=== PATIENT | female | born 1985 | race Asian ===

== ENCOUNTER 2016-07-13 14:02 | Inpatient (IN) | payer OTHER ==
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
[2016-07-13 14:29] VITALS: BP 142/83; PULSE 115; RESP 18; O2SAT 95
[2016-07-13 15:09] VITALS: BP 107/51; PULSE 95; RESP 18; O2SAT 100
[2016-07-13 15:45] LABS: APPEARANCE,URINE CLEAR (CLEAR,HAZY); COLOR,URINE YELLOW (YELLOW)
[2016-07-13 15:47] LABS: OCCULT BLOOD,URINE NEGATIVE (NEGATIVE); UROBILINOGEN,URINE NORMAL (NORMAL)
[2016-07-13 15:58] LABS: BASOPHILS % (AUTO) 0.1 % (0-3); EOSINOPHILS % (AUTO) 0.9 % (0-5); MONOCYTES % (AUTO) 8.7 % (4-12); Mean Corpuscular Hemoglobin 29.5 pg (27.0-35.0); Mean Corpuscular Volume 90.2 fL (81-100); NEUTROPHILS % (AUTO) 71.2 % (40-74); Platelet Count 292 bil/L (150-400)
[2016-07-13 17:05] VITALS: BP 103/66; PULSE 104; RESP 16; O2SAT 100
[2016-07-13 19:57] VITALS: BP 114/67; PULSE 127; O2SAT 100
[2016-07-13 23:32] VITALS: BP 89/45; PULSE 102; O2SAT 96
[2016-07-14] MEDS ORDERED: Benzocaine-Menthol Lozenge 2/Pkg PO PRN ×2 (00:15→13:45)
[2016-07-14] MEDS ORDERED: Alum-Mag Hydrox-Simeth 30 mL Suspension PO PRN ×2 (00:15→13:45)
[2016-07-14] MEDS ORDERED: Magnesium Hydroxide 10 mL Oral Concentration PO PRN ×2 (00:15→13:45)
[2016-07-14] MEDS ORDERED: LORazepam 1 mg Tablet PO PRN ×2 (00:20→13:45)
--- NOTE | 2016-07-14 01:50 | NUR ---
Observations 1900 to 0700 Pt arrived on the floor at 00:10 and was not able to partake in the intake process. Pt went straight to her room and has been in bed ever since. Pt first appeared asleep at 00:30 and was observed every 15 minutes through the night as directed.
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
--- NOTE | 2016-07-14 08:50 | DRSVH ---
PROCEDURE: US ABDOMEN ([id number]) INDICATIONS: elevated alk phos TECHNIQUE: Real-time scanning was performed of the abdominal and retroperitoneal organs, with image documentatio n. COMPARISON: [facility], US, US OB FOLLOW UP GROWTH, 07/13/2016, 2:39. FINDINGS: Liver: Liver is normal in size and homogeneous in echotexture. Gallbladder: Normal gallbladder. Biliary ducts: Intrahepatic bile ducts are non-dilated. Extrahepatic bile duct caliber measures 2 p oint mm. Normal is 6-7 mm or less in diameter, or 10 mm or less post-cholecystectomy. Pancreas: Visualized portions of the pancreas are sonographically normal. Spleen: Spleen is normal in size and homogeneous in echotexture. Kidneys: Kidneys are normal in size and echotexture. Right kidney measures 11.5 cm long; left kidne y measures 11.9 cm long. Mild right hydronephrosis.. No solid masses. Aorta: Visualized aorta is normal in caliber at less than 3 cm. Iliacs: Proximal common iliac arteries are normal in caliber at less than 2.5 cm. IVC: Intrahepatic inferior vena cava is patent. Miscellaneous: No free abdominal fluid. Patient is ampullary measured at 169 beats per min cassia. IMPRESSION: Mild right hydronephrosis which may be related to patient's . Recommend correla tion with history and symptoms. Dictated by: Jovanny Figueroa A Interpreted: Anuradha Barrios MD on 07/14/2016 at 8:48 Transcribed by: PRACHI on 07/14/2016 at 8:50 Approved by: Anuradha Barrios MD, PhD on 07/14/2016 at 17:14
--- NOTE | 2016-07-14 14:19 | NUR ---
[id number]. nurs. S/O: Pt in bed in am with 1:1 present to monitor pt's safety and inability to contract for safety.Pt is mandarin speaking and has some ltd Honduran. Pt did respond to enc. to come to DR to eat breakfast and lunch, preferred some of supplements, states is non meat eating and expressed some PI re. worried that something may be put into open food and drink items. Pt took shower appropriately. Pt also expressed concern that she has difficulty sleeping at night, is afraid in dark and "that someone might be outside the window "committing suicide". Pt stating that she would be less afraid and sleep if could sleep outside nurses station at night. Pt reported hx of cutting arms stated not to kill self but had seen it on TV. Pt noted to scratch arms superficially while conversing and appearing nervous. Pt reporting depression of 8/10 and anxiety of 10/10 stating she is always sad and anxious about being substantially without support of family and friends. Pt states that people look down on me because I am single (and ?) Pt did come with enc. to colour briefly then returned to bed. Addendum: 07/14/16 at 1528 by CHRISTIANO NAVAS RN Pt accepted offered 0.25mg at 1513 approx. Pt etl software engineer continued to monitor safety.
[2016-07-14] MEDS: LORazepam 0.5 mg Tablet PO SCH ×2 (14:52→20:30)
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
--- NOTE | 2016-07-14 18:12 | NUR ---
[facility] Day Shift Pt placed on 1:1 sitter status for pt safety. Pt maintained behavioral control throughout the shift. Pt affect appears flat, blunt. Pt is mostly non-communicative with staff due to language barrier, but is able to respond appropriately to basic questions/statements. Pt spends the majority of the shift resting in her room. Pt occasionally observed scratching her arms with her fingernails. Pt is only active on the unit to attend meals, very briefly staying in the dining room to color following lunch. Pt attended all meals and ate approx 100% of breakfast, 30% of lunch, and 100% of dinner.
--- NOTE | 2016-07-14 18:58 | NUR ---
Gifts Officer/Counselor: S: "I tend to hate others." O: Met with patient, patient's nurse, japanese interpreter. Patient slept 6+ hours last night per staff. Patient denied S/I and H/I. She also denied auditory and visual hallucinations. Depression is 8-9/10 and anxiety is 10/10. Patient stated, via japanese interpreter, I'm not happy of being . I never thought about killing myself or my mom." Patient is about 27 weeks and has not seen an enrollment management coordinator since April 2016. Patient stated, via japanese interpreter, "I don't need one." A: Patient is cooperative, anxious, depressed, limited insight, limited judgement. P: Follow care plan, coordinate with out-patient providers.
--- NOTE | 2016-07-15 01:49 | NUR ---
Observations 1900 to 0700 Pt was in her room for mos to of the shift. Pt came out briefly and went right back to her room. Pt first appeared asleep at 00:30 and was observed every 15 minutes through the night as directed.
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
--- NOTE | 2016-07-15 05:19 | NUR ---
nursing, nights, 11-7 s/o- has direct line of sight one to one observation. has appeared to sleep after [id number], 0 to 0400, up to the toilet and easily returned to sleep. assessed q 15 minutes. a- no apparent distress. p- monitor behavior/emotional state, quality, times and amount of sleep, use and effect of medication. continue one to one staffing for safety. rosie
[2016-07-15] MEDS: LORazepam 0.5 mg Tablet PO SCH ×3 (08:48→20:23)
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
--- NOTE | 2016-07-15 17:51 | NUR ---
[facility] Day Shift Pt affect and behavior mostly unchanged from previous shift. Pt maintained behavioral control throughout the shift. Pt affect appears flat, blunt (though brighter than noted on previous shift). Pt is mostly non-communicative with staff due to language barrier, but is able to respond appropriately to basic questions/statements. Pt spends the majority of the shift resting in her room. Pt is only active on the unit to attend meals, very briefly staying in the dining room to color following lunch. Pt attended all meals and ate approx 80% of all meals.
--- NOTE | 2016-07-15 18:08 | NUR ---
Documentation Writer/Counselor: S: "I think I will eat something." O: Met with patient. Patient slept 9+ hours last night per staff. Patient denied S/I and H/I. She also denied auditory and visual hallucinations. A: Patient is cooperative, anxious, depressed, fearful, blunted affect, limited insight, limited judgement. P: Follow care plan, coordinate with out-patient providers.
--- NOTE | 2016-07-15 23:41 | NUR ---
Dictated for Jenn Guillen by Kashif Spring 1:1 continued through the day shift to monitor patient safety. Pt c/o HUGHES but refused medications and reported resolve after few hours. Pt did take all schduled medications this shit. Pt meeting with MD, First Officer, and public health officer this shift. Out to DR for meals and supplements and spent short periods in DR coloring. Pt presents brighter affect and color in afternoon. 1:1 discontinued in afternoon. Q15 minute safety checks, Pt not referencing this shift.
--- NOTE | 2016-07-16 04:24 | NUR ---
Pt isolated to room all of shift. Pt asleep at [id number], 2245. Pt observed every 15 minutes as ordered.
--- NOTE | 2016-07-16 05:03 | NUR ---
Nursing Noc Pt isolated to room entire shift. Answers questions with one or two words, as minimally as possible. Refused all available HS medications. Continuing to monitor mood behavior and emotional state. Q15 minute safety checks performed throughout the shift.
[2016-07-16] MEDS: LORazepam 0.5 mg Tablet PO SCH ×2 (08:36→20:30)
[2016-07-16 09:00] VITALS: BP 107/69; PULSE 81; RESP 16
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
--- NOTE | 2016-07-16 13:27 | NUR ---
Nursing 7-3 S: "The ghost tells me it wants to get me and take me away." O: Patient describing through an overage shortage and damage clerk the voices she hears when she is in her room at night. Denies any hallucinations during the day or when out of her room. Denies harmful thoughts. Rates her anxiety as 10/10. Acknowledges understanding to approach nursing staff for anxiety medication. Declined offer of Ativan after lunch. Has eaten well today at meals. Showered this AM. A: Pleasant on approach. Quiet for the most part. P: CPOC. Monitor mood and behavior.
--- NOTE | 2016-07-16 18:03 | NUR ---
[facility] Day Shift Pt affect and behavior mostly unchanged from previous shift. Pt maintained behavioral control throughout the shift. Pt affect appears flat, blunt (though brighter than noted on previous shift). Pt is mostly non-communicative with staff due to language barrier, but is able to respond appropriately to basic questions/statements. Pt spends the majority of the shift resting in her room. Pt is only active on the unit to attend meals, very briefly staying in the dining room to color following lunch. Pt occasionally enters the dining room to retrieve snacks throughout the shift. Pt attended all meals and ate approx 80% of all meals.
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
[2016-07-16] MEDS ORDERED: risperiDONE 2 mg Tablet PO SCH (20:30)
--- NOTE | 2016-07-16 22:31 | NUR ---
Nurses Note evening Patient has remained in her room this shift except for dinner.Patient was pleasant on approach but guarded possibly related to the language barrier. She was cooperative with the OB-Polymerization Oven Tender doctors' assessment. Patient to be followed by their service while here. Patient has not complained of any discomfort. The sign language interpreter is scheduled to visit tomorrow at 11:30am while the psychiatrist and home health care case manager are here. Will continue to encourage adequate nutrition,hydration and sleep patterns,maintain q 15min. checks for safety and support. Addendum: 07/16/16 at 2245 by NANCY GEE RN Amended: Links added.
--- NOTE | 2016-07-17 04:41 | NUR ---
Manager Endoscopy Note 7pm to 7am Pt awake at start of shift, resting in her bed. Pt pleasant on approach, attempting to communicate in broken Icelandic. Responding to questions with yes/no answers with smile on face. Declined Klonopin [employer] med. When asked if she wanted a drink, pt stated I have water but on further inspection glass was empty. It is unknown if pt is getting adequate fluid and food intake. Unable to accurately assess mental status as pt speaks limited Icelandic and needs an motor vehicle parts interpreter. Per report [facility] motor vehicle parts interpreter will be on unit at 1130 3/4 to assist OB MD with assessment. Pt appeared to have slept through the night, in no acute distress. Monitored q 15 minutes for safety, location and accountability.
[2016-07-17] MEDS: LORazepam 0.5 mg Tablet PO SCH ×2 (08:21→21:21)
[2016-07-17 11:41] VITALS: BP 102/72; PULSE 97; RESP 16
--- NOTE | 2016-07-17 12:48 | NUR ---
Nursing Day Shift S: "The ghosts are gone. They're not here." O: Marker Maker here for assessment of patient. Patient denies hallucinations. Anxiety and depression very high. Received Tylenol 650 mg for c/o headache at the end of the interview and Ativan 1 mg for high anxiety following interview with the MD, CM, and RN. Up in dining room for lunch afterward with a good appetite. Is presently asleep in her room. A: Flat. Interactive with short responses. Forlorn in interview with freight trucker and treatment team. P: CPOC. Monitor mood and behavior.
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
--- NOTE | 2016-07-17 16:32 | NUR ---
Observations 0700 to 1900 Pt maintained behavioral control throughout the shift. Pt is isolative and refused community activities throughout the day, except for briefly watching watching TV with peers in afternoon. Pt spent most of day in bed, coming out for meals. Pt affect is flat. Pt ate 75-100% of breakfast and lunch and was observed every 15 minutes as ordered.
--- NOTE | 2016-07-18 00:35 | NUR ---
restaurant shift supervisor nursing note 7pm to 7am Pt in bed at start of shift, resting quietly. Pt arousable. Difficult to assess mental status as pt answered questions with one word answers" fine" and was graciously dismissive. Pt's main language is mandarin mosotho. Pt took HS Klonopin and went back to bed. Pt declined offers of food and fluids during snack time. Addendum: 07/18/16 at 0444 by MARY LOO RN Pt had some uninterrupted sleep throughout the night, declined prn medications and declined fluids. Pt had a total of 6.25 hours of sleep. Monitored q 15 minutes for safety location and accountability
[2016-07-18] MEDS: LORazepam 0.5 mg Tablet PO SCH ×3 (08:28→20:40)
[2016-07-18 09:30] VITALS: BP 101/63; PULSE 99; RESP 16
--- NOTE | 2016-07-18 12:12 | NUR ---
Nursing Dayshift: S: "A little." O: Operations Manager Assistant present and utilized for assessing patient. Patient states the above when discussing if the medication is working to help her mood. Relates she feels she is a burden to people. Suicide plan outside of unit is to "hide knives or sharp objects and use them if I'm feeling bad". Vague in many responses. Is up and out of her room for meals and a shower. Verbalizes understanding of need to keep hydrated for her and the baby's benefit. Rates anxiety and depression both at a 10/10. Denied offer of prn. A: Isolative. Vague. Med compliant. P: CPOC. Monitor mood and behavior.
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
--- NOTE | 2016-07-18 18:05 | NUR ---
Observations [id number] Pt was asleep upon start of shift. Pt continues to isolate to room, although did spend a little more time with peers today then observed in previous days. Pt attended all meals, eating 100%. She took a shower and also did laundry. Pt is observed to be friendly with peers and staff, although struggles with communication due to language barrier. Pt did not attend groups and presents as timid and very shy. She was observed every 15 minutes of shift as directed.
--- NOTE | 2016-07-18 19:30 | NUR ---
Nurses Note Evening Patient has been out of her room on several occasions,pleasant and interactive with select female peer. Appetite, hygiene and sleep pattern undisturbed. Patient was not seen by OB-PRISON WARDEN Vinayka/Amy, however has not had any complaints or problems. Will maintain q 15min. checks for safety,support. Addendum: 07/18/16 at 1937 by NANCY GEE RN Amended: Links added.
[2016-07-18 21:30] VITALS: BP 100/62; PULSE 98; RESP 16
--- NOTE | 2016-07-19 05:37 | NUR ---
nursing, nights, 11-7 s/o- has appeared to sleep after 2144. was talking to himself at 229. appeared to sleep after 329. assessed q 15 minutes. a- interrupted sleep/nightmare, no apparent distress. p- monitor behavior/emotional state, quality, times and amount of sleep, use and effect of medication. Addendum: 07/19/16 at 0540 by HEATHER BHATT RN Error in previous note. Placed onwrong person. Pt Femi Con was noted to be asleep at 1999 awoke shortly at 2114 , then noted to sleep the rest of the shift from 2144.
[2016-07-19] MEDS: LORazepam 0.5 mg Tablet PO SCH (08:31)
--- NOTE | 2016-07-19 13:12 | NUR ---
Nursing Note [id number] Behavior, Mood S/O: Pt out in milieu part of the morning. Pt rated mood at a 9/10-10 the best. Pt attended community meeting & made a goal to read her book. Pt able to converse in ordinary conversations in [place]ese. Conversation broken, but understandable. Pt isolative in room part of the morning. Pt ate 100% of breakfast & 75% of lunch. Consult written for CERTIFIED MEDICAL BILLER. Pt met with psychiatrist & associate media director this morning. A: Pt has limited ability to understand her situation. P: Provide supportive environment. Monitor medications & effects.
[2016-07-19] MEDS: diphenhydrAMINE 25 mg Capsule PO SCH ×3 (14:25→21:02)
--- NOTE | 2016-07-19 14:39 | PCM.PNPSY ---
Subjective Date of Service Jul 19, 2016 Subjective The patient is seen with a [employer] coatings inspector for approximately 25 minutes. The patient reports that she is "okay" today. Although she cannot state in detail why she is in the hospital she is able to state that it was due to an involuntary hospitalization. She states, "I have learned a lot and I feel more emotionally stable." Although she reports having increased anxiety and depression she is unable to give any details and smiles while describing this. She reports having episodic suicidal ideation without any intent or plan. She reports in the past having pulled at her skin. She denies any side effects. Sleep: 9+ hours. Appetite: "Hungry, not enough food... Feels like there are worms in my stomach eating my food." Suicidal and homicidal ideation: Episodic suicidal ideation without plan or intent. No homicidal ideation. Auditory hallucinations: Denies Visual hallucinations: Denies Other Psychotic Symptoms: N/A Anxiety: "I worry there is not enough medicine left for me." 10 over 10 and anxiety. Depression: 10/10 and depression. Current Medications Current Medications Diphenhydramine HCl 25 mg TID PO Last administered on 07/19/16 14:25; Admin Dose 25 MG; Start 07/19/16 at 14:30 Lorazepam 0.5 mg TID PO Last administered on 07/19/16 08:31; Admin Dose 0.5 MG; Start 07/17/16 at 20:30; Stop 07/19/16 at 13:59; Status DC Mental Status Exam Appearance: Neat/well groomed Attitude: Cooperative, Guarded Behavior: Other (avoidant eye contact) Affect: Restricted, Other (smiles occasionally) Mood: Anxious, Fearful Thought Process/Associations: Goal Directed Speech Production: Normal Speech Rate: Normal Speech Articulation: Normal Thought Content: Negativistic Danger to Self/Suicidal Ideati: Passive, Plan (denies), Intent (denies) Danger to Others: None Delusions: Paranoid (unclear) Hallucinations: Auditory (Denies), Visual (Denies) Consciousness: Alert Orientation: Person, Place, Date, Situation Memory: Untestable Estimate Intellectual Function: Unable to assess Attention/Concentration & Cogn: Impaired Insight: Limited Judgement: Limited Result Diagram: 07/13/16 1527 07/13/16 1527 Mental Health Plan The patient is a 30-year-old, Mandarin speaking female who reportedly tried to "cut the baby out" at times due to anger. The patient appears to meet criteria for major depression and so was started on fluoxetine and lorazepam for anxiety. The patient requested an increase in antianxiety medication, however lorazepam is generally avoided where possible and and so will be switched to diphenhydramine per consultation with SOLAR ENERGY ADVISOR regarding safest treatment. The patient is currently denying active suicidal or homicidal ideation though endorses chronic/episodic thoughts and agrees to notify staff of worsening symptoms. [place] DIAGNOSIS: [place] I: 1. 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 2. Rule out post-traumatic stress disorder.s [place] II: Deferred. [place] III: Intrauterine at 29 weeks. [place] IV: Severe. [place] V: 35 Medications Fluoxetine 20 mg daily Lorazepam 0.5 mg 3 times daily Treatments 1. The patient is admitted to the inpatient unit and will be provided a safe and secure environment. 2. The patient is reporting passive suicidal ideation but is denying current active suicidality and is not in need of a one-to-one at this time. She is agreeing to notify us should she have any acute suicidal or homicidal thoughts. 3. The patient is encouraged to participate with group and milieu activities. 4. The patient will be seen by the treatment team on a daily basis to assess symptoms, side effects and response to treatment. [employer]INAS [employer]OPHAR[employer] coatings inspector will be used during these times. 5. The patient will be continued on fluoxetine for depression and possible PTSD. 6. As the patient reports lorazepam is ineffective, we will switch to diphenhydramine 25 mg 3 times a day with 25 mg every 4 hours as needed to address anxiety. 7. We will need to continue to work on a proper discharge planning. 8. Anticipated length of stay is 7-10 days. Rigoberto Egan MD Jul 19, 2016 14:39 environment Tolerates medication without side effects Patient will be on the following psychiatric medications: Prozac 20 mg daily Ativan to 0.5 mg 3 times a day Address patient's legal status Patient is on a 72 hour involuntary treatment hold. Patient will be given the opportunity to talk to her clinical nursing instructor and the precise winder on Tuesday Rigoberto Egan MD Jul 19, 2016 14:39
--- NOTE | 2016-07-19 15:42 | NUR ---
Alumni Relations Officer./ c.m. S.:"I feel better. I learned a lot here and my emotions are not shifting that much." O.: met with pt., stone finisher and MD together. Pt. slept well last night. She denied HI, denied AH/VH or paranoid/delusional thoughts. She continued having SI but she was able to contract for safety. She rated depression at 10/10 and anxiety at 10/10. She said that she was "always worry and afraid of strangers. She admitted that meds were helping her "a little". She said that she liked to be called "kojo cat because it is cute." She was concerned that she wanted to eat more. "I feel like I have worms inside." She spent most of the time in her room. She said that she would be able to go back to her renting place and her "uncle will pay" for her rent. A.: pt. is cooperative, pleasant, looks more comfortable in a conversation. She has limited Burmese but she understands and can speak Burmese much more than she wants staff to know about it. P.: monitor behavior, monitor for safety, follow care plan.
--- NOTE | 2016-07-19 20:06 | NUR ---
Observations 0300 to 2130 Pt maintained behavioral control throughout the shift. Pt continues to isolate but also spent slightly more time than previous shifts in the milieu. Pt seemed to enjoy coloring in dining room in afternoon. Pt attended community meeting and set daily goal to read chapter 3 of bible. Pt self rated mood at 9/10. Pt ate 75-100% of meals and was observed every 15 minutes as ordered
--- NOTE | 2016-07-19 22:46 | NUR ---
Nursing Note Floridalma- Pt isolating to room upon arrival to unit. Upon assessment pt appears guarded with little eye contact. Limited conversation r/t language barrier. when asked if pt felt safe on the unit pt stated" not at night, the women comes in and wants to eat me. Pt eating meals and drinking fluids, when asked if pt was happy about the baby pt stated " yes now it will be two. Pt denied HS Benadryl Q15 min safety checks done per protocol, WCTM sleep, safety, behavior.
--- NOTE | 2016-07-20 01:54 | NUR ---
Observations 1900 to 0700 Pt was in her room when my shift started and remained there for the rest of the night. Pt first appeared asleep at 21:45 and was observed every 15 minutes through the night as directed.
--- NOTE | 2016-07-20 05:36 | NUR ---
Nursing Noc 11-7 Pt noted to be asleep this shift. First noted to be sleeping at 2145 and remained asleep throughout the night. Continuing to monitor sleep, safety, and behavior
[2016-07-20] MEDS: diphenhydrAMINE 25 mg Capsule PO SCH ×3 (08:11→20:30)
--- NOTE | 2016-07-20 11:11 | CONS ---
[address] [address] CONSULTATION REPORT PATIENT: TOMMY ADAMS : 1985 MR#: [id number] ADMIT: 07/13/2016 JOB ID: [id number] DATE OF SERVICE: 07/20/2016 HISTORY OF PRESENT ILLNESS: This is a 30-year-old female. She is possible to be 2 para 0-0-1-0, at 30 weeks 3 days, based on 29-week ultrasound. This patient was admitted to the psych unit for suspicion of psychosis on July 13, 2015. I was consulted for 30 weeks . When I presented to the psych unit, the patient is calm, sitting on the bed with the nurse and resident. I spoke with her in Mandarin. She can understand my language well. She can understand my question well. She answers some questions. She keeps quiet for some other questions. When I repeat the same questions in several minutes interval, she often times gives me different answers. Per patient, she has been known she's from a long time ago. She did not seek any care. The patient mentions that she had a boyfriend but she does not live with her boyfriend, and she had no plan to live with her boyfriend in the future. She planned to deliver the baby in the hospital and she will take care of the baby for a short period time, and the plan is her boyfriend to take over care of the baby in the future. She does not feel discomfort with the . When I asked about movement, she said, "I don't care about it." She cannot answer me whether she feels the movement or not. She does not complain of abdominal pain. She does not have vaginal bleeding or abnormal vaginal discharge. Allergy: She declined any medication allergies. PAST MEDICAL HISTORY: She mentioned she has some psychology problems, but otherwise she declined other medical problems. PAST SURGICAL HISTORY: She declined any surgeries before. OBSTETRICAL HISTORY: When she talked with me, she said she has one miscarriage several years ago, but per the nurse at the [facility], she told people she had a 5-year-old. At this time, she declined she ever had a child. GYNECOLOGIC HISTORY: She declined any abnormality, and she could not tell me her last menstrual period. SOCIAL HISTORY: She has history of smoking. She rarely drinks alcohol. She admits she has used drugs before, but she has been using for a while. She cannot specify what kind of drug she has been using, or how long she has been stopped. PHYSICAL EXAMINATION: When I was trying to do a physical examination, the patient complained that she has a headache and she did not want to talk or she did not want me to do a physical examination. I talked with her whether it is okay to come back in the future, she said it is okay and she thanked me for coming in to see her. ASSESSMENT AND PLAN: This is a 30-year-old female, unclear and parity. From today's evaluation per patient, she is 2 para 0-0-1-0. She should be around 30 weeks 3 days based on 29-week ultrasound. This is a patient who never had care. How long she will still stay at the psych unit at this time it is not very certain. Today, she did not tell me she has any suicidal ideas, but reading on the previous note, she does sometime have it, although has no active plan. PLAN: From the PAY STATION COLLECTOR point of view, I will plan to: 1. Order complete labs including HIV, hepatitis B, C, RPR, rubella, varicella. I also order her urine chlamydia gonorrhea test. 2. We will do a daily Doptone. 3. I will order anatomy scan. 4. For her medication, Prozac and Benadryl is a relatively safer medication in . The patient can continue with those if she needed, and lorazepam is relatively not as safe as Benadryl, but if it is needed to control her psychology problems, it should be used. If the patient will need stay in the psych unit for a prolonged time, PAY STATION COLLECTOR will follow. At this time, if she is about 30 weeks , besides daily Doptone, we could consider to see her every two weeks. Please feel free to contact PAY STATION COLLECTOR for further questions. If the patient will be discharged from the psych unit, you can contact our office to make an appointment for her for further follow up. WHITNEY
--- NOTE | 2016-07-20 11:19 | DRSVH ---
PROCEDURE: US OB 1 OR MORE FETUS LIMITED INDICATIONS: anatomy OUTSIDE/PRIOR DATING DATA: First dating scan (date and location): 07/13/2016. Estimated date of delivery (SAMEREN) from first dating scan: 09/25/2016. TECHNIQUE: Real-time scanning was performed of the fetus, with image documentation and biometric measurements. COMPARISON: [facility], US, US OB FOLLOW UP GROWTH, 07/13/2016, 2:39. FINDINGS: General: A single living intrauterine gestation is present. Presentation: Breech. Placenta: Placental position is anterior, without previa. OB-IMPROVEMENT SPECIALIST Ultrasound Procedure Report Summary Fetus Summary Estimated Gestational Age from first dating scan: 30 weeks, 3 days Heart Rate: 156 bpm Findings(Amniotic Sac) Amniotic Fluid Index: 13.50 cm Pelvis and Uterus Cervix Length: 3.97 cm Other: Not applicable. IMPRESSION: 1. Single living intrauterine gestation redemonstrated. 2. Normal appearance of the ventricles, cord plexus, cerebellum, face, 4 chamber heart and card iac outflow tracts. Dictated by: Jovanny ORTEGA Interpreted: Preethi Betts MD on 07/20/2016 at 11:07 Transcribed by: DANNY on 07/20/2016 at 11:09 Approved by: Preethi Betts M.D. on 07/22/2016 at 16:23
[2016-07-20 12:19] LABS: APPEARANCE,URINE HAZY (CLEAR,HAZY); COLOR,URINE STRAW (YELLOW); OCCULT BLOOD,URINE NEGATIVE (NEGATIVE); PH,URINE 6.5 (5.0-8.0); UROBILINOGEN,URINE NORMAL (NORMAL)
--- NOTE | 2016-07-20 12:43 | NUR ---
Nursing Note [id number] Behavior S/O: Pt seen by MARKETING ANALYTICS SPECIALIST doctor this morning. Blood draws & urine labs ordered. Urine sent to laboratory. Pt has refused blood draws twice today. She gave no reason for refusing labs. Ultra sound finished this morning. Pt is to receive an MARKETING ANALYTICS SPECIALIST consult every 2 weeks until d/c & to have heart tones daily per MARKETING ANALYTICS SPECIALIST doctor who saw her this morning. Pt ate 100% of breakfast & 20% of lunch. Pt has little eye contact. She is difficult to understand because of the language barrier, but is able to express simple concepts. Pt had commutator undercutter to communicate with steaming machine operator, animal cytologist, and psychiatrist. Pt is scheduled for court tomorrow. She has signed that she d/n want medications. A: Pt has little understanding of need to care for herself or unborn baby. P: Provide supportive environment. Monitor medications & effects.
--- NOTE | 2016-07-20 20:09 | PCM.PNPSY ---
Subjective Date of Service Jul 20, 2016 Subjective The patient is seen with Dopios wolf hunter. She states that she did not see this senior copywriter yesterday, but when informed of conversation, states, "yes, but only for a little bit." She did recall seeing Dr. Lackey from [facility] and described having received an ultrasound. She endorsed having previously had thoughts of killing her baby, but now reports that she no longer has these thoughts but only finds the baby, "interesting." She reports that she plans to take care of baby on discharge, but is not sure how as she has no housing. She reports that diphenhydramine has helped her anxiety, but still rates it 10/10 despite being informed of the nature of a 10/10 rating and no objective signs of anxiety. No side effects or new medical complaints. Sleep: 8+ hours per staff Appetite: Good, reports being hungry. Suicidal and homicidal ideation: "not a big deal," reports feeling trapped every day. Denies plan or intent to harm self. Auditory hallucinations: Denies Visual hallucinations: Denies Other Psychotic Symptoms: poor eye contact, inappropriate smiling. Anxiety: 10/10 benadryl helpful Depression: "need treatment." Current Medications Current Medications Diphenhydramine HCl 25 mg TID PO Last administered on 07/20/16t 13:50; Admin Dose 25 MG; Start 07/19/16 at 14:30 Mental Status Exam Appearance: Neat/well groomed Attitude: Cooperative, Guarded Behavior: Other (avoidant eye contact, inappropriate smiling.) Affect: Restricted, Other (smiles occasionally) Mood: Anxious, Fearful Thought Process/Associations: Goal Directed Speech Production: Normal Speech Rate: Normal Speech Articulation: Normal Thought Content: Negativistic Danger to Self/Suicidal Ideati: Passive, Plan (denies), Intent (denies) Danger to Others: None Delusions: Paranoid (unclear) Hallucinations: Auditory (Denies), Visual (Denies) Consciousness: Alert Orientation: Person, Place, Date, Situation Memory: Untestable Estimate Intellectual Function: Unable to assess Attention/Concentration & Cogn: Impaired Insight: Limited Judgement: Limited Mental Health Plan The patient is a 30-year-old, Mandarin speaking female who reportedly tried to "cut the baby out" at times due to anger. The patient appears to meet criteria for major depression and so was started on fluoxetine and lorazepam for anxiety. The patient requested an increase in antianxiety medication, however lorazepam is generally avoided where possible and and so will be switched to diphenhydramine per consultation with HOT DIE PRESS FEEDER regarding safest treatment. The patient is currently denying active suicidal or homicidal ideation though endorses chronic/episodic thoughts and agrees to notify staff of worsening symptoms. Her initial presentation was as noted above, but when seen again as she was unwilling to speak with her personal injury attorney, she denied all previously made comments. There does not appear to be a clear psychotic disorder, but assessment of her symptoms is complicated by her lack of cooperation. [place] DIAGNOSIS: [place] I: 1. 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 2. Rule out post-traumatic stress disorder.s [place] II: Deferred. [place] III: Intrauterine at 29 weeks. [place] IV: Severe. [place] V: 35 Medications Fluoxetine 20 mg daily Lorazepam 0.5 mg 3 times daily Treatments 1. The patient is admitted to the inpatient unit and will be provided a safe and secure environment. 2. The patient is reporting passive suicidal ideation but is denying current active suicidality and is not in need of a one-to-one at this time. She is agreeing to notify us should she have any acute suicidal or homicidal thoughts. 3. The patient is encouraged to participate with group and milieu activities. 4. The patient will be seen by the treatment team on a daily basis to assess symptoms, side effects and response to treatment. Dopios wolf hunter will be used during these times. 5. The patient will be continued on fluoxetine for depression and possible PTSD. 6. The patient reports diphenhydramine 25 mg 3 times a day with 25 mg every 4 hours as needed to address anxiety more effective than lorazepam. 7. We will need to continue to work on a proper discharge planning. 8. Anticipated length of stay is 7-10 days. Rigoberto Egan MD Jul 20, 2016 20:09
--- NOTE | 2016-07-20 20:34 | NUR ---
Obs Dayshift Pt was out in the milieu slightly more today, still keeping to herself, walking the ralph and in bed. Pt stated that her stomach was hurting a little and wanted to talk w/ staff. Pt continues to decline the blood draw. Pt made many calls today. Isolating, quiet, reserved. Appears anxious, and guarded. Pt ate 100% at brkfast, 20% at lunch and dinner, no snacks. Ok ADL's
--- NOTE | 2016-07-20 23:34 | NUR ---
Nurses Note Evening Patient has been in her room most of this shift. She approached nursing c/o hard and painful abdomen with cramping. Sharda CLAIRE from family arrived with the monitor to R/O complications, no problems were noted and patient denied pain or discomfort to the nurses. Patients' appetite and hygiene have been undisturbed. Will maintain q 15min. checks for safety and support. Addendum: 07/20/16 at 2341 by NANCY GEE RN Amended: Links added.
--- NOTE | 2016-07-21 01:04 | NUR ---
Observations 1900 to 0700 Pt was in her room when my shift started and remained there for the rest of the night. Pt first appeared asleep at 23:45 and was observed every 15 minutes through the night as directed.
--- NOTE | 2016-07-21 05:17 | NUR ---
Sleep 11p-7a Adequate sleep through the night with no noted distress or awakening per protocol checks. Total sleep 6.5 hours.
[2016-07-21] MEDS: diphenhydrAMINE 25 mg Capsule PO SCH ×3 (10:21→20:30)
[2016-07-21 10:32] VITALS: BP 118/77; PULSE 89; RESP 16
--- NOTE | 2016-07-21 12:13 | NUR ---
Nursing Note [id number] Behavior S/O: Pt in court today & placed on 14 day MRO. Pt confused & standing at an exit door saying she was "going home." When told she needed to stay here, she replied, "for 2 weeks?"even before I explained about the 14 day MRO. Pt has been in her room much of the morning. Pt ate 70-80% of breakfast. Pt able to converse about general things in Luxembourgish, but needs an vacation sales advisor for complicated concepts. A: Pt appears confused & unable to understand concepts even when an vacation sales advisor is present. P: Provide supportive environment. Monitor medications & effects.
--- NOTE | 2016-07-21 15:54 | PCM.PNPSY ---
Subjective Date of Service Jul 21, 2016 Subjective The patient is seen with a Mandarin patient service rep. She has difficulty understanding that she needs to attend court in order to express her concerns and desires about discharge. The patient continued to report that she simply wanted to be released from the hospital. She had no plan moving forward. She would not discuss events prior to her hospitalization and denied having ever attempted to harm or threatened to harm her baby or anyone else. She denied side effects to medications. Sleep: 7.5+ hours. Appetite: Eating well. Suicidal and homicidal ideation: Denied Auditory hallucinations/Visual hallucinations: Denied Other Psychotic Symptoms: Unable to assess Anxiety: Endorses high anxiety but will not discuss symptoms. Depression: Denies symptoms at this time but uncooperative as noted above. Mental Status Exam Vital Signs Vital Signs Date Time Temp Pulse Resp B/P Pulse Ox O2 Delivery O2 Flow Rate FiO2 07/21/16 10:32 36.5 89 16 118/77 Appearance: Unkept (hair oily) Attitude: Guarded, Uncooperative Behavior: Other (avoidant eye contact) Affect: Restricted Mood: Irritable, Anxious Thought Process/Associations: Goal Directed Speech Production: Normal Speech Rate: Normal Speech Articulation: Normal Thought Content: Negativistic Danger to Self/Suicidal Ideati: None, Plan (denies), Intent (denies) Danger to Others: None Delusions: Paranoid (unclear) Hallucinations: Auditory (Denies), Visual (Denies) Consciousness: Alert Orientation: Person, Place, Date, Situation Memory: Untestable Estimate Intellectual Function: Unable to assess Attention/Concentration & Cogn: Impaired Insight: Limited Judgement: Poor Mental Health Plan The patient is a 30-year-old, Mandarin speaking female who reportedly tried to "cut the baby out" at times due to anger. The patient appears to meet criteria for major depression and so was started on fluoxetine and lorazepam for anxiety. The patient requested an increase in antianxiety medication, however lorazepam is generally avoided where possible and and so will be switched to diphenhydramine per consultation with MASTER ESTHETICIAN regarding safest treatment. The patient is currently denying active suicidal or homicidal ideation though endorses chronic/episodic thoughts and agrees to notify staff of worsening symptoms. Her initial presentation was as noted above, but when seen again as she was unwilling to speak with her transactional attorney, she denied all previously made comments. There does not appear to be a clear psychotic disorder, but assessment of her symptoms is complicated by her lack of cooperation. Ultimately, due to her lack of cooperation, and her symptoms prior to admission, the patient was detained for a 14 day order today. [place] DIAGNOSIS: [place] I: 1. 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 2. Rule out post-traumatic stress disorder.s [place] II: Deferred. [place] III: Intrauterine at 29 weeks. [place] IV: Severe. [place] V: 35 Medications Fluoxetine 20 mg daily Diphenhydramine 25 mg 3 times a day Treatments 1. The patient is admitted to the inpatient unit and will be provided a safe and secure environment. 2. The patient is reporting passive suicidal ideation but is denying current active suicidality and is not in need of a one-to-one at this time. She is agreeing to notify us should she have any acute suicidal or homicidal thoughts. 3. The patient is encouraged to participate with group and milieu activities. 4. The patient will be seen by the treatment team on a daily basis to assess symptoms, side effects and response to treatment. BDA patient service rep will be used during these times. 5. The patient will be continued on her current medication for depression and possible PTSD. 6. We will need to continue to work on a proper discharge planning. 7. Anticipated length of stay is 7-10 days. Rigoberto Egan MD Jul 21, 2016 15:54
[2016-07-21] MEDS: diphenhydrAMINE 25 mg Capsule PO PRN (18:04)
--- NOTE | 2016-07-21 18:41 | NUR ---
Case Management/Counseling S/O: Patient slept 7.5 hours last night. She denies S/I and H/I. She also denies auditory and visual hallucinations. Depression is 0/10 and anxiety is "high"/10. A: Patient is uncooperative, guarded, unkept, restricted affect, irritable, anxious, paranoid, limited insight, limited judgement. P: Follow care plan, coordinate out-patient providers.
--- NOTE | 2016-07-22 04:30 | NUR ---
Nursing Note [id number] Pt up at nursing station upon arrival to unit. Pt yelling and crying in broken Kenyan about wanting to use the phone and get her wallet and hand bags. Pt c/t to state " I want to go to [place]". Pt c/t refuse ordered and PRN meds. Pt isolating to room for rest of shift. Pt has not not slept the entire shift. When attempted to assist Pt with meds, snack pt Refused. Q15 min safety checks done per protocol, [facility] sleep, safety, behavior
[2016-07-22] MEDS: diphenhydrAMINE 25 mg Capsule PO SCH ×4 (08:15→21:15)
[2016-07-22 10:40] VITALS: BP 119/74; PULSE 106; RESP 16
--- NOTE | 2016-07-22 13:23 | NUR ---
Nursing Note [id number] Behavior, Medications S/O: Pt ate 70% of breakfast. She has only been out of room for meals & to talk with psychiatrist. Pt able to answer simple questions in Italian. Pt interacts only briefly with staff or peers. Pt refused her medications this morning. Pleasant upon approach. A: Pt is guarded & isolative. P: Provide supportive environment. Monitor medications & effects.
--- NOTE | 2016-07-22 17:48 | NUR ---
Observations [id number] Pt was awake in room upon start of shift. Pt appeared to be internally preoccupied, sitting on bed staring at the [place]ak. She was also observed staring at the wall in the piano room, and spending time by the end of the ralph appearing to be exit seeking. Pt did take a shower today, attended meals but otherwise isolated to her room. Pt did not attend groups. She was friendly when approached by peers and staff. Pt was observed every 15 minutes of shift as directed.
--- NOTE | 2016-07-22 19:17 | NUR ---
Nurses Note Patient was seen by 2 nurses from [facility] for HR check, was cooperative with the assessment with HR in the 140's. Addendum: 07/22/16 at 2257 by NANCY GEE RN Nurses Note Evening Patient refused HS Benadryl and has remained in her room except for dinner.She has not attempted to leave the unit tonight as she did last night and appeared calmer. Will maintain q 15min. checks for safetu and support.
--- NOTE | 2016-07-22 23:18 | PCM.PNPSY ---
Subjective Date of Service Jul 22, 2016 Subjective Had over hour long meeting with patient, mother, and [facility]. Her mother reports that the patient was raised by her grandparents in [place] in [facility]. Her mother indicated that their relationship has been poor for the last 10 years. The patient and her had over his decision to terminate her when one of their twins was found to be stillborn for approximately 1 week when she was 3 months , she then came to the [place] in February. Her came to the [place] in March but subsequently returned. The patient's parents in as her father did not want her as he had wanted a boy. Since that time, the patient's mother reported that the patient's overall mental health deteriorated. Despite this, the patient finished college, majoring in Montenegr[place] teaching. She worked as an toddler teacher until 2014. Her mother reports that 2-3 weeks prior to admission she was thinking that her was trying to kill the baby and believed that since her mother was trying to contact him, she was somehow involved and was trying to kill the baby. The patient's mother reported that the patient was not trying to kill the baby, but remove it from the womb so it could be born on [place] soil. The patient also reported at the time that she was hearing her husbands voice telling her that white men were coming to take the baby. The patient reports today that she is hearing people from [place] inside her head, telling her to call them. She notes that these voices have decreased since taking medication, but she is now afraid to take them. She asked her mother why she was limping and wearing a brace and was informed that the patient had cut her right kneecap and stabbed her left thigh and bit her left arm (where could be seen a healing, circular, full impression bite nora as well as butcher on her hand). The patient was unaware of this. Sleep: poor, 0 hours per staff Appetite: good Suicidal and homicidal ideation: denies Auditory hallucinations: as above Visual hallucinations: denies Other Psychotic Symptoms: poor insight. Anxiety: present Depression: decreased Mental Status Exam Appearance: Unkept (hair oily) Attitude: Cooperative, Guarded Behavior: Overtly anxious Affect: Restricted Mood: Anxious Thought Process/Associations: Goal Directed Speech Production: Normal Speech Rate: Normal Speech Articulation: Normal Thought Content: Negativistic Danger to Self/Suicidal Ideati: None Danger to Others: None Delusions: Paranoid (Endorses) Hallucinations: Auditory (Endorses), Visual (Denies) Consciousness: Alert Orientation: Person, Place, Date, Situation Memory: Short Term Memory (Impaired) Estimate Intellectual Function: Average Basis for IQ estimate: Awareness current events, Word use/vocabulary, Educational history, Employment history Attention/Concentration & Cogn: Impaired Insight: Limited Judgement: Poor Mental Health Plan The patient is a 30-year-old, Mandarin speaking female who reportedly tried to "cut the baby out" at times due to anger. The patient appears to meet criteria for major depression and so was started on fluoxetine and lorazepam for anxiety. The patient requested an increase in antianxiety medication, however lorazepam is generally avoided where possible and and so will be switched to diphenhydramine per consultation with DINKING MACHINE OPERATOR regarding safest treatment. The patient is currently denying active suicidal or homicidal ideation though endorses chronic/episodic thoughts and agrees to notify staff of worsening symptoms. The patient is clearly endorsing psychotic symptoms. These appear to have been responding to antidepressant treatment but if she continues to refuse antidepressant, we will need further discussion with DINKING MACHINE OPERATOR regarding start of antipsychotic. [place] DIAGNOSIS: [place] I: 1. 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 2. Rule out post-traumatic stress disorder.s [place] II: Deferred. [place] III: Intrauterine at 29 weeks. [place] IV: Severe. [place] V: 35 Medications Fluoxetine 20 mg daily Diphenhydramine 25 mg 3 times a day Treatments 1. The patient is admitted to the inpatient unit and will be provided a safe and secure environment. 2. The patient is reporting passive suicidal ideation but is denying current active suicidality and is not in need of a one-to-one at this time. She is agreeing to notify us should she have any acute suicidal or homicidal thoughts. 3. The patient is encouraged to participate with group and milieu activities. 4. The patient will be seen by the treatment team on a daily basis to assess symptoms, side effects and response to treatment. MandNomios enginehouse brakeman will be used during these times. 5. The patient will be continued on her current medication for depression and possible PTSD. 6. We will need to continue to work on a proper discharge planning. 7. Anticipated length of stay is 7-10 days. Rigoberto Egan MD Jul 22, 2016 19:25
--- NOTE | 2016-07-23 06:02 | NUR ---
nursing, nights, 11-7 s/o- has appeared to sleep after 2100, up sitting on bed at 0130, asleep at 0200, awake in bed at 0300 and asleep after 0500, assessed q 15 minutes. a- interrupted sleep somewhat improved, no apparent distress. p- monitor behavior/emotional state, quality, times and amount of sleep, use and effect of medication. rosie
[2016-07-23] MEDS: diphenhydrAMINE 25 mg Capsule PO SCH ×2 (08:32→14:32)
[2016-07-23 10:21] VITALS: BP 115/67; PULSE 96; RESP 16
--- NOTE | 2016-07-23 11:29 | NUR ---
Nursing Day Shift- S- "I'm not good." Pt. smiled as she said this. She denied pain, and answered "Sometimes" To feeling nervous or sad. O- Pt. was in bed at the start of the day shift. She had slept over 6 hours per report. Pt. was awake at breakfast with a superficial smile. She returned to her bedroom afterwards, and was observed sitting on her bed or standing in her room awake. She declined to attend groups, but requested a shower and laundry at 1140. A- Language barrier makes it difficult to confirm if Pt's responses are accurate, if she understood the questions being asked. Brief responses. No apparent distress. P- Cont. BHTP.
--- NOTE | 2016-07-23 12:11 | NUR ---
Nursing Day Shift- S- "I feel night and day better. I've only cried once today. When I first came in I couldn't look anyone in the eye. I'm getting there." (Pt. response to being asked how she felt today versus the day of admission.) O- Pt. was awake for breakfast. She reported the start of a migraine headache rated 5/10 for pain. Prescribed PRN Narcotic was given at 0830. Pt. set a goal of participating today. She has attended groups thus far. Headache pain dropped to 4/10. A- Depression and anxiety decreasing, but still present. P- Cont. BHTP.
--- NOTE | 2016-07-23 15:11 | PCM.PNPSY ---
Subjective Date of Service Jul 23, 2016 Subjective The patient is seen without an envelope adjuster today but expresses herself in somewhat halting Urdu. She states her mood is "I am fine but not good. Better but not good." She reports that she had to cough last night which disrupted her sleep. She feels that the Benadryl is causing some stomach upset. She is continued to take the fluoxetine. She denies any auditory hallucinations so far today. Sleep: 6.5+ hours, broken by cough. Appetite: "Not hungry but eating." Suicidal and homicidal ideation: Denies Auditory hallucinations: "Not so far today." Visual hallucinations: Denies Other Psychotic Symptoms: Improved thought organization and interaction. Anxiety: "Not exactly, a little." Depression: "Some sadness." Mental Status Exam Vital Signs Vital Signs Date Time Temp Pulse Resp B/P Pulse Ox O2 Delivery O2 Flow Rate FiO2 07/23/16 10:21 36.9 96 16 115/67 Appearance: Unkept (hair oily) Attitude: Cooperative, Guarded Behavior: Overtly anxious Affect: Restricted Mood: Anxious Thought Process/Associations: Goal Directed Speech Production: Normal Speech Rate: Normal Speech Articulation: Normal Thought Content: Negativistic Danger to Self/Suicidal Ideati: None Danger to Others: None Hallucinations: Auditory (Denies), Visual (Denies) Consciousness: Alert Orientation: Person, Place, Date, Situation Memory: Short Term Memory (Impaired) Estimate Intellectual Function: Average Basis for IQ estimate: Awareness current events, Word use/vocabulary, Educational history, Employment history Attention/Concentration & Cogn: Impaired Insight: Limited Judgement: Poor Mental Health Plan The patient is a 30-year-old, Mandarin speaking female who reportedly tried to "cut the baby out" at times due to anger. The patient appears to meet criteria for major depression and so was started on fluoxetine and lorazepam for anxiety. The patient requested an increase in antianxiety medication, however lorazepam is generally avoided where possible and and so will be switched to diphenhydramine per consultation with HALL MANAGER regarding safest treatment. The patient is currently denying active suicidal or homicidal ideation though endorses chronic/episodic thoughts and agrees to notify staff of worsening symptoms. The patient is clearly endorsing psychotic symptoms. These appear to have been responding to antidepressant treatment and is again medication adherent. She requests discontinuation of scheduled Benadryl. [place] DIAGNOSIS: [place] I: 1. 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 2. Rule out post-traumatic stress disorder.s [place] II: Deferred. [place] III: Intrauterine at 29 weeks. [place] IV: Severe. [place] V: 35 Medications Fluoxetine 20 mg daily Diphenhydramine 25 mg 3 times a day Treatments 1. The patient is admitted to the inpatient unit and will be provided a safe and secure environment. 2. The patient is reporting passive suicidal ideation but is denying current active suicidality and is not in need of a one-to-one at this time. She is agreeing to notify us should she have any acute suicidal or homicidal thoughts. 3. The patient is encouraged to participate with group and milieu activities. 4. The patient will be seen by the treatment team on a daily basis to assess symptoms, side effects and response to treatment. [employer] envelope adjuster will be used during these times. 5. The patient will be continued on her current medication for depression and possible PTSD. 6. Discontinue scheduled Benadryl. 7. Anticipated length of stay is 7-10 days. Rigoberto Egan MD Jul 23, 2016 15:11
--- NOTE | 2016-07-23 17:26 | NUR ---
Observations 0900 to 2130 Pt affect and mood was flat, isolative, exit seeking and preoccupied. Pt speech and eye contact was poor. Pt attended community meeting and set a daily goal. Pt was in her room most of the day, staring at the nowak and floor when observed. Pt was minimally social with staff and select peers when approached. Pt continues to give short responses when approached. Pt attended meals in D.R. and ate 50% of her meals. Pt maintained behavior throughout the shift. Pt was polite, pleasant and cooperative. Pt was in her room during free time and keeps to herself. Pt was observed every 15 minutes throughout the shift as ordered. Pt was at the end of the ralph for some time in the afternoon/evening and appears to be exit seeking. Pt is currently talking with RN at the end of the ralph by the door.
--- NOTE | 2016-07-23 21:16 | NUR ---
NURSING NOTE [id number] Mood= "It's okay" Affect= guarded, disorganized at times Behavior= pt. was in her room at start of shift, sitting on her bedside table when this information writer came to see her. She was reading and studying the back of a wet napkin package for a half hour as this information writer came to check in on her several times. She was quite chatty w/this information writer at start of shift, asking many questions about the hospital. Later became very guarded. At 16:30 she was seen standing a few feet from the exit doors to the unit, staring at the door. She told this information writer "I'm waiting for dinner." Required several mins of coaxing to get her to walk away from the exit doors. She went back to her room. When dinner arrived, she went and stood by the exit again and refused to come to the DR for her meal, repeating "5 minutes, I need 5 minutes" over and over. She became agitated when a male RN spoke with her and stated she would not talk to a man and then walked into another patient's room that was near the exit doors she was standing by. She refused to leave the pt's room initially but eventually agreed. She then went and sat in the DR and ate her meal. After her meal, she again went to the exit doors. When asked what she was doing she stated "I'm waiting for the doors to open." The unit rules were again explained to her and she was given warning that she would be placed on 1:1 supervision if she did not step away from the doors. When told this, she returned to the DR to read a phone book for an hr and then went to her bedroom for the night. Thought processes= flight of ideas, appears preoccupied, becomes frustrated w/staff. Denies being depressed or anxious. Denies SI.
--- NOTE | 2016-07-24 04:22 | NUR ---
Observations Pt noted to not sleep until 245. Out on unit making phone calls then isolated in room mainly sitting on night stand with her clean clothing in her lap. Not wanting to lay down and said there was nothig staff could help her with or do when asked throughout shift. Addendum: 07/24/16 at 0426 by [facility] Pt observed Q15 per ordered.
--- NOTE | 2016-07-24 05:49 | NUR ---
Nursing note: cage shift manager Patient observed to be restless with bizarre behavior in her room during the night. Patient sitting on her night stand holding clothing in her lap; then another observation noted patient to have toothpaste on her arms and legs. Patient stated she was "itchy", refused to allow staff to wipe off the toothpaste or accept prn Benadryl for comfort. Patient also perseverates about needing to leave the hospital. Patient with impaired judgement and fragmented sleep
[2016-07-24 10:45] VITALS: BP 102/71; PULSE 110; RESP 14
--- NOTE | 2016-07-24 11:19 | PCM.PNPSY ---
Subjective Date of Service Jul 24, 2016 Subjective The patient is seen with and without the [employer] dope sprayer. The patient initially gave minimal information, and head shakes, then refused to speak at all with the dope sprayer. This morning, patient was found to have toothpaste on smeared on her body and eventually redirected to the shower. She then declined to speak to us about it stating "my hair is wet." The room smelled of urine, but the patient would not say what may have been urine soaked. The patient either shook her head no, or declined to respond to all questions. She was informed that failure to respond to questions would indicate that her actions are delusionally based and we would need to prescribe antipsychotic medications in consultation with HOME CHILD CARE PROVIDER. The patient had no response. The patient initially refused fluoxetine this morning but later eventually accepted it. She has refused on two separate occasions. Sleep: 1.75 hours Appetite: eating Suicidal and homicidal ideation: shakes head "no" Auditory hallucinations: shakes head "no" Visual hallucinations: shakes head "no" Other Psychotic Symptoms: as above Anxiety: shakes head "no" Depression: shakes head "no" Mental Status Exam Appearance: Disheveled Attitude: Guarded, Uncooperative Behavior: Other (No or minimal eye contact.) Affect: Flat Mood: Fearful Thought Process/Associations: Blocking Speech Production: Paucity, Muter Speech Rate: Lags/Latency Speech Articulation: Normal, Other (some Senegalese, some Mandarin) Thought Content: Negativistic Danger to Self/Suicidal Ideati: None Danger to Others: None Hallucinations: Auditory (Denies), Visual (Denies) Consciousness: Alert Orientation: Unable to assess Memory: Short Term Memory (Impaired) Estimate Intellectual Function: Average Basis for IQ estimate: Awareness current events, Word use/vocabulary, Educational history, Employment history Attention/Concentration & Cogn: Impaired Insight: None Judgement: Poor Mental Health Plan The patient is a 30-year-old, Mandarin speaking female who reportedly tried to "cut the baby out" at times due to anger. The patient appears to meet criteria for major depression and so was started on fluoxetine and lorazepam for anxiety. The patient requested an increase in antianxiety medication, however lorazepam is generally avoided where possible and and so will be switched to diphenhydramine per consultation with HOME CHILD CARE PROVIDER regarding safest treatment. The patient is only minimally communicative, not sleeping, and engaging in bizarre behavior. Given her recent history, the patient is clearly experiencing psychotic symptoms. She requests discontinuation of scheduled Benadryl. The patient has failed to fully respond to antidepressant and, as of recently was endorsing command auditory hallucinations. At this time there is no less intrusive means of treatment than with an antipsychotic. Discussed using olanzapine (Cat C) with HOME CHILD CARE PROVIDER who will review case for second opinion given medication refusals. [place] DIAGNOSIS: [place] I: 1. 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 2. Rule out post-traumatic stress disorder.s [place] II: Deferred. [place] III: Intrauterine at 29 weeks. [place] IV: Severe. [place] V: 35 Medications Fluoxetine 20 mg daily Diphenhydramine 25 mg as needed. Treatments 1. The patient is admitted to the inpatient unit and will be provided a safe and secure environment. 2. The patient is reporting passive suicidal ideation but is denying current active suicidality and is not in need of a one-to-one at this time. She is agreeing to notify us should she have any acute suicidal or homicidal thoughts. 3. The patient is encouraged to participate with group and milieu activities. 4. The patient will be seen by the treatment team on a daily basis to assess symptoms, side effects and response to treatment. [employer] dope sprayer will be used during these times. 5. Fluoxetine will be continued, Zyprexa Zydis 5mg nightly will be added, with IM override when 2nd opinion approved. 6. Continue PRN Benadryl. 7. Anticipated length of stay is 10-14 days. Rigoberto Egan MD Jul 24, 2016 11:19
--- NOTE | 2016-07-24 11:51 | PCM.PNMED ---
Subjective Date of Service Jul 24, 2016 Subjective This is a 30-year-old Mandarin speaking female, and parity difficult to ascertain but believed to be at 31 weeks 0 days, based on 29-week ultrasound. This patient was admitted to the psych unit for suspicion of psychosis and reportedly attempting to "cut baby out" on July 13, 2015. OB/ Taxi Truck Driver was initially consulted for related concerns. Initial labs and ultrasound were conducted as patient has had no care up until this point. We are asked today to give a second opinion on adding Zyprexa to medication regimen as patient has had minimal improvement on Fluoxetine and diphenhydramine. In speaking with the patient today she does not speak to me when asked questions. She responded with a nod that she could feel the baby move and she nodded that she was not in pain. Otherwise she was just standing in the middle of her room. Exam Vital Signs Vital Sign - Last Date Time Temp Pulse Resp B/P Pulse Ox O2 Delivery O2 Flow Rate FiO2 07/23/16 10:21 36.9 96 16 115/67 Exam Generally patient is standing in her room. Hair appears to be unwashed or brushed. She does not speak, but will respond with a nod to some questions yes or no. Lab and Diagnostics Additional Diagnostics CBC Test 07/13/16 15:27 White Blood Count 6.9th/mm3 (3.8-10.1) Red Blood Count 3.76mil/mm3 (3.90-5.20) Hemoglobin 11.1g/dL (12.0-15.6) Hematocrit 33.9% (35.0-46.0) Mean Corpuscular Volume 90.2fL (81-100) Mean Corpuscular Hemoglobin 29.5pg (27.0-35.0) Mean Corpuscular Hemoglobin Concent 32.7% (32.0-37.0) Red Cell Distribution Width 13.1% (12.3-15.4) Platelet Count 292bil/L (150-400) Neutrophils (%) (Auto) 71.2% (40-74) Lymphocytes (%) (Auto) 18.8% (14-46) Monocytes (%) (Auto) 8.7% (4-12) Eosinophils (%) (Auto) 0.9% (0-5) Basophils (%) (Auto) 0.1% (0-3) Hold Purple Top Tube Received (Received) CMP Test 07/13/16 15:27 Sodium Level 135mEq/L Potassium Level 3.8mEq/L Chloride Level 98mEq/L Carbon Dioxide Level 24mmol/L Blood Urea Nitrogen 6mg/dL Creatinine 0.32mg/dL Estimat Glomerular Filtration Rate 350mL/min Glucose Level 87mg/dL Calcium Level 9.1mg/dL Total Bilirubin 0.2mg/dL Aspartate Amino Transf (AST/SGOT) 15U/L Alanine Aminotransferase (ALT/SGPT) 8U/L Alkaline Phosphatase 584U/L Total Protein 6.9g/dL Albumin 3.5g/dL Thyroid Stimulating Hormone (TSH) 0.644uIU/mL Hold Red Top Tube Received Hold [place] Top Tube Received Hold [place] Top Tube Received 07/20/16: US OB 1 OR MORE FETUS LIMITED FINDINGS: General: A single living intrauterine gestation is present. Presentation: Breech. Placenta: Placental position is anterior, without previa. OB-LASTER HAND Ultrasound Procedure Report Summary Fetus Summary Estimated Gestational Age from first dating scan: 30 weeks, 3 days Heart Rate: 156 bpm Findings(Amniotic Sac) Amniotic Fluid Index: 13.50 cm Pelvis and Uterus Cervix Length: 3.97 cm Other: Not applicable. IMPRESSION: 1. Single living intrauterine gestation redemonstrated. 2. Normal appearance of the ventricles, cord plexus, cerebellum, face, 4 chamber heart and cardiac outflow tracts. Dictated by: Jovanny Figueroa RRA Interpreted: Preethi Betts MD on 07/20/2016 at 11: 07 Transcribed by: DANNY on 07/20/2016 at 11:09 Approved by: Preethi Betts M.D. on 07/22/2016 at 16:23 Assessment & Plan This is a 30-year-old Mandarin speaking female, and parity difficult to ascertain but believed to be at 31 weeks 0 days, based on 29-week ultrasound. This patient was admitted to the psych unit for psychosis and reportedly attempting to "cut baby out" on July 13, 2015. PLAN: - Dr. Helton, psychiatrist, recommends initiating treatment with Zyprexa. Zyprexa is a Category C drug in . In this specific case potential benefits justify the potential risk to the fetus. Risk to the fetus include teratogenic or embryocidal effects although there are no controlled studies available. Patient currently unable to consent to medication administration due to ongoing psychiatric illness. Since she is in her third trimester the risk of teratogenic effect is lower. Her other risk with starting Zyprexa may be an increased risk for GDM and would recommend that once patient is more cooperative getting a 1hr glucose test to screen for GDM. She may also require serial growth ultrasounds every 3 to 4 weeks to evaluate growth. If unable to perform 1hr you could monitor patients blood glucose with fingerstick values. Would recommend checking blood glucose 4 times a day for two weeks. Fasting am and 1hr postprandial to screen for GDM at this time. - Continue Fluoxetine per psychiatry. - Continue daily Doptone. - Once patient is discharged she should be scheduled to follow up in the [facility] every two weeks for ongoing care. Please feel free to contact EXTRUSION DIE CORRECTOR for further questions. If the patient will be discharged from the psych unit, you can contact our office to make an appointment for her for further follow up. Pain Evaluation: Adequate Pain Control Resuscitation Status: CPR: Attempt Resuscitation Attending Statement The patient was seen and examined today with Dr. Leon on 07/24/2016 and I have added additional information to the note above. NIKHIL LEON DO Jul 24, 2016 11:51 Marleny Graham MD Jul 24, 2016 14:19
--- NOTE | 2016-07-24 13:49 | NUR ---
Nursing Day Shift- S- "I don't want to talk." O- Pt. was resting in her bed at the start of the day shift. She had 1-2 inch long smears of white on her arms and legs that appeared to be toothpaste. Pt. had brief responses and broken eye contact. She initially declined her AM medications, saying she would take them in 1 hour, when they were offered again she took them. Pt. showered then stood in her room. She eat 100% breakfast and part of lunch. A- Pt's lack of communication makes evaluation difficult. She appears to be able to sit in one place and look into mid distance, or at an object for long periods of time. P- Pt. met with an OBGYN MD on the unit. She interacted minimally and denied any pain. heart tones monitored daily. Cont. bHTP.
[2016-07-24] MEDS: diphenhydrAMINE 25 mg Capsule PO PRN (18:49)
--- NOTE | 2016-07-24 18:55 | NUR ---
Area Plant Manager./ c.m. S./O.: comic writer came into pt.'s room together with MD. Pt. didn't want to talk. She denied SI/HI, denied AH/VH, denied depression or anxiety. She didn't say anything and just made motions with her head. Later MD and comic writer tried to talk to pt. together with an ferry captain but pt. refused to say anything. A.: pt. is isolative, quiet, looks internally preoccupied. P.: monitor behavior, monitor meds intake, follow care plan.
--- NOTE | 2016-07-24 19:50 | NUR ---
OBSERVATIONS 0900 TO 2130 Pt was more active today than on previous shifts. Pt spent some time in common areas including the patio. Pt complains of itching skin which was reported to the RN by this MHA. Pt appears to be urinating and spitting on the floor in her room. Pt appears to be more comfortable speaking with and volunteering information to female staff. Pt speech is still difficult to follow due in part to language barrier. Pt ate 75% or breakfast and lunch, and just an apple for dinner stating that she does not usually eat dinner. Pt showered in the evening to relieve itching. Maintained Q15 safety checks as directed.
--- NOTE | 2016-07-24 20:00 | NUR ---
NURSING NOTE [id number] Mood: "I'm well" Affect: guarded, uncooperative at times Behavior: pt. has been visible off and on this shift in the DR, sitting by herself, studying magazines. Alternately she spent time in her room, sitting on her bedside table in the dark. Initially, this play writer approached her several times to talk but she walked away every time and would try to hide behind her door and in the doorways of other pts' rooms. Eventually, pt. did speak to this play writer when this play writer told her that this play writer had a baby last year. The pt's face lit up and she excitedly asked this play writer questions about babies and their care. She described to an MHA that she wants her baby to be "cut out" but that she has to wait 2 months (giving impression she desires a ). She also told this play writer "I called my apartment and paid my rent." When this play writer asked where the pt. is living she looked at the ground and replied "I don't know." She refused her dinner tray other than to eat an apple. She stated that she usually does not like to eat dinner and only eats breakfast and lunch here. She has been urinating on the floors of her room. She denied doing so w/this play writer but did admit to her MHA that she did and that the reason she didn't use the toilet was that "there was too much" At 19:00 she became quite frantic and began complaining about itching on her arms and legs. She pointed out scratches and scabs on her arms to this play writer. Both arms and lower legs had raised, red, irritated areas as though pt. had been scratching. Notably, there were no reddened or hive-like areas anywhere above her shirt or pant-lines so she had only been scratching at areas that were visible. Pt kept insisting: "I have to go downstairs! They have to look at me downstairs!" indicating she wanted to go to the ED. When this play writer offered her lotion she shouted "no, ED!" Pt. finally agreed to take Benadryl PRN for the itching. Lotion and bacitracin applied to irritated and scabbed areas. Thought processes= pt unwilling to speak w/this play writer regarding her thought content. Shook her head when asked about AH/VH and SI. She had a phone conversation and was witnessed to be upset and tearful during it.
[2016-07-24] MEDS: OLANZapine Zydis ODT 5 mg Tablet PO SCH (20:27)
--- NOTE | 2016-07-25 05:58 | NUR ---
Poor sleep Pt has had poor broken sleep in short intervals totalling 3+ hours.
[2016-07-25 10:48] VITALS: BP 112/76; PULSE 102; RESP 16
--- NOTE | 2016-07-25 12:40 | NUR ---
Nursing Day Shift- S- "Toilet not clean. I don't use it." O- Pt. was resting on the floor of her room with her head and hip on a pillow at the start of the day shift. She was not using a blanket. She arose at 8 jane for breakfast and eat 100%. Pt. returned to her room and again appeared to be able to sit on her bed or engine tester her room looking into mid space for 20-30 minutes at a time. Pt. had the glucose challenge test explained to her, and she refused to allow a blood test stating: "NO...next week." Glucola is not stocked by the lab, pharmacy or [facility]. The [facility] charge nurse suggested calling [facility] tomorrow, when the clinics are open. The Pt. appeared to have urine on her bathroom floor. When she was asked about it she stated: "Toilet not clean." Housekeeping was contacted so that the Pt. could observe it being washed. A- Internal preoccupation, odd behavior, 31 weeks per OBGYN note. P- Encourage blood draw when Glucola available. Monitor for continued urinating on the floor after toilet washed. Cont. BHTP.
--- NOTE | 2016-07-25 16:58 | PCM.PNPSY ---
Subjective Date of Service Jul 25, 2016 Subjective The patient is seen with and without the Funzio line up examiner. Regarding her mood she initially reports "no" then states "not well." She would not elaborate further. During most of the interview, the patient shakes her head "no" to all questions. She makes no eye contact during the evaluation. She reported that she was experiencing "white animals inside and they bite me" for the last 3-5 days. There were no obvious butcher on her hands and she reported no red butcher around her waist but did report some small red dots which appeared to be her follicles on her legs. Although she will not speak she denies fearing anything. She reported no problems with medications. Sleep: 3 hours, night before last 1.75 hours Appetite: "No" Suicidal and homicidal ideation: shakes head "no" Auditory hallucinations: shakes head "no" Visual hallucinations: shakes head "no" Other Psychotic Symptoms: as above Anxiety: shakes head "no" Depression: shakes head "no" Current Medications Current Medications Olanzapine 5 mg HS PO Last administered on 07/24/16t 20:27; Admin Dose 5 MG; Start 07/24/16 at 21:00 Mental Status Exam Vital Signs Vital Signs Date Time Temp Pulse Resp B/P Pulse Ox O2 Delivery O2 Flow Rate FiO2 07/25/16 10:48 36.6 102 16 112/76 Appearance: Unkept Attitude: Guarded, Uncooperative Behavior: Other (No or minimal eye contact.) Affect: Flat Mood: Fearful Thought Process/Associations: Blocking Speech Production: Paucity, Muter Speech Rate: Lags/Latency Speech Articulation: Other (some Uzbek, some Mandarin) Thought Content: Negativistic Danger to Self/Suicidal Ideati: None Danger to Others: None Delusions: Paranoid (Endorses) Hallucinations: Auditory (Denies), Visual (Denies) Consciousness: Alert Orientation: Unable to assess Memory: Untestable Estimate Intellectual Function: Average Basis for IQ estimate: Awareness current events, Word use/vocabulary, Educational history, Employment history Attention/Concentration & Cogn: Impaired Insight: None Judgement: Poor Mental Health Plan The patient is a 30-year-old, Mandarin speaking female who reportedly tried to "cut the baby out" at times due to anger. The patient appeared to meet criteria for major depression and so was started on fluoxetine and lorazepam for anxiety. The patient requested an increase in antianxiety medication, however lorazepam is generally avoided where possible and and so she was switched to diphenhydramine per consultation with [facility] regarding safest treatment. She eventually requested to discontinue this medication and has had resultant increase in itching. The patient is only minimally communicative, not sleeping, and engaging in bizarre behavior. The patient was seen by [facility] who recommended the glucose tolerance test or fingersticks but the patient is declining laboratory testing or fingersticks. She was started on olanzapine due to ongoing psychosis and increasingly bizarre behavior. [place] DIAGNOSIS: [place] I: 1. Major depressive disorder with psychotic features. 2. Rule out post-traumatic stress disorder [place] II: Deferred. [place] III: Intrauterine at 30 weeks. [place] IV: Severe. [place] V: 35 Medications Fluoxetine 20 mg daily Olanzapine 5 mg nightly, with IM override. Diphenhydramine 25 mg as needed. Treatments 1. The patient is admitted to the inpatient unit and will be provided a safe and secure environment. 2. The patient is reporting denying current active suicidality or homicidality or intent to precipitate an early or delivery and is not in need of a one- to-one at this time. 3. The patient is encouraged to participate with group and milieu activities. 4. The patient will be seen by the treatment team on a daily basis to assess symptoms, side effects and response to treatment. Funzio line up examiner will be used during these times. 5. Fluoxetine will be continued, Zyprexa Zydis 5mg nightly has been added, with IM override with 2nd opinion in chart. 6. Continue PRN Benadryl. 7. Glucose tolerance test ordered, but Glucola not available currently and patient refusing lab draws and fingersticks. 8. Diphenhydramine zinc ointment every 6 hours when necessary pruritus. 9. Anticipated length of stay is 10-14 days. Rigoberto Egan MD Jul 25, 2016 16:58
--- NOTE | 2016-07-25 18:35 | NUR ---
[facility] Day Shift Pt affect and behavior mostly unchanged from previous shift. Pt maintained behavioral control throughout the shift. Pt affect appears flat, blunt (though brighter than noted on previous shift). Pt is mostly non-communicative with staff due to language barrier, but is able to respond appropriately to basic questions/statements. Pt spends the majority of the shift resting in her room. Pt is only active on the unit to attend meals, very briefly staying in the dining room to color following lunch. Pt occasionally enters the dining room to retrieve snacks throughout the shift. Pt attended all meals and ate approx 80% of all meals.
[2016-07-25] MEDS: OLANZapine Zydis ODT 5 mg Tablet PO SCH (20:12)
--- NOTE | 2016-07-25 20:39 | NUR ---
NURSING NOTE [id number] Mood: "it's sad" Affect: guarded Behavior: pt a bit less isolative today-- she has been out of her room to sit in the DR and in the rec room to listen to music. Pt. stated several times in our conversation, smiling; "I like the music!" She continues to smear and dab toothpaste on her forearms this shift. No urine noted on her floor this evening. Med compliant. Thought processes: pt. reports she is sad today b/c she tried to make several phone calls but nobody answered. She is disorganized in conversation, tangential, and avoids any discussion of personal details about her life. She becomes agitated when asked personal questions e.g. who she was trying to call today and where she lives. Pt. denies wanting to hurt herself or her baby this shift.
--- NOTE | 2016-07-26 06:42 | NUR ---
Nursing Note Assistant Professor Nurse Education 11pm to 7am Pt' awake at start of shift. Found sitting on a make shift bed on the floor consisting of a blanket. Affect constricted, thoughts paranoid and delusional. Strong smell of urine coming from bathroom. Pt had urinated on the floor which per report she had done over the weekend. When asked why she was not using the toilet pt. stated in an angry voice "You don't clean the toilet" However on closer inspection toilet appeared to be clean. While floor was being cleaned pt. began to yell at this mortgage loan underwriter "Don't touch my stuff, got up from floor and postured at this mortgage loan underwriter. Notified staff who accompanied this mortgage loan underwriter back to the room in an attempt to finish cleaning the floor to prevent pt. from slipping. Pt repeatedly screaming loudly, pointing at this mortgage loan underwriter, Get her out of my room and slammed door. Pt exited her room on several occasions during the night, slamming door loudly. Only slept approx. 2 hours and when checked on was found sitting on the floor staring at the door. Monitored q 15 minutes for safety, location and accountability. Pt refused Benadryl for agitation.
[2016-07-26 13:44] VITALS: BP 118/73; PULSE 108; RESP 16
--- NOTE | 2016-07-26 13:46 | NUR ---
nursing note 7am-3pm S)"Darling , my nurse don't come near me" O) pt resistive to taking medications at first but then after breakfast took Prozac with out comment, appears unshowered with hair that doesn't look clean, urine on floor of bathroom offered a commode but pt refused, housekeeping came and cleaned, dressed in scrubs, refused heart doppler this AM, became angry about court and legal issues "the police say I don't have to stay long, I don't want court, no signing paper" pt able to speak good [place], refused to speak to divorce lawyer with finish patcher today just kept moving away from presence of divorce lawyer, out in milieu for most of this shift, not interacting with others, ate meals A)little insight of mental illness, isolated, guarded, angry, did take medication P) monitor safety and encourage ADLS
--- NOTE | 2016-07-26 15:28 | PCM.PNPSY ---
Subjective Date of Service Jul 26, 2016 Subjective I spent 30 minutes both reviewing treatment plan and providing supportive/ educational psychotherapy with an control panel operator crude unit present. I spent more than 50% of the time counseling the patient. I reviewed the treatment plan with the patient and discussed options available including the potential risks, benefits and side effects. You appeared frustrated today. She responded obliquely to several of my questions and then refused to talk altogether. Staff reports that she has been isolative and not participating well in one-to-one unit and group activities. She is having more symptoms of psychosis on Tuesday and Tuesday. She is refusing to talk to anyone today either myself the therapist or the commander and control panel operator crude unit. She slept minimal hours and is tending to sleep throughout the day . Patient was not able to identify her medications but was aware of what they were used to treat. She appeared to understand the need for medications by the questions she asked during our discussion. She denied medication side effects. She refused to answer questions about anxiety depression or psychosis today. Current Medications Current Medications Olanzapine 5 mg HS PO Last administered on 07/25/16t 20:12; Admin Dose 5 MG; Start 07/24/16 at 21:00 Mental Status Exam Vital Signs Vital Signs Date Time Temp Pulse Resp B/P Pulse Ox O2 Delivery O2 Flow Rate FiO2 07/26/16 13:44 36.1 108 16 118/73 Appearance: Unkept Attitude: Guarded, Uncooperative Behavior: Other (No or minimal eye contact.) Affect: Flat Mood: Fearful Thought Process/Associations: Blocking Speech Production: Paucity, Muter Speech Rate: Lags/Latency Speech Articulation: Other (some Bel[place]ian, some Mandarin) Thought Content: Negativistic Danger to Self/Suicidal Ideati: None Danger to Others: None Delusions: Paranoid (Endorses) Hallucinations: Auditory (Denies), Visual (Denies) Consciousness: Alert Orientation: Unable to assess Memory: Untestable Estimate Intellectual Function: Average Basis for IQ estimate: Awareness current events, Word use/vocabulary, Educational history, Employment history Attention/Concentration & Cogn: Impaired Insight: None Judgement: Poor Mental Health Plan The patient is a 30-year-old, Mandarin speaking only female who presents with an odd story of being at 29 weeks and then having her "parents send her from [place] to [place]". She has reported that she herself tried to "cut the baby out" at times in A fit of frustration and anger. She is unable to relate a coherent history other than she feels shamed by her family for her . The client does report symptoms which qualify for a diagnosis of major depressive disorder, and reports both depression and anxiety being extremely high. The patient is only minimally communicative, not sleeping, and engaging in bizarre behavior. The patient was seen by PUBLIC ADDRESS SYSTEM INSTALLER who recommended the glucose tolerance test or fingersticks but the patient is declining laboratory testing or fingersticks. She was started on olanzapine due to ongoing psychosis and increasingly bizarre behavior. I spoke with her at length about the relative risks and potential side effects of both Declining all medications, having a trial of an antidepressant and a benzodiazepine, And having a trial of an antipsychotic. She appeared to understand the relative risks versus the relative Benefits. Both Dr. Egan and I are concerned about eminent harm to the patient and her given untreated psychosis and depression. She will remain on Prozac at 20 and olanzapine 5 mg. [place] DIAGNOSIS: [place] I: 1. Major depressive disorder with psychotic features. 2. Rule out post-traumatic stress disorder [place] II: Deferred. [place] III: Intrauterine at 30 weeks. [place] IV: Severe. [place] V: 35 Treatments Patient is being provided with a high degree of safety through the structure and active adult engagement. We will focus on developing improved coping skills and identifying stressors that may have led to current episode. We will attempt to: Integrate into therapeutic groups, milieu and individual therapy. Maintain in a closely monitored and structured unit Provide low-stimulation environment Obtain collateral data to assist in treatment planning Assess degree of lability of affect and impulse control Complete safety plan Decrease frequency of relapse and need for re-hospitalization Denies thoughts of harm to self and/or others Establish a consistent sleep pattern Medication effective in stabilization of mood and/or thought process Reduce the risk of imminent harm to self and/or others by providing a safe environment Tolerates medication without side effects Patient will be on the following psychiatric medications: Fluoxetine 20 mg daily Olanzapine 5 mg nightly, with IM override. Diphenhydramine 25 mg as needed. Address patient's legal status Patient is on a 14 day involuntary treatment hold. Patient will be given the opportunity to talk to her roll scale worker and the rail project engineer Piero Angel MD Jul 26, 2016 15:28
--- NOTE | 2016-07-26 17:21 | NUR ---
Wedding Photographer./ c.m. S.:"...nothing, I don't know..." O.: met with pt., galley worker and MD together. Pt. refused to answer on questions. She wasn't clear if she had AH/VH or not - "I don't know". Later she refused to talk to her seedling puller. She went to another pt.'s room to hide and after that she run into a group room and slummed the door. She was yelling and refused to open a door. After some time MHA and the automotive service writer were able to open the door and pt. went back to the Dining room where she sat for some time. She was standing near double doors close to the Nursing station crying and trying to push them. A.: pt. is isolative, uncooperative, angry and looks internally preoccupied. She has a flat affect and looks disheveled. P.: monitor behavior, monitor meds intake, provide safety in the unit, encourage pt. to take a shower and use a toilet in her bathroom; follow care plan.
--- NOTE | 2016-07-26 17:36 | NUR ---
Observations [id number] Pt was asleep upon start of shift and slept much of the morning. Pt presented as irritable and very resistant to interaction for the duration of the day. Pt would not meet with auditing clerk or automotive parts interpreter, remaining on the phone when asked to join the group. Pt then ran into group room, slamming the door and pushing back on it to not let other staff in, stating, "I don't want to talk! I don't want to talk!" over and over. Pt was then asked to go to her room and asked to not slam doors. She was observed spending time near exits, looking for a way out of unit. Pt continues to urinate on the floor in her bathroom. She attended meals, but only eating an average of 50% of food. She did not attend groups or interact with other peers. Pt remained irritable and quiet for the remaining duration of shift. She was observed every 15 minutes as directed.
[2016-07-26] MEDS: OLANZapine Zydis ODT 5 mg Tablet PO SCH (20:17)
[2016-07-26] MEDS: diphenhydrAMINE 25 mg Capsule PO PRN (20:17)
--- NOTE | 2016-07-26 21:44 | NUR ---
NURSING NOTE [id number] Mood: unwilling to answer Affect: preoccupied, tearful, agitated Behavior: pt. frequently standing by the exit door near the nurses station; alternately peering out the windows or banging on the door and sobbing. She will not speak to staff and either walks away when she is approached, or stares at the wall and makes no eye contact. When told she had to move away from the doors she began to shout and sob and shouted "I GO! I GO! DOWNSTAIRS!" and pointed down. She then sat in the DR and sobbed for several mins, then made several phone calls. She ate 25% of her dinner and an apple as well as multiple bread slices. After dinner she sat on the floor of her room, staring at the ground. She was med compliant. Thought processes: she does not answer questions regarding mood or thought content, however appears very preoccupied: staring at [place] for long periods of time, behaving oddly; sitting on the floor of her room, room smelling of urine (but no urine noted on the floors this shift), poor self-care w/matted, greasy hair w/what appears to be wadded up pieces of paper stuck in it. Pt. unwilling to let this manual writer remove the objects from her hair. PRNs Benadryl 50 mg @ HS for anxiety/agitation
--- NOTE | 2016-07-27 01:23 | NUR ---
Observations 1900 to 0700 Pt was in her room when my shift started and remained there for the rest of the night. Pt first appeared asleep at 23:15 and was observed every 15 minutes through the night as directed.
--- NOTE | 2016-07-27 06:01 | NUR ---
Nursing Notes: setup technician/sleep Patient appears to be sleeping at beginning of shift. Patient noted to be up in hallway at 0400, non verbal, then returned to room and observed to be lying on floor with pillow and blanket. Patient did return to bed at 0530 and appears to be sleeping on subsequent safety checks
--- NOTE | 2016-07-27 11:00 | NUR ---
Soil Fertility Extension Specialist./ c.m. S.:"I'm better today than yesterday." O.: met with pt. and an hadoop java developer together. Pt. complained about itching and "a bad smell" in her room. She asked for a medication for her skin - "I think I have a sensitive skin so I need something or maybe a shot." She admitted that she didn't like "needles". She denied SI/HI, denied AH/VH or paranoid/delusional thoughts. She rated depression at 5/10 and anxiety at 6/10. She said that "somebody, some male came to my room at night and urinated on a floor. He came to my room after he was eating in the Dining room and than he used my bathroom. It is not right that man would use a female bathroom in the middle of the night." She was upset with a night staff who "came to" her room "in the middle of the night and sprayed something". She denied urinating on a floor by herself. A.: pt. is cooperative, confused, paranoid and delusional. She has very poor eye contact and looks disheveled. P.: monitor behavior, monitor for safety, monitor meds intake; follow care plan.
[2016-07-27 11:03] VITALS: BP 100/61; PULSE 95
--- NOTE | 2016-07-27 13:49 | NUR ---
Nursing Note [id number] Behavior S/O: Pt ate 50% of breakfast & lunch. VS stable. Pt able to understand & speak [place]ish, but refuses to answer any questions except to shake or nod her head. When asked if she was excited about the baby, she shook her head. Pt did speak with 1 work requests for a "shower" & "underwear." Pt out in milieu for meals. Pt has stayed in room the rest of the day. Pt took am medication this morning, but then spit out medication. When requested to take medication again, pt put in in her mouth & then hid it under her tongue before spitting it in the garbage. Pt showered & washed clothes this morning, but hair still appears unwashed. A: Pt has no insight into illness. Pt unable to care for at this time. P: Provide supportive environment. Monitor medications & effects.
--- NOTE | 2016-07-27 14:46 | PCM.PNPSY ---
Subjective Date of Service Jul 27, 2016 Subjective I spent 30 minutes both reviewing treatment plan and providing supportive/ educational psychotherapy with an three dimensional art instructor present. I spent more than 50% of the time attempting to alcohol and drug counselor the patient. I reviewed the treatment plan with the patient and discussed options available including the potential risks, benefits and side effects. You appeared frustrated and angry again today. She responded obliquely to several of my questions and then refused to talk altogether. Staff reports that she has been isolative and not participating well in one-to-one unit and group activities. She is continuing to respond to internal stimuli and has significantly confused thoughts. She is very selective about who she will talk to.. She slept minimal hours and is tending to sleep throughout the day . Patient was not able to identify her medications but was aware of what they were used to treat. She appeared to understand the need for medications by the questions she asked during our discussion. She denied medication side effects. She refused to answer questions about anxiety depression or psychosis today. Mental Status Exam Vital Signs Vital Signs Date Time Temp Pulse Resp B/P Pulse Ox O2 Delivery O2 Flow Rate FiO2 07/27/16 11:03 36.3 95 100/61 Appearance: Unkept Attitude: Guarded, Uncooperative Behavior: Other (No or minimal eye contact.) Affect: Flat Mood: Fearful Thought Process/Associations: Blocking Speech Production: Paucity, Muter Speech Rate: Lags/Latency Speech Articulation: Other (some Armenian, some Mandarin) Thought Content: Negativistic Danger to Self/Suicidal Ideati: None Danger to Others: None Delusions: Paranoid (Endorses) Hallucinations: Auditory (Denies) Consciousness: Alert Orientation: Unable to assess Memory: Untestable Estimate Intellectual Function: Average Basis for IQ estimate: Awareness current events, Word use/vocabulary, Educational history, Employment history Attention/Concentration & Cogn: Impaired Insight: None Judgement: Poor Mental Health Plan The patient is a 30-year-old, Mandarin speaking only female who presents with an odd story of being at 29 weeks and then having her "parents send her from [place] to [place]". She has reported that she herself tried to "cut the baby out" at times in A fit of frustration and anger. She is unable to relate a coherent history other than she feels shamed by her family for her . The client does report symptoms which qualify for a diagnosis of major depressive disorder, and reports both depression and anxiety being extremely high. The patient is only minimally communicative, but is now beginning to sleep more at night and is not engaging in bizarre behavior (over this past weekend staff had noted that she had been P Niranjan on the floor). I spoke with her at length about the relative risks and potential side effects of both Declining all medications, having a trial of an antidepressant and a benzodiazepine, And having a trial of an antipsychotic. She appeared to understand the relative risks versus the relative Benefits. Both Dr. Egan and I are concerned about eminent harm to the patient and her given untreated psychosis and depression. She will remain on Prozac at 20 and olanzapine 5 mg. [place] DIAGNOSIS: [place] I: 1. Major depressive disorder with psychotic features. 2. Rule out post-traumatic stress disorder [place] II: Deferred. [place] III: Intrauterine at 30 weeks. [place] IV: Severe. [place] V: 35 Treatments Patient is being provided with a high degree of safety through the structure and active adult engagement. We will focus on developing improved coping skills and identifying stressors that may have led to current episode. We will attempt to: Integrate into therapeutic groups, milieu and individual therapy. Maintain in a closely monitored and structured unit Provide low-stimulation environment Obtain collateral data to assist in treatment planning Assess degree of lability of affect and impulse control Complete safety plan Decrease frequency of relapse and need for re-hospitalization Denies thoughts of harm to self and/or others Establish a consistent sleep pattern Medication effective in stabilization of mood and/or thought process Reduce the risk of imminent harm to self and/or others by providing a safe environment Tolerates medication without side effects Patient will be on the following psychiatric medications: Fluoxetine 20 mg daily Olanzapine 5 mg nightly, with IM override. Diphenhydramine 25 mg as needed. Address patient's legal status Patient is on a 14 day involuntary treatment hold. Patient will be given the opportunity to talk to her pai gow dealer and the trim installer Piero Angel MD Jul 27, 2016 14:46
--- NOTE | 2016-07-27 16:44 | NUR ---
Observations [id number] Pt was asleep upon start of shift. Pt continues to sleep past breakfast, getting up later to eat. Pt did laundry today and also took a shower. She wandered the unit, standing by the doors at times looking for opportunity to exit. Pt expressed that "I want to go outside, I want my family to get me." Pt was offered to go on patio, but pt refused stating again she wanted to leave. Pt also stated that she has nothing to wear and was concerned about clothing. Pt attended all meals, eating an average of 70%. She continues to be irritable and anxious. Pt was observed every 15 minutes of shift as directed.
[2016-07-27] MEDS: OLANZapine Zydis ODT 5 mg Tablet PO SCH (21:02)
--- NOTE | 2016-07-27 21:30 | NUR ---
Nursing Note [id number] Pt isolating to room most of shift but did get up for snack and to use the phone. L&D nurse in to assess FHT and pt accepted, HR 135. Pt is still minimally communication with staff and no interaction with peers noted. Affect flat and guarded. Pt appears clean but unkept and some what uncooperative. Pt denied HS meds but when explained to pt she would have to get a shot Pt took it. Sat with pt delvis 10 min to make sure zyprexa zytis dissolved in mouth. Attempted to converse with pt and pt unable or unwilling at that time just kept stating "I talked to my mom ". Q15 min safety checks per protocol, [facility] sleep, safety, behavior
--- NOTE | 2016-07-28 04:41 | NUR ---
Nursing note: counterintelligence specialist/ sleep Patient appears to be sleeping on her bed on safety checks during the night.
[2016-07-28 12:03] VITALS: BP 110/65; PULSE 106; RESP 16
--- NOTE | 2016-07-28 13:01 | PCM.PNPSY ---
Subjective Date of Service Jul 28, 2016 Subjective I spent 30 minutes both reviewing treatment plan and providing supportive/ educational psychotherapy with an brazer controlled atmospheric furnace present. I spent more than 50% of the time attempting to dormitory counselor the patient. I reviewed the treatment plan with the patient and discussed options available including the potential risks, benefits and side effects. You appeared to be in a cooperative mood today. She responded relatively directly to my questions and talked with me more than she has since admission. He does not understand the usp process. Staff reports that she has continued to be isolative and is not able to participate well in one-to-one unit or group activities. She no longer appears to be responding to internal stimuli and her thoughts are more organized. She is very selective about who she will talk to.. She slept 7 hours and is also tending to sleep during the day . She was not able to identify her medications but was aware of what they were used to treat. She appeared to understand the need for medications by the questions she asked during our discussion. She denied medication side effects. She denied difficulty with review of systems for anxiety depression or psychosis today. Mental Status Exam Vital Signs Vital Signs Date Time Temp Pulse Resp B/P Pulse Ox O2 Delivery O2 Flow Rate FiO2 07/28/16 12:03 36.2 106 16 110/65 Appearance: Neat/well groomed Attitude: Guarded, Uncooperative Behavior: Other (No or minimal eye contact.) Affect: Restricted Mood: Fearful Thought Process/Associations: Logical/Sequential Speech Production: Normal Speech Rate: Normal Speech Articulation: Normal Thought Content: Negativistic Danger to Self/Suicidal Ideati: None Danger to Others: None Delusions: Paranoid (Endorses) Consciousness: Alert Orientation: Unable to assess Memory: Untestable Estimate Intellectual Function: Average Basis for IQ estimate: Awareness current events, Word use/vocabulary, Educational history, Employment history Attention/Concentration & Cogn: Impaired Insight: Limited Judgement: Limited Mental Health Plan The patient is a 30-year-old, Mandarin speaking only female who presents with an odd story of being at 29 weeks and then having her "parents send her from [place] to [place]". She has reported that she herself tried to "cut the baby out" at times in A fit of frustration and anger that she no longer feels this way. She struggles to relate a coherent history other than she feels shamed by her family for her . She initially reported symptoms which qualified for a diagnosis of major depressive disorder, and now reports a marked decrease in both depression and anxiety symptom review. You was much more communicative today, and is now beginning to sleep more at night. She has not Demonstrated bizarre behavior over the past 48 hours (over this past weekend staff had noted that she had been Peeing on the floor). Her thoughts are more organized and she denied review of systems for psychosis today I spoke with her at length about the relative risks and potential side effects of both Declining all medications, having a trial of an antidepressant and a benzodiazepine, And having a trial of an antipsychotic. She appeared to understand the relative risks versus the relative Benefits. Both Dr. Egan and I are concerned about eminent harm to the patient and her given untreated psychosis and depression. She will remain on Prozac at 20 and olanzapine 5 mg. [place] DIAGNOSIS: [place] I: 1. Major depressive disorder with psychotic features. 2. Rule out post-traumatic stress disorder [place] II: Deferred. [place] III: Intrauterine at 30 weeks. [place] IV: Severe. [place] V: 35 Treatments Patient is being provided with a high degree of safety through the structure and active adult engagement. We will focus on developing improved coping skills and identifying stressors that may have led to current episode. We will attempt to: Integrate into therapeutic groups, milieu and individual therapy. Maintain in a closely monitored and structured unit Provide low-stimulation environment Obtain collateral data to assist in treatment planning Assess degree of lability of affect and impulse control Complete safety plan Decrease frequency of relapse and need for re-hospitalization Denies thoughts of harm to self and/or others Establish a consistent sleep pattern Medication effective in stabilization of mood and/or thought process Reduce the risk of imminent harm to self and/or others by providing a safe environment Tolerates medication without side effects Patient will be on the following psychiatric medications: Fluoxetine 20 mg daily Olanzapine 5 mg nightly Diphenhydramine 25 mg as needed. Address patient's legal status Patient is on a 14 day involuntary treatment hold. Patient will be given the opportunity to talk to her market research associate and the electronic assembler group leader Piero Angel MD Jul 28, 2016 13:00
--- NOTE | 2016-07-28 13:52 | NUR ---
Nursing Day Shift- S- "No." (Pt. response to being asked if she had any pain.) O- Pt. appeared asleep at the start of the day shift. She awoke at 0845, and came out for breakfast at 0930. Pt. denied any pain, she looked at the floor and declined to answer any other questions. She eat 100% breakfast, then fruit for lunch. She has kept quite in her room thus far this shift, occasionally using the telephone. A- Adequate sleep and nutrition. Non communicative thus far today. No exit seeking. Assessment difficult without Pt's verbal responses. P- Heart tones to be monitored. Cont. BHTP.
--- NOTE | 2016-07-28 17:23 | NUR ---
Observations 0700 to 1900 Pt affect and mood was flat, isolative and preoccupied. Pt speech and eye contact was poor. Pt did not attend community meeting or set a daily goal. Pt was in her room most of the day, staring at the nowak and floor when observed. Pt keeps to himselfPt used the phone several times. Pt was minimally social with staff and select peers when approached. Pt continues to give short responses when approached. Pt attended meals in D.R. and ate approximately 50% of her meals. Pt maintained behavior throughout the shift. Pt was polite, pleasant and cooperative. Pt was observed every 15 minutes throughout the shift as ordered.
--- NOTE | 2016-07-28 17:26 | NUR ---
Case Management/Counseling S: Via field marketing manager, "My family wants me out and will bail me out." O: Patient slept 7 hours last night. She denies S/I and H/I. She also denies auditory and visual hallucinations. Depression is 0/10 and anxiety is 0/10. When asked her mood, patient stated, per field marketing manager, "Confused on why I'm here." A No Contact Protection Order has been placed "against" patient by patient's mother. Paperwork for the No Contact Protection Order is located in patient's chart. A: Patient is uncooperative, guarded, unkept, restricted affect, irritable, anxious, paranoid, limited insight, limited judgment. P: Follow care plan, coordinate out-patient providers.
[2016-07-28] MEDS: OLANZapine Zydis ODT 5 mg Tablet PO SCH (20:21)
--- NOTE | 2016-07-28 22:55 | NUR ---
NURSING NOTE [id number] Mood: unable to solicit mood statement from pt. Affect: frustrated, suspicious Behavior: continues w/some odd behaviors this shift; e.g. sitting on floor in corner of room facing the wall, later sleeping on the floor, turning away from staff whenever approached or attempts at eye contact are made. Med compliant. She asked to take a shower but this was the only communication she uttered all shift. Otherwise non-communicative w/this assembly instructions writer. Thought processes= pt unwilling to answer this assembly instructions writer's questions re: thought content. She shrugged when asked if she was upset. Stared at ground when asked if suicidal or hearing voices.
--- NOTE | 2016-07-29 05:27 | NUR ---
nursing, nights, 11-7 s/o- has appeared to sleep after 2129 during q 15 minute assessments. a- no apparent distress. p- monitor behavior/emotional state, quality, times and amount of sleep, use and effect of medication. rosie
[2016-07-29 12:26] VITALS: BP 103/66; PULSE 108; RESP 16
--- NOTE | 2016-07-29 12:55 | NUR ---
heart tones in the 140"s at 1245 today per [facility].
--- NOTE | 2016-07-29 14:15 | PCM.PNPSY ---
Subjective Date of Service Jul 29, 2016 Subjective I spent 30 minutes both reviewing treatment plan and providing supportive/ educational psychotherapy with an spiral machine operator present. I spent more than 50% of the time attempting to diet counselor the patient. I reviewed the treatment plan with the patient and discussed options available including the potential risks, benefits and side effects. You was in a cooperative mood today. She responded directly to my questions and we talked at length because she does not understand the long-term process. Staff reports that she has continued to be isolative and is not able to participate well in one-to-one unit or group activities. It is unclear whether this is due to a thought disorder or a language barrier. She no longer appears to be responding to internal stimuli and her thoughts are more organized. She is very selective about who she will talk to.. She slept 8.5 hours and is also tending to sleep during the day . She was not able to identify her medications but was aware of what they were used to treat. She appeared to understand the need for medications by the questions she asked during our discussion. She denied medication side effects. She denied difficulty with review of systems for anxiety depression or psychosis today. Mental Status Exam Vital Signs Vital Signs Date Time Temp Pulse Resp B/P Pulse Ox O2 Delivery O2 Flow Rate FiO2 07/29/16 12:26 37.0 108 16 103/66 Appearance: Neat/well groomed Attitude: Guarded, Uncooperative Behavior: Other (No or minimal eye contact.) Affect: Restricted Mood: Fearful Thought Process/Associations: Logical/Sequential Speech Production: Normal Speech Rate: Normal Speech Articulation: Normal Thought Content: Negativistic Danger to Self/Suicidal Ideati: None Danger to Others: None Delusions: Paranoid (Endorses) Consciousness: Alert Orientation: Unable to assess Memory: Untestable Estimate Intellectual Function: Average Basis for IQ estimate: Awareness current events, Word use/vocabulary, Educational history, Employment history Attention/Concentration & Cogn: Impaired Insight: Limited Judgement: Limited Mental Health Plan The patient is a 30-year-old, Mandarin speaking only female who presents with an odd story of being at 29 weeks and then having her "parents send her from [place] to [place]". She has reported that she herself tried to "cut the baby out" at times in A fit of frustration and anger that she no longer feels this way. She struggles to relate a coherent history other than she feels shamed by her family for her . She initially reported symptoms which qualified for a diagnosis of major depressive disorder, and now reports a marked decrease in both depression and anxiety symptom review. You was much more communicative today, and is now beginning to sleep more at night. She has not Demonstrated bizarre behavior over the past 48 hours (over this past weekend staff had noted that she had been Peeing on the floor). Her thoughts are more organized and she denied review of systems for psychosis today I spoke with her at length about the relative risks and potential side effects of a trial of an antipsychotic. She appeared to understand the relative risks versus the relative Benefits. Both Dr. Egan and I are concerned about eminent harm to the patient and her given untreated psychosis and depression. She will remain on Prozac at 20 and olanzapine 5 mg. [place] DIAGNOSIS: [place] I: 1. Major depressive disorder with psychotic features. 2. Rule out post-traumatic stress disorder [place] II: Deferred. [place] III: Intrauterine at 30 weeks. [place] IV: Severe. [place] V: 35 Treatments Patient is being provided with a high degree of safety through the structure and active adult engagement. We will focus on developing improved coping skills and identifying stressors that may have led to current episode. We will attempt to: Integrate into therapeutic groups, milieu and individual therapy. Maintain in a closely monitored and structured unit Provide low-stimulation environment Obtain collateral data to assist in treatment planning Assess degree of lability of affect and impulse control Complete safety plan Decrease frequency of relapse and need for re-hospitalization Denies thoughts of harm to self and/or others Establish a consistent sleep pattern Medication effective in stabilization of mood and/or thought process Reduce the risk of imminent harm to self and/or others by providing a safe environment Tolerates medication without side effects Patient will be on the following psychiatric medications: Fluoxetine 20 mg daily Olanzapine 5 mg nightly Diphenhydramine 25 mg as needed. Address patient's legal status Patient is on a 14 day involuntary treatment hold. Patient will be given the opportunity to talk to her hydraulic pile hammer operator and the professional golf tournament player Piero Angel MD Jul 29, 2016 14:15
--- NOTE | 2016-07-29 15:39 | NUR ---
NURS DAY [id number] Orientation: x3 Mood: "I'm bored." Denies depression, anxiety. Affect: Restricted. Behavior: You spent much shift in room. Currently in piano room with fellow patients. Thought Process/Content: Sports Broadcaster spoke with You through dry cleaning supervisor. Expressed interest in discharge, "I want to leave. It's boring here. I want to leave so that I can work." Nursing Note/PRN: heart rate in 140s bpm at 1245 per Terra Hare RN from [facility] (see note). Reviewed admit paperwork with dry cleaning supervisor, You signed the GAIN-SS but declined to sign all other admit forms. Housekeeping reports that today was the first time in days that no puddles of urine or urine soaked wash cloths were found on the floor.
[2016-07-29] MEDS: diphenhydrAMINE-Zinc 2%-0.1% 30 Gm Cream TOPICAL PRN (16:16)
--- NOTE | 2016-07-29 17:25 | NUR ---
[facility] Day Shift Pt affect and behavior mostly unchanged from previous shift. Pt maintained behavioral control throughout the shift. Pt affect appears flat, blunt. Pt is mostly non-communicative with staff due to language barrier, but is able to respond appropriately to basic questions/statements. Pt spends the majority of the shift resting in her room. Pt is only active on the unit to attend meals, only briefly active on the unit to participate lightly in unit activities. Pt attended all meals and ate approx 30% of breakfast and 70 of lunch and dinner.
--- NOTE | 2016-07-29 17:51 | NUR ---
Case Management/Counseling S/O: Patient slept 8.5+ hours last night. She denies S/I and H/I. She also denies auditory and visual hallucinations. Depression is 0/10 and anxiety is 0/10. Everything pertaining to patient's mother and/or court proceedings/no contact order, must be turned over to Elisabeth Dejesus in Risk Management, [phone]. A: Patient is uncooperative, guarded, restricted affect, fearful, paranoid, limited insight, limited judgment. P: Follow care plan, coordinate out-patient providers.
[2016-07-29] MEDS: OLANZapine Zydis ODT 5 mg Tablet PO SCH (21:04)
--- NOTE | 2016-07-30 06:27 | NUR ---
Pt out on unit some in evening. Asleep 7815. Pt observed every 15 minutes as ordered.
--- NOTE | 2016-07-30 06:39 | NUR ---
Nursing Note Composition Board Press Operator 7pm to 7am Pt seen peering out of room and quickly retreating. She did come out requesting to dry her clothes and to eat snack with peers but did not engage anyone. Affect blunted, mood she was well groomed and had not urinated on the floor today. Pt took meds without incident, no prns were required. Pt went to bed at approx. 0930 Pt slept through the night undisturbed. She slept in her bed instead of the floor which she had been doing for the past few nights. No incidents of urinating on the floor for the past 24 hours. Monitored pt. with q 15 minutes checks for safety location and accountability
[2016-07-30 11:00] VITALS: BP 112/72; PULSE 115; RESP 16
--- NOTE | 2016-07-30 11:23 | NUR ---
Nursing Day Shift- S- "No." (response to being asked about pain, depression and anxiety. Pt. reported that she can feel the baby moving.) O- Pt. appeared asleep at the start of the day shift. She had slept 8 plus hours per report. Pt. awoke, eat, then returned to her room. She answered the above questions with the aid of the educational sign language interpreter. A- Pt. continues to isolate in her room between meals, and answer staff questions with brief responses and broken eye contact. P- Cont. BHTP.
--- NOTE | 2016-07-30 11:51 | PCM.PNPSY ---
Subjective Date of Service Jul 30, 2016 Subjective I spent 30 minutes both reviewing treatment plan and providing supportive/ educational psychotherapy with an site interpreter present. I spent more than 50% of the time attempting to financial health counselor the patient. I reviewed the treatment plan with the patient and discussed options available including the potential risks, benefits and side effects. Femi was in a cooperative mood today. She responded directly to my questions and we talked at length because she does not understand the shelter process. Staff reports that she has continued to be isolative but is now able to participate well in one-to-one unit or group activities. He appears to feel more comfortable on the unit and is beginning to smile and make eye contact. She no longer appears to be responding to internal stimuli and her thoughts are more organized. She is very selective about who she will talk to.. She slept 8 hours. She was not able to identify her medications but was aware of what they were used to treat. She appeared to understand the need for medications by the questions she asked during our discussion. She denied medication side effects. She denied difficulty with review of systems for anxiety depression or psychosis today. Mental Status Exam Appearance: Neat/well groomed Attitude: Pleasant, Cooperative, Guarded Behavior: Other (No or minimal eye contact.) Affect: Restricted Mood: Fearful Thought Process/Associations: Logical/Sequential Speech Production: Normal Speech Rate: Normal Speech Articulation: Normal Thought Content: Negativistic Danger to Self/Suicidal Ideati: None Danger to Others: None Delusions: Paranoid (Endorses) Consciousness: Alert Orientation: Person, Place Memory: Untestable Estimate Intellectual Function: Average Attention/Concentration & Cogn: Impaired Insight: Limited Judgement: Limited Mental Health Plan The patient is a 30-year-old, Mandarin speaking only female who presents with an odd story of being at 29 weeks and then having her "parents send her from [place] to [place]". She has reported that she herself tried to "cut the baby out" at times in A fit of frustration and anger that she no longer feels this way. She struggles to relate a coherent history other than she feels shamed by her family for her . She initially reported symptoms which qualified for a diagnosis of major depressive disorder, and now reports a marked decrease in both depression and anxiety symptom review. Femi was much more communicative today, and is now beginning to sleep more at night. She has not Demonstrated bizarre behavior over the past 48 hours. Her thoughts are more organized and she denied review of systems for psychosis today [place] DIAGNOSIS: [place] I: 1. Major depressive disorder with psychotic features. 2. Rule out post-traumatic stress disorder [place] II: Deferred. [place] III: Intrauterine at 30 weeks. [place] IV: Severe. [place] V: 35 Treatments Patient is being provided with a high degree of safety through the structure and active adult engagement. We will focus on developing improved coping skills and identifying stressors that may have led to current episode. We will attempt to: Integrate into therapeutic groups, milieu and individual therapy. Maintain in a closely monitored and structured unit Provide low-stimulation environment Obtain collateral data to assist in treatment planning Assess degree of lability of affect and impulse control Complete safety plan Decrease frequency of relapse and need for re-hospitalization Denies thoughts of harm to self and/or others Establish a consistent sleep pattern Medication effective in stabilization of mood and/or thought process Reduce the risk of imminent harm to self and/or others by providing a safe environment Tolerates medication without side effects Patient will be on the following psychiatric medications: Fluoxetine 20 mg daily Olanzapine 5 mg nightly Diphenhydramine 25 mg as needed. Address patient's legal status Patient is on a 14 day involuntary treatment hold and I filed a petition for a 90 day most restrictive order today 2016. Patient will be given the opportunity to talk to her agricultural service worker today. Piero Angel MD Jul 30, 2016 11:51
--- NOTE | 2016-07-30 16:11 | NUR ---
Case Management/Counseling S: "Am I going to court?" O: Patient slept 7.5 hours last night. She denies S/I and H/I. She also denies auditory and visual hallucinations. Depression is 0/10 and anxiety is 0/10. When asked her mood, patient stated, "Okay." A: Patient is cooperative, guarded, restricted affect, fearful, paranoid, limited insight, limited judgment. P: Follow care plan, coordinate out-patient providers.
--- NOTE | 2016-07-30 18:53 | NUR ---
[facility] Day Shift Pt affect and behavior mostly unchanged from previous shift. Pt maintained behavioral control throughout the shift. Pt affect appears flat, blunt. Pt is mostly non-communicative with staff due to language barrier, but is able to respond appropriately to basic questions/statements. Pt spends the majority of the shift resting in her room. Pt is only active on the unit to attend meals, only briefly active on the unit to participate lightly in unit activities. Pt briefly attempted to participate in group activity in the afternoon with limited success. Pt attended all meals and ate approx 60% of all meals.
[2016-07-30] MEDS: OLANZapine Zydis ODT 5 mg Tablet PO SCH (20:00)
--- NOTE | 2016-07-30 21:09 | NUR ---
nursing note 3pm-11pm S)"I want that room" O) pt pointed to shower door, took shower, asked this screen writer to wash some pants for her, ate meals, observed looking through legal paperwork in room asked for a copy of one page , out watching TV and did some coloring, did not socialize with others, denies any physical problems or pain, dressed in own clothes, groomed, ate meals A) guarded, medication compliant, pleasant P)monitor behavior and medication effectiveness
--- NOTE | 2016-07-31 05:55 | NUR ---
nursing, nights, 11-7 s/o- has appeared to sleep after [id number] and after midnight during q 15 minute assessments. a- no apparent distress. p- monitor behavior/emotional state, quality, times and amount of sleep, use and effect of medication. rosie
[2016-07-31 10:58] VITALS: BP 119/71; PULSE 100; RESP 12
--- NOTE | 2016-07-31 13:42 | PCM.PNPSY ---
Subjective Date of Service Jul 31, 2016 Subjective I spent 30 minutes both reviewing treatment plan and providing supportive/ educational psychotherapy with an seam steamer present. I spent more than 50% of the time attempting o certified alcohol drug counselor the patient. I reviewed the treatment plan with the patient and discussed options available including the potential risks, benefits and side effects. You was in an uncooperative mood today. She refused to respond to my questions and he stated she has not been taking her medications rather than she has been spitting them out. He sees no reason why she should be detained and is asking to be released. She appears anxious about what could happen to her immigration status and her . Staff reports that she has continued to be isolative. She no longer appears to be responding to internal stimuli and her thoughts are more organized. She is very selective about who she will talk to.. She slept 8 hours. She was not able to identify her medications but was aware of what they were used to treat. She denied medication side effects dating that she has not been taking them rather spitting them out. She denied difficulty with review of systems for anxiety depression or psychosis today. Mental Status Exam Vital Signs Vital Signs Date Time Temp Pulse Resp B/P Pulse Ox O2 Delivery O2 Flow Rate FiO2 07/31/16 10:58 36.6 100 12 119/71 Appearance: Neat/well groomed Attitude: Pleasant, Cooperative, Guarded Behavior: Other (No or minimal eye contact.) Affect: Restricted Mood: Fearful Thought Process/Associations: Logical/Sequential Speech Production: Normal Speech Rate: Normal Speech Articulation: Normal Thought Content: Negativistic Danger to Self/Suicidal Ideati: None Danger to Others: None Delusions: Paranoid (Endorses) Consciousness: Alert Orientation: Person, Place Memory: Untestable Estimate Intellectual Function: Average Attention/Concentration & Cogn: Impaired Insight: Limited Judgement: Limited Mental Health Plan The patient is a 30-year-old, Mandarin speaking only female who presents with an odd story of being at 29 weeks and then having her "parents send her from [place] to [place]". She struggles to relate a coherent history other than she feels shamed by her family for her . She initially reported symptoms which qualified for a diagnosis of major depressive disorder, and now reports a marked decrease in both depression and anxiety symptom review. Initially she reported hearing ghosts talk to her and tell her things to do. Now she denies psychotic review of systems. You was refusing to talk or answer my questions today. There was no apparent trigger for this. She had not been demonstrating bizarre behavior over the past several days but now the staff states they believe she is urinating on the floor again rather than using the toilet. Her thoughts are more organized and she denied review of systems for psychosis today. It is unclear the degree to which she has been feigning taking medications. [place] DIAGNOSIS: [place] I: 1. Major depressive disorder with psychotic features. 2. Rule out post-traumatic stress disorder [place] II: Deferred. [place] III: Intrauterine at 30 weeks. [place] IV: Severe. [place] V: 35 Treatments Patient is being provided with a high degree of safety through the structure and active adult engagement. We will focus on developing improved coping skills and identifying stressors that may have led to current episode. We will attempt to: Integrate into therapeutic groups, milieu and individual therapy. Maintain in a closely monitored and structured unit Provide low-stimulation environment Obtain collateral data to assist in treatment planning Assess degree of lability of affect and impulse control Complete safety plan Decrease frequency of relapse and need for re-hospitalization Denies thoughts of harm to self and/or others Establish a consistent sleep pattern Medication effective in stabilization of mood and/or thought process Reduce the risk of imminent harm to self and/or others by providing a safe environment Tolerates medication without side effects Patient will be on the following psychiatric medications: Fluoxetine 20 mg daily Olanzapine 5 mg nightly Diphenhydramine 25 mg as needed. Address patient's legal status Patient is on a 14 day involuntary treatment hold and I filed a petition for a 90 day most restrictive order today 2016. Patient will be given the opportunity to talk to her parking manager today. Piero Angel MD Jul 31, 2016 13:42
--- NOTE | 2016-07-31 14:19 | NUR ---
day shift nursing note-Depression/Anxiety/SI/HI/Psychosis. S/O-Pt. was uncommunicative with staff and peers but does occasionally nod her head. Her room smelt like urine. She was able to respond to questions with the assistance of an career guidance technician. She denies AH or VH, HI or SI. She stated she sometimes gets headaches but prefers to rest on her bed to get rid of them. She denies depression but admits to anxiety from issues from her family. She sometimes cheeks her meds and spits them out. She denied any symptoms of a UTI. She prefers to color by herself or remain in her room. Her appetite is fair. She is guarded when staff asks her questions. A-Psychosis. Lack of insight. P-Encourage engagement with peers. Monitor for safety per protocol. Assess efficacy of meds to decrease psychosis.
--- NOTE | 2016-07-31 14:51 | NUR ---
Automatic Cigar Wrapper Tender./ c.m. S.:"I don't like medications... I don't need anything." O.: met with pt., MD and machine hostler together. Pt. refused to talk to MD but agreed to talk to the financial underwriter. She denied SI/HI, denied AH/VH or paranoid/delusional thoughts. She admitted feeling depressed and rated depression at 5/10. She couldn't rate anxiety, but said "not much". She felt stressed out about her and a future delivery as well as her "family relationship in [place]." She was concerned that her child would be taken away from her after delivery and that she would be sent back to [place] alone. She admitted cheeking her meds because "they have bitter taste". She said that she didn't take meds in the past even for her headaches and sleep. She didn't want to take meds now also. Electrical Sign Wirer described rules in the unit and specific conditions that pt. had to meet in order to be discharged. She understood that but she wasn't sure that she could follow all rules here. She refused help with a shower. She didn't make any comments about urine smell in her room. A.: pt. is isolative, uncooperative with treatment, guarded and confused at times. She has poor eye contact and looks disheveled. P.: monitor behavior, encourage pt. to take meds; follow care plan.
[2016-07-31] MEDS: OLANZapine Zydis ODT 5 mg Tablet PO SCH (20:13)
--- NOTE | 2016-07-31 20:16 | NUR ---
[facility] Note 07/31/16 D-Patient ate all of her meals and snacks today. She attended basic ADLs and appears moderately groomed. Patent attended one structured group and did not participate in any activities this shift. A-Patient spent most of the shift in her room. She came out of her room for meals and comparatively more than days previously. Patient appeared to have a difficult time conversing but when in morning meeting she expressed goals. Her responses were fragmented with bazar content such as Car Welcoming Good When asked what she wanted for a goal she stated drawing which was the most coherent thing stated at that time. She has periodically approached staff with understandable requests, such as for lotion for her hands. She remains guarded through the day, at one point staff was doing checks and found her laying on the floor crying. When asked if she was okay, patient shook her head no. When she was asked if she wanted help or if staff could help her she shook her head no. Patient nodded that she would tell staff if she needed anything and contracted for safety. She has been up for food but otherwise continues to isolate. P-Continue current treatment plan.
--- NOTE | 2016-07-31 21:07 | NUR ---
nursing note evenings S)"I need cream here" O) pt has small healed spots on forearms and lower legs only one that was a little red on right wrist, bacitracin applied, cooperative with medication mouth checked afterwards, ate meals and colored, participated in wrap up group, no complaints of discomfort, occasional smile, isolates, dressed in clean clothes A)isolates, guarded, polite P) monitor medication effectiveness encourage participation in treatment
--- NOTE | 2016-08-01 05:38 | NUR ---
Nursing Note Process Engineering Manager 11pm to 7am Pt went to sleep at 2230 and slept uninterrupted until 0445 when she got up briefly to get some warm water to drink. In no acute distress. Went back to sleep without incident. Monitored pt q 15 minutes for safety, location and accountability.
[2016-08-01 09:00] VITALS: BP 114/62; PULSE 97; RESP 16
--- NOTE | 2016-08-01 12:43 | NUR ---
Nursing Note [id number] Behavior S/O: Pt took am medications. She ate 100% of breakfast. VS stable. Pt answers questions with honey liquefier well, but with me she will only nod or shake head with no verbal answers. Pt can speak Qatari if she desires. Pt has poor eye contact. She c/o feeling tired stating she slept "2 hours." She c/o feeling tired. Pt rated depression at a "6" on a scale of 1-10/10 the worst. Pt denies anxiety, suicidal/homicidal ideation, audio/visual hallucinations. Pt reports her mind is "very busy...hard to focus." Pt states she d/n want to take medications because she is . Conversation tracking is clear & organized with slightly slow rate & rhythm. Voice is very quiet. Pt stays in her room most of the day except for meals. A: Pt appears paranoid & isolative. P: Provide supportive environment. Monitor medications & effects.
--- NOTE | 2016-08-01 13:10 | PCM.PNPSY ---
Subjective Date of Service Aug 01, 2016 Subjective I spent 20 minutes both reviewing treatment plan . You was in a cooperative mood today (she tends to alternate between days of being mute and days of being relatively open). Seems to respond better to women than to men. She sees no reason why she should be detained and is asking to be released. She appears anxious about what could happen to her immigration status and her . Staff reports that she has continued to be isolative. She no longer appears to be responding to internal stimuli and her thoughts are more organized. He denied suicidal ideation or psychotic symptom review. She slept 7 hours. She was not able to identify her medications but was aware of what they were used to treat. She denied medication side effects stating that she has not been spitting them out lately. She denied difficulty with psychosis symptoms today. She reports a continued level of dysphoria and anxiety. Mental Status Exam Appearance: Neat/well groomed Attitude: Pleasant, Cooperative, Guarded Behavior: Other (No or minimal eye contact.) Affect: Restricted Mood: Fearful Thought Process/Associations: Logical/Sequential, Goal Directed Speech Production: Normal Speech Rate: Normal Speech Articulation: Normal Thought Content: Negativistic Danger to Self/Suicidal Ideati: None Danger to Others: None Delusions: Paranoid (Endorses) Consciousness: Alert Orientation: Person, Place Memory: Untestable Estimate Intellectual Function: Average Attention/Concentration & Cogn: Impaired Insight: Limited Judgement: Limited Mental Health Plan The patient is a 30-year-old, Mandarin speaking only female who presents with an odd story of being at 29 weeks and then having her "parents send her from [place] to [place]". She struggles to relate a coherent history other than she feels shamed by her family for her . She initially reported symptoms which qualified for a diagnosis of major depressive disorder, and now reports a marked decrease in both depression and anxiety symptom review. Initially she reported hearing ghosts talk to her and tell her things to do. Now she denies psychotic review of systems. You has not been demonstrating bizarre behavior over the 48 hours (staff states they believed she had been urinating on the floor again rather than using the toilet ). Her thoughts are more organized and she denied review of systems for psychosis. It is unclear the degree to which she has been feigning taking medications. It may be appropriate to try her on a week off of a neuroleptic. It is possible that this was a brief reactive psychosis and with the structure of the unit she may be able to maintain reality based thinking without a neuroleptic. [place] DIAGNOSIS: [place] I: 1. Major depressive disorder with psychotic features. 2. Rule out post-traumatic stress disorder 3. Rule out brief reactive psychosis [place] II: Deferred. [place] III: Intrauterine at 30 weeks. [place] IV: Severe. [place] V: 35 Treatments Patient is being provided with a high degree of safety through the structure and active adult engagement. We will focus on developing improved coping skills and identifying stressors that may have led to current episode. We will attempt to: Integrate into therapeutic groups, milieu and individual therapy. Maintain in a closely monitored and structured unit Provide low-stimulation environment Obtain collateral data to assist in treatment planning Assess degree of lability of affect and impulse control Complete safety plan Decrease frequency of relapse and need for re-hospitalization Denies thoughts of harm to self and/or others Establish a consistent sleep pattern Medication effective in stabilization of mood and/or thought process Reduce the risk of imminent harm to self and/or others by providing a safe environment Tolerates medication without side effects Patient will be on the following psychiatric medications: Fluoxetine 20 mg daily Olanzapine 5 mg nightly Diphenhydramine 25 mg as needed. Address patient's legal status Patient is on a 14 day involuntary treatment hold and I filed a petition for a 90 day most restrictive order today 2016. Patient will be given the opportunity to talk to her form grader operator today. Piero Angel MD Aug 01, 2016 13:10
--- NOTE | 2016-08-01 15:14 | NUR ---
Defence Force Senior Officer./ c.m. S.:"I'm fine... I don't know... mood is not good. I have too many thoughts in my head and they are going fast." O.: met with pt., practice administrator and pt.'s nurse together. Pt. said that she "slept only a couple of hrs last night". She felt tired "but not too bad". She couldn't say if she felt different today comparing with yesterday. She denied SI/HI, denied AH/VH or paranoid/delusional thoughts. She rated depression at 6/10. She admitted feeling more depressed today but couldn't explain why - "I don't know". She denied anxiety at this time. She talked about racing thoughts and how it was hard for her to focus. She complained about feeling itchy. She didn't want to take medications but she was willing to use an ointment. "Pills are not good for a baby. I used a topical cream before." She took a shower in the morning but didn't dry herself well. She had a trail of water left on a floor from the shower into her room. She also was using a washcloth to wipe inside a toilet in her bathroom because it "had a very bad smell. I don't want people to smell it in my room." Church Warden asked pt. to let visiting housekeeper know if she needed help with cleaning her bathroom. Pt. agreed to follow that advice. She was pleased to hear that MD who treated her last week is coming back tomorrow. Pt. was in and out of her room keeping mostly to herself. A.: pt. is cooperative, isolative, quiet, seems internally preoccupied. She has a flat affect and poor eye contact. P.: monitor behavior, monitor meds intake, follow care plan.
--- NOTE | 2016-08-01 18:24 | NUR ---
Observations [id number] Pt was asleep in room upon start of shift. Pt remained in room much of the day, only coming out for meals- pt ate 100% of meals. Pt did not attend groups and was not overly social with staff or peers. Pt did mentioned that "I"m not doing good today" but when prompted, would not state why. Pt was observed every 15 minutes of shift as directed.
[2016-08-01] MEDS: OLANZapine Zydis ODT 5 mg Tablet PO SCH (20:01)
--- NOTE | 2016-08-01 22:50 | NUR ---
FHT pt refused to let OB nurse listen to HR today
--- NOTE | 2016-08-02 05:19 | NUR ---
Nursing note: shiftman/sleep Patient appears to be sleeping on safety checks during the night.
[2016-08-02 11:22] VITALS: BP 109/64; PULSE 120; RESP 17
--- NOTE | 2016-08-02 13:24 | NUR ---
Nursing Note [id number] Behavior S/O: Pt ate 100% of breakfast & lunch. VS stable. Pt able to make needs know to [facility] staff. She uses as few words as possible. Pt wouldn't use any words when talking with me. When asking yes or no questions, she would shake or nod her head appropriately. Pt d/n answer questions needing words. Pt out of room in group room with peers for about 30 minutes. Pt seen smiling, but not seen interacting with peers. No eye contact when talking with pt. Pt stays in room most of the time. A: Pt appears paranoid. P: Provide supportive environment. Monitor medications & effects.
--- NOTE | 2016-08-02 15:59 | PCM.PNPSY ---
Subjective Date of Service Aug 02, 2016 Subjective The patient is seen with the [facility] rn intern. Regarding her mood she reports that she is "normal, not quite well. Yesterday was better." She stated that the [employer] is isolating her and she is concerned that she has "two female attorneys" and she feels that they do not have power. When patient confronted with the fact that the Commissioner is female, she did not change her opinion. She states that all she needed was to be released, "the materials management manager knows where to send me. A friend can help me find a place. A house around here." She did not know the name of the friend and could give us no further information. She did not think her baby would be taken away from her and she was not sure whether she wanted to return to [place]. She denied racing thoughts or side effects. Sleep: 8 hours Appetite: reports only ate chocolate and apple yesterday and fruit today, was encouraged to increase PO intake. Suicidal and homicidal ideation: denies Auditory hallucinations: denies Visual hallucinations: denies Other Psychotic Symptoms: as above Anxiety: 10/23 Depression:10/23 Mental Status Exam Vital Signs Vital Signs Date Time Temp Pulse Resp B/P Pulse Ox O2 Delivery O2 Flow Rate FiO2 08/02/16 11:22 36.1 120 17 109/64 Appearance: Neat/well groomed Attitude: Guarded Behavior: Other (No or minimal eye contact.) Affect: Restricted Mood: Fearful Thought Process/Associations: Logical/Sequential, Goal Directed Speech Production: Normal Speech Rate: Normal Speech Articulation: Normal Thought Content: Negativistic Danger to Self/Suicidal Ideati: None Danger to Others: None Delusions: Paranoid (Endorses) Hallucinations: Auditory (Denies), Visual (Denies) Consciousness: Alert Orientation: Person, Place Memory: Untestable Estimate Intellectual Function: Average Attention/Concentration & Cogn: Impaired Insight: Limited Judgement: Limited Mental Health Plan The patient is a 30-year-old, Mandarin speaking female who reportedly tried to "cut the baby out" at times due to anger. The patient appeared to meet criteria for major depression and so was started on fluoxetine and lorazepam for anxiety. The patient requested an increase in antianxiety medication, however lorazepam is generally avoided where possible and and so she was switched to diphenhydramine per consultation with OVERNIGHT BABYSITTER regarding safest treatment. The patient has responded partially to olanzapine for psychotic symptoms and is more communicative, but remains delusional with poor insight as noted above. Patient in need of further titration of olanzapine. [place] I: 1. Major depressive disorder with psychotic features. 2. Rule out post-traumatic stress disorder [place] II: Deferred. [place] III: Intrauterine at 32 weeks 2 days. [place] IV: Severe. [place] V: 35 Medications Fluoxetine 20 mg daily Olanzapine 5 mg nightly, with IM override. Diphenhydramine 25 mg as needed. Treatments 1. The patient is admitted to the inpatient unit and will be provided a safe and secure environment. 2. The patient is reporting denying current active suicidality or homicidality or intent to precipitate an early or delivery and is not in need of a one- to-one at this time. 3. The patient is encouraged to participate with group and milieu activities. 4. The patient will be seen by the treatment team on a daily basis to assess symptoms, side effects and response to treatment. [employer] rn intern will be used during these times. 5. Fluoxetine will be continued, Zyprexa Zydis will be increased to 7.5mg nightly, with IM override with 2nd opinion in chart. 6. Continue PRN Benadryl. 7. OVERNIGHT BABYSITTER to continue to follow progress as needed. 8. Diphenhydramine zinc ointment every 6 hours when necessary pruritus. 9. Anticipated length of stay is 10-14 days. Rigoberto Egan MD Aug 02, 2016 15:59 Patient will be on the following psychiatric medications: Fluoxetine 20 mg daily Olanzapine 5 mg nightly Diphenhydramine 25 mg as needed. Address patient's legal status Patient is on a 14 day involuntary treatment hold and I filed a petition for a 90 day most restrictive order today 2016. Patient will be given the opportunity to talk to her room service food server today. Rigoberto Egan MD Aug 02, 2016 15:59
--- NOTE | 2016-08-02 17:37 | NUR ---
Supervisor Machine Workers./ c.m. S.:"I'm not quite well. Yesterday was better. I just don't want to talk... Everybody asks different questions and it feels overwhelming..." O.: met with pt., paleology teacher and MD together. Pt. "didn't sleep much last night because lights were on." She denied SI/HI, denied AH/VH, denied paranoid/delusional thoughts. She rated depression at 6/10 and anxiety at 6/10 also. She couldn't tell where she would go after discharge. She said that she had "a friend who will help to find a place to live." She knew about her criminal charges but she didn't understand why she had them and what it meant. She said that she would like Marissa to be her lamp replacer everywhere. She didn't like having different attorneys - "I can't pay to 2 different people." She told that answering on everybody's questions were too overwhelming for her. A.: pt. is cooperative, quiet, has poor insight, poor eye contact. P.: monitor behavior, encourage pt. to take meds, court tomorrow, follow care plan.
--- NOTE | 2016-08-02 18:10 | NUR ---
Observations [id number] Pt was asleep upon start of shift. She continues to isolate to her room much of the day, however was noticed to have come to a group and interact with peers more then observed in previous shifts playing video games. Pt also sat at a table with others for lunch, appearing to attempt socialization with peers. She took a shower and asked for fresh clothing. Pt is still very shy and guarded in behaviors and mannerisms. She was observed every 15 minutes of shift as directed.
[2016-08-02] MEDS: OLANZapine Zydis ODT 5 mg Tablet PO SCH (21:00)
--- NOTE | 2016-08-02 22:12 | NUR ---
Nursing Note [place] Shift Pt isolating to room, out for meals and snack. No interactions with peers noted and pt unwilling or unable to communicate with this nurse. No eye contact given and pt would only shake head when responding to questions. No HS meds given r/t court in AM. Q15 min safety checks done per protocol, TM sleep, saety, behavior
--- NOTE | 2016-08-03 02:30 | NUR ---
Observations 1900 to 0700 Pt was in her room when my shift started and remained there for most of the night. Pt did come out for a quick snack before going right back to her room. Pt first appeared asleep at 22:45 and was observed every 15 minutes through the night as directed.
--- NOTE | 2016-08-03 05:15 | NUR ---
Nursing notes: full time/sleep Patient appears to be sleeping on safety checks during the night. No complaints voiced
[2016-08-03 10:47] VITALS: BP 105/44; PULSE 112; RESP 16
--- NOTE | 2016-08-03 13:57 | NUR ---
Nursing Note [id number] Behavior S/O: Pt out of room for meals & some other activities. Pt has been in the recreation room & out in the day room during part of the day. Pt d/n interact with other patients, but watches on the periphery. Family RN on unit this morning to do heart tones-150. B/P today was 105/44. Pt was continued in court today until tomorrow. Pt has again opted to not take medications prior to court. Pt pleasant on unit, but d/n engage with staff. Little eye contact. A: Pt con't to appear paranoid. P: Provide supportive environment. Monitor medications & effects.
--- NOTE | 2016-08-03 15:53 | PCM.PNPSY ---
Subjective Date of Service Aug 03, 2016 Subjective The patient is seen with the Gem anthropology department chair. Regarding her mood she reports that she "feels that she will from the air conditioning." She reports that she can stay with Marlon in [place] or Nicole in [place] but does not know either their addresses or phone numbers. The patient possesses a passport of it Nicole and she indicated that this is the same individual. The patient reports not being terribly hungry but was willing to drink vanilla Ensure in order to maintain her weight. She was also willing to have her weight checked. She denied side effects or racing thoughts. She was unsure of her plans in the future regarding her baby and return to [place]. Sleep: 8 hours Appetite: reports had only milk and some rice, was encouraged to increase PO intake. Suicidal and homicidal ideation: denies Auditory hallucinations: denies Visual hallucinations: denies Other Psychotic Symptoms: withdrawn Anxiety: 610 Depression:5-10/23 Mental Status Exam Vital Signs Vital Signs Date Time Temp Pulse Resp B/P Pulse Ox O2 Delivery O2 Flow Rate FiO2 08/03/16 10:47 36.2 112 16 105/44 Appearance: Neat/well groomed Attitude: Guarded Behavior: Other (No or minimal eye contact.) Affect: Restricted Mood: Fearful Thought Process/Associations: Logical/Sequential, Goal Directed Speech Production: Normal Speech Rate: Normal Speech Articulation: Normal Thought Content: Negativistic Danger to Self/Suicidal Ideati: None Danger to Others: None Delusions: Paranoid (Endorses) Hallucinations: Auditory (Denies), Visual (Denies) Consciousness: Alert Orientation: Person, Place Memory: Untestable Estimate Intellectual Function: Average Attention/Concentration & Cogn: Impaired Insight: Limited Judgement: Limited Mental Health Plan The patient is a 30-year-old, Mandarin speaking female who reportedly tried to "cut the baby out" at times due to anger. The patient appeared to meet criteria for major depression and so was started on fluoxetine and lorazepam for anxiety. The patient requested an increase in antianxiety medication, however lorazepam is generally avoided where possible and and so she was switched to diphenhydramine per consultation with GROUP EXERCISE CLASS INSTRUCTOR regarding safest treatment. The patient has responded partially to olanzapine for psychotic symptoms and is more communicative, but remains with poor insight. The patient is tolerating the titration of olanzapine without side effect. The patient continues to report poor oral intake but is agreeable to using supplements. [place] I: 1. Major depressive disorder with psychotic features. 2. Rule out post-traumatic stress disorder [place] II: Deferred. [place] III: Intrauterine at 32 weeks 3 days. [place] IV: Severe. [place] V: 35 Medications Fluoxetine 20 mg daily Olanzapine 5 mg nightly, with IM override. Diphenhydramine 25 mg as needed. Treatments 1. The patient is admitted to the inpatient unit and will be provided a safe and secure environment. 2. The patient is reporting denying current active suicidality or homicidality or intent to precipitate an early or delivery and is not in need of a one- to-one at this time. 3. The patient is encouraged to participate with group and milieu activities. 4. The patient will be seen by the treatment team on a daily basis to assess symptoms, side effects and response to treatment. Gem anthropology department chair will be used during these times. 5. Fluoxetine will be continued, Zyprexa Zydis will be increased to 7.5mg nightly, with IM override with 2nd opinion in chart. 6. Continue PRN Benadryl. 7. GROUP EXERCISE CLASS INSTRUCTOR to continue to follow progress as needed. 8. Diphenhydramine zinc ointment every 6 hours when necessary pruritus. 9. Vanilla Ensure with meals 10. Anticipated length of stay is 10-14 days. Rigoberto Egan MD Aug 03, 2016 15:53
--- NOTE | 2016-08-03 18:04 | NUR ---
Observations [id number] Pt was asleep upon start of shift. She continues to spend much of her time in her room, but has been observed to spend more time with peers then in previous days. She continues to not verbally interact much with others. Pt did not attend groups aside from Community Meeting, in which she did participate but it was difficult to understand. Pt attended all meals, eating an average of 75%. She did laundry and took a shower. Pt was observed every 15 minutes of shift as directed.
[2016-08-03] MEDS: OLANZapine Zydis ODT 5 mg Tablet PO SCH (21:00)
--- NOTE | 2016-08-03 22:02 | NUR ---
Nurses Note Patient did not receive medications at HS last night or this evening in preparation for court in the am. Patient did not receive visitors this shift,spent limited time in the dayroom and ran from her room at wrap-up yelling no medication. Will maintain q 15min. checks for safety and support.
--- NOTE | 2016-08-04 01:19 | NUR ---
Observations 1900 to 0700 Pt was in her room when my shift started and remained there for most of the night. Pt did come out for a quick snack before going right back to her room. Pt first appeared asleep at 23:00 and was observed every 15 minutes through the night as directed.
--- NOTE | 2016-08-04 05:26 | NUR ---
Sleep 11p-7a Pt has slept from [id number] with no noted distress or awakening per protocol checks. Total sleep 6 hours. Pt noted to be awake at 0500 sitting at her bedside in the dark hugging her pillow. She remains guarded and isolative while awake.
[2016-08-04 10:28] VITALS: BP 111/76; PULSE 132
--- NOTE | 2016-08-04 13:52 | NUR ---
Nursing Note [id number] S/O: Pt ate 100% of breakfast & lunch. VS stable. Pt laying on cement floor this morning. Pt attended Community Meeting this morning. Pt has been in room today except briefly in dining room for meals. Pt has poor eye contact. She d/n communicate with staff except to nod & shake her head. She appears to understand what is being said & makes appropriate responses. A: Pt con't to appear paranoid. P: Provide supportive environment. Monitor medications & effects.
--- NOTE | 2016-08-04 14:33 | PCM.PNPSY ---
Subjective Date of Service Aug 04, 2016 Subjective The patient is seen with the [facility] applied technologist. The patient was initially agreeable to speak, but stated that she was refusing medication as she had court today and was told that she could now refuse medication. She was informed that court was over and that she was now expected to take medications. When we attempted to explain what happened in court as she refused to attend, she got upand walked out of the room. Later we again approached her. She refused to go to the interview room and instead went to the day room. We asked whether she wanted her mother to visit now that there is a modified restraining order and she shook her head yes, but when asked whether she would like her to stay beyond her visa and have the hospital write a letter to request an extension, she shook her head, "no" and wrote on a piece of paper, "talk to mother: health" but would not clarify what she wanted us to discuss and added "Funk 4Ud No" when asked what she wanted discussed. She then went to her room, and shut the door. Sleep: 6+ hours Appetite: patient ate approximately 75% of meals and some snacks per notes. Mental Status Exam Vital Signs Vital Signs Date Time Temp Pulse Resp B/P Pulse Ox O2 Delivery O2 Flow Rate FiO2 08/04/16 10:28 36.8 132 111/76 Appearance: Neat/well groomed Attitude: Guarded, Uncooperative Behavior: Other (No or minimal eye contact.) Affect: Restricted Mood: Fearful Thought Process/Associations: Other (unable to asses as essentially non-verbal) Speech Production: Normal Speech Rate: Normal Speech Articulation: Normal Thought Content: Negativistic Danger to Self/Suicidal Ideati: None Danger to Others: None Delusions: Paranoid (Endorses) Hallucinations: Auditory (Denies), Visual (Denies) Consciousness: Alert Orientation: Person Memory: Untestable Estimate Intellectual Function: Average Attention/Concentration & Cogn: Impaired Insight: Limited Judgement: Limited Mental Health Plan The patient is a 30-year-old, Mandarin speaking female who reportedly tried to "cut the baby out" at times due to anger. The patient appeared to meet criteria for major depression and so was started on fluoxetine and lorazepam for anxiety. The patient requested an increase in antianxiety medication, however lorazepam is generally avoided where possible and and so she was switched to diphenhydramine per consultation with DISPATCH ASSOCIATE regarding safest treatment. The patient has responded partially to olanzapine for psychotic symptoms but refused medications prior to court and is more irritable today. The patient is tolerating the titration of olanzapine without side effect. The patient had improved oral intake per notes. Patient indicates would like mother to visit but does not wish her to stay beyond her current visa. [place] I: 1. Major depressive disorder with psychotic features. 2. Rule out post-traumatic stress disorder [place] II: Deferred. [place] III: Intrauterine at 32 weeks 3 days. [place] IV: Severe. [place] V: 35 Medications Fluoxetine 20 mg daily Olanzapine 7.5 mg nightly, with IM override. Diphenhydramine 25 mg as needed. Treatments 1. The patient is admitted to the inpatient unit and will be provided a safe and secure environment. 2. The patient is reporting denying current active suicidality or homicidality or intent to precipitate an early or delivery and is not in need of a one- to-one at this time. 3. The patient is encouraged to participate with group and milieu activities. 4. The patient will be seen by the treatment team on a daily basis to assess symptoms, side effects and response to treatment. The [facility] [employer] applied technologist will be used during these times. 5. Fluoxetine will be continued, Zyprexa Zydis will be increased to 7.5mg nightly, with IM override with 2nd opinion in chart. 6. Continue PRN Benadryl. 7. DISPATCH ASSOCIATE to continue to follow progress as needed. 8. Diphenhydramine zinc ointment every 6 hours when necessary pruritus. 9. Vanilla Ensure with meals 10. Anticipated length of stay is 10-14 days. 11. Will not pursue extension of mother's visa at this time. Rigoberto Egan MD Aug 04, 2016 14:33 9. Vanilla Ensure with meals 10. Anticipated length of stay is 10-14 days. Rigoberto Egan MD Aug 04, 2016 14:33
--- NOTE | 2016-08-04 17:09 | NUR ---
Observations 0700 to 1900 Pt seems much the same as previous shifts. Pt spent most of the day isolating in her room, alternating between sitting and lying on the floor. Pt attended community meeting and set goal to go outside, self rated mood at 'varied.' Pt attended no other community activities. Pt ate 75-100% of breakfast and lunch and was observed every 15 minutes as ordered.
--- NOTE | 2016-08-04 18:12 | NUR ---
Support Services Specialist/Counselor: S: "I don't want to talk!" O: Patient slept 6+ hours last night as per staff. She denies S/I and H/I. She then refused to continue the interview and walked away. This comic book writer, psychiatrist and cardiology consultant attempted to finish the interview and patient closed the door while interview team standing at the room door. A: Patient is uncooperative, labile, irritable, paranoid, fearful, limited insight, poor judgment. P: Follow your care plan, coordinate out-patient providers.
--- NOTE | 2016-08-04 20:15 | NUR ---
Nurses Note Evening Patient has been out on the unit for meals,has been in groups briefly but without interaction with others. Her appetite and hygiene are within normal limits. Patient continues to refuse medications and grabbed the med cup out of the nurses hand aggressively and tossed it in the garbage. Patient remains delusional stating that the paper caused her scratch on her arm and she couldn't take the pill. Patient returned to her room demanding the staff not to enter. Patient will not have an liquor gallery operator present instead will be able to use the Business Analysis Analyst on a Stick if call made again to Feng Sutherland at #[phone] in the AM. Will maintain q 15min. checks for safety and support. Addendum: 08/04/16 at 2038 by NANCY GEE RN Amended: Links added.
[2016-08-04] MEDS: OLANZapine Zydis ODT 5 mg Tablet PO SCH ×2 (20:19→20:26)
--- NOTE | 2016-08-05 05:24 | NUR ---
nursing, nights, 11-7 s/o- has appeared to sleep after 2114 on the floor. will be awake sitting on the floor for brief periods of time at midnight, 0130 and 0400. is easily awoken. assessed q 15 minutes. a- interrupted/inadequate sleep, appears internally preoccupied, no apparent physical distress. p- monitor behavior/emotional state, quality, times and amount of sleep, use and effect of medication. rosie
[2016-08-05] MEDS ORDERED: OLANZapine Zydis ODT 5 mg Tablet PO ONE (08:25)
[2016-08-05 08:30] VITALS: BP 113/79; PULSE 113; RESP 16
--- NOTE | 2016-08-05 14:46 | PCM.PNPSY ---
Subjective Date of Service Aug 05, 2016 Subjective The patient is seen with an [facility] tele-parts interpreter. The patient declined to talk in any detail. She declined her medication last night but did take AM dose when presented the alternative. She is laying on a yoga mat on the floor and declined moving the regular mattress to the floor or an additional mattress for the floor. No side effect complaints. Sleep: 7+ hours Appetite: patient eating meals Suicidal/homicidal ideation: denies Auditory/visual hallucinations: denies Other psychiatric symptoms: paranoia. Anxiety/Depression: denies Current Medications Current Medications Olanzapine 5 mg ONCE ONCE PO Last administered on 08/05/16t 08:41; Admin Dose 5 MG; Start 08/05/16 at 08:25; Stop 08/05/16 at 08:35; Status DC Mental Status Exam Vital Signs Vital Signs Date Time Temp Pulse Resp B/P Pulse Ox O2 Delivery O2 Flow Rate FiO2 08/05/16 08:30 36.0 113 16 113/79 Appearance: Neat/well groomed Attitude: Guarded, Uncooperative Behavior: Other (No or minimal eye contact.) Affect: Restricted Mood: Fearful Thought Process/Associations: Other (unable to asses as essentially non-verbal) Speech Production: Normal Speech Rate: Normal Speech Articulation: Normal Thought Content: Negativistic Danger to Self/Suicidal Ideati: None Danger to Others: None Delusions: Paranoid (Endorses) Hallucinations: Auditory (Denies), Visual (Denies) Consciousness: Alert Orientation: Person, Place, Situation Memory: Untestable Estimate Intellectual Function: Average Attention/Concentration & Cogn: Impaired Insight: Limited Judgement: Limited Mental Health Plan The patient is a 30-year-old, Mandarin speaking female who reportedly tried to "cut the baby out" at times due to anger. The patient appeared to meet criteria for major depression and so was started on fluoxetine and lorazepam for anxiety. The patient requested an increase in antianxiety medication, however lorazepam is generally avoided where possible and and so she was switched to diphenhydramine per consultation with GROUNDSKEEPING MAINTENANCE WORKER regarding safest treatment. The patient has responded partially to olanzapine for psychotic symptoms but refused medications prior to court and refused last night's dose. IM backup discontinued on 07/26/16. The patient denied any side effects. The patient had improved oral intake per notes. [place] I: 1. Major depressive disorder with psychotic features. 2. Rule out post-traumatic stress disorder [place] II: Deferred. [place] III: Intrauterine at 32 weeks 3 days. [place] IV: Severe. [place] V: 35 Medications Fluoxetine 20 mg daily Olanzapine 7.5 mg nightly, with IM override. Diphenhydramine 25 mg as needed. Treatments 1. The patient is admitted to the inpatient unit and will be provided a safe and secure environment. 2. The patient is reporting denying current active suicidality or homicidality or intent to precipitate an early or delivery and is not in need of a one- to-one at this time. 3. The patient is encouraged to participate with group and milieu activities. 4. The patient will be seen by the treatment team on a daily basis to assess symptoms, side effects and response to treatment. [employer] interpreter will be used during these times. 5. Fluoxetine will be continued, Zyprexa Zydis 5mg this am then 7.5mg at bedtime as has not had x 3 days. 6. Continue PRN Benadryl. 7. GROUNDSKEEPING MAINTENANCE WORKER to continue to follow progress as needed. 8. Diphenhydramine zinc ointment every 6 hours when necessary pruritus. 9. Vanilla Ensure with meals 10. Anticipated length of stay is 10-14 days. 11. Will not pursue extension of mother's visa at this time. Rigoberto Egan MD Aug 05, 2016 14:46 Rigoberto Egan MD Aug 05, 2016 14:46
--- NOTE | 2016-08-05 14:59 | NUR ---
Nursing note dayshift S)"I sign paper I don't take pill" O) pt refusing medication due to signing RTRM before court but that was two days ago, told pt that she had to take her medication this morning or she would get a injection, pt understood and took pill, checked mouth afterwards, isolated in room except for meals, denies any pain or problems with , dressed in own clothes appears disheveled A)guarded, took pill, eating meals, isolates P)monitor behavior and effectiveness of medications
--- NOTE | 2016-08-05 18:06 | NUR ---
Observations 0900 to 2130 Pt affect and mood continues to be flat, isolative and preoccupied. Pt speech and eye contact was poor. Pt holds her head down when approached. Pt did not attend community meeting or set a daily goal. Pt was in her room most of the day, staring at the nowak and sitting on the floor when observed. Pt was unsocial with staff when approached, partly due to language barrier. Pt continues to give short responses when approached. Pt attended meals in D.[facility]. and ate approximately 75% of her meals. Pt maintained behavior throughout the shift. Pt was polite, pleasant and cooperative. Pt took a shower and attended to ADL's. Pt was observed every 15 minutes throughout the shift as ordered.
--- NOTE | 2016-08-05 18:52 | NUR ---
Parimutuel Ticket Cashier/Counselor: S: "I don't want to talk!" O: Patient slept 7 hours last night as per staff. She denies S/I and H/I. She denies auditory and visual hallucinations. A: Patient is uncooperative, labile, irritable, paranoid, fearful, limited insight, poor judgment. P: Follow your care plan, coordinate out-patient providers.
[2016-08-05] MEDS: OLANZapine Zydis ODT 5 mg Tablet PO SCH (20:38)
--- NOTE | 2016-08-06 05:30 | NUR ---
nursing, nights, 11-7 s/o- has appeared to sleep uninterrupted after 2300 during q 15 minute assessments. a- improved sleep, no apparent distress. p- monitor behavior/emotional state, quality, times and amount of sleep, use and effect of medication. rosie
--- NOTE | 2016-08-06 06:16 | NUR ---
OBSERVATIONS 1900 TO 0700 Pt was isolative throughout the shift. Pt provided limited, one-word responses to questions. Pt attended evening wrap-up group but did not participate. Pt was recorded asleep at 2300 and slept through the night. Maintained Q15 checks for safety as directed.
--- NOTE | 2016-08-06 11:31 | NUR ---
Heart tones in the 170's today at 1110 when obtained by Olga CLAIRE from the [facility]. Addendum: 08/06/16 at 1133 by DONTAE CAREY RN Pt. had just gotten out of a hot shower and was dressing when heart tones were obtained.
--- NOTE | 2016-08-06 13:22 | NUR ---
Nursing Day Shift- S/O- Pt. had slept 7 plus hours per report. She appeared to still be sleeping at the start of the shift. Pt. was offered her AM medication and began walking away from staff. She was redirected to taking it, placed the med in her mouth, and again began walking away. She was followed by staff and her mouth checked. She isolated in her room, showered, then eat 100% lunch. Pt. had downcast eyes, and brief dismissive responses. A- Isolative, guarded, denied pain. Resistant to medications. P- Cont. BHTP.
--- NOTE | 2016-08-06 14:57 | PCM.PNPSY ---
Subjective Date of Service Aug 06, 2016 Subjective The patient is seen with an [facility] tele-master craftsman. The patient abruptly terminated the interview without further discussion. According to staff, she reported some spotting but when nursing staff looked at linens no blood was noted. The patient initially declined medications last night but did not take them rather than receiving backup medications. Sleep: 7+ hours Appetite: patient eating meals Suicidal/homicidal ideation: None reported Auditory/visual hallucinations: Unknown Other psychiatric symptoms: paranoia. Anxiety/Depression: Unknown Current Medications Current Medications Olanzapine 5 mg ONCE ONCE PO Last administered on 08/05/16t 08:41; Admin Dose 5 MG; Start 08/05/16 at 08:25; Stop 08/05/16 at 08:35; Status DC Mental Status Exam Appearance: Neat/well groomed Attitude: Guarded, Uncooperative Behavior: Other (No or minimal eye contact.) Affect: Restricted Mood: Fearful Thought Process/Associations: Other (unable to asses as essentially non-verbal) Speech Production: Normal Speech Rate: Normal Speech Articulation: Normal Thought Content: Negativistic Danger to Self/Suicidal Ideati: None Danger to Others: None Delusions: Paranoid (Endorses) Consciousness: Alert Orientation: Person, Place, Situation Memory: Untestable Estimate Intellectual Function: Average Attention/Concentration & Cogn: Impaired Insight: Limited Judgement: Limited Mental Health Plan The patient is a 30-year-old, Mandarin speaking female who reportedly tried to "cut the baby out" at times due to anger. The patient appeared to meet criteria for major depression and so was started on fluoxetine and lorazepam for anxiety. The patient requested an increase in antianxiety medication, however lorazepam is generally avoided where possible and and so she was switched to diphenhydramine per consultation with PUTTY TINTER MAKER regarding safest treatment. The patient continues irritable and uncooperative particularly with the mobile tele-translation unit. The patient appears to be irritable and only marginally responding to medications. Corona Corona I: 1. Major depressive disorder with psychotic features. 2. Rule out post-traumatic stress disorder Corona II: Deferred. Corona III: Intrauterine at 32 weeks 3 days. Corona IV: Severe. Corona V: 35 Medications Fluoxetine 20 mg daily Olanzapine 7.5 mg nightly, with IM override. Diphenhydramine 25 mg as needed. Treatments 1. The patient is admitted to the inpatient unit and will be provided a safe and secure environment. 2. The patient is reporting denying current active suicidality or homicidality or intent to precipitate an early or delivery and is not in need of a one- to-one at this time. 3. The patient is encouraged to participate with group and milieu activities. 4. The patient will be seen by the treatment team on a daily basis to assess symptoms, side effects and response to treatment. [employer] master craftsman will be used during these times. 5. Discontinue fluoxetine and begin sertraline 50 mg nightly to assist with medication adherence. 6. Continue PRN Benadryl. 7. PUTTY TINTER MAKER to continue to follow progress as needed. 8. Diphenhydramine zinc ointment every 6 hours when necessary pruritus. 9. Vanilla Ensure with meals 10. Anticipated length of stay is 10-14 days. 11. Will not pursue extension of mother's visa at this time. Rigoberto Egan MD Aug 06, 2016 14:57
--- NOTE | 2016-08-06 17:56 | NUR ---
[facility] Day Shift Pt affect and behavior mostly unchanged from previous shift. Pt maintained behavioral control throughout the shift. Pt affect appears flat, blunt. Pt is mostly non-communicative with staff due to language barrier, but is able to respond appropriately to basic questions/statements. Pt spends the majority of the shift resting in her room. Pt is only active on the unit to attend meals, only briefly active on the unit to participate lightly in unit activities. Pt did not attend community meeting or group activities throughout the shift. Pt attended all meals and ate approx 60% of all meals.
--- NOTE | 2016-08-06 19:24 | NUR ---
Tanning Wheel Operator/Counselor: S: "I'm not talking to you." O: Patient slept 7+ hours last night as per staff. No S/I and H/I reported. Auditory and visual hallucinations, unknown. Patient abruptly terminated the interview without further discussion. This technical proposal writer called Child Protective Services (CPS), as requested by Machine Tool Mechanic Radha, reported information about patient. This technical proposal writer spoke with Rom Garces from [facility], , Intake ID # is [id number]. Case was put in CPS system, but nothing could be done because patient's child has not been born yet. A: Patient is uncooperative, guarded, paranoid, fearful, restricted affect, limited insight, poor judgment. P: Follow your care plan, coordinate out-patient providers.
[2016-08-06] MEDS: OLANZapine Zydis ODT 5 mg Tablet PO SCH (20:58)
--- NOTE | 2016-08-06 21:57 | NUR ---
NURSING NOTE [id number] Mood: *shakes head, motioning no* Affect: isolative, guarded, uncooperative Behavior: isolating to room most of the shift except to come out for her meal. She mostly lays on a mat on her floor or sits on her bed. She was med compliant tonight, and did not raise any issue with the new added Zoloft medication to her HS regimen. Thought processes: difficult to assess as she was unwilling to answer this writers questions tonight. She shakes her head *no* no matter what question is posed. Did not witness any bizarre behaviors this shift or see her responding to stimuli.
--- NOTE | 2016-08-07 05:02 | NUR ---
Nursing Note noc Pt resting in room with 1.25 hr of sleep noted. Pt moves from floor to bed and after room checks comes out and slams the door. Attempted to assess pt with MHA and house sup for pain and pt refused to respond. Pt instructed to contact staff with feelings of pain. Q15 min safety checks done per protocol, no distress noted. WCTM sleep, safety, behavior
[2016-08-07 08:04] VITALS: BP 107/69; PULSE 100; RESP 16
--- NOTE | 2016-08-07 09:45 | NUR ---
T 0935 by doppler 135
--- NOTE | 2016-08-07 13:42 | PCM.PNPSY ---
Subjective Date of Service Aug 07, 2016 Subjective The patient is seen with an [facility] tele-center lead consultant. The patient stated, "Emotionally, I don't feel well," but would not elaborate. The patient answered most questions in the negative. According to the center lead consultant, the patient's use of the negative was not syntactically appropriate to the question and appeared unusual. Sleep: 3+ hours, broken Appetite: patient eating meals Suicidal/homicidal ideation: denied Auditory/visual hallucinations: denied Other psychiatric symptoms: paranoia. Anxiety/Depression: denied Current Medications Current Medications Sertraline HCl 50 mg HS PO Last administered on 08/06/16t 20:57; Admin Dose 50 MG; Start 08/06/16 at 21:00 Mental Status Exam Vital Signs Vital Signs Date Time Temp Pulse Resp B/P Pulse Ox O2 Delivery O2 Flow Rate FiO2 08/07/16 08:04 36.8 100 16 107/69 Appearance: Neat/well groomed Attitude: Guarded, Uncooperative Behavior: Other (No or minimal eye contact.) Affect: Restricted Mood: Fearful Thought Process/Associations: Other (poverty of speech) Speech Production: Normal Speech Rate: Normal Speech Articulation: Normal Thought Content: Negativistic Danger to Self/Suicidal Ideati: None Danger to Others: None Delusions: Paranoid (Endorses) Consciousness: Alert Orientation: Person, Place, Situation Memory: Untestable Estimate Intellectual Function: Average Attention/Concentration & Cogn: Impaired Insight: Limited Judgement: Limited Mental Health Plan The patient is a 30-year-old, Mandarin speaking female who reportedly tried to "cut the baby out" at times due to anger. The patient appeared to meet criteria for major depression and so was started on fluoxetine and lorazepam for anxiety. The patient requested an increase in antianxiety medication, however lorazepam is generally avoided where possible and and so she was switched to diphenhydramine per consultation with ASSOCIATE MEDICAL DIRECTOR regarding safest treatment. The patient continues irritable and uncooperative particularly with the mobile tele-translation unit, though more cooperative today. Her Mandarin responses were unusual per operating system designer. Discussed case with OB who tentatively plans to see patient on 08/10/16. OB would like to know capacity to consent to suction, forceps, , epidural, general anesthesia. [place] Eden I: 1. Major depressive disorder with psychotic features. 2. Rule out post-traumatic stress disorder [place] II: Deferred. Eden III: Intrauterine at 32 weeks 3 days. Eden IV: Severe. Eden V: 35 Medications Sertraline 50mg nightly Olanzapine 7.5 mg nightly, with IM override. Diphenhydramine 25 mg as needed. Treatments 1. The patient is admitted to the inpatient unit and will be provided a safe and secure environment. 2. The patient is reporting denying current active suicidality or homicidality or intent to precipitate an early or delivery and is not in need of a one- to-one at this time. 3. The patient is encouraged to participate with group and milieu activities. 4. The patient will be seen by the treatment team on a daily basis to assess symptoms, side effects and response to treatment. Rewarder center lead consultant will be used during these times. 5. Sertraline 50 mg nightly to assist with medication adherence. 6. Continue PRN Benadryl. 7. ASSOCIATE MEDICAL DIRECTOR to continue to follow progress as needed. OB would like to know capacity to consent to suction, forceps, , epidural, general anesthesia closer to time of 8. Diphenhydramine zinc ointment every 6 hours when necessary pruritus. 9. Vanilla Ensure with meals 10. Anticipated length of stay is 10-14 days. 11. Will not pursue extension of mother's visa at this time. Rigoberto Egan MD Aug 07, 2016 13:41
--- NOTE | 2016-08-07 15:17 | NUR ---
nursing note 7am-7pm S)"No" O) pt answered "no" to every question asked, used computer job honer, denies pain or any problem, ate meals in dinning room, walked halls a bit for exercise, took shower, dressed in own clothes, FHT done 135 by OB nurse this morning A) no change, no c/o of problems P) monitor behaviors and medication effectiveness
--- NOTE | 2016-08-07 15:21 | NUR ---
Ground Operations Superintendent./ c.m. S.:"I'm not feeling well... My mood is bad, nothing changed." O.: met with pt. and MD together at the entrance into the pt.'s room. She refused to go to a private room and didn't want staff to come in into her room. Electronic building maintenance technician was used to communicate with pt. better. She didn't sleep well last night. She didn't feel well today but she refused to comment on that. She answered "no" on every question even if wasn't appropriate. She denied SI/HI, denied AH/VH, denied depression or anxiety. She didn't want MD to write a letter to [facility] asking for her mother's visa extension. She spent most of the time in her room. A.: pt. is isolative, uncooperative, guarded, has a flat affect and poor eye contact. P.: monitor behavior, monitor meds intake; follow care plan.
--- NOTE | 2016-08-07 17:24 | NUR ---
Observations from [id number] Pt stayed in her room most of the shift. When this senior medical writer would check on her, and ask if she's ok, she wouldn't respond. She has attended meals and ate 100% of all meals. Pt did spend minimal time out in the common room, but didn't seem to interact with peers. Pt has been monitored every 15 minutes as directed.
[2016-08-07] MEDS: OLANZapine Zydis ODT 5 mg Tablet PO SCH (20:24)
--- NOTE | 2016-08-08 03:46 | NUR ---
Observations 1900 to 0700 Pt was in her room when my shift started and remained there for most of the night. Pt did come out for a quick snack before going right back to her room. Pt first appeared asleep at 20:45 and was observed every 15 minutes through the night as directed.
--- NOTE | 2016-08-08 06:30 | NUR ---
Nursing Noc Pt isolative to room zero report or obvious physical discomfort. Pt minimal with verbal to answer sometimes only with no. Noted to have good sleep throughout the night. [facility] Continuing to monitor mood, behavior, emotional state. q15 minute safety checks.
[2016-08-08 08:45] VITALS: BP 107/71; PULSE 112; RESP 16
--- NOTE | 2016-08-08 12:54 | NUR ---
Polymer Specialist./ c.m. S.:"No, no..." O.: met with pt. and MD together to check on pt.'s progress. Pt. was lying on a yoga mat on a floor. She got up silently and came into an interview room where [employer] copy preparer over the internet was set up already for the session. Pt. answered "no" on a few questions and after that she made a little movement with her head only. She refused to talk to doctors from [facility] [place]. She denied SI/HI, denied AH/VH, denied depression or anxiety. She got up and left the room in the middle of the interview without saying a word. She is eating and sleeping better now. A.: pt. is isolative, uncooperative, quiet. She has a flat affect and very poor eye contact. P.: monitor behavior, encourage pt. to communicate with staff and to take medications; follow care plan.
--- NOTE | 2016-08-08 13:25 | PCM.PNPSY ---
Subjective Date of Service Aug 08, 2016 Subjective The patient is seen with an [facility] tele-lang interpreter. The patient indicated that she was not feeling well, but would not elaborate. The patient answered most questions in the negative, by shaking head no. She would not answer questions regarding options as noted in the plan. Sleep: 9.5+ hours Appetite: patient eating meals Suicidal/homicidal ideation: denied Auditory/visual hallucinations: denied Other psychiatric symptoms: paranoia. Anxiety/Depression: denied Current Medications Current Medications Sertraline HCl 50 mg HS PO Last administered on 08/07/16t 20:24; Admin Dose 50 MG; Start 08/06/16 at 21:00 Mental Status Exam Vital Signs Vital Signs Date Time Temp Pulse Resp B/P Pulse Ox O2 Delivery O2 Flow Rate FiO2 08/08/16 08:45 36.6 112 16 107/71 Appearance: Unkept (somewhat) Attitude: Guarded, Uncooperative Behavior: Other (No or minimal eye contact.) Affect: Restricted Mood: Fearful Thought Process/Associations: Other (poverty of speech) Speech Production: Paucity Speech Rate: Normal Speech Articulation: Normal Thought Content: Negativistic Danger to Self/Suicidal Ideati: None Danger to Others: None Delusions: Paranoid (Endorses) Hallucinations: Auditory (Denies), Visual (Denies) Consciousness: Alert Orientation: Person, Place, Situation Memory: Untestable Estimate Intellectual Function: Average Attention/Concentration & Cogn: Impaired Insight: Limited Judgement: Poor Mental Health Plan The patient is a 30-year-old, Mandarin speaking female who reportedly tried to "cut the baby out" at times due to anger. The patient appeared to meet criteria for major depression and so was started on fluoxetine and lorazepam for anxiety. The patient requested an increase in antianxiety medication, however lorazepam is generally avoided where possible and and so she was switched to diphenhydramine per consultation with PHOTOGRAPH INSPECTOR regarding safest treatment. The patient continues irritable and uncooperative particularly with the mobile tele-translation unit and is less cooperative then yesterday. Her Mandarin responses were unusual per presiding judge yesterday and today consisted almost entirely of negative head shakes or "no." Discussed case with OB who tentatively plans to see patient on 08/10/16. OB would like to know capacity to consent to suction, forceps, , epidural, general anesthesia. The patient would not answer any questions regarding her delivery and she does not appear to possess decisional capacity at this time, though it is difficult to fully assess. [place] I: 1. Major depressive disorder with psychotic features. 2. Rule out post-traumatic stress disorder [place] II: Deferred. [place] III: Intrauterine at 33 weeks 1 day [place] IV: Severe. [place] V: 35 Medications Sertraline 50mg nightly Olanzapine 7.5 mg nightly, with IM override. Diphenhydramine 25 mg as needed. Treatments 1. The patient is admitted to the inpatient unit and will be provided a safe and secure environment. 2. The patient is reporting denying current active suicidality or homicidality or intent to precipitate an early or delivery and is not in need of a one- to-one at this time. 3. The patient is encouraged to participate with group and milieu activities. 4. The patient will be seen by the treatment team on a daily basis to assess symptoms, side effects and response to treatment. [employer] lang interpreter will be used during these times. 5. Increase sertraline to 100 mg nightly; with dosing combined at bedtime with olanzapine to assist with medication adherence. 6. Continue PRN Benadryl. 7. PHOTOGRAPH INSPECTOR to continue to follow progress as needed. OB would like to know capacity to consent to suction, forceps, , epidural, general anesthesia closer to time of ; patient does not appear to meet capacity at this time. 8. Diphenhydramine zinc ointment every 6 hours when necessary pruritus. 9. Vanilla Ensure with meals 10. Anticipated length of stay is 10-14 days. 11. Will not pursue extension of mother's visa at this time. Rigoberto Egan MD Aug 08, 2016 13:25
--- NOTE | 2016-08-08 15:34 | NUR ---
nursing note [id number] S)'No good" O) this is pt standard answer to how she is doing unable to elaborate what is not good, denies pain or any problems, took shower, dressed in clean clothes, ate meals, out in milieu brief periods but did not socialize, at times lays on mat on floor in room, denies any problem with A) no improvement, guarded, doing own ADLS P) monitor behavior,effectiveness of medication, follow care plan for labor if needed
--- NOTE | 2016-08-08 16:43 | NUR ---
Observations 0900 to 1900 Pt affect and mood continues to be flat, isolative, bizarre and preoccupied. Pt speech and eye contact was poor. Pt holds her head down when approached by auto service writer. Pt was observed talking to female staff. Pt was in her room most of the day, staring at the nowak and sitting on the floor or bed when observed. Pt was unsocial when approached, partly due to language barrier. Pt attended meals in D.R. and ate approximately 75% of her meals. Pt maintained behavior throughout the shift. Pt took a shower and attended to ADL's. Pt asked that her laundry be washed and staff helped her with that. Pt refused to attend group and unit activities. Pt was observed every 15 minutes throughout the shift as ordered.
[2016-08-08] MEDS: OLANZapine Zydis ODT 5 mg Tablet PO SCH (20:50)
--- NOTE | 2016-08-09 05:31 | NUR ---
Nursing Noc Pt continues to isolate in her room with minimal interaction with peers or staff. No participation in group activities. Took HS medication. Broken sleep of 6+ hours.
--- NOTE | 2016-08-09 08:51 | NUR ---
Maritza Smiley RN from Family here to monitor heart tones-150 bpm
--- NOTE | 2016-08-09 13:41 | PROG NOTE ---
[address] [address] PROGRESS NOTE PATIENT: TOMMY ADAMS : 1985 MR#: [id number] ADMIT: 07/13/2016 JOB ID: [id number] DATE: 08/09/2016 CHIEF COMPLAINT: "I don't want to talk anymore, not with that fink." HISTORY OF PRESENT ILLNESS: As stated above, the patient had a very brief interaction with myself and the patient case manager, Claudette, with the assembler garment form stick. The patient reportedly looked at the stick, and at one point, clearly expressed frustration. Follow up conversations per Claudette, the patient case manager, indicated that the patient believes that she can speak Lao and that she would prefer further interviews without the introverted stick. She identified that her concern is that the individuals are Ch[place]. She reportedly on interaction with Claudette post appeared to be responding to internal stimulus and made repeated statements that I was not her doctor, that she has another doctor who is male and that he is black. She was not able to correlate previous interactions with Dr. Egan. I have reviewed documentation and have been following the case over the past week with Dr. Egan as well. Her current medication regimens include: 1. Zyprexa 7.5 mg q.h.s. 2. Zoloft 100 mg q.h.s. Staffing has been completed with the labor and delivery department about the transition and interactions that will occur if the patient does come to the point of delivery while in her current placement on the unit. Safe guards will be instituted with a one-to-one assignment nonetheless. In review of other documentation, the patient reportedly has been seen on the unit pacing at times. She appears to be responding to internal stimulus and has both a bizarre and preoccupied appearance. She often walks with her head down and refuses to maintain eye contact. She at points has refused care including monitoring of vital signs. She has been consistent with her medications under duress with insistence that IM injectable would be ordered. OBJECTIVE: On mental status examination, the patient is quite paranoid on approach. She maintains no eye contact with myself. Her speech is brief. Her mood is described as somewhat dysphoric. Her affect is irritable, labile. Her thought process appears to be responding to internal stimulus. She is quite disorganized. Her thought content: There has been no reference of suicidal ideation, no notation of homicidal threats. She reportedly has denied any evidence of auditory or visual hallucinations but this is questionable in validity. She appears to be preoccupied and responding to internal stimulus while pacing in the hallways. She was alert. Orientation was untested. Attention and concentration are poor. Memory untested. Insight and judgment are deemed poor. PHYSICAL EXAM: Vital signs of current. Temperature is 36.6, pulse 112, respirations 16, BP 107/71. MEDICATION REVIEW: Includes: 1. Zoloft 100 mg q.h.s. 2. Zyprexa 7.5 mg at h.s. ASSESSMENT: AXIS I 1. Major depressive disorder with psychotic features. 2. Rule out posttraumatic stress disorder, chronic. AXIS II Deferred. AXIS III 33 week two days . AXIS IV Stressors are severe. AXIS V Global assessment of functioning of current 35. PLANS: 1. Recommendations for titration of Zyprexa to 2.5 mg q. a.m., 7.5 mg q.h.s. with follow up injectable if patient refuses. 2. Continuation of Zoloft 100 mg q.h.s. 3. Continuation of behavior plan as identified in the charting and consistent with interventions to follow if the patient does lead into a delivery with transition to the labor and delivery department. 4. Recommendations for pursuit of MR 90 to be filed due to the patient's high risk of completion of harm to self and to others.
--- NOTE | 2016-08-09 14:18 | NUR ---
Candles Pourer./ c.m. S.:"I don't need this cullet washer! She is [place] cullet washer! I can speak [place] and I can be my own cullet washer! Don't use it again! I don't want it!" O.: met with pt., doctor and [place] cullet washer over the Internet together in a private room. Pt. refused to talk and left the room in an angry manner. Later she came to the staff writer, made comments above and apologized for her behavior. She also said that she didn't need "another doctor. I have one doctor already. He is not a white man. He is a black man. He is from the hospital and he is working with my senior informatica developer." She couldn't describe her "doctor" and couldn't tell doctor's speciality. She was very direct and had a good eye contact while talking about her "doctor". She denied SI/HI, denied AH/VH. She didn't have any questions or requests. She became more latent in her speech as this conversation was progressing. She was looking aside and her lips were moving from time to time. She would repeat a few words that were unrelated to staff writer's question. A.: Pt. is isolative, internally preoccupied, angry at times. She has a flat affect, poor eye contact at the end of the conversation. She looked internally preoccupied. P.: monitor behavior, provide safety in the unit, monitor meds intake; follow care plan.
[2016-08-09] MEDS: OLANZapine Zydis ODT 5 mg Tablet PO SCH ×4 (15:29→22:37)
--- NOTE | 2016-08-09 17:14 | NUR ---
Observations [id number] Pt was asleep in room upon start of shift. She continues to isolate to her room for much of the day. She did not participate in group activities or spend much time in the common area. Pt refused vitals as she stated that she is sick and didn't want to do them. Pt was asked again later in the day and still refused. Pt reviewed court paperwork and returned it to have placed with her belongings. Pt attended all meals, eating an average of 70%. She took a shower in the afternoon. She was observed every 15 minutes of shift as directed.
--- NOTE | 2016-08-09 18:42 | NUR ---
Nursing: S/O: You has spent most of the day in her room. She came out for meals but otherwise was lying on bed. Refused vital sign check. Complained of sore throat and received cepacol losenge. Interacted minimally with peers and staff. T 150. P: Observe for sleep pattern. Addendum: 08/09/16 at 1907 by THAO FRENCH RN Amended: Links added.
--- NOTE | 2016-08-09 20:52 | NUR ---
refused evening medication patient refused evening medications (zyprexa and zoloft) looked down at hands and said "no." offered twice. encouraged. patient repeated "no." asked "is anything bothering you? " she said, "no." looking at her hands. no eye contact. care ongoing.
--- NOTE | 2016-08-09 22:55 | NUR ---
agitation / anxiety/ evening medication administered patient placed chair in front of room door. cathleen hickman moved the chair and explained that blocking doors is unacceptable for safety. patient then became upset and started yelling at [facility]. nanda acosta and myself met patient in the hallway. explained again the safety protocol. patient stated she felt "unsafe" in her room. nanda acosta offered to change move her room, and change the lock on the door so that the door opens outward rather than inward. patient agreed to this. moved her own things to her new room 227(does not want staff helping). agreed to take her evening medication. administered. plan to have female staff check on patient through the night, as it appears male staff causes increased anxiety. patient agreeable to plan. care ongoing.
--- NOTE | 2016-08-10 02:57 | NUR ---
Observations 1900 to 0700 Pt was in her room when my shift started and remained there for most of the night. Pt became very loud and verbally aggressive when I took her bed side commode form her room because she was barricading it against the door so we could not open it. Pt was warned once not to that. Pt first appeared asleep at 22:45 and was observed every 15 minutes through the night as directed.
--- NOTE | 2016-08-10 06:08 | NUR ---
agitation patient in dining area. asking for her "job analysis manager paper." agitation increased . rn attempted to better understndand patient. patient started pounding on the windows of the nursing office yelling "my paper my paper!" escorted back to room. she has stayed in her room. quiet. care ongoing.
[2016-08-10] MEDS: OLANZapine Zydis ODT 5 mg Tablet PO SCH ×2 (09:22→20:57)
--- NOTE | 2016-08-10 12:11 | PROG NOTE ---
[address] [address] PROGRESS NOTE PATIENT: TOMMY ADAMS : 1985 MR#: [id number] ADMIT: 07/13/2016 JOB ID: [id number] DATE: 08/10/2016 CHIEF COMPLAINT: "I do not have any questions." This is patient's response to inquiries by myself and the case management assistant, Claudette. HISTORY OF PRESENT ILLNESS: As stated above, the patient made no verbal contact but shook her head repeatedly through the course of conversation. The patient made no eye contact but did appear to be experiencing visual tracking throughout the course of conversation. She reportedly had shared with Claudette yesterday afternoon that she preferred not to use the clinic coordinator Nupur, identifying that she can speak [place] just fine and that she could be her own clinic coordinator. However, this morning she refused to communicate other than shaking her head yes and no to various answers. She appeared to be somewhat internally preoccupied and last evening, per nursing documentation, the patient did have significant agitation. OBJECTIVE: On mental status exam, she is seen on interview wearing her own clothes. She makes no eye contact. She appears to be somewhat rigid on her stance. Her speech is minimal. Her mood is dysphoric. Her affect is irritable, labile. Her thought process shows evidence of perseveration and significant inability to track and follow conversations. Her thought content, she denied any evidence of current suicidal ideation. There was no evidence of homicidal ideation but noted agitation last evening. She does appear to be responding to internal stimulus throughout the course of conversation, experiencing both visual tracking and possible thought insertion. She was alert. Orientation was untestable. Insight and judgment are deemed poor. PHYSICAL EXAMINATION: Vital signs of current. Temperature is 36.6, pulse 112, respirations 16, BP 107/71. MEDICATION REVIEW: Includes: 1. Zyprexa Zydis 2.5 mg q.a.m., 7.5 mg q.h.s. 2. Zoloft 100 mg q.h.s. ASSESSMENT: AXIS I 1. Major depressive disorder with psychoses. 2. Rule out posttraumatic stress disorder, chronic. AXIS II Deferred. AXIS III Current . AXIS IV Stressors are noted for significant mental health issues, deportation of her mother, pending OCS involvement with her unborn child. AXIS V Global Assessment of Functioning current 35. PLAN: 1. Recommendation is for continuation of all medications noted with forced IM if patient refuses. 2. Recommendation is for continuation of pursuit of MR 90 within the next several days with eventual disposition to either [facility] or continuation of medical hospitalization if the patient does delivery on site.
--- NOTE | 2016-08-10 12:39 | NUR ---
Guest Room Attendant./ c.m. S.:"No..." O.: met with pt. and doctor together in pt.'s room. She was in bed but she got up quickly and stood with her head down. She denied SI/HI. She refused to answer on questions verbally but made head movement from time to time. She than looked around and said "paper". She continued looking around silently but she didn't look at the doctor or the race and sports book writer. She denied having a conversation with race and sports book writer yesterday. She denied her previous comments about speaking Hungarian and being her own rail car operator. She confirmed that she didn't want a tele-rail car operator. A.: pt. is isolative, selectively mute, looks internally preoccupied. She has a flat affect and poor eye contact. P.: monitor behavior, monitor for safety, follow care plan.
--- NOTE | 2016-08-10 14:45 | NUR ---
Obs Dayshift Pt is quiet, still isolating but is out in the milieu a little more today. Pt was sitting listening to music and putting a puzzle together. Pt is still refusing vitals, but did let the OB in for the monitoring. Pt is more calm, and participating in AM and PM groups. Not engaging w/ peers. Pt is disorganized, paranoid. Poor ADL's, Ok meals 40-80%
--- NOTE | 2016-08-10 18:25 | CONS ---
[address] [address] CONSULTATION REPORT PATIENT: TOMMY ADAMS : 1985 MR#: [id number] ADMIT: 07/13/2016 JOB ID: [id number] DATE OF SERVICE: 08/10/2017 A 40-year-old female. She is at 33 weeks plus days. Her and parity is not certain. The most reliable results likely she is 3, para 1-0-1-1. She has one alive kid, who is 5 years old, and is in [place] at this time. The patient was admitted to Family unit because of complicated with psychosis. I last saw the patient about 2-3 weeks ago. At that time, I got a limited history from patient and she refused physical examination. After that, she had her labs done, and the labs were all in normal range and she had an anatomy scan performed with limited evaluation. There was no abnormality noticed. I talked with the patient today and she claimed that she does not want to talk with me. She does claim that she feels discomfort all over her body but she said that is not related to . When I asked whether she feels the movement, she said no. I talked with the patient that if that is the case we need to do some monitoring, and the patient claimed that it is not necessary, that what she needed was to wait for the time for delivery and the doctor will help her deliver the baby and that is it. She is calm but she could answer questions. It is likely she understands the question very well, but she does want to talk more. She declined a physical examination. At this moment, she is having daily Doptone. ASSESSMENT AND PLAN: A 30-year-old female, likely para 1, at 33 plus four weeks , complicated with psychosis. 1. Besides daily Doptone, we will start her weekly NST and BPP. 2. I talked with Dr. Long three days ago. I expressed my concern about patient competence for medical decision, especially when she is in labor. My main question is if there is emergency and she needs a or instrument delivery, will patient sign the consent form at that time. The result with Dr. Long three days ago is that he will evaluate the patient at this time, and to bring up the question that if she needs emergent or instrument delivery, is she okay with it. If patient is okay with it, we will document it. If patient refuses and could not give appropriate reason, will consider at this time she is not competent to make medical decision, but the same process will be done when she is in labor, too. If she was evaluated and was not competent for decision making in labor, provider at that time has to make the judgment and make the best decision for her. 3. My opinion at that time is BUILD AUTOMATION ENGINEER provider will see patient every two weeks if no complaint. Then, we will see her every one week after 36 weeks. We will consider talking with the patient again at 36 weeks about taking GBS. WHITNEY
--- NOTE | 2016-08-10 18:39 | NUR ---
Nursing: Day shift: Behavior: You has been mostly in her room today. The main times she appears on the open unit is when she is out for meals or snacks and when she left her room and came to the dining room to avoid meeting with staff who were trying to give care in her room. She HAS used commode chair in her room appropriately today. Dance Teacher did find toilet paper plugging drain of room that You was moved from yesterday. You refused VS after being offered twice today. Communication: With chart writer, you only nods or says one word yes, no responses. With another RN this morning, You spoke in sentences in Pakistani. She even told RN what the book she was reading in Pakistani was about. You does appear to understand all spoken Pakistani. care: Allowed [facility] nurse to listen to FHRate: 134/min. When OB MD, Dr Lackey, visited, You walked out of her room. Dr. Lackey estimates the due date as September 25. Pt is now 33 weeks 3 days toward term. When stress test RN came to do test, You's behavior was the same. Ultrasound staff state that You will have to go to Ultrasound area for test. They cannot do it on this unit. Data Technical Lead told You that staff would approach her again about getting test done by the end of the week. Predelivery question: Dr. Lackey made request that BEFORE You goes into labor, she be asked ( and documentation made of her response) "If the baby is found to be in distress, is it ok to do a C section or use instruments to deliver baby? If response is "Yes", record. If response is "NO", ask why not? If You does not/cannot answer why not, document that she is incapable of making this medical decision. Dr Lackey states this process should be repeated when You goes into labor. A: You's behavior appears as though she was not interested or concerned about baby's wellbeing. P: Continue to provide safe, supportive environment for You and fetus. A: Internally Addendum: 08/10/16 at 1925 by THAO FRENCH RN Amended: Links added.
--- NOTE | 2016-08-11 03:32 | NUR ---
Observations 1900 to 0700 Pt was in her room when my shift started and remained there for most of the night. Pt did come out for a quick snack before going right back to her room. Pt first appeared asleep at 22:00 and was observed every 15 minutes through the night as directed.
--- NOTE | 2016-08-11 05:57 | NUR ---
Nursing Noc Report that patient is approximately 33 weeks and three days of gestation. Reported that patient refused Ultrasound and Stress test yesterday and refused to interact with Angelina SERRANO. Pt isolative to room this shift. Out for snacks and using phone in DR at beginning of shift. Continuing to monitor mood, behavior, medications and sleep by Q15 minute safety checks. CP
[2016-08-11] MEDS: OLANZapine Zydis ODT 5 mg Tablet PO SCH ×2 (08:31→20:31)
--- NOTE | 2016-08-11 11:42 | NUR ---
[id number]. nurs. S/O: Pt talking this am in Trinidadian about not wanting to see the REPAIR SPECIALIST because "they did not know about foreign people or yoruba medicine and also talked of wanting a Bulgarian Dr. Pt did agree to US procedure in US dept and taken by 2 [facility] unit women staff with 1 standby Security staff due to pt's prev. hx of attempting elopement. Pt did exhibit some interest and smiling when shown some of baby's features during US. Pt refused later portable monitoring of heart tones in her room, pt stating that she couldn't because she had some neck pain and indicating with her hand around front and sides of neck, pt did not elaborate further when enc. to do so. Pt coming out to get meals, did eat close to 100% of breakfast. mostly staying in her room. Pt isolates, does not seek interaction tends to keep gaze lowered and hair over her face.Pt will periodically maintain conversation with staff to try and make some of her preferences known. P:ADAM
--- NOTE | 2016-08-11 13:00 | PROG NOTE ---
[address] [address] PROGRESS NOTE PATIENT: TOMMY ADAMS : 1985 MR#: [id number] ADMIT: 07/13/2016 JOB ID: [id number] DATE: 08/11/2016 CHIEF COMPLAINT: "I have taken three years of Vietnamese." This is per patient report. HISTORY OF PRESENT ILLNESS: As stated above, the patient did agree to meet with myself and made intermittent eye contact throughout the course of conversation. She indicated that she had been reading a book on the unit and was able to read a paragraph out of the book. She reports that she has taken three years of Vietnamese and was fairly animated throughout the course her reading. She had completed an ultrasound earlier this morning and was returned to the unit with security transport. She reports that she continues to experience auditory hallucinations indicating that she hears voices of many men in her head. She would not elaborate on specific details. She denied any evidence of current suicidal thought, but understood that the process will be that when she delivers her child that the child will be given up for adoption and also identified that she is aware that she will be going back to [place] at that time. OBJECTIVE: On mental status exam, as noted above, the patient did improve with her contact with myself today. She made intermittent eye contact. She appears to be preoccupied and responding to internal stimulus throughout. Her mood was alexithymic. Her affect was blunted. Her thought process shows no evidence of racing thoughts, but she does appear to be somewhat distracted throughout. There is a possibility of thought insertion noted. Thought content: She denied any evidence of expressed suicidal, homicidal ideation. She continues to be quite paranoid. She admitted to the above auditory hallucinations. She was alert. Orientation was untestable. Memory untestable. Insight and judgment are deemed poor. PHYSICAL EXAM: Vital signs are current. Temperature is 36.6, pulse 112, respirations 16, BP 107/71. MEDICATION REVIEW: Includes: 1. Zyprexa Zydis 2.5 mg q.a.m., 7.5 mg q.h.s. 2. Zoloft 100 mg q.h.s. ASSESSMENT: AXIS I: 1. Major depressive disorder with psychotic features. 2. Probable posttraumatic stress disorder, chronic. AXIS II: Rule out cluster B personality features. AXIS III: Current . AXIS IV: Stressors are noted for significant history of aggression and agitation, current status with pending deportation. AXIS V: Global Assessment of Functioning of current 30. PLANS: 1. Recommendations for continuation of all medications noted. 2. Recommendations for continuation of court order as assigned. It is my understanding that a court jury trial is scheduled to be completed at the end of this month.
--- NOTE | 2016-08-11 14:02 | DRSVH ---
PROCEDURE: US OB BIOPHYSICAL PROFILE AND UMBILICAL DOPPLER INDICATIONS: pyschosis with OUTSIDE/PRIOR DATING DATA: First dating scan (date and location): 07/13/2016. Estimated date of delivery (SAMREEN) from first dating scan: 09/25/2016.. TECHNIQUE: Real-time scanning was performed of the fetus for biophysical profile, with image documentation. Col or and pulse Doppler interrogation was also performed of the umbilical artery near its insertion into the placenta. COMPARISON: [facility], , OB 1 OR [facility], 07/20/2016, 9:38. FINDINGS: General: A single living intrauterine gestation is present. Presentation: Vertex. Placenta: Placental position is anterior, without previa. OB-PROJECT SURVEYOR Ultrasound Procedure Report Summary Fetus Summary Heart Rate: 159 bpm Gestational Age from initial dating scan: 33 weeks, 4 days Findings(Amniotic Sac) Amniotic Fluid Index (LEENA): 10.20 cm Pelvis and Uterus Cervix Length (Mean): Not well seen. Biophysical Profile Amniotic Fluid Volume: 2 Breathin Gross Body Movement: 2 Tone: 2 Biophysical Profile Sum Score: 8 out of 8 Findings(Pelvic Vascular Structure) Umbilical Artery S/D Ratio: 2.42, 2, 2.31 IMPRESSION: A single live intrauterine gestation with normal biophysical profile and cord Doppler wi th preserved diastolic flow. Dictated by: Jovanny Figueroa [facility] Interpreted: Madelyn Paulino MD on 08/11/2016 at 14:01 Transcribed by: WENDY on 08/11/2016 at 14:02 Approved by: Madelyn Paulino M.D. on 08/11/2016 at 17:48
--- NOTE | 2016-08-11 17:29 | NUR ---
[facility] Day Shift Pt affect and behavior mostly unchanged from previous shift. Pt maintained behavioral control throughout the shift. Pt affect appears flat, blunt. Pt is mostly non-communicative with staff due to language barrier, but is able to respond appropriately to basic questions/statements. Pt spends the majority of the shift resting in her room. Pt is only active on the unit to attend meals, only briefly active on the unit to participate lightly in unit activities. Pt declined to have vital signs measured in the AM, but was cooperative during transport to [facility] for ultrasound. Pt did not attend community meeting or group activities throughout the shift. Pt attended all meals and ate approx 60% of all meals.
--- NOTE | 2016-08-12 02:59 | NUR ---
Observations 1900 to 0700 Pt was in her room when my shift started and remained there for most of the night. Pt did come out for a quick snack before going right back to her room. Pt first appeared asleep at 21:00 and was observed every 15 minutes through the night as directed.
--- NOTE | 2016-08-12 05:29 | NUR ---
nursing, nights, 11-7 s/o- has appeared to sleep after 2100 during q 15 minute assessments. a- no apparent distress. p- monitor behavior/emotional state, quality, times and amount of sleep, use and effect of medication. rosie
[2016-08-12] MEDS: OLANZapine Zydis ODT 5 mg Tablet PO SCH ×2 (08:25→21:00)
[2016-08-12 09:30] VITALS: BP 117/72; PULSE 130; RESP 14
--- NOTE | 2016-08-12 11:38 | PROG NOTE ---
[address] [address] PROGRESS NOTE PATIENT: TOMMY ADAMS : 1985 MR#: [id number] ADMIT: 07/13/2016 JOB ID: [id number] DATE: 08/12/2016 CHIEF COMPLAINT: "I have been reading my book." This is per patient report. HISTORY OF PRESENT ILLNESS: As stated above, the patient identified that she spent much of the morning hours reading through a book. She indicated that she enjoys it. She did make intermittent eye contact and smiled appropriately throughout the course of the conversation. She otherwise was fairly receptive to interaction. She smiled at times with open identification that she was having a good day. She denied any evidence of current hallucinations. Denied any thoughts of self-harm. MENTAL STATUS EXAMINATION: General appearance: The patient, as noted above, was interactive. She maintained fairly appropriate eye contact. Her speech was limited but she was interactive without the full time staff interpreter stick. She has refused usage of the full time staff interpreter device. Her thought content, she denied any evidence of suicidal or homicidal ideation. There was no evidence of active hallucinations or delusions at this meeting. However, there is question of validity of the patient's response. She was alert and oriented to place. Her attention and concentration are fleeting. Insight and judgment are fair. PHYSICAL EXAMINATION: All vital signs of current. Temperature is 36.6, pulse 112, respirations 19, BP 117/71. MEDICATION REVIEW: Includes: 1. Zyprexa 2.5 mg q.a.m. and 7.5 mg q.h.s. 2. Zoloft 100 mg q.h.s. ASSESSMENT: AXIS I 1. Major depressive disorder with psychotic features. 2. Probable posttraumatic stress disorder, chronic. AXIS II Rule out cluster B personality features. AXIS III Current . AXIS V Global Assessment of Functioning current 30. PLAN: 1. Recommendation is for continuation of all medications noted. 2. Recommendation is to limit all contact with her alleged mother. I have informed nursing staff that I have not authorized visitation and also would restrict any phone calls placed by the mother for correspondence with the patient. At this time, based on the patient's significant limited capacity and also significant decompensation with increasing paranoia, I do not feel it is in the patient's best interest to have contact with this mother.
--- NOTE | 2016-08-12 13:45 | NUR ---
[id number]. nurs. S/O: Met with pt and full time staff interpreter, pt appearing less guarded and more freely communicating than noted prev. Pt reporting that she had depression level of 3-4/10, some anxiety re her baby's welfare, no SI, or thoughts of harming self. Pt reporting that she still would like to see if [place] that she had heard about was still in the hospital. Pt stating that the neck soreness that she had spoken of yesterday was more in her thraot and was not part of a cold. Pt stating that she did not want to take the 2 blue pills at night (zoloft ) because they gave her a HUGHES, sore throat, and made her "feel wrong all over in her body". Pt stating that she thought that 1 blue pill would be enough. Pt also stating that she thought she would be staying here, because of court said so, until after her baby was born. Pt stating that she had a two master house to go to after discharged, and that she might stay there or go to [place] where she knew some people. P:ADAM Addendum: 08/12/16 at 1427 by CHRISTIANO NAVAS RN Pt stating that she was feeling the baby move a little but less than previously, Pt refused monitoring of heart tones, by [facility] staff and does not communicate why she does not want to allow this procedure. Pt spending time in bedrm did undertake to have some laundry done.
--- NOTE | 2016-08-12 21:23 | NUR ---
Observations 0900 to 0 Pt affect and mood continues to be flat, isolative, bizarre, guarded and preoccupied. Pt speech and eye contact was poor. Pt holds her head down and waved arms when approached by telegraphic typewriter operator. Pt was in her room most of the day, staring at the nowak and sitting on the floor or bed when observed. Pt was unsocial when approached, partly due to language barrier. Pt attended meals in D.R. and ate approximately 50-75% of her meals. Pt maintained behavior throughout the shift. Pt took a shower and attended to ADL's. Pt washed some clothes. Pt watched a little bit of TV in the afternoon. Pt refused to attend group and unit activities. Pt was observed every 15 minutes throughout the shift as ordered.
--- NOTE | 2016-08-12 22:16 | NUR ---
PT. REFUSING HS MEDICATIONS Pt. refused her scheduled PO Zyprexa and Zoloft. Due to a second opinion for her antipsychotic, she was counseled that she would be getting an IM instead. At 22:00 this customs entry writer opened the door to her room and she came running out, kicking and swatting at this customs entry writer and at security, screaming "POLICE! POLICE! POLICE STATION!" Due to her agitated state and concern for the health of her baby, we stepped away from her and she went into the common area, sat down and watched TV for several mins. She then calmly returned to her room. On-call doctor notified.
--- NOTE | 2016-08-13 05:23 | NUR ---
nursing, nights, 11-7 s/o- tossing bedding around room at start of shift. settled down and appeared to sleep after 0130. assessed q 15 minutes. a- difficulty expressing her needs. declines staff assistance, no apparent physical distress. p- monitor behavior/emotional state, quality, times and amount of sleep, use and effect of medication. rosie
[2016-08-13] MEDS: OLANZapine Zydis ODT 5 mg Tablet PO SCH ×2 (09:09→21:00)
[2016-08-13 10:25] VITALS: BP 120/76; PULSE 113; RESP 16
--- NOTE | 2016-08-13 13:00 | NUR ---
Nursing: Day shift: S: Nothing. O: You has been out only out for meals. When offered a.m.scheduled Zydis, You swallowed as though she had ingested the pill. And when asked to show technical document writer that it was swallowed, she attempted to hide it. Under observation, she took it sublingually. Refused to allow nurse from [facility] to listen to FHT. A: Cooperative with unit routines. Reluctant to accept scheduled med. P: Monitor pt for med ingestion. Addendum: 08/13/16 at 1310 by THAO FRENCH RN Amended: Links added.
--- NOTE | 2016-08-13 13:02 | PROG NOTE ---
[address] [address] PROGRESS NOTE PATIENT: TOMMY ADAMS : 1985 MR#: [id number] ADMIT: 07/13/2016 JOB ID: [id number] DATE: 08/13/2016 CHIEF COMPLAINT: "I took my medicine this morning. I was afraid last night." HISTORY OF PRESENT ILLNESS: As stated above, the patient indicated that she did take her medication this morning, and per nursing documentation, was more cooperative than last night She, however, refused medications last evening, indicating that she was fearful after she had spoken on the telephone with her corporate associate attorney. She indicated that she did not sleep well and that she indicated that she did see her other physician who she describes as a black male. She reports that he is her primary physician and that she has seen him every day. She remains quite delusional nonetheless and shows limited ability to redirect. OBJECTIVE: On mental status exam, she was cooperative. She maintained good eye contact throughout. She denied any evidence of acute distress. Her speech was of normal tone, frequency, and volume. Her mood was neutral. Her affect was in- congruent. Her thought process showed no evidence of racing thoughts, flight of ideas. She is somewhat loose and disorganized and hard to redirect. Her thought content: She denied any evidence of suicidal or homicidal ideation. She is quite delusional with beliefs that she has a black male physician who visits her on a daily basis. There is no reality based evidence of this. She was alert, oriented to time and place. Her attention and concentration intact. Her memory intact in the short term, terminal operator, recent. Insight and judgment are poor. PHYSICAL EXAM: All vital signs are current. Temperature is 36.6, pulse 130, respirations 14. BP 117/72. MEDICATION REVIEW: Includes: 1. Zoloft 50 mg q.h.s. 2. Zyprexa 2.5 mg q.a.m., 7.5 mg q.h.s. with forced Zyprexa to follow if patient refuses oral doses. ASSESSMENT: AXIS I: 1. Major depressive disorder with psychotic features. 2. Posttraumatic stress disorder, chronic. AXIS II: Cluster B personality features. AXIS III: Current . AXIS IV: Stressors are noted for current status of , deportation of her mother. AXIS V: Global Assessment of Functioning of current 30. PLAN: 1. Recommendations for continuation of all medications. 2. Staff were oriented that if the patient refuses oral doses of antipsychotics that forced IM should follow. Despite the risk of injury in a restraint episode, it is felt that the patient would only continue to surmount greater risk from her acute psychoses if she were to refuse medications and will rapidly decompensate without usage. 3. Continuation of court-ordered intervention with possibility of a bench trial next week per attorneys in consultation. MIREYAD
--- NOTE | 2016-08-13 17:42 | NUR ---
[facility] Day Shift Pt maintained behavioral control throughout the shift. Pt affect appears flat, somewhat brighter when engaged with staff or peers. Pt spends most of the shift resting in her room, occasionally entering the dining room to read/watch TV. Pt is appropriate with staff and peers when active on the unit, but is not overly social. Pt remains mostly isolative from staff and peers. Pt did not attend community meeting or group activities throughout the shift. Pt attended all meals and ate approx 80% of all meals.
--- NOTE | 2016-08-13 22:02 | NUR ---
Nurses Note Medication Patient accepted Zyprexa Zydis 7.5mg and refused Zoloft.
--- NOTE | 2016-08-13 23:45 | NUR ---
Nursing Note - Inbound Sales Consultant 7pm to 7am Pt seclusive to her room for the shift. Took HS Zyprexa PO without incident. Declined snack this evening. Poor eye contact, poverty of speech noted. Monitoring ongoing.
--- NOTE | 2016-08-14 05:36 | NUR ---
nursing, nights, 11-7 s/o- has appeared to sleep after 2245. up briefly for water at 2345 and easily returned to sleep. allowed observation with door open. assessed q 15 minutes. a- improved sleep, no apparent distress. p- monitor behavior/emotional state, quality, times and amount of sleep, use and effect of medication. rosie
[2016-08-14] MEDS: OLANZapine Zydis ODT 5 mg Tablet PO SCH ×2 (09:24→21:02)
--- NOTE | 2016-08-14 15:21 | NUR ---
Shadow Graph Weight Operator./ c.m. S./O.: met with pt. in her room. She was in bed resting but she readily sit up on her bed. She didn't say a word. She was just nodding her head as an answer on insurance underwriter sales's questions. She refused to talk. She was out of her room for meals. She denied SI/HI. A.: pt. is isolative, uncooperative, quiet, has no eye contact, selectively mute. P.: monitor behavior, monitor meds intake; follow care plan.
--- NOTE | 2016-08-14 15:38 | NUR ---
HEART RATE (day shift): 145 bpm by Doppler; assessed by KRISHNA HUSAIN from [facility].
--- NOTE | 2016-08-14 16:00 | PCM.PNPSY ---
Subjective Date of Service Aug 14, 2016 Subjective I spent 30 minutes both reviewing treatment plan with clinical team, interviewing the patient and providing supportive/educational psychotherapy. I spent more than 50% of the time counseling the patient and she was able to tolerate a full session. I reviewed the treatment plan with the patient and discussed options available including the potential risks, benefits and side effects. You reports feeling better mood stability. Staff reports that she has been more active on the unit but continues to have difficulty participating well doing part to a language barrier and ongoing psychotic symptoms. She slept 6 hours and denies depression or delbert or psychotic symptoms review. Reports that she does not appear to be responding to internal stimuli and is relatively easily redirected. She denies medication side effects. Patient was not able to identify her medications nor what they were used to treat. Mental Status Exam Appearance: Neat/well groomed Attitude: Pleasant, Cooperative Behavior: No unusual behavior Affect: Restricted Mood: Fearful Thought Process/Associations: Logical/Sequential Speech Production: Normal Speech Rate: Normal Speech Articulation: Normal Thought Content: Appropriate Danger to Self/Suicidal Ideati: None Danger to Others: None Consciousness: Alert Orientation: Person, Place, Situation Memory: Untestable Estimate Intellectual Function: Average Basis for IQ estimate: Awareness current events, Word use/vocabulary, Educational history, Employment history Attention/Concentration & Cogn: Impaired Insight: Limited Judgement: Limited Mental Health Plan The patient is a 30-year-old, Mandarin speaking only female who presents with an odd story of being at 29 weeks and then having her "parents send her from [place] to [place]". She struggles to relate a coherent history other than she feels shamed by her family for her . She initially reported symptoms which qualified for a diagnosis of major depressive disorder, and now reports a marked decrease in both depression and anxiety symptom review. Initially she reported hearing ghosts talk to her and tell her things to do. Now she denies psychotic review of systems. Staff reports You has been appropriate behavior over the past 24 hours. Her thoughts are more organized and she denied review of systems for psychosis. [place] I: 1. Major depressive disorder with psychotic features. 2. Rule out post-traumatic stress disorder [place] II: Deferred. [place] III: Intrauterine at 34 [place] IV: Severe. [place] V: 35 Medications Sertraline 50mg nightly Olanzapine 7.5 mg nightly, with IM override. Diphenhydramine 25 mg as needed. Treatments 1. The patient is admitted to the inpatient unit and will be provided a safe and secure environment. 2. The patient is reporting denying current active suicidality or homicidality or intent to precipitate an early or delivery and is not in need of a one- to-one at this time. 3. The patient is encouraged to participate with group and milieu activities. 4. The patient will be seen by the treatment team on a daily basis to assess symptoms, side effects and response to treatment. [employer] [place] marketing producer will be used during these times. 5. Increase sertraline to 100 mg nightly; with dosing combined at bedtime with olanzapine to assist with medication adherence. 6. Continue PRN Benadryl. 7. OCCUPATIONAL HEALTH PROFESSIONAL to continue to follow progress as needed. OB would like to know capacity to consent to suction, forceps, , epidural, general anesthesia closer to time of ; patient does not appear to meet capacity at this time. 8. Diphenhydramine zinc ointment every 6 hours when necessary pruritus. 9. Vanilla Ensure with meals 10. Anticipated length of stay is 10-14 days. 11. Will not pursue extension of mother's visa at this time. Piero Angel MD Aug 14, 2016 16:00
--- NOTE | 2016-08-14 18:32 | NUR ---
NURS Note [id number] Orientation: Unable to assess; pt unresponsive to questioning. Mood: Unable to assess; pt unresponsive to questioning. Affect: Restricted. Thought Process/Content: Unable to assess; pt unresponsive to questioning. Behavior: Spent much of day in room. Up for meals. PRN/NURS Notes: Ate 100% of breakfast; 100% of lunch; 50% of dinner. Pt allowed [facility] RN to assess FHR after 2 days of non-compliance. Took all scheduled meds PO. Heart Tone: FHR 145 bpm by Doppler, assessed by KR[facility]NA HUSAIN from [facility]. Addendum: 08/14/16 at 1837 by EUGENIA WALLACE RN Vianca(initials LISHA), RN from [facility], assessed FHR by asking "May I listen to your stomach" rather than "may I listen to your baby." Pt was receptive to Vianac's questions and requests. Vianca expressed desire to continuing participating in pts care.
--- NOTE | 2016-08-14 20:37 | NUR ---
OBSERVATIONS 0700 TO 2130 Pt was isolative remaining in her room for the majority of the shift. Pt appeared to have a positive conversation with another pt discussing the paintings in the hallway. Pt continues to appear guarded and frightened. Pt refused vitals but was agreeable to heart tones monitored by Family . Pt showered today. Maintained Q15 checks for safety as directed.
--- NOTE | 2016-08-15 05:44 | NUR ---
nursing, nights, 11-7 s/o- has appeared to sleep after 2230. up briefly and peaked out her door at 0030. up for a drink at 0525 and is resting quietly in bed. assessed q 15 minutes. a- no apparent distress. p- monitor behavior/emotional state, quality, times and amount of sleep, use and effect of medication. rosie
[2016-08-15] MEDS: OLANZapine Zydis ODT 5 mg Tablet PO SCH ×2 (09:25→20:40)
--- NOTE | 2016-08-15 11:18 | PCM.PNPSY ---
Subjective Date of Service Aug 15, 2016 Subjective I spent 30 minutes both reviewing treatment plan with clinical team, interviewing the patient and providing supportive/educational psychotherapy. I spent less than 50% of the time counseling the patient as she responded mutely to all of my attempts to make an alliance. I reviewed the treatment plan with the patient and discussed options available including the potential risks, benefits and side effects. You had reported feeling better mood stability on Tuesday. Today she is completely mute and appears desponded and apathetic. She slept 7 hours and denies depression or delbert or psychotic symptoms review. Staff reports that she does not appear to be responding to internal stimuli and is relatively easily redirected. She denies medication side effects. Patient was not able to identify her medications nor what they were used to treat. Mental Status Exam Appearance: Disheveled Attitude: Uncooperative Affect: Restricted, Blunted, Flat Mood: Dysthymic Speech Production: Muter Speech Rate: Lags/Latency Thought Content: Other (patient not describing thought content) Consciousness: Alert Orientation: Person, Place, Situation Memory: Untestable Estimate Intellectual Function: Average Basis for IQ estimate: Awareness current events, Word use/vocabulary, Educational history, Employment history Attention/Concentration & Cogn: Impaired Insight: Limited Judgement: Limited Mental Health Plan The patient is a 30-year-old, Mandarin speaking only female who presents with an odd story of being at 29 weeks and then having her "parents send her from [place] to [place]". She struggles to relate a coherent history other than she feels shamed by her family for her . She initially reported symptoms which qualified for a diagnosis of major depressive disorder, and now reports a marked decrease in both depression and anxiety symptom review. Initially she reported hearing ghosts talk to her and tell her things to do. Now she denies psychotic review of systems. On Tuesday She had had one of the best days that I have witnessed since her admission. However today she was back to completely mute refusing to engage in any type of interaction or questions. [place] I: 1. Major depressive disorder with psychotic features. 2. Rule out post-traumatic stress disorder [place] II: Deferred. [place] III: Intrauterine at 34 [place] IV: Severe. [place] V: 30 Medications Sertraline 50mg nightly Olanzapine 7.5 mg nightly, with IM override. Diphenhydramine 25 mg as needed. Treatments Patient is being provided with a high degree of safety through the structure and active adult engagement. We will focus on developing improved coping skills and identifying stressors that may have led to current episode. We will attempt to: Integrate into therapeutic groups, milieu and individual therapy. Maintain in a closely monitored and structured unit Provide low-stimulation environment Obtain collateral data to assist in treatment planning Assess degree of lability of affect and impulse control Complete safety plan Decrease frequency of relapse and need for re-hospitalization Denies thoughts of harm to self and/or others Establish a consistent sleep pattern Medication effective in stabilization of mood and/or thought process Reduce the risk of imminent harm to self and/or others by providing a safe environment Tolerates medication without side effects Patient will be on the following psychiatric medications: Sertraline 50mg nightly Olanzapine 7.5 mg nightly, with IM override. Diphenhydramine 25 mg as needed. Address patient's legal status Patient is on a involuntary treatment hold. Patient will be given the opportunity to talk to her six color press operator on and the cruise agent Tuesday for a bench trial Disposition: Unknown pending legal status with immigration SUPERVISOR POWDERED SUGAR to continue to follow progress as needed. OB would like to know capacity to consent to suction, forceps, , epidural, general anesthesia closer to time of ; patient does not appear to meet capacity at this time. Piero Angel MD Aug 15, 2016 11:18
--- NOTE | 2016-08-15 13:34 | NUR ---
Warp Dyeing Tender./ tatiana Koroma.:"I took a shower..." O.: met with pt. in her room. She told chief writer that she took a shower and she felt better after that. She wasn't sure how she slept last night. She denied SI/HI. She said that after discharge from here she will rent a place but she didn't have money for that. She is planning to stay here in [place]. She refused to talk about anything. She spent most of the time in her room. She came to the Dining room and was watching TV after this conversation with the chief writer. A.: pt. is isolative, quiet, guarded, has a flat affect and poor eye contact. P.: monitor behavior, engage pt. into conversations, monitor meds intake; follow care plan.
[2016-08-15 13:48] VITALS: BP 116/70; PULSE 123; RESP 16
--- NOTE | 2016-08-15 14:40 | NUR ---
REFUSED FHR Monitoring Martha Soto RN from [facility] attempted to assess FHR via Doppler. Pt refused doppler. Addendum: 08/15/16 at 1444 by EUGENIA WALLACE RN Amended: Links added.
--- NOTE | 2016-08-15 17:32 | NUR ---
NURS Note [id number] S/O Pt was out for meals and a shower, spent much of shift alone in . In conversation with casualty underwriter about her upcoming court date, pt stated "I have been in here so long without one friend." Avoided eye contact. Denied anxiety and depression. Denied SI and HI. Martha Mccarthy RN from [facility] came to assess FHR via Doppler, pt refused. In afternoon, pt reported having a sore throat. Pt given hot chamomile tea, crystal light with crushed ice, and a hot pack as comfort care. Vital signs were stable and within normal limits. A Pt remains isolative and frustrated about having to stay on in the hospital. P Continue to monitor behavioral and emotional progress. Continue to implement care plan. Monitor for upper respiratory symptoms and offer comfort care.
--- NOTE | 2016-08-15 19:28 | NUR ---
Observations 0900 to 0 Pt affect and mood continues to be flat, isolative, bizarre, guarded and preoccupied. Pt speech was poor, due to language barrier. Pt eye contact was poor. Pt holds her head down when approached by sign writer hand. Pt was in her room most of the day, staring at the nowak and sitting on the floor or bed when observed. Pt was unsocial when approached. Pt attended meals in D.R. and ate approximately 50-75% of her meals. Pt maintained behavior throughout the shift. Pt took a shower and attended to ADL's. Pt washed some clothes. Pt watched a little bit of TV in the afternoon. Pt refused to attend group and unit activities. Pt was observed every 15 minutes throughout the shift as ordered.
--- NOTE | 2016-08-16 01:39 | NUR ---
Observations 1900 to 0700 Pt was in her room when my shift started and remained there for most of the night. Pt did come out for group before going right back to her room. Pt first appeared asleep at 23:00 and was observed every 15 minutes through the night as directed.
--- NOTE | 2016-08-16 05:16 | NUR ---
Nursing Noc Pt continues to remain isolative and guarded. She did attend evening wrap up group which is unusual for her. She had her head down and at times her eyes were closed. She immediately returned to her room and did not engage with staff or her peers for the remainder of the night. She took her scheduled medication and appeared asleep by 2300. She was up briefly to the bathroom but returned quickly to sleep. Total sleep over 6 hours.
[2016-08-16] MEDS: OLANZapine Zydis ODT 5 mg Tablet PO SCH ×2 (07:55→21:18)
--- NOTE | 2016-08-16 13:51 | NUR ---
Pt. was approached a few times. She was guarded and was not open to interaction/conversation. Her speech was soft and at times she didn't answer questions at all. She made minimal eye contact. It's difficult to assess her thought process due to the lack two-way communication. She participated in the morning group meeting and took a shower in the afternoon.
--- NOTE | 2016-08-16 17:54 | NUR ---
Observations [id number] Pt was asleep in room upon start of shift. Pt spent much of her time in room, resting in bed. She appears to look uncomfortable physically due to . Pt did not interact much with staff or peers today. She requested to do laundry but that was the only interaction observed. Pt attended meals, eating an average of 60%. She did not attend groups aside from Community Meeting. She was observed every 15 minutes of shift as directed.
--- NOTE | 2016-08-16 19:40 | NUR ---
Nursing 7p-7a Family nurse came this evening and the patient allowed her to take the baby's HR. The FHR was good at 144. The Family nurse reported that tonight You stated to her "Did you come to take the baby out? Bad baby, I already have a baby in [place]. Cut, Cut, Cut! [referring to taking the baby out]. I do not want to see Dr. Alvarado. I do not want a doctor from [place]. I want a Malaysian doctor. I had Malaysian doctor in [facility]". The Family nurse asked if she would see Dr Mariee. The patient stated "Yes, is he Malaysian?" The Family nurse also provided some known background information on You from previous interaction with You prior to her admission to the Mental Health Unit. The nurse reports Dr. Mariee has spoken with You on a previous occasion. Dr Mariee is with Family Practice at [facility]. She has a 5 year old daughter in [place] and You has made previous reports of having a in [place], [place]. The nurse also reports that You has made the statement that the reason she fought with her mother is because her mother's was going back to [place] and they wanted her to go back to [place] with him. So she was hiding from them and fought them. The Family nurse did not know if all of these statements were valid or not only that You had spoken of these things. Addendum: 08/17/16 at 0618 by ANANT CLARKE RN Pt has remained isolative in her room this evening and did not participate in evening activities. She was noted to be asleep by 2245 and then awoke at 0100 crying out in her sleep. She stated she was "Okay" and denied having any pain. She said the baby is not causing her pain. It appears she had had a bad dream. She was able to fall back asleep with no further distress noted per protocol checks. She then slept from [id number] and is currently resting quietly in bed. Total sleep 5.25 hours.
--- NOTE | 2016-08-16 21:07 | PCM.PNPSY ---
Subjective Date of Service Aug 16, 2016 Subjective Patient declined automotive light mechanic today. She denied any problems, would not discuss why she stopped taking sertraline, abruptly terminated the interview and walked out. Patient refusing sertraline. Sleep: 7.25+ hours Appetite: eating meals Mental Status Exam Appearance: Unkept Attitude: Uncooperative Behavior: Distractible Affect: Flat Mood: Depressed Speech Production: Paucity, Muter (after initial first questions.) Speech Rate: Lags/Latency Speech Articulation: Other (accented) Thought Content: Other (patient not describing thought content) Consciousness: Alert Orientation: Person, Place, Situation Memory: Untestable Estimate Intellectual Function: Average Basis for IQ estimate: Awareness current events, Word use/vocabulary, Educational history, Employment history Attention/Concentration & Cogn: Impaired Insight: Limited Judgement: Poor Mental Health Plan The patient is a 30-year-old, Mandarin speaking female who reportedly tried to "cut the baby out" at times due to anger. The patient appeared to meet criteria for major depression and so was started on fluoxetine and lorazepam for anxiety. The patient requested an increase in antianxiety medication, however lorazepam is generally avoided where possible in and so she was switched to diphenhydramine per consultation with RESIDENTIAL CHILD CARE COUNSELOR regarding safest treatment. Olanzapine was added due to ongoing psychosis and the patient has had a slow improvement in symptoms. She continued to express depressed mood and so fluoxetine was switched to sertraline, but the patient has been refusing of late. Today she was essentially mute with head nods. As of 08/08/16 she was not felt to have decisional capacity regarding her delivery, but she cannot be further assessed today. [place] I: 1. Major depressive disorder with psychotic features. 2. Rule out post-traumatic stress disorder [place] II: Deferred. [place] III: Intrauterine at 34 weeks plus days [place] IV: Severe. [place] V: 30 Medications Sertraline 50mg nightly Olanzapine 2.5mg daily and 7.5 mg nightly, with IM override. Diphenhydramine 25 mg as needed. Treatments 1. The patient is admitted to the inpatient unit and will be provided a safe and secure environment. 2. The patient is reporting denying current active suicidality or homicidality or intent to precipitate an early or delivery and is not in need of a one- to-one at this time. 3. The patient is encouraged to participate with group and milieu activities. 4. The patient will be seen by the treatment team on a daily basis to assess symptoms, side effects and response to treatment. [employer] automotive light mechanic will be used during these times. 5. Patient currently refusing sertraline with no IM backup available. Will investigate liquid medications. 6. Continue PRN Benadryl. 7. RESIDENTIAL CHILD CARE COUNSELOR to continue to follow progress as needed. OB would like to know capacity to consent to suction, forceps, , epidural, general anesthesia closer to time of ; patient does not appear to meet capacity as of 08/08/16 and could not be further assessed today. 8. Diphenhydramine zinc ointment every 6 hours when necessary pruritus. 9. Vanilla Ensure with meals 10. Anticipated length of stay is 10-14 days. 11. Will not pursue extension of mother's visa at this time. Rigoberto Egan MD Aug 16, 2016 21:07 Assess degree of lability of affect and impulse control Complete safety plan Decrease frequency of relapse and need for re-hospitalization Denies thoughts of harm to self and/or others Establish a consistent sleep pattern Medication effective in stabilization of mood and/or thought process Reduce the risk of imminent harm to self and/or others by providing a safe environment Tolerates medication without side effects Patient will be on the following psychiatric medications: Sertraline 50mg nightly Olanzapine 7.5 mg nightly, with IM override. Diphenhydramine 25 mg as needed. Address patient's legal status Patient is on a involuntary treatment hold. Patient will be given the opportunity to talk to her spot welder body assembly on and the conciliation court judge Tuesday for a bench trial Disposition: Unknown pending legal status with immigration RESIDENTIAL CHILD CARE COUNSELOR to continue to follow progress as needed. OB would like to know capacity to consent to suction, forceps, , epidural, general anesthesia closer to time of ; patient does not appear to meet capacity at this time. Rigoberto Egan MD Aug 16, 2016 21:07
--- NOTE | 2016-08-17 02:54 | NUR ---
Observations 1900 to 0700 Pt was in her room when my shift started and remained there for the entire night. Pt first appeared asleep at 22:45 and was observed every 15 minutes through the night as directed.
[2016-08-17] MEDS: OLANZapine Zydis ODT 5 mg Tablet PO SCH ×2 (08:45→20:19)
[2016-08-17 10:57] VITALS: BP 123/82; PULSE 135; RESP 16
--- NOTE | 2016-08-17 11:34 | NUR ---
FHR REFUSED DAKOTAH HUSAIN from the [facility] attempted to assess FHR via Doppler and pt refused, stating "not today."
--- NOTE | 2016-08-17 15:56 | NUR ---
Supervisor [employer]ating [employer]./ c.m. S.:"I'm not good, not good sleep. There was a fat man in my room last night. He came and than he run out." O.: met with pt. and MD together to discuss pt.'s progress. She didn't sleep well last night. She talked about "a fat man" who "came into" her "room in the middle of the night." She said that she told Nursing staff about it. She also described her mood as "not good". She denied SI/HI. She didn't want to take meds for depression. She didn't want to deliver a baby and didn't want to have a cesarian section. She was eating "vegetables and water". She spent most of the day in her room. A.: pt. is isolative, cooperative, has a flat affect and a poor eye contact, She seems confused about her . P.: monitor behavior, follow care plan.
--- NOTE | 2016-08-17 17:01 | NUR ---
Observations [id number] Pt was asleep upon start of shift. Pt continues to isolate to room, only coming out for brief periods of time. Pt spent much of the day sleeping. She did not attend groups, or Community Meeting. She attended all meals, eating more today then in previous days, an average of 75%. Pt was not observed interacting with peers. Pt only interacted with this advertising copy writer when requesting to take a shower, pointing to the shower stating "I want in that room." Pt also used the phone for a short period of time. She was observed every 15 minutes of shift as directed.
[2016-08-17] MEDS: diphenhydrAMINE-Zinc 2%-0.1% 30 Gm Cream TOPICAL PRN (17:55)
--- NOTE | 2016-08-17 18:43 | NUR ---
NURS Note Mood: Denies depression and anxiety (shook head no). Affect: Withdrawn. When approached pts head down was down, occasionally looked up made eye contact and smiled. Behavior: Pt spent much of day in room. Out for meals. Occasionally interactive with staff. Thought Content/Process: Unable to assess. PRN/NURS Notes: Refused FHR monitoring.
--- NOTE | 2016-08-17 21:19 | PCM.PNPSY ---
Subjective Date of Service Aug 17, 2016 Subjective According to nursing note from 08/16/16, he patient reported, "Did you come to take the baby out? Bad baby, I already have a baby in [place]. Cut, Cut, Cut! [ referring to taking the baby out]. I do not want to see Dr. Alvarado. I do not want a doctor from [place]. I want a [facility] doctor. I had [facility] doctor in [facility]". Today, the patient is only minimally cooperative answering most questions with the shake of the the head, "no." The patient reported that she does not want to keep the baby and does not want to give but cannot say the alternative. She denied wanting a if medically necessary, but could not say why. Reports depression and denies side effects from sertraline, but will not take medications. She abruptly terminate the interview. Sleep: 5.25+ hours, "not good." Appetite: "not hungry...eating vegetables." Suicidal and homicidal ideation: denies Auditory hallucinations: unable to assess Visual hallucinations: unable to assess Other Psychotic Symptoms: unknown Anxiety: possible Depression: endorses Mental Status Exam Appearance: Unkept Attitude: Uncooperative Behavior: Distractible Affect: Flat Mood: Depressed Speech Production: Paucity, Muter (does answer some questions briefly) Speech Rate: Lags/Latency Speech Articulation: Other (accented) Thought Content: Other (patient not describing thought content) Danger to Self/Suicidal Ideati: None Danger to Others: None Consciousness: Alert Orientation: Person, Place, Situation Memory: Untestable Estimate Intellectual Function: Average Basis for IQ estimate: Awareness current events, Word use/vocabulary, Educational history, Employment history Attention/Concentration & Cogn: Impaired Insight: Limited Judgement: Poor Mental Health Plan The patient is a 30-year-old, Mandarin speaking female with Telugu as second language who reportedly tried to "cut the baby out" at times due to anger prior to admission. The patient appeared to meet criteria for major depression and so was started on fluoxetine and lorazepam for anxiety. The patient requested an increase in antianxiety medication, however lorazepam is generally avoided where possible in and so she was switched to diphenhydramine per consultation with HOME ATTENDANT regarding safest treatment. Olanzapine was added due to ongoing psychosis and the patient has had a slow improvement in symptoms. She continued to express depressed mood and so fluoxetine was switched to sertraline, but the patient has been refusing of late for unclear reasons. Today she was essentially mute with head nods and brief answers. On 08/08/16 she was not felt to have decisional capacity regarding her delivery, and given her answers today, she continues to lack decisional capacity. [place] I: 1. Major depressive disorder with psychotic features. 2. Rule out post-traumatic stress disorder [place] II: Deferred. [place] III: Intrauterine at 34 weeks plus days [place] IV: Severe. [place] V: 30 Medications Sertraline 50mg nightly Olanzapine 2.5mg daily and 7.5 mg nightly, with IM override. Diphenhydramine 25 mg as needed. Treatments 1. The patient is admitted to the inpatient unit and will be provided a safe and secure environment. 2. The patient is reporting denying current active suicidality or homicidality or intent to precipitate an early or delivery and is not in need of a one- to-one at this time. 3. The patient is encouraged to participate with group and milieu activities. 4. The patient will be seen by the treatment team on a daily basis to assess symptoms, side effects and response to treatment. [employer] japanese interpreter will be used during these times. 5. Patient currently refusing sertraline with no IM backup available. Will investigate liquid medications. 6. Continue PRN Benadryl. 7. HOME ATTENDANT to continue to follow progress as needed. OB would like to know capacity to consent to suction, forceps, , epidural, general anesthesia closer to time of ; patient does not appear to meet capacity as of 08/08/16 and again appears to lack capacity today. 8. Diphenhydramine zinc ointment every 6 hours when necessary pruritus. 9. Vanilla Ensure with meals 10. Anticipated length of stay is 10-14 days. 11. Will not pursue extension of mother's visa at this time. Rigoberto Egan MD Aug 17, 2016 21:18
--- NOTE | 2016-08-17 22:15 | NUR ---
Nurses Note Evening Patient remains quiet,polite and on the periphery of the unit when out of her room. She approached the medication nurse with a cheerful affect attempting to engage in conversation in broken Chinese. Patient has remained compliant with Zyprexa however has not accepted the antidepressant at [facility].Her appetite,sleep and hygiene are within normal limits. She refused the heart tones today done by nursing from [facility]. Will continue to encourage interactions with others,continued medication compliance,assessment of issues alert to complications.Maintain Q15min. checks for safety and support. Addendum: 08/17/16 at 2220 by NANCY GEE RN Amended: Links added.
--- NOTE | 2016-08-18 06:25 | NUR ---
Sleep Poor broken sleep during the night. She has had very light sleep and appears hypervigilant awakening from a light sleep while checks are performed. She immediately closes her door after staff opens it to check on her. She slept from [id number], [id number], [id number], and back to sleep at 0600 for a total of 3.5+ hours.
[2016-08-18] MEDS: OLANZapine Zydis ODT 5 mg Tablet PO SCH ×2 (08:10→20:37)
--- NOTE | 2016-08-18 15:59 | NUR ---
Nursing Notes [id number] S: "Ok" O:. Pt is polite and calm. Pt refusing to talk to psychologist from [facility] today. Pt refused to talk to our MD today, Dr. Egan, despite having a face to face graphics artist today. Pt refused to let OB RN do heart tones today. A: Pt has flat effect. Pt appears guarded and isolates herself to her room. Minimal interaction with staff and other patients. Pt looks to the ground, does not easily or readily make eye contact with staff. Her affect is withdrawn. She has not been agreeable today to talk with staff. P: Monitor for safety and response to treatment. Follow plan of care for safety/response to treatment.
--- NOTE | 2016-08-18 17:59 | NUR ---
[facility] Day Shift Pt affect and behavior mostly unchanged from previous shifts. Pt maintained behavioral control throughout the shift. Pt affect appears flat, somewhat brighter when engaged with staff or peers. Pt spends most of the shift resting in her room, occasionally entering the dining room to read/watch TV. Pt is appropriate with staff and peers when active on the unit, but is not overly social. Pt remains mostly isolative from staff and peers. Pt attended all meals and ate approx 80% of all meals.
--- NOTE | 2016-08-18 19:12 | NUR ---
Counseling/Advanced Developer: S/O: Patient only slept 3.5 hours last night per staff. Patient would not talk to interviewing team. She terminated the interview without further discussion. A: Patient is unkept, uncooperative, distractible, blunted affect, depressed, limited insight, poor judgment. P: Follow care plan, coordinate out-patient providers, monitor behavior.
--- NOTE | 2016-08-18 21:55 | PCM.PNPSY ---
Subjective Date of Service Aug 18, 2016 Subjective The patient is seen with [employer] social science manager today, but is only minimally cooperative answering most questions with the shake of the the head, "no." She abruptly terminates the interview. Sleep: 3.5+ hours per staff Appetite: unable to assess Suicidal and homicidal ideation: unable to assess Auditory hallucinations: unable to assess Visual hallucinations: unable to assess Other Psychotic Symptoms: unknown Anxiety: possible Depression: endorses Mental Status Exam Appearance: Unkept Attitude: Uncooperative Behavior: Distractible Affect: Flat Mood: Depressed Speech Production: Paucity, Muter (does answer some questions briefly) Speech Rate: Lags/Latency Speech Articulation: Other (accented) Thought Content: Other (patient not describing thought content) Consciousness: Alert Orientation: Person, Place, Situation Memory: Untestable Estimate Intellectual Function: Average Basis for IQ estimate: Awareness current events, Word use/vocabulary, Educational history, Employment history Attention/Concentration & Cogn: Impaired Insight: Limited Judgement: Poor Mental Health Plan The patient is a 30-year-old, Mandarin speaking female with Kiswahili as second language who reportedly tried to "cut the baby out" at times due to anger prior to admission. The patient appeared to meet criteria for major depression and so was started on fluoxetine and lorazepam for anxiety. The patient requested an increase in antianxiety medication, however lorazepam is generally avoided where possible in and so she was switched to diphenhydramine per consultation with TINSEL MACHINE OPERATOR regarding safest treatment. Olanzapine was added due to ongoing psychosis and the patient has had a slow improvement in symptoms. She continued to express depressed mood and so fluoxetine was switched to sertraline, but the patient has been refusing of late for unclear reasons. Today she was essentially mute with head nods and brief answers. On 08/08/16 she was not felt to have decisional capacity regarding her delivery, and given her answers on 08/17/16, she continues to lack decisional capacity. [facility] is coordinating care should the patient give while still at [facility]. [place] I: 1. Major depressive disorder with psychotic features. 2. Rule out post-traumatic stress disorder [place] II: Deferred. [place] III: Intrauterine at 34 weeks plus days [place] IV: Severe. [place] V: 30 Medications Sertraline 50mg nightly, refusing Olanzapine 2.5mg daily and 7.5 mg nightly, with IM override. Diphenhydramine 25 mg as needed. Treatments 1. The patient is admitted to the inpatient unit and will be provided a safe and secure environment. 2. The patient is reporting denying current active suicidality or homicidality or intent to precipitate an early or delivery and is not in need of a one- to-one at this time. 3. The patient is encouraged to participate with group and milieu activities. 4. The patient will be seen by the treatment team on a daily basis to assess symptoms, side effects and response to treatment. [employer] social science manager will be used during these times. 5. Patient currently refusing sertraline with no IM backup available. Will increase am olanzapine. 6. Continue PRN Benadryl. 7. TINSEL MACHINE OPERATOR to continue to follow progress as needed. OB would like to know capacity to consent to suction, forceps, , epidural, general anesthesia closer to time of ; patient does not appear to meet capacity as of 08/08/16 and 08/17/16. 8. Diphenhydramine zinc ointment every 6 hours when necessary pruritus. 9. Vanilla Ensure with meals 10. Anticipated length of stay is 10-14 days. 11. Will not pursue extension of mother's visa at this time. Rigoberto Egan MD Aug 18, 2016 21:55 Rigoberto Egan MD Aug 18, 2016 21:55
--- NOTE | 2016-08-19 02:38 | NUR ---
Nursing Shravan Pt isolative to her room this evening with minimal social interaction. Took scheduled medication without incident. She appeared to be asleep by 2244 with no noted distress or awakening per protocol checks. Will continue to assess mood, behavior and sleep cycle through the night. Addendum: 08/19/16 at 0518 by ANANT CLARKE RN Improved sleep tonight. She has remained asleep with no noted awakening. Total sleep 6.5+ hours.
[2016-08-19] MEDS: OLANZapine Zydis ODT 5 mg Tablet PO SCH ×2 (07:50→20:35)
--- NOTE | 2016-08-19 14:19 | PCM.PNPSY ---
Subjective Date of Service Aug 19, 2016 Subjective The patient declined to have an beam racker and was only minimally cooperative answering most questions with the shake of the the head, "no." She denied side effects to medications. She abruptly terminated the interview. Sleep: 8+ hours per staff Appetite: unable to assess Suicidal and homicidal ideation: unable to assess Auditory hallucinations: unable to assess Visual hallucinations: unable to assess Other Psychotic Symptoms: unknown Anxiety/depression: Unable to assess Current Medications Current Medications Olanzapine 5 mg DAILY PO Last administered on 08/19/16t 07:50; Admin Dose 5 MG; Start 08/19/16 at 08:30 Mental Status Exam Appearance: Unkept Attitude: Uncooperative Behavior: Distractible Affect: Flat Mood: Depressed Speech Production: Paucity, Muter (does answer some questions briefly) Speech Rate: Lags/Latency Speech Articulation: Other (accented) Thought Content: Other (patient not describing thought content) Hallucinations: Auditory (unable to assess), Visual (unable to assess) Consciousness: Alert Orientation: Person, Place, Situation (unclear) Memory: Untestable Estimate Intellectual Function: Average Basis for IQ estimate: Awareness current events, Word use/vocabulary, Educational history, Employment history Attention/Concentration & Cogn: Impaired Insight: Limited Judgement: Poor Mental Health Plan The patient is a 30-year-old, Mandarin speaking female with Divehi as second language who reportedly tried to "cut the baby out" at times due to anger prior to admission. The patient appeared to meet criteria for major depression and so was started on fluoxetine and lorazepam for anxiety. The patient requested an increase in antianxiety medication, however lorazepam is generally avoided where possible in and so she was switched to diphenhydramine per consultation with ELECTRICIAN JOURNEYMAN WIREMAN regarding safest treatment. Olanzapine was added due to ongoing psychosis and the patient has had a slow improvement in symptoms. She continued to express depressed mood and so fluoxetine was switched to sertraline, but the patient has been refusing of late for unclear reasons. Today she was essentially mute with head nods and brief answers. On 08/08/16 she was not felt to have decisional capacity regarding her delivery, and given her answers on 08/17/16, she continued to lack decisional capacity. [facility] care should the patient give while still at [facility]. [place] I: 1. Major depressive disorder with psychotic features. 2. Rule out post-traumatic stress disorder [place] II: Deferred. [place] III: Intrauterine at 34 weeks plus days [place] IV: Severe. [place] V: 30 Medications Sertraline 50mg nightly, refusing Olanzapine 5mg daily and 7.5 mg nightly, with IM override. Diphenhydramine 25 mg as needed. Treatments 1. The patient is admitted to the inpatient unit and will be provided a safe and secure environment. 2. The patient is reporting denying current active suicidality or homicidality or intent to precipitate an early or delivery and is not in need of a one- to-one at this time. 3. The patient is encouraged to participate with group and milieu activities. 4. The patient will be seen by the treatment team on a daily basis to assess symptoms, side effects and response to treatment. [employer] beam racker will be used during these times. 5. Patient currently refusing sertraline will switch to sertraline liquid 50 mg daily. Continue olanzapine 5 mg daily and 7.5 mg nightly. 6. Continue PRN Benadryl. 7. ELECTRICIAN JOURNEYMAN WIREMAN to continue to follow progress as needed. OB would like to know capacity to consent to suction, forceps, , epidural, general anesthesia closer to time of ; patient does not appear to meet capacity as of 08/08/16 and 08/17/16. 8. Diphenhydramine zinc ointment every 6 hours when necessary pruritus. 9. Vanilla Ensure with meals 10. Anticipated length of stay is 10-14 days. 11. Will not pursue extension of mother's visa at this time. Rigoberto Egan MD Aug 19, 2016 14:19
[2016-08-19 16:13] VITALS: BP 116/80; PULSE 110; RESP 16
--- NOTE | 2016-08-19 18:07 | NUR ---
Nursing Notes [id number] S: headache pt refused Tylenol. Pt did state that she wanted a hot pack for her back. Pt BP was 118/80. O:. Pt is polite and calm. Pt had c/o some dizziness and a headache. Encouraged patient to drink more fluids as it sounds she may be a little bit dehydrated. Pt states ok Pt did let OB RN do stress test and it was reactive. A: Pt has flat effect. Pt appears guarded and isolates herself to her room. Minimal interaction with staff and other patients. Pt looks to the ground, does not easily or readily make eye contact with staff. Her affect is withdrawn. She has not been agreeable today to talk with staff. P: Monitor for safety and response to treatment. Follow plan of care for safety/response to treatment.
--- NOTE | 2016-08-19 19:18 | NUR ---
Counseling/Yarder: S/O: Patient slept 8 hours last night per staff. Patient would not talk to interviewing team. She terminated the interview without further discussion and closed her room door. A: Patient is unkept, uncooperative, distractible, blunted affect, depressed, isolative, limited insight, poor judgment. P: Follow care plan, coordinate out-patient providers, monitor behavior.
--- NOTE | 2016-08-20 05:21 | NUR ---
Nursing Noc Pt spent the majority of the evening in her room. She did not engage with unit activities or her peers this evening. Took scheduled medication. She retired to bed and appeared asleep by 0 with no noted distress or awakening per protocol checks. She has had 6.5+ hours of sleep.
[2016-08-20] MEDS: Sertraline 20 mg/mL Liq PO SCH (08:35)
[2016-08-20] MEDS: OLANZapine Zydis ODT 5 mg Tablet PO SCH ×2 (08:35→20:33)
--- NOTE | 2016-08-20 15:19 | NUR ---
Nursing Day Shift Patient has been isolative to room throughout day, but has been out to dining room for meals. Patient refused vital signs. Did allow FB nurse to do heart tones. Compliant with medications. Patient denies pain.
--- NOTE | 2016-08-20 18:59 | PCM.PNPSY ---
Subjective Date of Service Aug 20, 2016 Subjective The patient declined to have an science interpreter and was only minimally cooperative answering most questions with the shake of the the head, "no." She denied side effects to medications. She denied any acute medical concerns Sleep: 7+ hours per staff Appetite: Shook her head "no" Suicidal and homicidal ideation: Shook her head "no" Auditory hallucinations: Shook her head "no" Visual hallucinations: Shook her head "no" Other Psychotic Symptoms: unknown Anxiety/depression: Shook her head "no" Current Medications Current Medications Olanzapine 5 mg DAILY PO Last administered on 08/20/16 08:35; Admin Dose 5 MG; Start 08/19/16 at 08:30 Sertraline HCl 50 mg DAILY PO Last administered on 08/20/16 08:35; Admin Dose 50 MG; Start 08/20/16 at 08:30 Mental Status Exam Appearance: Unkept Attitude: Uncooperative Behavior: Distractible Affect: Flat Mood: Depressed Speech Production: Paucity, Muter (does answer some questions briefly) Speech Rate: Lags/Latency Speech Articulation: Other (accented) Thought Content: Other (patient not describing thought content) Hallucinations: Auditory (unable to assess), Visual (unable to assess) Consciousness: Alert Orientation: Person, Place, Situation (unclear) Memory: Untestable Estimate Intellectual Function: Average Basis for IQ estimate: Awareness current events, Word use/vocabulary, Educational history, Employment history Attention/Concentration & Cogn: Impaired Insight: Limited Judgement: Poor Mental Health Plan The patient is a 30-year-old, Mandarin speaking female with Danish as second language who reportedly tried to "cut the baby out" at times due to anger prior to admission. The patient appeared to meet criteria for major depression and so was started on fluoxetine and lorazepam for anxiety. The patient requested an increase in antianxiety medication, however lorazepam is generally avoided where possible in and so she was switched to diphenhydramine per consultation with INFORMATION COORDINATOR regarding safest treatment. Olanzapine was added due to ongoing psychosis and the patient has had a slow improvement in symptoms. She continued to express depressed mood and so fluoxetine was switched to sertraline, but the patient has been refusing of late for unclear reasons. The patient was medication adherent today with liquid sertraline. Today she was essentially mute with head nods and brief answers. The patient appears to be tolerating the increase in olanzapine. On 08/08/16 she was not felt to have decisional capacity regarding her delivery, and given her answers on 08/17/16, she continued to lack decisional capacity. [facility] care should the patient give while still at [facility]. [place] I: 1. Major depressive disorder with psychotic features. 2. Rule out post-traumatic stress disorder [place] II: Deferred. [place] III: Intrauterine at 34 weeks plus days [place] IV: Severe. [place] V: 30 Medications Sertraline 50mg nightly, refusing Olanzapine 5mg daily and 7.5 mg nightly, with IM override. Diphenhydramine 25 mg as needed. Treatments 1. The patient is admitted to the inpatient unit and will be provided a safe and secure environment. 2. The patient is reporting denying current active suicidality or homicidality or intent to precipitate an early or delivery and is not in need of a one- to-one at this time. 3. The patient is encouraged to participate with group and milieu activities. 4. The patient will be seen by the treatment team on a daily basis to assess symptoms, side effects and response to treatment. [employer] science interpreter will be used during these times. 5. Patient currently refusing sertraline will switch to sertraline liquid 50 mg daily. Continue olanzapine 5 mg daily and 7.5 mg nightly. 6. Continue PRN Benadryl. 7. INFORMATION COORDINATOR to continue to follow progress as needed. OB would like to know capacity to consent to suction, forceps, , epidural, general anesthesia closer to time of ; patient does not appear to meet capacity as of 08/08/16 and 08/17/16. 8. Diphenhydramine zinc ointment every 6 hours when necessary pruritus. 9. Vanilla Ensure with meals 10. Anticipated length of stay is 10-14 days. 11. Will not pursue extension of mother's visa at this time. Rigoberto Egan MD Aug 20, 2016 18:59
--- NOTE | 2016-08-20 19:36 | NUR ---
Counseling/Closing Coordinator: S/O: Patient slept 7 hours last night per staff. Patient would not talk to interviewing team. She would only nod her head with yes and no answers to psychiatrist questions. She nodded "no" for S/I and H/I, auditory and visual hallucinations, depression and anxiety. A: Patient is unkept, uncooperative, distractible, blunted affect, depressed, isolative, limited insight, poor judgment. P: Follow care plan, coordinate out-patient providers, monitor behavior.
--- NOTE | 2016-08-20 21:07 | NUR ---
Observations 0900 to 2130 Pt affect and mood continues to be the same as previous shifts. Pt was in her room and in bed most of the shift. Pt was unsocial when approached. Pt attended meals in D.R. and ate approximately 50-75% of her meals. Pt was offered snack but declined. Pt maintained behavior throughout the shift. Pt sat in milieu and read a magazine. Pt refused to attend group and unit activities. Pt was observed every 15 minutes throughout the shift as ordered.
--- NOTE | 2016-08-21 05:58 | NUR ---
Employment Consultant 7pm to 7am Pt visible on unit at start of shift in day room, ate snack alone and quickly returned to her room where she remained the duration of the shift. Pt had poor eye contact however was calm and pleasant but dismissive and would not engage video games storywriter in conversation or ask assessment questions. Pt medication compliant. No medical issues or side effects reported or observed. Pt went to bed at 2130 and had uninterrupted sleep the duration of the shift. Monitored pt q 15 minutes for safety, location and accountability.
[2016-08-21] MEDS: OLANZapine Zydis ODT 5 mg Tablet PO SCH ×2 (07:41→20:05)
[2016-08-21] MEDS: Sertraline 20 mg/mL Liq PO SCH (07:41)
--- NOTE | 2016-08-21 13:13 | PCM.PNPSY ---
Subjective Date of Service Aug 21, 2016 Subjective The patient initially only responded to the treatment team with yes or no head nods. She later approached this health underwriter and asked how long she would be in the hospital and whether it would have been 90 days before she could go outside. She stated that she did not want to go to the court house for her hearing. She was encouraged to discuss this with her ip attorney. She also asked why she had not received chicken like everyone else. She stated that she did not want "hamburger." She denied side effects or new medical issues. She declined monitoring today. Sleep: 7 hours Appetite: Decreased but eating Suicidal and homicidal ideation: Denies Auditory hallucinations: Denies Visual hallucinations: Denies Other Psychotic Symptoms: Initially mute but then later responded appropriately Anxiety: Denies Depression: Endorses but cannot quantify appears improved. Current Medications Current Medications Sertraline HCl 50 mg DAILY PO Last administered on 08/21/16t 07:41; Admin Dose 50 MG; Start 08/20/16 at 08:30 Mental Status Exam Appearance: Unkept Attitude: Uncooperative (but much improved) Behavior: Distractible Affect: Flat Mood: Depressed Speech Production: Paucity, Muter (answers most questions with yes or no head nods but later spoken fairly complete sentences as noted above.) Speech Rate: Lags/Latency Speech Articulation: Other (accented) Thought Content: Appropriate Danger to Self/Suicidal Ideati: None Danger to Others: None Hallucinations: Auditory (Denies), Visual (Denies) Consciousness: Alert Orientation: Person, Place, Situation Memory: Untestable Estimate Intellectual Function: Average Basis for IQ estimate: Awareness current events, Word use/vocabulary, Educational history, Employment history Attention/Concentration & Cogn: Impaired Insight: Limited Judgement: Poor Mental Health Plan The patient is a 30-year-old, Mandarin speaking female with Eritrean as second language who reportedly tried to "cut the baby out" at times due to anger prior to admission. The patient appeared to meet criteria for major depression and so was started on fluoxetine and lorazepam for anxiety. The patient requested an increase in antianxiety medication, however lorazepam is generally avoided where possible in and so she was switched to diphenhydramine per consultation with FAGOT HEATER HELPER regarding safest treatment. Olanzapine was added due to ongoing psychosis and the patient has had a slow improvement in symptoms. She continued to express depressed mood and so fluoxetine was switched to sertraline, but the patient has been refusing of late for unclear reasons. The patient was again medication adherent today with liquid sertraline. Today she was essentially mute with head nods and brief answers but later approach this health underwriter with more complex questions. The patient appears to be tolerating the increase in olanzapine and restart of sertraline. On 08/08/16 she was not felt to have decisional capacity regarding her delivery, and given her answers on 08/17, she continued to lack decisional capacity. [facility] is coordinating care should the patient give while still at [facility]. [place] I: 1. Major depressive disorder with psychotic features. 2. Rule out post-traumatic stress disorder [place] II: Deferred. [place] III: Intrauterine at 34 weeks plus days [place] IV: Severe. [place] V: 30 Medications Sertraline 50mg daily, liquid Olanzapine 5mg daily and 7.5 mg nightly, with IM override. Diphenhydramine 25 mg as needed. Treatments 1. The patient is admitted to the inpatient unit and will be provided a safe and secure environment. 2. The patient is reporting denying current active suicidality or homicidality or intent to precipitate an early or delivery and is not in need of a one- to-one at this time. 3. The patient is encouraged to participate with group and milieu activities. 4. The patient will be seen by the treatment team on a daily basis to assess symptoms, side effects and response to treatment. [employer] senior electrical designer will be used during these times. 5. Patient has been compliant with liquid sertraline. 6. Continue olanzapine 5 mg daily and 7.5 mg nightly. 7. FAGOT HEATER HELPER to continue to follow progress as needed. OB would like to know capacity to consent to suction, forceps, , epidural, general anesthesia closer to time of ; patient does not appear to meet capacity as of 08/08/16 and 08/17/16. 8. Diphenhydramine zinc ointment every 6 hours when necessary pruritus. 9. Continue PRN Benadryl. 10. Anticipated length of stay is 10-14 days. 11. Will not pursue extension of mother's visa at this time. Rigoberto Egan MD Aug 21, 2016 13:13
--- NOTE | 2016-08-21 13:49 | NUR ---
Nursing Day Shift- S- "How are you today? Take picture of the baby? When can I go outside? 90 days?" O- Pt. was awake at the start of the day shift and sitting by the TV. She greeted staff with a polite response, then asked about an ultrasound. the request was passed on to the MD. Pt. shook her head no when asked about depression, anxiety, thoughts of harming herself or others, cramping or pain. She eat over 50% of her breakfast and lunch. A- Initially more verbal, then back to broken eye contact and dismissive nods. Pt. was heard speaking in Mandarin on the phone, pleasantly. P- Cont. BHTP.
--- NOTE | 2016-08-21 14:32 | NUR ---
Hog Feeder./ c.m. S./O.: met with pt. and MD together in the morning in pt.'s room. She was in bed resting but she sat up quickly as soon as she saw MD and sign writer letterer or painter coming into her room. She slept last night. She denied SI/HI, denied anxiety. Depression was the same. She couldn't confirm or deny AH/VH or paranoid/delusional thoughts. She denied side effect of medications. She was communicating by her head movement only. Later after lunch she approached MD on her own and asked a few questions. A.: pt. is isolative, selectively mute, has a flat affect and poor eye contact. P.: monitor behavior, encourage pt. to talk, encourage pt. to attend unit activities, monitor meds intake; follow care plan.
--- NOTE | 2016-08-21 17:29 | NUR ---
Observations 0700 to 1900 Pt affect and mood continues to be the same as previous shifts. Pt was in her room most of the shift and would only come out briefly. Pt was unsocial when approached. Pt attended meals in D.R. and ate approximately 75% of her meals. Pt was offered snack but declined. Pt maintained behavior throughout the shift. Pt refused to attend group and unit activities. Pt took a shower and attended to ADL's. Pt was observed every 15 minutes throughout the shift as ordered.
--- NOTE | 2016-08-21 20:42 | NUR ---
NURSING NOTE [id number] Mood: *shakes head* Affect: guarded, avoidant Behavior: walks away from this quality analyst/technical writer when approached, shakes head when asked any question or attempts to engage are made. At start of shift she went to take a shower and staff noticed she had a plastic spoon tucked into a shirt pocket of her scrubs. She spent much of the shift in her room, ate 25 % of her dinner, later spent time in the DR reading magazines. Med compliant. Thought processes: unable to assess as she avoids this quality analyst/technical writer. Paranoid.
--- NOTE | 2016-08-22 05:48 | NUR ---
Sleep 11p-71 Adequate sleep through the night with no noted distress or awakening per protocol checks. Total sleep over 8.5 hours.
[2016-08-22] MEDS: OLANZapine Zydis ODT 5 mg Tablet PO SCH ×2 (07:31→20:06)
[2016-08-22] MEDS: Sertraline 20 mg/mL Liq PO SCH (07:31)
--- NOTE | 2016-08-22 13:08 | NUR ---
Nursing Day Shift- S- "When I go outside? 90 days? I want to go home to my family." O- Pt. was awake for breakfast. She eat 100% plus a serving of keyes. Pt. requested "pictures downstairs" of the baby. [facility] was called and a nurse came over at 0830. Pt. was verbal and allowed FHT's to be obtained. They were 146. Pt. denied pain. She was informed of warning signs and the symptoms of labor. A- Pt. has been more verbal and less isolative today. Questioning her future and the court process. She was smiling while listening to the heart tones. P- Cont. BHTP.
--- NOTE | 2016-08-22 14:20 | NUR ---
Sample Patternmaker./ c.m. S.:"I'm fine. When people can see me? They can't come inside... I need a salt water bag. I need a needle to check my stomach..." O.: met with pt. and MD together. Pt. slept well last night. She asked if "people" could see her here. She asked about going outside. explained to pt. that she could go on a patio to get a fresh air. She also could have visitors during visiting hrs. Pt. couldn't tell who would be visiting her and just said that they are "friends". She denied SI/HI, denied AH/VH, denied depression. She said that she "always" had anxiety. She complained about cough and asked for a "salt water bag and a needle". She agreed to do a blood test today. She also said that she didn't want to go to court. She agreed to stay here for 90 days. MD advised pt. to discuss this issue with her PD. She was in and out of her room mostly spending time by herself. A.: pt. is cooperative, pleasant, more talkative. P.: monitor behavior, encourage pt. to take meds, monitor for safety; follow care plan.
--- NOTE | 2016-08-22 18:58 | PCM.PNPSY ---
Subjective Date of Service Aug 22, 2016 Subjective The patient is more cooperative today and is using full sentences. She reports that she would prefer not to go to court and would rather stay in the hospital for 90 days and then leave. She is concerned that she may be low in sodium and would like to have lab work drawn to assess. She indicated that she wanted visitors but could not clarify further. We informed her that she could have for his visits should she need them for special circumstances. heart rate was 146 today. The patient denied side effects to medications. Sleep: 8.5 hours Appetite: Okay Suicidal and homicidal ideation: Denied Auditory hallucinations: Denied Visual hallucinations: Denied Other Psychotic Symptoms: N/A Anxiety: "Always nervous" Depression: "Not sad" Mental Status Exam Appearance: Unkept Attitude: Cooperative, Guarded Behavior: Overtly anxious Affect: Restricted Mood: Dysthymic Thought Process/Associations: Logical/Sequential, Goal Directed Speech Production: Paucity Speech Rate: Lags/Latency Speech Articulation: Other (accented) Thought Content: Appropriate Danger to Self/Suicidal Ideati: None Danger to Others: None Hallucinations: Auditory (Denies), Visual (Denies) Consciousness: Alert Orientation: Person, Place, Situation Memory: Untestable Estimate Intellectual Function: Average Basis for IQ estimate: Awareness current events, Word use/vocabulary, Educational history, Employment history Attention/Concentration & Cogn: Impaired Insight: Limited Judgement: Limited Mental Health Plan The patient is a 30-year-old, Mandarin speaking female with Tajik as second language who reportedly tried to "cut the baby out" at times due to anger prior to admission. The patient appeared to meet criteria for major depression and so was started on fluoxetine and lorazepam for anxiety. The patient requested an increase in antianxiety medication, however lorazepam is generally avoided where possible in and so she was switched to diphenhydramine per consultation with STUCCO LABORER regarding safest treatment. Olanzapine was added due to ongoing psychosis and the patient has had a slow improvement in symptoms. She continued to express depressed mood and so fluoxetine was switched to sertraline, but the patient has been refusing of late for unclear reasons. Once switched to liquid formulation, the patient has been medication adherent with sertraline. The patient was much more conversant today and indicated anxiety but denied depression. She was agreeable to labwork at least at the time of interview. The patient appears to be tolerating the increase in olanzapine and restart of sertraline. On 08/08/16 she was not felt to have decisional capacity regarding her delivery, and given her answers on 08/17/16, she continued to lack decisional capacity. [facility] is coordinating care should the patient give while still at [facility]. Once the patient is more stable, she should again be assessed for capacity. The patient was advised to discuss with her sports attorney per her request not to go to court. Sebree Sebree I: 1. Major depressive disorder with psychotic features. 2. Rule out post-traumatic stress disorder Sebree II: Deferred. Sebree III: Intrauterine at 34 weeks plus days Sebree IV: Severe. Sebree V: 35 Medications Sertraline 50mg daily, liquid Olanzapine 5mg daily and 7.5 mg nightly, with IM override. Diphenhydramine 25 mg as needed. Treatments 1. The patient is admitted to the inpatient unit and will be provided a safe and secure environment. 2. The patient is reporting denying current active suicidality or homicidality or intent to precipitate an early or delivery and is not in need of a one- to-one at this time. 3. The patient is encouraged to participate with group and milieu activities. 4. The patient will be seen by the treatment team on a daily basis to assess symptoms, side effects and response to treatment. MessageParty branch controller will be used during these times. 5. Patient has been compliant with liquid sertraline. 6. Continue olanzapine 5 mg daily and 7.5 mg nightly. 7. STUCCO LABORER to continue to follow progress as needed. OB would like to know capacity to consent to suction, forceps, , epidural, general anesthesia closer to time of ; patient does not appear to meet capacity as of 08/08/16 and 08/17/16. 8. Diphenhydramine zinc ointment every 6 hours when necessary pruritus. 9. Continue PRN Benadryl. 10. labs today. 11. 90 day more restrictive hearing pending. Patient indicated she may agree to inpatient order. Rigoberto Egan MD Aug 22, 2016 18:58
--- NOTE | 2016-08-22 18:59 | NUR ---
NURSING NOTE [id number] Mood: "nothing, nothing" Affect: guarded, suspicious Behavior: reading magazines in the DR, watching TV off and on, resting in bed. Approached this senior underwriter to ask when she can go outside. When she was offered access to the patio she clarified; "no, outside, see my family!" Informed pt. of visiting hours and she responded: "no I want out, 90 days, when do I get out?" Described her current court order to her and encouraged her to address treatment plan and discharge concerns w/her doctor as well as encouraged her to continue to comply w/treatment and her medications. Thought processes: unable to assess as she declines to speak to this senior underwriter and walks away when approached. Not seen responding to stimuli or speaking to unseen others. Addendum: 08/22/16 at 2128 by KATERIN MOROCHO RN Pt. refused her scheduled lab draw this evening.
--- NOTE | 2016-08-23 05:55 | NUR ---
Nursing Note material damage appraiser 11pm to 7am Pt In bed at start of shift. Slept through the night except to get up and get some water at 2345 and went back to sleep. In no acute distress, no concerns reported or observed.. Monitored with q 15 minutes face checks for safety, location and accountability.
[2016-08-23] MEDS: Sertraline 20 mg/mL Liq PO SCH (07:56)
[2016-08-23] MEDS: OLANZapine Zydis ODT 5 mg Tablet PO SCH ×2 (07:57→20:52)
[2016-08-23 09:15] LABS: BASOPHILS % (AUTO) 0.3 % (0-3); EOSINOPHILS % (AUTO) 1.9 % (0-5); MONOCYTES % (AUTO) 6.9 % (4-12); Mean Corpuscular Hemoglobin 28.8 pg (27.0-35.0); Mean Corpuscular Volume 89.2 fL (81-100); NEUTROPHILS % (AUTO) 68.6 % (40-74); Platelet Count 306 bil/L (150-400)
[2016-08-23] MEDS: diphenhydrAMINE 25 mg Capsule PO PRN ×2 (10:14→20:52)
[2016-08-23 13:42] LABS: APPEARANCE,URINE HAZY (CLEAR,HAZY); COLOR,URINE YELLOW (YELLOW); OCCULT BLOOD,URINE NEGATIVE (NEGATIVE); PH,URINE 6.5 (5.0-8.0); UROBILINOGEN,URINE NORMAL (NORMAL)
--- NOTE | 2016-08-23 14:34 | PCM.PNPSY ---
Subjective Date of Service Aug 23, 2016 Subjective I spent 30 minutes both reviewing treatment plan with clinical team, interviewing the patient and providing supportive/educational psychotherapy. I spent more than 50% of the time counseling the patient the patient could only tolerate a brief interaction. I reviewed the treatment plan with the patient and discussed options available including the potential risks, benefits and side effects. You reports relatively good thought organization and mood stability. She was willing to speak with me in full sentences today. Staff reports that she has been appropriate and participating as well and she can in one-to-one unit and group activities given language difficulties. She slept 7 hours and denies depression or psychotic symptoms review. She denies medication side effects. Patient was not able to identify her medications nor what they were used to treat. Mental Status Exam Appearance: Unkept Attitude: Cooperative, Guarded Behavior: Overtly anxious Affect: Restricted Mood: Dysthymic Thought Process/Associations: Logical/Sequential, Goal Directed Speech Production: Paucity Speech Rate: Lags/Latency Speech Articulation: Other (accented) Thought Content: Appropriate Danger to Self/Suicidal Ideati: None Danger to Others: None Hallucinations: Auditory (Denies), Visual (Denies) Consciousness: Alert Orientation: Person, Place, Situation Memory: Untestable Estimate Intellectual Function: Average Basis for IQ estimate: Awareness current events, Word use/vocabulary, Educational history, Employment history Attention/Concentration & Cogn: Impaired Insight: Limited Judgement: Limited Result Diagram: 08/23/16 0858 Mental Health Plan The patient is a 30-year-old, Mandarin speaking only female who presents with an odd story of being at 29 weeks and then having her "parents send her from [place] to [place]". She struggles to relate a coherent history other than she feels shamed by her family for her . She initially reported symptoms which qualified for a diagnosis of major depressive disorder, and now reports a marked decrease in both depression and anxiety symptom review. Initially she reported hearing ghosts talk to her and tell her things to do. Now she denies psychotic review of systems. The patient appeared to meet criteria for major depression and so was started on fluoxetine and lorazepam for anxiety. Olanzapine was added due to ongoing psychosis and the patient has had a slow improvement in symptoms. She continued to express depressed mood and so fluoxetine was switched to sertraline. She appears to be tolerating the olanzapine and sertraline and no longer appears to be suicidal nor responding to internal stimuli. Based on my assessment today I do not believe she has decisional capacity regarding her delivery. Her insight and judgment remain markedly impaired. [facility] is coordinating care should the patient give while still at [facility]. She will be regularly assessed for capacity. Kildare Kildare I: 1. Major depressive disorder with psychotic features. 2. Rule out post-traumatic stress disorder [place] II: Deferred. [place] III: Intrauterine at 34 weeks plus days [place] IV: Severe. [place] V: 35 Medications Sertraline 50mg daily, liquid Olanzapine 5mg daily and 7.5 mg nightly, with IM override. Diphenhydramine 25 mg as needed. Treatments 1. The patient is admitted to the inpatient unit and will be provided a safe and secure environment. 2. The patient is reporting denying current active suicidality or homicidality or intent to precipitate an early or delivery and is not in need of a one- to-one at this time. 3. The patient is encouraged to participate with group and milieu activities. 4. The patient will be seen by the treatment team on a daily basis to assess symptoms, side effects and response to treatment. [employer] ([employer]) asphalt roller person will be used during these times. 5. Patient has been compliant with liquid sertraline. 6. olanzapine 5 mg daily and 7.5 mg nightly. 7. YARD ENGINEER to continue to follow progress as needed. OB would like to know capacity to consent to suction, forceps, , epidural, general anesthesia closer to time of ; patient does not appear to meet capacity as of 08/08/16 and 08/17/16. 8. Diphenhydramine zinc ointment every 6 hours when necessary pruritus. 9. Continue PRN Benadryl. 10. labs today. 11. 90 day more restrictive hearing pending. Patient indicated she may agree to inpatient order. Piero Angel MD Aug 23, 2016 14:34
--- NOTE | 2016-08-23 15:39 | NUR ---
Bobbin Loose End Finder./ c.m. S.:"I don't know what happened to me... I talked too much... What did I do? Why did it happen to me?" O.: met with pt. in her room. She was resting in the middle of the afternoon. She sat up readily and agreed to talk to the check writer salesperson. She slept "ok" last night. She denied SI/HI, denied AH/VH. She described her mood as "ok". She couldn't rate her depression at this time. She said that she was worried less now. "I had a lot of problems but now I have a little problem, not too much..." She felt less anxious today. She met with Center staff early in the day - "They came to listen to my baby." She liked Thai infant room teacher who came today together with Dr. Moser. She was concerned about her "paper". She said "I'm very poor, I have nobody over there. I need my paper." At the end of the conversation pt. started talking to herself softly repeating that she was "talking too much" and that she didn't know "what happened to her". A.: pt. is cooperative, isolative, quiet, looks internally preoccupied. She has a flat affect and a soft voice. P.: monitor behavior, monitor for safety, encourage pt. to communicate with staff regarding her needs; follow care plan.
--- NOTE | 2016-08-23 15:54 | NUR ---
CPS- Plan/Reporting D/A: T/c from [facility], clarification asked on plan for mob when baby is born. Reported that CPS has indicated the baby and patient are to be . T/c to CPS ([facility]ily [facility] CPS intake), information received on 08/06 in the system. CPS does not respond to reports prior to , with no information provided to [facility] as how to care for baby when baby is born. CPS will respond within 24 hours after call is made to notify them of the of patients baby. It is hospital policy/protocol that will need to be utilized to determine boarding. T/c to [facility] recruitment consultant, Case Mgmt. to be notified when patient gives and will phone CPS. Informed her of the information above. Spoke with hospital admin about outcome of call. CPS will need further contact information for agencies involved when when baby is born. PLAN: Pt has approximately 6 more weeks left prior to giving . BAG SEALER/Case Mgmt. department to be notified when baby is born in order to initiate CPS report and then investigation within 24 hours. Admin involved to help guide process/ plan. SONJA Sutton Fructose Loader
--- NOTE | 2016-08-23 18:15 | NUR ---
Nursing: Day shift: S/O: You has been mostly in her room today except for meals. However, she is responding to verbal questions without latency, she requested and took a shower without assistance, she allowed [facility] nurse to listen to her FHT ( rate 144/min), and to do a wet mount vag spec. for pre labor lab tests, was compliant with obtaining a urine specimen, and met with translator/interpreter, psycholgist, and public service administrator for about an hour. Speaks in soft voice ( as usual). A team of several [facility] nurses met with advertising copy writer on this unit to review and clarify/amplify the plan of care for You at time of delivery. A typed-out version of the plan, arranged with agreed steps to take, what parts are still in process of being developed, and questions yet to answer, was delivered back to the unit from [facility] staff. ( Digital version is at [facility]). Paper copy of plan is taped to the front of pt's chart. FB RN plans to meet with You tomorrow to begin pt teaching about delivery process at [facility]. YOU requested to see the [facility] speaking Director Supply Chain, Dr TURNER, today. C into the OB [facility] office but Dr. Turner is not available until August 30. You was told Dr. TURNER is not available. A: You accepts sublingual and liguid meds. Is more responsive verbally and cooperative with directions today than last week. P: Continue to work with [facility] on plan for delivery. Continue to assess You for competency to make medical decisions about delivery.
--- NOTE | 2016-08-23 18:23 | NUR ---
Observations [id number] Pt was asleep upon start of shift. She continues to spend much of her time in her room, occasionally coming out into dining room and watching TV. Pt does not interact with other patients unless approached. She napped, did laundry, and took a shower. Pt did not attend groups. She ate an average of 75%, attending all meals. Pt was observed every 15 minutes of shift as directed.
[2016-08-24 01:12] LABS: Rubella IgG Antibody 2.34 index (Immune >0.99)
--- NOTE | 2016-08-24 01:53 | NUR ---
Observations 1900 to 0700 Pt was in her room when my shift started and remained there for the entire night. Pt first appeared asleep at 22:00 and was observed every 15 minutes through the night as directed.
--- NOTE | 2016-08-24 05:24 | NUR ---
Nursing Noc Pt continues much the same. She isolated in her room during the evening hours. She took her scheduled medication without difficulty. She received Benadryl 25mg po prn to help w/ anxiety. Pt denied having any kind of pain. She slept from [id number] then from [id number] for a total 5.5 hours. At 0500 she presented to the dining room stating "I am hungry". She was provided a snack and returned to her room after. She is quietly resting at this time.
[2016-08-24] MEDS: Sertraline 20 mg/mL Liq PO SCH (09:05)
[2016-08-24] MEDS: OLANZapine Zydis ODT 5 mg Tablet PO SCH ×2 (09:05→20:36)
[2016-08-24 11:02] VITALS: BP 100/70; PULSE 80; RESP 16
--- NOTE | 2016-08-24 12:13 | PCM.PNPSY ---
Subjective Date of Service Aug 24, 2016 Subjective I spent 30 minutes interviewing the patient and providing supportive/ educational psychotherapy. I spent more than 50% of the time counseling the patient and she was able to tolerate a full session today. I reviewed the treatment plan with the patient and discussed options available including the potential risks, benefits and side effects. You repeats that she has relatively good thought organization and mood stability. She was willing to speak with me in full sentences today. Staff reports that she has been appropriate and participating as well and she can in one-to-one unit and group activities given language difficulties. She slept 7 hours and denies depression or psychotic symptoms review. She denies medication side effects. Does not appear to be responding to internal stimuli. Her social interactions are more appropriate. Patient was not able to identify her medications nor what they were used to treat. Mental Status Exam Vital Signs Vital Signs Date Time Temp Pulse Resp B/P Pulse Ox O2 Delivery O2 Flow Rate FiO2 08/24/16 11:02 36.8 80 16 100/70 Appearance: Neat/well groomed Attitude: Pleasant, Cooperative Behavior: No unusual behavior Affect: Restricted Mood: Dysthymic Thought Process/Associations: Logical/Sequential, Goal Directed Speech Production: Soft Speech Rate: Normal Speech Articulation: Other (accented) Thought Content: Appropriate Danger to Self/Suicidal Ideati: None Danger to Others: None Consciousness: Alert Orientation: Person, Place, Situation Memory: Untestable Estimate Intellectual Function: Average Basis for IQ estimate: Awareness current events, Word use/vocabulary, Educational history, Employment history Attention/Concentration & Cogn: Impaired Insight: Limited Judgement: Good Result Diagram: 08/23/16 0858 Mental Health Plan The patient is a 30-year-old, Mandarin speaking only female who presents with an odd story of being at 29 weeks and then having her "parents send her from [place] to [place]". She struggled to relate a coherent history initially other than she feels shamed by her family for her . She initially reported symptoms which qualified for a diagnosis of major depressive disorder, and now reports a marked decrease in both depression and anxiety symptom review. Initially she reported hearing ghosts talk to her and tell her things to do. Now she denies psychotic review of systems. She appears to be tolerating olanzapine and sertraline and no longer appears to be suicidal nor to be responding to internal stimuli. Based on my assessment today However I do not believe she has decisional capacity regarding her delivery. This is due to Her insight and judgment remaining markedly impaired. [facility] is coordinating care should the patient give while still at [facility]. She will be regularly assessed for capacity. Supai Supai I: 1. Major depressive disorder with psychotic features. 2. Rule out post-traumatic stress disorder Supai II: Deferred. Supai III: Intrauterine at 34 weeks plus days Supai IV: Severe. Supai V: 35 Medications Sertraline 50mg daily, liquid Olanzapine 5mg daily and 7.5 mg nightly, with IM override. Diphenhydramine 25 mg as needed. Treatments Patient is being provided with a high degree of safety through the structure and active adult engagement. We will focus on developing improved coping skills and identifying stressors that may have led to current episode. We will attempt to: Integrate into therapeutic groups, milieu and individual therapy. Maintain in a closely monitored and structured unit Provide low-stimulation environment Obtain collateral data to assist in treatment planning Assess degree of lability of affect and impulse control Complete safety plan Decrease frequency of relapse and need for re-hospitalization Denies thoughts of harm to self and/or others Establish a consistent sleep pattern Medication effective in stabilization of mood and/or thought process Reduce the risk of imminent harm to self and/or others by providing a safe environment Tolerates medication without side effects Patient will be on the following psychiatric medications: Olanzapine 5 mg daily and 7.5 mg nightly. Diphenhydramine zinc ointment every 6 hours when necessary pruritus. Sertraline 50mg daily, liquid VICE CHANCELLOR: Patient's due date is 09/25/2016 VICE CHANCELLOR to continue to follow progress as needed. OB would like to know capacity to consent to suction, forceps, , epidural, general anesthesia closer to time of ; patient does not appear to meet capacity Address patient's legal status Patient is on a continuance pending a 90 day most restrictive hearing scheduled for next week Disposition: Address patient's legal status with state and federal agencies Address patient's immigration status Piero Angel MD Aug 24, 2016 12:13
--- NOTE | 2016-08-24 13:46 | NUR ---
Obs Dayshift Pt was out on the unit at the beginning of my shift, stayed out on the unit more today than the past few days. Pt smiled at me when I approached her about joining the dog group and watched from a far then went back to her room w/out joining. Pt met with different Dr's, Rug Drying Machine Operator, Inter. today, those meetings appeared to go well. Pt is sitting out in the milieu more, watching TV and listening to music. Appropriate, calm, Isolating Good ADL's, Good meals
--- NOTE | 2016-08-24 19:32 | NUR ---
Nursing: Day shift: S/O: You has been more verbal today. She is approaching staff with requests. When OB nurse came to assess FHT, she declined, but then expressed, "I have some questions". Proceeded to ask robyn, the OB nurse several questions about the delivery process. As usual, has kept to her room today except for meals. When approached, makes only fleeting eye contact. Allowed sql report writer to check vital signs with manual equipment, not automatic cuff. OB nurse, Marie, stated that an vmware consultant will come to check You on or Tue of this week. If not, please call [facility] to have this happen. You is taking care of hygiene needs and accepting scheduled meds as offered. You spent about an hour with wearing apparel presser, mud analysis operator, and psychologist today. A: You is becoming more interactive with staff. P: continue to check after medical officer to ensure that she gets Zyprexa. Continue to develop plan for delivery.
--- NOTE | 2016-08-25 02:34 | NUR ---
Observations 1900 to 0700 Pt was in her room when my shift started and remained there for the entire night. Pt first appeared asleep at 23:00 and was observed every 15 minutes through the night as directed.
--- NOTE | 2016-08-25 05:50 | NUR ---
Nursing Noc Pt continued to isolate to room throughout the evening and minimizing conversation or interaction with fiction writer. Out to DR for snacks and fluids. Pt does present slightly more upbeat and more energized then previously noted by this fiction writer. Reported that patient refused FHT yesterday.
[2016-08-25] MEDS: OLANZapine Zydis ODT 5 mg Tablet PO SCH ×2 (10:30→21:07)
[2016-08-25] MEDS: Sertraline 20 mg/mL Liq PO SCH (10:30)
--- NOTE | 2016-08-25 13:10 | PCM.PNPSY ---
Subjective Date of Service Aug 25, 2016 Subjective I spent 30 minutes interviewing the patient and providing supportive/ educational psychotherapy. I spent more than 50% of the time counseling the patient and she was able to tolerate a full session today. I reviewed the treatment plan with the patient and discussed options available including the potential risks, benefits and side effects. You repeats that she has relatively good thought organization and mood stability. She was willing to speak with me in full sentences today. Staff reports that she has been appropriate and is attempting to participate in one-to -one unit and group activities but struggles given language difficulties. She slept 7 hours and denies depression or psychotic symptoms review. She denies medication side effects. Does not appear to be responding to internal stimuli. Her social interactions are more appropriate. Patient was not able to identify her medications nor what they were used to treat. Mental Status Exam Appearance: Neat/well groomed Attitude: Pleasant, Cooperative Behavior: No unusual behavior Affect: Restricted Mood: Dysthymic Thought Process/Associations: Logical/Sequential, Goal Directed Speech Production: Soft Speech Rate: Normal Speech Articulation: Other (accented) Thought Content: Appropriate Danger to Self/Suicidal Ideati: None Danger to Others: None Consciousness: Alert Orientation: Person, Place, Situation Memory: Untestable Estimate Intellectual Function: Average Basis for IQ estimate: Awareness current events, Word use/vocabulary, Educational history, Employment history Attention/Concentration & Cogn: Impaired Insight: Limited Judgement: Good Result Diagram: 08/23/16 0858 Mental Health Plan The patient is a 30-year-old, Mandarin speaking only female who presents with an odd story of being at 29 weeks and then having her "parents send her from [place] to [place]". She struggled to relate a coherent history initially other than she feels shamed by her family for her . She initially reported symptoms which qualified for a diagnosis of major depressive disorder, and now reports a marked decrease in both depression and anxiety symptom review. Initially she reported hearing ghosts talk to her and tell her things to do. Now she denies psychotic review of systems. She appears to be tolerating olanzapine and sertraline and no longer appears to be suicidal nor to be responding to internal stimuli. Based on my assessment today However I do not believe she has decisional capacity regarding her delivery. This is due to Her insight and judgment remaining markedly impaired. [facility] should the patient give while still at [facility]. She will be regularly assessed for capacity all of her today showing Relatively good mood stability. She has been easily redirected by staff and is beginning to be more open during our sessions. Due to the complex nature of this case I will contact Dr. Bone the medical assistant instructor of [employer] and Dr. Egan to coordinate care and communicate concerns. [place] Pen[place] I: 1. Major depressive disorder with psychotic features. 2. Rule out post-traumatic stress disorder [place] II: Deferred. [place] III: Intrauterine at 34 weeks plus days Pen[place] IV: Severe. [place] V: 35 Medications Sertraline 50mg daily, liquid Olanzapine 5mg daily and 7.5 mg nightly, with IM override. Diphenhydramine 25 mg as needed. Treatments Patient is being provided with a high degree of safety through the structure and active adult engagement. We will focus on developing improved coping skills and identifying stressors that may have led to current episode. We will attempt to: Integrate into therapeutic groups, milieu and individual therapy. Maintain in a closely monitored and structured unit Provide low-stimulation environment Obtain collateral data to assist in treatment planning Assess degree of lability of affect and impulse control Complete safety plan Decrease frequency of relapse and need for re-hospitalization Denies thoughts of harm to self and/or others Establish a consistent sleep pattern Medication effective in stabilization of mood and/or thought process Reduce the risk of imminent harm to self and/or others by providing a safe environment Tolerates medication without side effects Patient will be on the following psychiatric medications: Olanzapine 5 mg daily and 7.5 mg nightly. Diphenhydramine zinc ointment every 6 hours when necessary pruritus. Sertraline 50mg daily, liquid YOUTH SUPPORT WORKER: Patient's due date is 09/25/2016 [employer] WORK[employer] to continue to follow progress as needed. OB would like to know capacity to consent to suction, forceps, , epidural, general anesthesia closer to time of ; patient does not appear to meet capacity Address patient's legal status Patient is on a continuance pending a 90 day most restrictive hearing scheduled for next week Disposition: Address patient's legal status with state and federal agencies Address patient's immigration status Piero Angel MD Aug 25, 2016 13:10
[2016-08-25 17:43] VITALS: RESP 16
--- NOTE | 2016-08-25 18:13 | NUR ---
Counseling/Light Rail Operator: S/O: Patient slept 6.75 hours last night per staff. She denies S/I and H/I. She denies auditory and visual hallucinations. Depression is 0/10 and anxiety is 0/10. When asked her mood, patient stated, "Fine." A: Patient is cooperative, pleasant, restricted affect, dysthymic, poor insight, poor judgment. P: Follow care plan, coordinate out-patient providers, monitor behavior.
--- NOTE | 2016-08-25 18:53 | NUR ---
[id number]. nurs. S/O: Pt allowed [facility] staff to monitor heart tones this am, HR 145-150. Pt out to get meals and some participating in grp activities. Pt had some brighter smiling affect, and more talkative about her food /meal preferences and comfort measures, for resting comfortably. Pt stating that she has some pain when baby moves and less when baby sleeping. Pt talking about time of delivery might be up to a month. Pt difficult to understand at times as prefers to talk with head down behind her hair in halting swiss and some changing and use of no in sentences. Pt states that she will come to staff for any needed comfort measures and food preferences.
--- NOTE | 2016-08-26 03:46 | NUR ---
Nursing Noc Pt appeared to fall asleep at 2230 and has remained asleep throughout the night. Pt did not come out for evening snack. Continuing to monitor with Q15 minute safety checks. Monitoring mood behavior and emotional state. CP
[2016-08-26] MEDS: Sertraline 20 mg/mL Liq PO SCH (08:36)
[2016-08-26] MEDS: OLANZapine Zydis ODT 5 mg Tablet PO SCH ×2 (08:36→20:47)
--- NOTE | 2016-08-26 14:29 | PCM.PNPSY ---
Subjective Date of Service Aug 26, 2016 Subjective I spent 30 minutes interviewing the patient and providing supportive/ educational psychotherapy. I spent more than 50% of the time counseling the patient and she was able to tolerate a full session today. I reviewed the treatment plan with the patient and discussed options available including the potential risks, benefits and side effects. You repeats that she has relatively good thought organization and mood stability. She was willing to speak with me in full sentences today. Staff reports that she has been appropriate and is attempting to participate in one-to -one unit and group activities but struggles given language difficulties. He stated that she was increasingly outgoing talkative and smiling more. She spoke at length to our internal medicine resident Emma Price about the baby and symptoms. She seemed concerned about the babies well-being. She slept 7 hours and denies depression or psychotic symptoms review. She denies medication side effects. Does not appear to be responding to internal stimuli. Her social interactions are more appropriate. Patient was not able to identify her medications nor what they were used to treat Mental Status Exam Appearance: Neat/well groomed Attitude: Pleasant, Cooperative Behavior: No unusual behavior Affect: Flat Mood: Euthymic Thought Process/Associations: Logical/Sequential, Goal Directed Speech Production: Soft Speech Rate: Normal Speech Articulation: Other (accented) Thought Content: Appropriate Danger to Self/Suicidal Ideati: None Danger to Others: None Consciousness: Alert Orientation: Person, Place, Situation Memory: Untestable Estimate Intellectual Function: Average Basis for IQ estimate: Awareness current events, Word use/vocabulary, Educational history, Employment history Attention/Concentration & Cogn: Impaired Insight: Limited Judgement: Good Result Diagram: 08/23/16 0858 Mental Health Plan The patient is a 30-year-old, Mandarin speaking only female who presents with an odd story of being at 29 weeks and then having her "parents send her from [place] to [place]". She struggled to relate a coherent history initially other than she feels shamed by her family for her . She initially reported symptoms which qualified for a diagnosis of major depressive disorder, and now reports a marked decrease in both depression and anxiety symptom review. Initially she reported hearing ghosts talk to her and tell her things to do. Now she denies psychotic review of systems. At this time She appears to be tolerating olanzapine and sertraline and no longer appears to be suicidal nor to be responding to internal stimuli. Based on my assessment today however I do not believe she has decisional capacity regarding her delivery. This is due to her insight remaining markedly impaired. I believe her judgment has improved and this opinion is based on watching her use relatively good judgment in social interactions on the unit. She has had no violent outbursts towards herself or others over this past week. She was unable to comprehend issues such as or epidural questions. She was unable to comprehend issues relating to director of early childhood and how she was going to provide for herself after the . [facility] us and the likelihood that the patient will give while still at [facility]. She will be regularly assessed for capacity. She has been easily redirected by staff and is beginning to be more open during our sessions. Due to the complex nature of this case I contacted Dr. Bone the medical assisting program director of [employer] and Dr. Egan my cohort on the unit to coordinate care and communicate concerns. All 3 of us agree that you should be allowed to hold the baby in a supervised setting. Our recommendations would be for the state to take custody of the child after delivery and identify the nursery as the current residence. You repeats that she feels she has relatively good thought organization and mood stability. She was willing to speak with me in full sentences today. Staff reports that she has been appropriate and is attempting to participate in one-to-one unit and group activities but struggles given language difficulties. He stated that she was increasingly outgoing talkative and smiling more. She spoke at length to our internal medicine resident Emma Price about the baby and symptoms. She seemed concerned about the babies well-being. She slept 7 hours and denies depression or psychotic symptoms review. Talpa Talpa I: 1. Major depressive disorder with psychotic features. 2. Rule out post-traumatic stress disorder Tal[place] II: Deferred. Talpa III: Intrauterine at 34 weeks plus days Talpa IV: Severe. Talpa V: 35 Medications Sertraline 50mg daily, liquid Olanzapine 5mg daily and 7.5 mg nightly, with IM override. Diphenhydramine 25 mg as needed. Treatments Patient is being provided with a high degree of safety through the structure and active adult engagement. We will focus on developing improved coping skills and identifying stressors that may have led to current episode. We will attempt to: Integrate into therapeutic groups, milieu and individual therapy. Maintain in a closely monitored and structured unit Provide low-stimulation environment Obtain collateral data to assist in treatment planning Assess degree of lability of affect and impulse control Complete safety plan Decrease frequency of relapse and need for re-hospitalization Denies thoughts of harm to self and/or others Establish a consistent sleep pattern Medication effective in stabilization of mood and/or thought process Reduce the risk of imminent harm to self and/or others by providing a safe environment Tolerates medication without side effects Patient will be on the following psychiatric medications: Olanzapine 5 mg daily and 7.5 mg nightly. Diphenhydramine zinc ointment every 6 hours when necessary pruritus. Sertraline 50mg daily, liquid [employer]INGLE CORNER CUTTER: Patient's due date is 09/25/2016 SINGLE CORNER CUTTER to continue to follow progress as needed. OB would like to know capacity to consent to suction, forceps, , epidural, general anesthesia closer to time of Patient does not appear to have capacity to make medical decisions do to impairment in thought process and insight. Address patient's legal status Patient is on a continuance pending a 90 day most restrictive hearing scheduled for next week Disposition: Address patient's legal status with state and federal agencies Address patient's immigration status Piero Angel MD Aug 26, 2016 14:29
--- NOTE | 2016-08-26 17:22 | NUR ---
Counseling/[employer]: S/O: Patient slept 7 hours last night per staff. She denies S/I and H/I. She denies auditory and visual hallucinations. Depression is 0/10 and anxiety is 0/10. When asked her mood, patient stated, "Good." A: Patient is cooperative, pleasant, restricted affect, dysthymic, poor insight, poor judgment. P: Follow care plan, coordinate out-patient providers.
--- NOTE | 2016-08-26 18:43 | NUR ---
[facility] Day Shift Pt affect and behavior mostly unchanged from previous shifts. Pt affect remains mostly flat, somewhat brighter when engaged with staff and peers. Pt continues to spend most of the shift resting in her room, occasionally entering the dining room to read or watch television. Pt is appropriate with staff and peers when active on the unit. Pt continues to decline vital signs. Pt did not attend community meeting or group activities throughout the shift. Pt attended all meals and ate approx 10% of breakfast and lunch, and 65% of dinner.
--- NOTE | 2016-08-26 18:49 | NUR ---
[id number]. nurs. S/O: Pt with bright affect in am, offering her nutritional snack supplements to staff stating here's a present ,heres two, two is cool . Pt stating does not like these supplements, ate less at breakfast, more at dinner time. Pt continues to spend most time resting in rm, out at times to watch TV, some joking and more communicative with resident this am. Pt reporting no pain or discomfort taking shower in lance. Pt allowing heart tone heart monitoring 145. P:CNCP
--- NOTE | 2016-08-27 03:48 | NUR ---
nursing, nights, 11-7 s/o- has appeared to sleep after 2200. up briefly at 2330 for a drink and easily returned to sleep. assessed q 15 minutes. a- no apparent distress. p- monitor behavior/emotional state, quality, times and amount of sleep, use and effect of medication. rosie
[2016-08-27] MEDS: Sertraline 20 mg/mL Liq PO SCH (08:29)
[2016-08-27] MEDS: OLANZapine Zydis ODT 5 mg Tablet PO SCH ×2 (08:29→20:57)
--- NOTE | 2016-08-27 12:57 | PCM.PNPSY ---
Subjective Date of Service Aug 27, 2016 Subjective I spent 30 minutes interviewing the patient and providing supportive/ educational psychotherapy. I spent less than 50% of the time counseling the patient as she was unwilling to speak with me in anything other than yes or no responses. I reviewed the treatment plan with the patient and discussed options available including the potential risks, benefits and side effects. Staff reports that she has been appropriate and is attempting to participate in one-to-one unit and group activities but struggles given language difficulties. Staff stated that she was increasingly outgoing talkative and smiling more. She spoke at length to our internal medicine resident Emma Price about the baby and symptoms on 08/26/2016. Please refer to that note for You's responses about SOLUTION ADVISOR consent to procedures. At that session She seemed concerned about the babies well-being. She slept 7 hours and denies depression or psychotic symptoms review with the nod of the head yes or no. She denies medication side effects. She does not appear to be responding to internal stimuli. Her social interactions are more appropriate. Patient was not able to identify her medications nor what they were used to treat Mental Status Exam Appearance: Neat/well groomed Attitude: Uncooperative Behavior: No unusual behavior, Other (mute refusing to talk) Affect: Flat Mood: Euthymic Thought Process/Associations: Goal Directed, Other (patient responding mutely to basic questions about health and security.) Speech Production: Soft Speech Rate: Normal Speech Articulation: Other (accented) Thought Content: Appropriate Danger to Self/Suicidal Ideati: None Danger to Others: None Consciousness: Alert Orientation: Unable to assess Memory: Untestable Estimate Intellectual Function: Unable to assess Basis for IQ estimate: Awareness current events, Word use/vocabulary, Educational history, Employment history Attention/Concentration & Cogn: Impaired Insight: Limited Judgement: Limited Result Diagram: 08/23/16 0858 Mental Health Plan The patient is a 30-year-old, Mandarin speaking only female who presents with an odd story of being at 29 weeks and then having her "parents send her from [place] to [place]". She struggled to relate a coherent history initially other than she feels shamed by her family for her . She initially reported symptoms which qualified for a diagnosis of major depressive disorder, and now reports a marked decrease in both depression and anxiety symptom review. Initially she reported hearing ghosts talk to her and tell her things to do. Now she denies psychotic review of systems. At this time She appears to be tolerating olanzapine and sertraline and no longer appears to be suicidal nor to be responding to internal stimuli. Based on my assessment today however I do not believe she has decisional capacity regarding her delivery. This is due to her insight remaining markedly impaired. I believe her judgment has improved and this opinion is based on watching her use relatively good judgment in social interactions on the unit. She has had no violent outbursts towards herself or others over this past week. She was unable to comprehend issues such as or epidural questions. She was unable to comprehend issues relating to child care coordinator and how she was going to provide for herself after the . [facility] with us and the likelihood that the patient will give while still at [facility]. She will be regularly assessed for capacity. She has been easily redirected by staff and is beginning to be more open during our sessions. Due to the complex nature of this case I contacted Dr. Bone the pediatrician/medical doctor of SOLUTION ADVISOR and Dr. Egan my cohort on the unit to coordinate care and communicate concerns. All 3 of us agree that you should be allowed to hold the baby in a supervised setting. Our recommendations would be for the state to take custody of the child after delivery and identify the nursery as the current residence. She was not willing to speak with me today. Staff reports that she has been appropriate and is attempting to participate in one-to-one unit and group activities but struggles given language difficulties. He stated that she was increasingly outgoing talkative and smiling more. She spoke at length to our internal medicine resident Emma Price about the baby and symptoms. She seemed concerned about the babies well-being per Dr. Price. I included the trampoline team coach from Dr. Price's interview with patient as she has been able to get this patient to talk to her. Addendum: Sharda Price DO on 08/26/16 @ 15:59 Interviewed the patient in her room, at end of day. Asked patient when she was due, she responded "next month". When asked if she was having a girl or a boy, she stated "I having girl". I asked patient if this was her first , or if she had previous pregnancies, she stated "first baby". I asked if she had any sisters, she responded "no sisters, have younger brother". I asked her how old her brother was, and where he was she responded "he is 6 yrs old, he lives in [place]". I asked where she lived, she stated "[place]".When asked where her mother lived, she stated "don't know". When asked if she was feeling baby kick, she responded "yes, kicks". Discussed delivery possibilities with patient, including natural childbirth or surgery/. Explained procedure of epidural with patient and asked if she would prefer epidural or natural childbirth, she responded "want no medicines, want natural". When asked if she would be ok with if needed, she stated "yes". When asked if suction would be ok, she responded "yes". Patient was smiling and making appropriate eye contact throughout the interview. <Electronically signed by Sharda Price DO> 08/26/16 8499 [place]ura Bush Feura Bush I: 1. Major depressive disorder with psychotic features. 2. Rule out post-traumatic stress disorder [place] II: Deferred. [place] III: Intrauterine at 34 weeks plus days [place] IV: Severe. [place] V: 35 Medications Sertraline 50mg daily, liquid Olanzapine 5mg daily and 7.5 mg nightly, with IM override. Diphenhydramine 25 mg as needed. Treatments Patient is being provided with a high degree of safety through the structure and active adult engagement. We will focus on developing improved coping skills and identifying stressors that may have led to current episode. We will attempt to: Integrate into therapeutic groups, milieu and individual therapy. Maintain in a closely monitored and structured unit Provide low-stimulation environment Obtain collateral data to assist in treatment planning Assess degree of lability of affect and impulse control Complete safety plan Decrease frequency of relapse and need for re-hospitalization Denies thoughts of harm to self and/or others Establish a consistent sleep pattern Medication effective in stabilization of mood and/or thought process Reduce the risk of imminent harm to self and/or others by providing a safe environment Tolerates medication without side effects Patient will be on the following psychiatric medications: Olanzapine 5 mg daily and 7.5 mg nightly. Diphenhydramine zinc ointment every 6 hours when necessary pruritus. Sertraline 50mg daily, liquid SOLUTION ADVISOR: Patient's due date is 09/25/2016 SOLUTION ADVISOR to continue to follow progress as needed. OB would like to know capacity to consent to suction, forceps, , epidural, general anesthesia closer to time of Patient does not appear to have capacity to make medical decisions due to impairment in thought process and insight. Address patient's legal status Patient is on a continuance pending a 90 day most restrictive hearing scheduled for next week Disposition: Address patient's legal status with state and federal agencies Address patient's immigration status Piero Angel MD Aug 27, 2016 12:57
--- NOTE | 2016-08-27 14:29 | NUR ---
NURS Day Pt spent much of shift alone in room. Pt said "yes" when asked if she was feeling sad. Pt has to small scabs on her right shoulder, pt reports pain at site; no redness, swelling or drainage. Pt had covered these sites with toothpaste. Pt reports picking at her skin, sometimes to the point of bleeding. The blog writer removed the toothpaste with water and applied antibiotic ointment and large bandaid to discourage picking.
--- NOTE | 2016-08-27 15:47 | NUR ---
Counseling/Employee Training Specialist: S/O: Patient slept 6.5 hours last night per staff. She denies S/I and H/I. She denies auditory and visual hallucinations. Depression is 0/10 and anxiety is 0/10. When asked her mood, patient stated, "Okay." Patient's jury trial has been scheduled for 10/05/16. A: Patient is cooperative, pleasant, blunted affect, dysthymic, poor insight, poor judgment, isolates in room. P: Follow care plan, coordinate out-patient providers, monitor behavior.
--- NOTE | 2016-08-27 18:27 | NUR ---
Observations 0900 to 2130 Pt affect and mood continues to be the same as previous shifts. Pt was in her room most of the shift and would only come out briefly. Pt was minimally social when approached. Pt attended meals in D.R. and ate approximately 75% of her meals. Pt was offered snack but declined. Pt maintained behavior throughout the shift. Pt refused to attend group and unit activities. Pt took a shower and attended to ADL's. Pt was observed every 15 minutes throughout the shift as ordered.
--- NOTE | 2016-08-27 23:34 | NUR ---
Nurses Note Evening Patient has been brighter at times this shift. She eats in the dining room with peers,watched TV briefly. Patient denied pain or discomfort from her however had neck pain and received a hot pack. She remains medication compliant without side effects. Patient was not seen by Family this evening for heart tones. Will maintain q 15min. checks for safety and support. Addendum: 08/27/16 at 2337 by NANCY GEE RN Amended: Links added.
--- NOTE | 2016-08-28 05:04 | NUR ---
NOC Observation - Pt out on unit more, speaking and watching TV at times. She did allow the OB RN to do heart tones, smiled at sound of heartbeat. Asleep at 2330. Observed Q15 as ordered.
--- NOTE | 2016-08-28 05:10 | NUR ---
Nursing Note station mechanic apprentice 11pm to 7am Pt slept through the night uninterrupted. In no acute distress. Monitored with q 15 minute checks
[2016-08-28] MEDS: Sertraline 20 mg/mL Liq PO SCH (09:31)
[2016-08-28] MEDS: OLANZapine Zydis ODT 5 mg Tablet PO SCH ×2 (09:31→21:01)
[2016-08-28 12:00] VITALS: BP 113/71; RESP 16
--- NOTE | 2016-08-28 12:50 | NUR ---
day shift nursing note S/O-"When do I see the doctor?" Pt. has been eating all his meals. She is pleasant and cooperative with staff. She willingly takes her meds and has direct eye contact. She tends to isolate to her room. She responds with a few French words. She denies pain, depression, or SI. She does not engage in groups. A-Blunted affect. Lack of insight. Psychosis. P-Monitor for safety per protocol. Encourage engagement in craft activities. Assess efficacy of meds to decrease psychosis.
--- NOTE | 2016-08-28 14:34 | NUR ---
Manager Deli./ c.m. S.:"Fine...not ok." O.: met with pt. and MD together in pt.'s room. She was in bed resting in the middle of the morning. She didn't believe that she needed to be in the hospital. She denied SI/HI, denied AH/VH or paranoid/delusional thoughts. She said that she didn't sleep well. She denied having children. She said that she was 14 y.o. She couldn't tell where she was born - "[place] country". She didn't know where she was. She denied being . She spent a lot of time in her room. She came to the Dining room for meals. A.: pt. is isolative, guarded, looks confused. She has a flat affect and a soft voice. P.: monitor behavior, encourage pt. to stay more in a public area, monitor meds intake; follow care plan.
--- NOTE | 2016-08-28 23:00 | NUR ---
Nurses Note Evening Patient has had periods of increased connectedness with staff and Vianca CLAIRE from [facility] heart tones were completed without difficulty. Her appetite,hygiene within normal,she remains medication compliant. Will maintain q 15min. checks for safety,support,alert to complications or concerns. Addendum: 08/28/16 at 8463 by NANCY GEE RN Amended: Links added.
--- NOTE | 2016-08-29 04:47 | NUR ---
nursing, nights, 11-7 s/o- has appeared to sleep after 2244 during q 15 minute assessments. a- no apparent distress. p- monitor behavior/emotional state, quality, times and amount of sleep, use and effect of medication. rosie
--- NOTE | 2016-08-29 06:06 | PROG NOTE ---
[address] [address] PROGRESS NOTE PATIENT: TOMMY ADAMS : 1985 MR#: [id number] ADMIT: 07/13/2016 JOB ID: [id number] DATE: 08/28/2016 SUBJECTIVE: A 30-year-old lady, hospitalized involuntarily on this unit, September 10, 2016. DIAGNOSES: 1. Unspecified psychotic disorder. 2. She is 8-1/2 months . MEDICATIONS: 1. Zoloft 50 mg a day. She was on Prozac, switched to Zoloft. She gets it liquid. 2. Olanzapine 5 mg at night. NARRATIVE: Continues to be guarded. Continues to have limited insight. Continues to be internally preoccupied. Did get 6-1/2 hours of sleep. No p.r.n. She has petitioned for a jury trial, so she may be here for some time. Staff suspected she may have some immigration issues. Like I said, med compliant. Going to groups and participating a little. May need further adjustment of the olanzapine. At this point, her management stays the same. We will need to educate her and the family regarding the category C status of her present meds. The risk of exacerbation of symptoms and care with breast-feeding.
[2016-08-29 08:32] VITALS: BP 104/67; PULSE 100; RESP 14
[2016-08-29] MEDS: Sertraline 20 mg/mL Liq PO SCH (08:37)
[2016-08-29] MEDS: OLANZapine Zydis ODT 5 mg Tablet PO SCH ×2 (08:37→21:26)
--- NOTE | 2016-08-29 10:08 | PROG NOTE ---
[address] [address] PROGRESS NOTE PATIENT: TOMMY ADAMS : 1985 MR#: [id number] ADMIT: 07/13/2016 JOB ID: [id number] DATE: 08/29/2016 IDENTIFICATION: A 30-year-old lady hospitalized involuntarily on this unit July 13, 2016. DIAGNOSIS: Unspecified psychotic disorder. She is 8-1/2 months apparently the nurse visited with her and the seems to be progressing fine. MEDICATIONS: 1. Zoloft 50 mg in the morning in liquid form. 2. Olanzapine 5 mg at night. NARRATIVE: The patient seen and discussed with staff. Very limited eye contact, guarded, and does not talk much. Did make briefly smile. 7 hours of sleep. According to the staff, opening up a little, no major psych p.r.n. issues yesterday. Staff feels that a lot of this could also be because she is careful what she says because she may have some immigration issues. Encouraged her to participate in the treatment modalities of the unit. No acute pain issues. Management still stays the same. I understand she has been educated about the category C status of the medicine she is on.
--- NOTE | 2016-08-29 13:13 | NUR ---
Nursing Note [id number] Behavior S/O: Pt out of room for meals & very briefly to color & read a magazine. Pt ate 50% of breakfast & 10% of lunch. Pt attended community meeting & interacted with group. Pt took medications with encouragement. Pt responded the first time medications were offered & said "later." Pt is speaking Yemeni on unit in brief interactions with staff. Pt is appropriate & polite with interactions. Pt con't to have poor eye contact. A: Pt slowly improving. P: Provide supportive environment. Monitor medications & effects.
--- NOTE | 2016-08-29 14:29 | NUR ---
College Sports Assistant./ c.m. S.:"Fine..." O.: met with pt. and MD together. Pt. was sitting in the Dining room and coloring a picture. She showed scientific writer what she did and what she was going to do with the picture. She slept "ok" last night. She denied SI/HI, denied AH/VH or paranoid/delusional thoughts. She felt "anxious" but she couldn't rate her anxiety at that time. She was in and out of her room but didn't talk to peers or staff. A.: pt. is isolative, quiet, guarded, has a soft voice and poor eye contact. P.: monitor behavior, encourage pt. to stay away from her room, monitor meds intake; follow care plan.
--- NOTE | 2016-08-29 19:02 | NUR ---
[facility] Note D- Patient attended morning meeting only this morning. She ate about 10% of meals in the dining area. Patient did not overtly attend to any ADLs and appears moderately groomed. A- Patient spent most of the shift in her room. She was difficult to understand both with volume and content as she was monosyllabic with some bazar content. Patient has not been social. She is unable or unwilling to engage regarding why she has been admitted to the unit and any treatment. She denies any suicidal ideation. P- Continue current treatment plan.
--- NOTE | 2016-08-29 21:58 | NUR ---
Nurses Note Evening Patient has been out on the unit for meals and snacks with a cheerful mood and bright affect. She was friendly to peers offering them her food at snack time. Patient has been accepting her medications without adverse effects.Her appetite and hygiene have been undisturbed. Patient was seen and evaluated again by Family yesterday with no problems noted on heart tones nonstress test.Family continues to follow for concerns. Will continue to engage frequently during the day encouraging interaction with staff and peers,group participation and continued medication compliance. Addendum: 08/29/16 at 7728 by NANCY GEE RN Amended: Links added.
--- NOTE | 2016-08-30 04:23 | NUR ---
Nursing notes: pss delivery professional/ sleep Patient appears to be sleeping on safety checks during the night. Patient noted to get up briefly and walk out to dining room to get water, look at clock, but returned to bed and appears to be sleeping on next safety checks.
[2016-08-30] MEDS: diphenhydrAMINE-Zinc 2%-0.1% 30 Gm Cream TOPICAL PRN (08:40)
[2016-08-30] MEDS: OLANZapine Zydis ODT 5 mg Tablet PO SCH ×2 (08:40→21:41)
[2016-08-30] MEDS: Sertraline 20 mg/mL Liq PO SCH (08:40)
--- NOTE | 2016-08-30 12:16 | NUR ---
Nursing Note [id number] Behavior S/O: Wet spot found on pt's bed. Family here to evaluate pt. Pt stated moisture from "inside." Ultrasound ordered for pt. Pt d/n appear to be in labor. Pt ate 75% of breakfast. Pt refused vital signs by out unit. Pt in room except for meals. Pt quiet & speaks extremely soft. She does speak Romansh which is difficult to understand d/t her tone & accent. She attempts to communicate with staff to make very brief requests. A: Pt slowly improving. She continues to isolate in room & has very little interaction with peers & staff. P: Provide supportive environment. Monitor medications & effects.
--- NOTE | 2016-08-30 14:31 | DRSVH ---
PROCEDURE: US OB AMNIOTIC FLUID INDEX/ POSITION LIMITED INDICATIONS: HEARTRATE DECEL. OUTSIDE/PRIOR DATING DATA: First dating scan (date and location): 07/13/2016. Estimated date of delivery (SAMREEN) from first dating scan: 09/25/2016. TECHNIQUE: Real-time scanning was performed of the fetus, with image documentation and biometric measurements. COMPARISON: None. FINDINGS: General: A single living intrauterine gestation is present. Presentation: Vertex Placenta: Placental position is anterior, without previa. OB-MASTER CONTROL SUPERVISOR Ultrasound Procedure Report Summary Fetus Summary Est. Gest. Age by first dating scan(or LMP,if no prior):36 weeks, 2 days Heart Rate: 154 bpm Findings(Amniotic Sac) Amniotic Fluid Index (LEENA): 9.40 cm Pelvis and Uterus Cervix Length: Not well seen. IMPRESSION: 1. Single living intrauterine gestation redemonstrated in vertex presentation. 2. Normal amniotic fluid index. Dictated by: Jovanny ORTEGA Interpreted: Gurdeep Burrell MD on 08/30/2016 at 14:30 Transcribed by: RADHA on 08/30/2016 at 14:31 Approved by: Gurdeep Burrell M.D. on 08/30/2016 at 14:57
--- NOTE | 2016-08-30 15:14 | NUR ---
Flat Spring Assembler./ tatiana S.:"Alright... sad." O.: met with pt. and MD together in pt.'s room. She had [facility] at her bed side monitoring her child heart bit. Pt. was in bed with her eyes closed. She made single words answers in a very soft voice. She denied SI/HI, denied AH/VH or paranoid/delusional thoughts. She described her mood as "sad" and denied anxiety today. She slept last night and she came to the Dining room for meals. A.: pt. is isolative, quiet, looks frightened, has a flat affect and a very poor eye contact. P.: monitor behavior, coordinate with [facility], monitor meds intake; follow care plan.
--- NOTE | 2016-08-30 16:08 | PCM.PNPSY ---
Subjective Date of Service Aug 30, 2016 Subjective The patient reports being sad, but denies anxiety. Patient initially said that she would not cooperate with ultrasound but later did. Patient only minimally verbal with team. She denied side effects. Patient had reported fluid on bed, but per OB RN this was not amniotic fluid. Sleep: 6 hours Appetite: okay Suicidal and homicidal ideation: denies Auditory hallucinations: denies Visual hallucinations: denies Other Psychotic Symptoms: minimal verbal Anxiety: denies Depression: endorses Mental Status Exam Appearance: Neat/well groomed Attitude: Uncooperative Behavior: No unusual behavior, Other (minimal verbal communication, decreased eye contact.) Affect: Flat Mood: Dysthymic, Depressed Thought Process/Associations: Goal Directed Speech Production: Soft Speech Rate: Normal Speech Articulation: Other (accented) Thought Content: Appropriate Danger to Self/Suicidal Ideati: None Danger to Others: None Hallucinations: Auditory (Denies), Visual (Denies) Consciousness: Alert Orientation: Unable to assess Memory: Untestable Estimate Intellectual Function: Unable to assess Basis for IQ estimate: Awareness current events, Word use/vocabulary, Educational history, Employment history Attention/Concentration & Cogn: Impaired Insight: Limited Judgement: Limited Mental Health Plan The patient is a 30-year-old, Mandarin speaking female with Korean as second language who reportedly tried to "cut the baby out" at times due to anger prior to admission. The patient appeared to meet criteria for major depression and so was started on fluoxetine and lorazepam for anxiety. The patient requested an increase in antianxiety medication, however lorazepam is generally avoided where possible in and so she was switched to diphenhydramine per consultation with NETWORK CABLER regarding safest treatment. Olanzapine was added due to ongoing psychosis and the patient has had a slow improvement in symptoms. She continued to express depressed mood and so fluoxetine was switched to sertraline, but the patient has been refusing of late for unclear reasons. Once switched to liquid formulation, the patient has been medication adherent with sertraline. The patient has demonstrated improved interaction with team members but is still reporting depression/sadness and has only minimal verbal interaction with others. Attempts at discussing procedures again today were unsuccessful and based on prior assessments still likely lacks capacity. [place] I: 1. Major depressive disorder with psychotic features. 2. Rule out post-traumatic stress disorder [place] II: Deferred. [place] III: Intrauterine due date 09/25/16 [place] IV: Severe. [place] V: 35 Medications Sertraline 50mg daily, liquid Olanzapine 5mg daily and 7.5 mg nightly, with IM override. Diphenhydramine 25 mg as needed. Treatments 1. The patient is admitted to the inpatient unit and will be provided a safe and secure environment. 2. The patient is reporting denying current active suicidality or homicidality or intent to precipitate an early or delivery and is not in need of a one- to-one at this time. 3. The patient is encouraged to participate with group and milieu activities. 4. The patient will be seen by the treatment team on a daily basis to assess symptoms, side effects and response to treatment. [employer] tele rn will be used during these times. 5. Increase liquid sertraline to 75mg daily. 6. Continue olanzapine 5 mg daily and 7.5 mg nightly. 7. NETWORK CABLER to continue to follow progress as needed. OB would like to know capacity to consent to suction, forceps, , epidural, general anesthesia closer to time of ; patient does not appear to meet capacity as of 08/08/16, 08/17/16, and 08/30/16. 8. Diphenhydramine zinc ointment every 6 hours when necessary pruritus. 9. Continue PRN Benadryl. 10. 90 day more restrictive hearing pending. Patient indicated she may agree to inpatient order. Rigoberto Egan MD Aug 30, 2016 16:08
--- NOTE | 2016-08-30 18:38 | NUR ---
Observations [id number] Pt was asleep upon start of shift. Pt did not attended Community Meeting this morning, or groups. She spent much of her time in her room, sleeping and resting. She attended meals, eating an average of 60%. Pt appears to be more friendly with peers and more communicative with staff. Pt went to an ultrasound this afternoon with this chart writer and was cooperative, and took an interest in seeing pictures of the baby. Pt showered in the evening. Pt was observed every 15 minutes of shift as directed.
--- NOTE | 2016-08-30 20:36 | NUR ---
nursing evening note S)"color picture" O) pt out on unit coloring a picture that she showed this insurance underwriter, denies any pain or problems, ate meals and snacks, social with other peers, groomed fair, dressed in own clothes, quiet voice, cooperative, poor eye contact A)a little more social, cooperative, no pain or problems with this shift P) monitor medications, encourage participation in treatment, monitor for labor symptoms
--- NOTE | 2016-08-31 03:50 | NUR ---
Observations 1900 to 0700 Pt was in her room when my shift started and remained there for the most night. Pt did come out briefly. Pt first appeared asleep at 22:15 and was observed every 15 minutes through the night as directed.
--- NOTE | 2016-08-31 06:12 | NUR ---
Nursing note/ third shift lieutenant Patient appears to be sleeping on safety checks during the night. Patient observed to come out to DR briefly, then returned to bed.
[2016-08-31] MEDS: Sertraline 20 mg/mL Liq PO SCH (07:50)
[2016-08-31] MEDS: OLANZapine Zydis ODT 5 mg Tablet PO SCH ×2 (07:50→22:13)
[2016-08-31 13:03] VITALS: BP 110/64; PULSE 93; RESP 17
--- NOTE | 2016-08-31 14:37 | NUR ---
Behavior Pt. had FHT checked by L&D nurse this morning. Pt. was also cooperative with having vital sign taken. Pt. stated she will keep in touch with her family but didn't go into detail about it. She aware of she will go to [facility] for child[facility] for in 4 weeks. Pt. is more willing to engage in conversation when she is approached. More eye contact during social interaction although she doesn't maintain eye contact the whole time, which may be cultural habits.
--- NOTE | 2016-08-31 15:18 | PCM.PNPSY ---
Subjective Date of Service Aug 31, 2016 Subjective The patient denies depression or anxiety today though still is expressing self minimally. Patient did smile when talking about her baby and that she had a picture of it from the ultrasound. She denied side effects. She denied pain, or baby kicking, but reported not liking her blood pressure taken each shift, and did not like having to talk to nursing staff three times a day. Explained to patient need for nursing to check in with patient every shift, patient appeared incredulous Sleep: 7.5 hours Appetite: okay Suicidal and homicidal ideation: denies Auditory hallucinations: denies Visual hallucinations: denies Other Psychotic Symptoms: minimal verbal Anxiety: denies Depression: "not sad today" Current Medications Current Medications Sertraline HCl 75 mg DAILY PO Last administered on 08/31/16t 07:50; Admin Dose 75 MG; Start 08/31/16 at 08:30 Mental Status Exam Vital Signs Vital Signs Date Time Temp Pulse Resp B/P Pulse Ox O2 Delivery O2 Flow Rate FiO2 08/31/16 13:03 35.9 93 17 110/64 Appearance: Neat/well groomed Attitude: Uncooperative Behavior: No unusual behavior, Other (minimal verbal communication, improved eye contact.) Affect: Flat Mood: Dysthymic, Depressed Thought Process/Associations: Goal Directed Speech Production: Soft Speech Rate: Normal Speech Articulation: Other (accented) Thought Content: Appropriate Danger to Self/Suicidal Ideati: None Danger to Others: None Hallucinations: Auditory (Denies), Visual (Denies) Consciousness: Alert Orientation: Person, Place, Situation Memory: Untestable Estimate Intellectual Function: Unable to assess Basis for IQ estimate: Awareness current events, Word use/vocabulary, Educational history, Employment history Attention/Concentration & Cogn: Impaired Insight: Limited Judgement: Limited Mental Health Plan The patient is a 30-year-old, Mandarin speaking female with Palauan as second language who reportedly tried to "cut the baby out" at times due to anger prior to admission. The patient appeared to meet criteria for major depression and so was started on fluoxetine and lorazepam for anxiety. The patient requested an increase in antianxiety medication, however lorazepam is generally avoided where possible in and so she was switched to diphenhydramine per consultation with TABLE WORKER regarding safest treatment. Olanzapine was added due to ongoing psychosis and the patient has had a slow improvement in symptoms. She continued to express depressed mood and so fluoxetine was switched to sertraline, but the patient has been refusing of late for unclear reasons. Once switched to liquid formulation, the patient has been medication adherent with sertraline. The patient has demonstrated improved interaction with team members but is still only minimally verbal. She reports an improvement in her sadness today. Attempts at discussing related issues today (blood pressure checks and pre-eclampsia) were unsuccessful and based on prior assessments still likely lacks capacity. [place] I: 1. Major depressive disorder with psychotic features. 2. Rule out post-traumatic stress disorder [place] II: Deferred. [place] III: Intrauterine due date 09/25/16 [place] IV: Severe. [place] V: 35 Medications Sertraline 75mg daily, liquid Olanzapine 5mg daily and 7.5 mg nightly, with IM override. Diphenhydramine 25 mg as needed. Treatments 1. The patient is admitted to the inpatient unit and will be provided a safe and secure environment. 2. The patient is reporting denying current active suicidality or homicidality or intent to precipitate an early or delivery and is not in need of a one- to-one at this time. 3. The patient is encouraged to participate with group and milieu activities. 4. The patient will be seen by the treatment team on a daily basis to assess symptoms, side effects and response to treatment. [employer] wooden furniture polisher will be used during these times. 5. Continue liquid sertraline 75mg daily. 6. Continue olanzapine 5 mg daily and 7.5 mg nightly. 7. TABLE WORKER to continue to follow progress as needed. OB would like to know capacity to consent to suction, forceps, , epidural, general anesthesia closer to time of ; patient does not appear to meet capacity as of 08/08/16, 08/17/16, and 08/30/16. 8. Diphenhydramine zinc ointment every 6 hours when necessary pruritus. 9. Continue PRN Benadryl. 10. 90 day more restrictive hearing pending. Patient indicated she may agree to inpatient order. Rigoberto Egan MD Aug 31, 2016 15:18
--- NOTE | 2016-08-31 16:58 | NUR ---
Nursing note about OB physician consultation. Supervisor Engraving checked with Renea, charge nurse at [facility]. She confirmed that the facility security officer was present with You today as the FHT were being checked. You had told a nurse on this unit that she had been seen by a doctor today.
--- NOTE | 2016-08-31 17:59 | NUR ---
Obs Dayshift Pt has been more willing today to participate in vitals, Ob/baby monitor checks, etc. Pt has better eye contact, smiling and out of her room a little more today. Pt does continue to be isolative to her room. Good ADL's, Good meals.
--- NOTE | 2016-09-01 02:25 | NUR ---
Observations 1900 to 0700 Pt was in her room when my shift started and remained there for the most night. Pt did come out briefly. Pt first appeared asleep at 22:30 and was observed every 15 minutes through the night as directed.
[2016-09-01] MEDS: Sertraline 20 mg/mL Liq PO SCH (08:37)
[2016-09-01] MEDS: OLANZapine Zydis ODT 5 mg Tablet PO SCH ×2 (08:38→21:00)
[2016-09-01 12:17] VITALS: BP 97/62; PULSE 107
--- NOTE | 2016-09-01 12:41 | PCM.PNPSY ---
Subjective Date of Service Sep 01, 2016 Subjective The patient initially asks, "What you want to talk about?" When informed it was about how she was doing, she stated that there was nothing wrong. She denied depression. She denied problems with medication or baby. Sleep: 7+ hours Appetite: okay but reports does not care for food, would not clarify. Suicidal and homicidal ideation: none reported Auditory hallucinations: none reported Visual hallucinations: none reported Other Psychotic Symptoms: minimal verbal Anxiety: denies Depression: denies Current Medications Current Medications Sertraline HCl 75 mg DAILY PO Last administered on 09/01/16 08:37; Admin Dose 75 MG; Start 08/31/16 at 08:30 Mental Status Exam Vital Signs Vital Signs Date Time Temp Pulse Resp B/P Pulse Ox O2 Delivery O2 Flow Rate FiO2 09/01/16 12:17 37.3 107 97/62 Appearance: Neat/well groomed Attitude: Uncooperative Behavior: No unusual behavior, Other (minimal verbal communication, improved eye contact.) Affect: Restricted Mood: Dysthymic Thought Process/Associations: Goal Directed Speech Production: Soft Speech Rate: Normal Speech Articulation: Other (accented) Thought Content: Appropriate Danger to Self/Suicidal Ideati: None Danger to Others: None Consciousness: Alert Orientation: Person, Place, Situation Memory: Untestable Estimate Intellectual Function: Unable to assess Basis for IQ estimate: Awareness current events, Word use/vocabulary, Educational history, Employment history Attention/Concentration & Cogn: Impaired Insight: Limited Judgement: Limited Mental Health Plan The patient is a 30-year-old, Mandarin speaking female with Chinese as second language who reportedly tried to "cut the baby out" at times due to anger prior to admission. The patient appeared to meet criteria for major depression and so was started on fluoxetine and lorazepam for anxiety. The patient requested an increase in antianxiety medication, however lorazepam is generally avoided where possible in and so she was switched to diphenhydramine per consultation with CLUB LOUNGE ATTENDANT regarding safest treatment. Olanzapine was added due to ongoing psychosis and the patient has had a slow improvement in symptoms. She continued to express depressed mood and so fluoxetine was switched to sertraline, but the patient had been refusing for unclear reasons. Once switched to liquid formulation, the patient has been medication adherent with sertraline. The patient has demonstrated improved interaction with team members but is still only minimally verbal. She denies mood symptoms today, but still appears withdrawn. She is more visible on the unit but still isolates to room. [place] Franklin I: 1. Major depressive disorder with psychotic features. 2. Rule out post-traumatic stress disorder Franklin II: Deferred. Franklin III: Intrauterine due date 09/25/16 Franklin IV: Severe. Franklin V: 35 Medications Sertraline 75mg daily, liquid Olanzapine 5mg daily and 7.5 mg nightly, with IM override. Diphenhydramine 25 mg as needed. Treatments 1. The patient is admitted to the inpatient unit and will be provided a safe and secure environment. 2. The patient is reporting denying current active suicidality or homicidality or intent to precipitate an early or delivery and is not in need of a one- to-one at this time. 3. The patient is encouraged to participate with group and milieu activities. 4. The patient will be seen by the treatment team on a daily basis to assess symptoms, side effects and response to treatment. Today Tix lang interpreter will be used during these times. 5. Continue liquid sertraline 75mg daily, consider further increase in next 7- 10 days if no further improvement. 6. Continue olanzapine 5 mg daily and 7.5 mg nightly. 7. CLUB LOUNGE ATTENDANT to continue to follow progress as needed. OB would like to know capacity to consent to suction, forceps, , epidural, general anesthesia closer to time of ; patient does not appear to meet capacity as of 08/08/16, 08/17/16, and 08/30/16. 8. Diphenhydramine zinc ointment every 6 hours when necessary pruritus. 9. Continue PRN Benadryl. 10. 90 day more restrictive hearing pending. Patient indicated she may agree to inpatient order. Rigoberto Egan MD Sep 01, 2016 12:41 Rigoberto Egan MD Sep 01, 2016 12:41
--- NOTE | 2016-09-01 14:02 | NUR ---
Nursing Note [id number] Behavior S/O: Pt ate 70% of breakfast & 75% of lunch. Pt has slightly elevated temperature & pulse with low blood pressure. Encourage pt to drink more fluids. Pt out in milieu with peers watching TV briefly twice. Out in dining room for meals. Pt is pleasant & cooperative. Pt stays in room most of the day. She barely responds to questions by staff unless she initiates it. A: Pt con't to be isolative with little communication. P: Provide supportive environment. Monitor vital signs. Monitor medications & effects.
--- NOTE | 2016-09-01 16:59 | DRSVH ---
PROCEDURE: US OB FOLLOW UP GROWTH INDICATIONS: 31 year-old female with size less than expected for dates. Assess estimated fet al weight. OUTSIDE/PRIOR DATING DATA: Last menstrual period (LMP): Not known. LMP-based estimated date of delivery (SAMREEN): Not known. First dating scan (date and location): July 13, 2016 at [facility]. Estimated date of delivery (SAMREEN) from first dating scan: September 25, 2016. TECHNIQUE: Real-time scanning was performed of the fetus, with image documentation and biometric measurements. COMPARISON: [facility], OB LEENA POSITION LTD, 08/30/2016, 13:51. [facility], US OB BIOPHYSICAL+UMB DOP, 08/11/2016, 9:31. [facility], OB 1 OR MORE F ETUS LTD, 07/20/2016, 9:38. [facility], OB FOLLOW UP GROWTH, 07/13/2016, 2:39. FINDINGS: General: A single living intrauterine gestation is present. Presentation: Vertex. Placenta: Placental position is anterior, without previa. OB-MEDICAL RECORDS RECEPTIONIST Ultrasound Procedure Report Summary Fetus Summary Estimated Gestational Age from first dating scan: 36 weeks, 4 days Estimated Gestational Age from present scan: 36 weeks, 1 day Estimated Weight (EFW): 2863 g EFW percentile rank: 42 % Heart Rate: 172 bpm Findings(Amniotic Sac) Amniotic Fluid Index: 12.80 cm Biometry BiometryGroup Biparietal Diameter (Mean): 8.80 cm Gestational Age (BPD): 35 weeks, 4 days Head Circumference (Mean): 32.22 cm Gestational Age (HC): 36 weeks, 3 days Abdominal Circumference (Mean): 32.37 cm Gestational Age (AC): 36 weeks, 2 days Femur Length (Mean): 7.03 cm Gestational Age (FL): 36 weeks, 0 days Pelvis and Uterus Cervix Length: Obscured by cranium. Measurement variability in biometric dating: +/- 10 days from 12-20 weeks gestation, +/- 2 weeks from 20-30 weeks gestation, +/- 3 weeks at 30 weeks gestation or more. Other: Not applicable. IMPRESSION: Single living intrauterine gestation demonstrates appropriate interval growth. Estimated weight is at the 42nd percentile for gestational age. Dictated by: Luiz Burnett M.D. on 09/01/2016 at 16:55 Approved by: Luiz Burnett M.D. on 09/01/2016 at 16:58
--- NOTE | 2016-09-01 19:06 | NUR ---
Counseling/Instructional Writer: S: "What do you want to talk about?" O: Patient had 7+ hours of sleep last night per staff. S/I and H/I, none reported. Auditory and visual hallucinations, none reported. Depression is 0/10 and anxiety is 0/10. When asked her mood, patient stated, "No problems." A: Patient is uncooperative, dysthymic, restricted affect, limited insight, limited judgment. P: Follow care plan, coordinate out-patient providers, monitor behavior.
--- NOTE | 2016-09-01 19:50 | NUR ---
Obs Dayshift Pt has been out of her room more today, good eye contact, responding more to staff questions. Pt went to Ultrasound, smiling and watching the pictures. Pt engaged w/ Labor and Georgie. RN. Watched some TV today, sat in milieu reading and did some walking in the hallway. Good ADL's, Good meals
--- NOTE | 2016-09-01 23:03 | NUR ---
Nurses Note Evening Patient has had periods of improved mood and affect. Her appetite,hygiene have been within normal range. She has been accepting of daily visits from Vianca CLAIRE from family as well as per report has been asking appropriate questions regarding her baby's delivery. Patient refused HS medications tonight yelling "get out" to the medication nurse. She has been compliant for the past few weeks,will attempt in the am. Will continue to encourage interaction,offer support, maintain q 15min. checks for safety and support. Addendum: 09/01/16 at 2308 by NANCY GEE RN Amended: Links added.
--- NOTE | 2016-09-02 04:53 | NUR ---
nursing, nights, 11-7 s/o- has appeared to sleep after 2300. up briefly for a drink at 0200 and easily returned to sleep. assessed q 15 minutes. a- no apparent distress. p- monitor behavior/emotional state, quality, times and amount of sleep, use and effect of medication. rosie
[2016-09-02] MEDS: Sertraline 20 mg/mL Liq PO SCH (07:53)
[2016-09-02 07:59] VITALS: BP 109/72; PULSE 104; RESP 16
--- NOTE | 2016-09-02 13:39 | PCM.PNPSY ---
Subjective Date of Service Sep 02, 2016 Subjective Attempted to interview patient, however patient did not respond to any questions. Patient made minimal eye contact and was not responsive to interaction. Returned to visit patient in her room after initial attempted interview, and patient immediately left her room and walked away. Sleep: 6 hours per staff, "no" per patient. Appetite: Indicated she ate breakfast. Suicidal and homicidal ideation:Did not respond Auditory hallucinations:Did not respond Visual hallucinations:Did not respond Other Psychotic Symptoms:Did not respond Anxiety:Did not respond Depression:Did not respond Current Medications Current Medications Olanzapine 5 mg DAILY PO Last administered on 09/02/16 07:53; Admin Dose 5 MG; Start 09/02/16 at 08:30; Stop 09/02/16 at 09:05; Status DC Mental Status Exam Appearance: Disheveled Attitude: Uncooperative Behavior: Other (no verbal communication, minimal eye contact.) Affect: Restricted Mood: Dysthymic Speech Production: Other (did not respond) Speech Rate: Other (did not speak) Speech Articulation: Other (accented) Danger to Self/Suicidal Ideati: None Danger to Others: None Consciousness: Alert Orientation: Person, Place, Situation Memory: Untestable Estimate Intellectual Function: Unable to assess Basis for IQ estimate: Awareness current events, Word use/vocabulary, Educational history, Employment history Attention/Concentration & Cogn: Unable to assess Insight: Unable to assess Judgement: Unable to assess Mental Health Plan The patient is a 30-year-old, Mandarin speaking female with Hungarian as second language who reportedly tried to "cut the baby out" at times due to anger prior to admission. The patient appeared to meet criteria for major depression and so was started on fluoxetine and lorazepam for anxiety. The patient requested an increase in antianxiety medication, however lorazepam is generally avoided where possible in and so she was switched to diphenhydramine per consultation with JINRIKSHA DRIVER regarding safest treatment. Olanzapine was added due to ongoing psychosis and the patient has had a slow improvement in symptoms. She continued to express depressed mood and so fluoxetine was switched to sertraline, but the patient had been refusing for unclear reasons. Once switched to liquid formulation, the patient has been medication adherent with sertraline. Patient had poor interaction with staff. She is minimally verbal and interactive today. She does not respond to questions and does not make any eye contact. Pt is withdrawn and is staying in her room throughout the day. She does not appear to be interacting with any of the other patients. [place] I: 1. Major depressive disorder with psychotic features. 2. Rule out post-traumatic stress disorder [place] II: Deferred. [place] III: Intrauterine due date 09/25/16 [place] IV: Severe. [place] V: 35 Medications Sertraline 75mg daily, liquid Olanzapine 5mg daily and 7.5 mg nightly, with IM override. Diphenhydramine 25 mg as needed. Treatments 1. The patient is admitted to the inpatient unit and will be provided a safe and secure environment. 2. The patient is reporting denying current active suicidality or homicidality or intent to precipitate an early or delivery and is not in need of a one- to-one at this time. 3. The patient is encouraged to participate with group and milieu activities. 4. The patient will be seen by the treatment team on a daily basis to assess symptoms, side effects and response to treatment. SemiNex case technician will be used during these times. 5. Continue liquid sertraline 75mg daily, consider further increase in next 7- 10 days if no further improvement. 6. Continue olanzapine 5 mg daily and 7.5 mg nightly. 7. JINRIKSHA DRIVER to continue to follow progress as needed. OB would like to know capacity to consent to suction, forceps, , epidural, general anesthesia closer to time of ; patient does not appear to meet capacity as of 08/08/16, 08/17/16, and 08/30/16. 8. Diphenhydramine zinc ointment every 6 hours when necessary pruritus. 9. Continue PRN Benadryl. 10. 90 day more restrictive hearing pending. Patient indicated she may agree to inpatient order. Attending Statement The patient was seen and examined together with Dr. Price on 09/02/16 and I agree with the history, exam and plan as outlined in the note above. Sharda Price DO Sep 02, 2016 13:39 Rigoberto Egan MD Sep 02, 2016 16:00
--- NOTE | 2016-09-02 18:12 | NUR ---
nursing note 7am-7pm O)pt out watching TV or coloring, mostly in room sitting on bed looking out window, minimal contact with others, ate meals, denies any pain or problems, dressed in own clothes, appears unkept A)no change in behavior took medications P) monitor medications effectiveness , watch for any labor signs or symptoms
--- NOTE | 2016-09-02 20:15 | NUR ---
Observations 0900 to 2130 Pt affect and mood continues to be the same as previous shifts. Pt was in her room and isolative most of the shift and would only come out briefly. Pt was minimally social when approached. Pt attended meals in D.R. and ate approximately 60-75% of her meals. Pt was offered snack but declined. Pt maintained behavior throughout the shift. Pt was observed every 15 minutes throughout the shift as ordered.
[2016-09-02] MEDS ORDERED: OLANZapine Zydis ODT 5 mg Tablet PO SCH (21:00)
--- NOTE | 2016-09-03 04:31 | NUR ---
nursing, nights, 11-7 s/o- has appeared to sleep after 2345 during q 15 minute assessments. a- no apparent distress. p- monitor behavior/emotional state, quality, times and amount of sleep, use and effect of medication. rosie
--- NOTE | 2016-09-03 05:12 | NUR ---
heart tones FHT obtianed this shift with noted increased interest by patient. Pt asked to listen to heart tones for extended period of time, this is reported by FBC RN to be the first time patient has showed any interest in FHTs.
--- NOTE | 2016-09-03 05:20 | NUR ---
OBSERVATIONS 1900 TO 0700 Pt spent some time watching TV with peers but was otherwise isolative and remained in her room. Pt allowed nurse from family to monitor heart tones with no issue. Pt was recorded asleep at 2345 and slept through the night. Maintained Q15 checks for safety as directed.
[2016-09-03] MEDS ORDERED: OLANZapine Zydis ODT 5 mg Tablet PO SCH (08:30)
[2016-09-03] MEDS: Sertraline 20 mg/mL Liq PO SCH (09:10)
--- NOTE | 2016-09-03 12:37 | NUR ---
Nursing: Day shift: You has been out on the open unit for meals. She spent most of the rest of the time in her room. Has downcast eyes. Responds to typewriter operator automatic with few word answers. Shakes head "no", when asked if she has any discomfort. Has not been visited by OB nurse or MD yet today. P: Continue to assess.
--- NOTE | 2016-09-03 13:25 | CONS ---
[address] [address] CONSULTATION REPORT PATIENT: TOMMY ADAMS : 1985 MR#: [id number] ADMIT: 07/13/2016 JOB ID: [id number] DATE OF SERVICE: 08/31/2016 SUBJECTIVE: The patient is doing well this morning. She is receiving an NST by the nursing staff currently. She has no complaints, questions or concerns. She states that she is feeling the baby moving normally. She does not answer any other questions about cramping, vaginal bleeding, or previous deliveries. GBS collected by the nursing staff last week was negative and a ROM plus testing yesterday completed by the nursing staff was also negative. OBJECTIVE: Temperature is 35.9, pulse is 93, respiratory rate is 17, blood pressure is 110/64. In general, she is awake, alert, oriented, no acute distress. Her abdomen is soft, nontender, nondistended. Sizer is appropriate for dates. However, I suspect this baby will be constitutionally small given the maternal body habitus. Growth ultrasound shows 42% EFW. NST is being completed at this time and is reactive at the bedside with the RN. ASSESSMENT: A 31-year-old female at approximately 36 plus three weeks gestational age admitted to the psych vargas for depression with psychosis. Incidentally found to be . PLAN: 1. Psychiatry is continuing to manage her major depressive disorder with psychosis with use of sertraline and olanzapine. Care as per their recommendations. 2. . GBS has been collected and was negative. Most recent growth ultrasound 42nd percentile. Will continue to monitor. labs are ordered and are currently pending. At this point in time, the patient does not meet capacity for medical decision making and a plan of care is available on labor and delivery, if and when the patient does go into labor. At this point in time, we will continue expectant management with hopeful improvement of her mental state capacity as time goes on. Consideration of a 39-40 week induction will be discussed with the care team so that her delivery may be in a more controlled environment. WHITNEY
[2016-09-03 16:35] VITALS: BP 114/70; PULSE 92; RESP 14
--- NOTE | 2016-09-03 20:05 | NUR ---
Observations 0900 to 2130 Pt affect and mood continues to be the same as previous shifts. Pt was in her room and isolative part of the shift and came out more than previous shifts. Pt was minimally social when approached. Pt attended meals in D.R. and ate approximately 50% of her meals. Pt was offered snack but declined. Pt maintained behavior throughout the shift. Pt watched TV and sat quietly in D.R. Pt was observed every 15 minutes throughout the shift as ordered.
--- NOTE | 2016-09-03 21:38 | NUR ---
Counseling/Instrument Tech: S/O: Patient slept 5.25 hours last night per staff. She denies S/I and H/I. She also denies auditory and visual hallucinations. Depression and anxiety not rated. A: Patient is guarded, cooperative, dysthymic, restricted affect, limited insight, limited judgment. P: Follow care plan, coordinate out-patient providers, monitor behavior.
--- NOTE | 2016-09-03 22:30 | PCM.PNPSY ---
Subjective Date of Service Sep 03, 2016 Subjective Attempted to interview patient, however patient did not respond to any questions. Patient made minimal eye contact and was not responsive to interaction. Patient is coming out of room more, interacting with select staff. No side effect complaints or new medical issues. Sleep: 5.25 hours per staff, "no" per patient. Appetite: Indicated she is eating Suicidal and homicidal ideation:Denied Auditory hallucinations:Did not respond Visual hallucinations:Did not respond Other Psychotic Symptoms:Did not respond Anxiety:Did not respond Depression:Did not respond Current Medications Current Medications Olanzapine 5 mg DAILY PO Last administered on 09/02/16 07:53; Admin Dose 5 MG; Start 09/02/16 at 08:30; Stop 09/02/16 at 09:05; Status DC Olanzapine 5 mg DAILY PO Last administered on 09/03/16 09:12; Admin Dose 5 MG; Start 09/03/16 at 08:40 Olanzapine 7.5 mg HS PO Last administered on 09/02/16 21:18; Admin Dose 7.5 MG ; Start 09/02/16 at 21:00; Stop 09/03/16 at 08:40; Status DC Mental Status Exam Vital Signs Vital Signs Date Time Temp Pulse Resp B/P Pulse Ox O2 Delivery O2 Flow Rate FiO2 09/03/16 16:35 36.7 92 14 114/70 Appearance: Unkept Attitude: Uncooperative Behavior: Other (no verbal communication, minimal eye contact.) Affect: Restricted Mood: Dysthymic Speech Production: Other (did not respond) Speech Rate: Other (did not speak) Speech Articulation: Other (accented) Danger to Self/Suicidal Ideati: None (shook head no) Danger to Others: None (shook head no) Consciousness: Alert Orientation: Person, Place, Situation Memory: Untestable Estimate Intellectual Function: Unable to assess Basis for IQ estimate: Awareness current events, Word use/vocabulary, Educational history, Employment history Attention/Concentration & Cogn: Unable to assess Insight: Unable to assess Judgement: Unable to assess Mental Health Plan The patient is a 30-year-old, Mandarin speaking female with Barbadian as second language who reportedly tried to "cut the baby out" at times due to anger prior to admission. The patient appeared to meet criteria for major depression and so was started on fluoxetine and lorazepam for anxiety. The patient requested an increase in antianxiety medication, however lorazepam is generally avoided where possible in and so she was switched to diphenhydramine per consultation with COMPLEX MANAGER regarding safest treatment. Olanzapine was added due to ongoing psychosis and the patient has had a slow improvement in symptoms. She continued to express depressed mood and so fluoxetine was switched to sertraline, but the patient had been refusing for unclear reasons. Once switched to liquid formulation, the patient has been medication adherent with sertraline. The patient has demonstrated improved interaction with team members but is still only minimally verbal. She denies mood symptoms today, but still appears withdrawn. She is more visible on the unit but still isolates to room. [place] Denver I: 1. Major depressive disorder with psychotic features. 2. Rule out post-traumatic stress disorder [place] II: Deferred. [place] III: Intrauterine due date 09/25/16 [place] IV: Severe. [place] V: 35 Medications Sertraline 75mg daily, liquid Olanzapine 5mg daily and 7.5 mg nightly, with IM override. Diphenhydramine 25 mg as needed. Treatments 1. The patient is admitted to the inpatient unit and will be provided a safe and secure environment. 2. The patient is reporting denying current active suicidality or homicidality or intent to precipitate an early or delivery and is not in need of a one- to-one at this time. 3. The patient is encouraged to participate with group and milieu activities. 4. The patient will be seen by the treatment team on a daily basis to assess symptoms, side effects and response to treatment. ROKT bryologist will be used during these times. 5. Continue liquid sertraline 75mg daily, consider further increase in next 7- 10 days if no further improvement. 6. Continue olanzapine 5 mg daily and 7.5 mg nightly. 7. COMPLEX MANAGER to continue to follow progress as needed. OB would like to know capacity to consent to suction, forceps, , epidural, general anesthesia closer to time of ; patient does not appear to meet capacity as of 08/08/16, 08/17/16, and 08/30/16, patient brighter and reportedly cooperating well with others, but not this handbook writer. 8. Diphenhydramine zinc ointment every 6 hours when necessary pruritus. 9. Continue PRN Benadryl. 10. 90 day more restrictive hearing pending. Patient has indicated she may agree to inpatient order. Rigoberto Egan MD Sep 03, 2016 17:15
--- NOTE | 2016-09-04 05:10 | NUR ---
Nursing Noc Pt out of room more this evening ambulating up on down hallway or watching TV. Affect appears more relaxed with better eye contact. Pt still isolates from staff, but noted to spend time with patients. Noted to first appear asleep at 2230 and remained asleep throughout the night. Continuing to monitor mood, behavior, and emotional state.
[2016-09-04 08:30] VITALS: BP 113/69; PULSE 16; RESP 16
[2016-09-04] MEDS: Sertraline 20 mg/mL Liq PO SCH (08:54)
--- NOTE | 2016-09-04 12:50 | PCM.PNPSY ---
Subjective Date of Service Sep 04, 2016 Subjective The patient was observed watching the news and reading the [place] language newspaper in the dayroom. She would not answer questions of the treatment team , but only a few minutes before had spoken with two different nurses and gave the following information: She indicated that she was worried whether she would be a good mother; if she were to have a whether it would hurt; wanted to know when she would leave the hospital; she had no desire to injure herself or her child. Sleep: 6.5 hours Appetite: good Suicidal and homicidal ideation: denies per nursing staff Auditory hallucinations: unknown Visual hallucinations: unknown Other Psychotic Symptoms: unknown Anxiety: unknown Depression: 7-8 sadness about baby per nursing staff Current Medications Current Medications Olanzapine 5 mg DAILY PO Last administered on 09/04/16 08:54; Admin Dose 5 MG; Start 09/03/16 at 08:40 Olanzapine 7.5 mg HS PO Last administered on 09/02/16 21:18; Admin Dose 7.5 MG ; Start 09/02/16 at 21:00; Stop 09/03/16 at 08:40; Status DC Olanzapine 7.5 mg HS PO Last administered on 09/03/16 20:33; Admin Dose 7.5 MG ; Start 09/03/16 at 21:00 Mental Status Exam Vital Signs Vital Signs Date Time Temp Pulse Resp B/P Pulse Ox O2 Delivery O2 Flow Rate FiO2 09/04/16 08:30 16 16 113/69 Appearance: Neat/well groomed Attitude: Uncooperative Behavior: Other (no verbal communication except to ask us to leave room while getting ready for interview, minimal eye contact.) Affect: Restricted Mood: Dysthymic Speech Production: Other (did not respond) Speech Rate: Other (did not speak) Thought Content: Appropriate (per nursing staff) Danger to Self/Suicidal Ideati: None (per nursing staff) Consciousness: Alert Orientation: Person, Place, Situation Memory: Untestable Estimate Intellectual Function: Unable to assess Basis for IQ estimate: Awareness current events, Word use/vocabulary, Educational history, Employment history Attention/Concentration & Cogn: Unable to assess Insight: Unable to assess Judgement: Unable to assess Mental Health Plan The patient is a 30-year-old, Mandarin speaking female with [place] as second language who reportedly tried to "cut the baby out" at times due to anger prior to admission. The patient appeared to meet criteria for major depression and so was started on fluoxetine and lorazepam for anxiety. The patient requested an increase in antianxiety medication, however lorazepam is generally avoided where possible in and so she was switched to diphenhydramine per consultation with CELL ROOM OPERATOR regarding safest treatment. Olanzapine was added due to ongoing psychosis and the patient has had a slow improvement in symptoms. She continued to express depressed mood and so fluoxetine was switched to sertraline, but the patient had been refusing for unclear reasons. Once switched to liquid formulation, the patient has been medication adherent with sertraline. The patient has demonstrated improved interaction with team members but is still only minimally verbal with this play writer. She reports ongoing depression to nursing staff. She is more visible on the unit but still isolates to room. [place] I: 1. Major depressive disorder with psychotic features. 2. Rule out post-traumatic stress disorder [place] II: Deferred. [place] III: Intrauterine due date 09/25/16 [place] IV: Severe. [place] V: 35 Medications Sertraline 75mg daily, liquid Olanzapine 5mg daily and 7.5 mg nightly, with IM override. Diphenhydramine 25 mg as needed. Treatments 1. The patient is admitted to the inpatient unit and will be provided a safe and secure environment. 2. The patient is reporting denying current active suicidality or homicidality or intent to precipitate an early or delivery and is not in need of a one- to-one at this time. 3. The patient is encouraged to participate with group and milieu activities. 4. The patient will be seen by the treatment team on a daily basis to assess symptoms, side effects and response to treatment. [employer] vice president sales and marketing will be used during these times. 5. Continue liquid sertraline 75mg daily, consider further increase in next 7- 10 days if no further improvement. 6. Continue olanzapine 5 mg daily and 7.5 mg nightly. 7. CELL ROOM OPERATOR to continue to follow progress as needed. OB would like to know capacity to consent to suction, forceps, , epidural, general anesthesia closer to time of ; patient does not appear to meet capacity as of 08/08/16, 08/17/16, and 08/30/16, patient brighter and reportedly cooperating well with others, but not this play writer. 8. Diphenhydramine zinc ointment every 6 hours when necessary pruritus. 9. Continue PRN Benadryl. 10. 90 day more restrictive hearing pending. Patient has previously indicated she may agree to inpatient order. Rigoberto Egan MD Sep 04, 2016 12:50
--- NOTE | 2016-09-04 13:21 | NUR ---
Customer Data Technician./ c.m. S.:"Feel sad." O.: met with pt. and MD together. Pt. didn't talk much and than she turned around and left. She denied SI/HI, denied AH/VH, rated depression at 7/10. She refused to rate her anxiety. She was in and out of her room mostly keeping to herself. A.: pt. is isolative, uncooperative, quiet, has a flat affect and a soft voice. P.: monitor behavior, follow care plan.
--- NOTE | 2016-09-04 16:26 | NUR ---
Day Shift Observations Pt has been out of her room more today has had better eye contact, and seems to be responding more to staff. Pt attended community meeting but didn't set a goal, but said her mood was 'ok'. Pt showered and requested laundry be done and I explained that there were already clothes in the washer and dryer but hers would be next, and pt stood outside of the laundry room as soon as her clothes went into the washer and waited, staring at the door until her clothes were done. Pt was very thankful when I gave her her clothes and let me walk into her room to give them to her. Pt ate about 75% of breakfast and lunch and has been monitored every 15 minutes as directed.
--- NOTE | 2016-09-04 16:28 | NUR ---
[id number]. nurs. S/O: Pt out in DR in early am and talking with staff about some of her thoughts regarding childbirth process and expressing concern about whether a possible C.section would be painful, wondering about what it would be like in the [facility], and worried about whether she would be a good mother, when she might be able to go outside the hospital, stating that she did not want to sign papers. Pt talking about how heat and not cold was good for the baby. A:Pt asked staff with a smile in joking manner to "use scale" to rate her anxiety, and reported anxiety of 7-8/10. pt reporting that heat was better for baby than cold and offered warm comfort items and warm shower. Pt otherwise continued her pattern of isolating in her rm when not out to meals. Pt continues mostly to keep head down with hair hanging over face when talking ,interacting with staff. P:CNCP
--- NOTE | 2016-09-05 06:27 | NUR ---
Nursing Noc Pt out to common area ambulating the hallways, Presents calmer in facial expression, but still isolates from staff and avoids communication with speech writer. Noted to be asleep at 2200 and remained asleep throughout the night. Continuing to monitor mood behavior, emotional state. Q15 minute safety checks performed throughout the night.
[2016-09-05] MEDS: Sertraline 20 mg/mL Liq PO SCH (08:17)
--- NOTE | 2016-09-05 11:31 | NUR ---
Senior Marketing Associate./ c.m. S.:"I have a headache." O.: met with pt. and MD together in pt.'s room. She refused to talk to MD and the policy writer typist except saying that she had a headache. She denied SI with a nod of her head. She didn't answer on questions about HI, AH/VH or paranoid/delusional thoughts. She was sitting on her bed with her head down and hair covering her face. A.: pt. is uncooperative, isolative, quiet. She has a flat affect and no eye contact. P.: monitor behavior, follow care plan.
--- NOTE | 2016-09-05 13:09 | PCM.PNPSY ---
Subjective Date of Service Sep 05, 2016 Subjective The patient declined to go to the interview room for interview, and declined to stay in her room, but stayed seated on her bed. She did not make eye contact. She indicated that she had a headache, but made no other verbal responses. She would only respond to questions in slight nod of the head, typically as a "no." She is communicating with select nursing staff, but is not communicating with treatment team for unclear reasons. Sleep: 7.5 hours Appetite: eating Suicidal and homicidal ideation: denies Auditory hallucinations: unknown Visual hallucinations: unknown Other Psychotic Symptoms: unknown Anxiety: unknown Depression:unknown Current Medications Current Medications Olanzapine 7.5 mg HS PO Last administered on 09/04/16t 21:02; Admin Dose 7.5 MG ; Start 09/03/16 at 21:00 Mental Status Exam Appearance: Neat/well groomed Attitude: Uncooperative Behavior: Other (no verbal communication except to report a headache, no eye contact.) Affect: Restricted Mood: Dysthymic Speech Production: Other (did not respond) Speech Rate: Other (unable to assess due to minimal response) Speech Articulation: Other (accented) Thought Content: Other (unable to assess) Danger to Self/Suicidal Ideati: None Danger to Others: None (unclear response, no affirmation) Hallucinations: Auditory (unknown), Visual (unknown) Consciousness: Alert Orientation: Person, Place, Situation Memory: Untestable Estimate Intellectual Function: Unable to assess Basis for IQ estimate: Educational history, Employment history Attention/Concentration & Cogn: Unable to assess Insight: Unable to assess Judgement: Unable to assess Mental Health Plan The patient is a 30-year-old, Mandarin speaking female with [place] as second language who reportedly tried to "cut the baby out" at times due to anger prior to admission. The patient appeared to meet criteria for major depression and so was started on fluoxetine and lorazepam for anxiety. The patient requested an increase in antianxiety medication, however lorazepam is generally avoided where possible in and so she was switched to diphenhydramine per consultation with ANTISQUEAK WORKER regarding safest treatment. Olanzapine was added due to ongoing psychosis and the patient has had a slow improvement in symptoms. She continued to express depressed mood and so fluoxetine was switched to sertraline, but the patient had been refusing for unclear reasons. Once switched to liquid formulation, the patient has been medication adherent with sertraline. The patient has demonstrated improved interaction with team members but is still only minimally verbal with this marketing copywriter. She reports ongoing depression to nursing staff. She is more visible on the unit but still isolates to room. [place] I: 1. Major depressive disorder with psychotic features. 2. Rule out post-traumatic stress disorder [place] II: Deferred. [place] III: Intrauterine due date 09/25/16 [place] IV: Severe. [place] V: 35 Medications Sertraline 75mg daily, liquid Olanzapine 5mg daily and 7.5 mg nightly, with IM override. Diphenhydramine 25 mg as needed. Treatments 1. The patient is admitted to the inpatient unit and will be provided a safe and secure environment. 2. The patient is reporting denying current active suicidality or homicidality or intent to precipitate an early or delivery and is not in need of a one- to-one at this time. 3. The patient is encouraged to participate with group and milieu activities. 4. The patient will be seen by the treatment team on a daily basis to assess symptoms, side effects and response to treatment. Patient declining use of loom inspector. Speaking/reading [place] 5. Increase liquid sertraline to 100mg daily. 6. Continue olanzapine 5 mg daily and 7.5 mg nightly. 7. ANTISQUEAK WORKER to continue to follow progress as needed. OB would like to know capacity to consent to suction, forceps, , epidural, general anesthesia closer to time of ; patient does not appear to meet capacity as of 08/08/16, 08/17/16, and 08/30/16, patient brighter and reportedly cooperating well with others, but not this marketing copywriter. 8. Diphenhydramine zinc ointment every 6 hours when necessary pruritus. 9. Continue PRN Benadryl. 10. 90 day more restrictive hearing pending. Patient has previously indicated she may agree to inpatient order. Rigoberto Egan MD Sep 05, 2016 11:26
--- NOTE | 2016-09-05 16:01 | NUR ---
[id number]. nurs. S/O/A: Pt reporting that she has no current pain or discomfort. Pt, at two different times of the day, offered egg crate mattress and carefully explained how it would be fitted on bed to provide comfortable positioning. Pt refused, stating bed was comfortable as it was ,pt has additional pillows and extra bedding but does not tend to use these items. Pt taking shower and getting meals, stating she would do some colouring after her hair dried but seemed to prefer to stay in her rm either resting or sitting on side of bed appearing unoccupied. Pt requested and given additional loose T shirt from unit supply and returned unwanted clothes. [facility] to followup with daily heart tone monitoring this lance. P:RANDALLP.
--- NOTE | 2016-09-05 18:08 | NUR ---
[facility] Day Shift Pt affect and behavior unchanged from previous shifts. Pt affect remains mostly flat, somewhat brighter when engaged with staff and peers. Pt continues to spend most of the shift resting in her room, occasionally entering the dining room to read or watch television. Pt is appropriate with staff and peers when active on the unit. Pt continues to decline vital signs. Pt attended community meeting in the AM, but did not attend group activities. Pt attended all meals and ate approx 60% of breakfast, 30% of lunch, and 60% of dinner.
[2016-09-05 21:07] VITALS: BP 112/78; PULSE 70; RESP 16
--- NOTE | 2016-09-06 02:14 | NUR ---
Nursing evening 7p-7a The pt allowed the family nurse to take FHR with no difficulty. The pt showed interest in the baby and requested to talk with the doctor who did the ultrasound. Her stated reason was "Want more pictures". She was resting in bed at the start of the evening but she did come out and was present during group and ate popcorn. She smiled at a female peer and slightly engaged in a brief conversation with this female peer. She spent more time out on the unit than during previous nights. Pt noted to have slightly improved mood and slightly more engaged although she still tends to isolate in her room the majority of the time. Took scheduled HS medication without difficulty. Her sleep has improved and she has remained asleep since 2144 with no noted distress or awakening per protocol checks.
[2016-09-06 08:05] VITALS: BP 109/63; PULSE 101; RESP 16
[2016-09-06] MEDS: Sertraline 20 mg/mL Liq PO SCH (09:06)
--- NOTE | 2016-09-06 15:23 | NUR ---
Clerical Adviser./ c.m. S.:"I feel better." O.: met with pt. in her room. She was resting/sleeping after lunch but she agreed to talk to the senior copywriter. She slept "ok" last night. She denied SI/HI, denied AH/VH or paranoid/delusional thoughts. She admitted feeling "a little depressed but she couldn't tell more about it. She rated anxiety at 5-6/10. She talked about her visit with nurses from [facility] yesterday. She talked about her baby and she had a name for her baby already. She said that she liked her doctor from the [facility]. "He is a black man, he is a good doctor." She showed senior copywriter a magazine that she was looking at. She said "I like looking at beautiful ladies and than I try to dress like them." She came to a morning group and participated well. She completed Safety plan. A.: pt. is cooperative, pleasant, has a good eye contact and brighter affect. P.: monitor behavior, follow care plan.
--- NOTE | 2016-09-06 16:57 | NUR ---
Nursing: Day shift: S/O: You has been smiling and more interactive on the unit. She is groomed neatly. She was more verbal with blog writer than she has ever been. She rated her depression as "a little bit", her anxiety as "not much", and when asked about self-harm thoughts, she shook her head. She was seen by the OB nurse today. heart rate 156. Eating well at meals. States she likes [place] food: Pork, shrimp, rice. Says she likes "Ashly" as peer. Takes scheduled meds readily. A: Alert. Aware. P: Continue to asses effectiveness of meds.
--- NOTE | 2016-09-06 19:02 | NUR ---
Observations [id number] Pt was asleep upon start of shift. Pt appears to be more social with peers and staff. She participated in group, took a shower in the afternoon and spent lots of time in her room. Pt attended meals, eating an average of 60%. Pt was observed every 15 minutes of shift as directed.
--- NOTE | 2016-09-06 22:55 | CONS ---
[address] [address] CONSULTATION REPORT PATIENT: TOMMY ADAMS : 1985 MR#: [id number] ADMIT: 07/13/2016 JOB ID: [id number] DATE OF SERVICE: 09/06/2016 HISTORY OF PRESENT ILLNESS: A 31-year-old female unclear parity at about 37 weeks plus 3 days. The patient has been admitted to psych unit for major depression, psychosis. The dating was based on second trimester ultrasound. The patient had her labs done as an inpatient. So far, they look normal . The monitor started a couple weeks ago. She is now having weekly NST and also planning for weekly BPP. She had ultrasound for estimated weight about a week ago that was 42%. She had a GBS performed which was negative. When I saw the patient today, compared to last time I saw her, she communicate better. . She talked with me appropriately, responded to my questions, and when I asked whether she has any question, and she does bring ip some questions. So based on today's talking, the patient has no abdominal pain. She feels movement. She has no vaginal bleeding. No leaking of fluid. She did not complain of headache. She is okay with the current weekly NSTs and weekly BPP. She is quite interested in the weekly ultrasound. She was looking forward for her next ultrasound. When I told patient to ask questions, she asked me what if the baby could not deliver vaginally. I told her that if that is the case she may need a section. The patient agreed with the possible plan and she is concerning whether she would feel a lot of pain via . I reassured patient that we will make sure her pain gets controlled before we do a . Patient is happy about this answer. I also asked her if we need help for vaginal delivery, such as vacuum, is she okay for that. She okayed for that possibility too. I also discussed with her about epidural for pain management in labor. I do not think she has fully processed this possibility and she thinks an epidural procedure possibly would be too painful for her. I tried to explain to her that is minor discomfort compared to the labor pain, and that it is very minimal pain. Patient looks like she is still processing. Whoever is seeing her next time, please talk with her again about the possibility of epidural for labor pain. I also brought the question about whether she ever had another delivery before. Today, she declined she had any delivery before. ASSESSMENT AND PLAN: This is a 31-year-old female, unsure of parity at 37 weeks plus 3 days. Major depression and psychosis. For me, it looks like her symptom is improving. 1. Will continue her weekly NSTs and weekly biophysical with ultrasound. Will try not to do at the same day. For this week the NST likely will get done on Tuesday and I will plan to get the ultrasound for BPP done on or Tuesday. 2. Today, patient is willing to do section if it is needed. 3. Her last CBC shows she is mildly anemic. Since she is 37 weeks already and it was a mild anemia, since iron pills may make her constipated, plus she is taking other antipsychosis medication, at this time I am not planning to start her on iron pills. 4. GRAIN SAMPLER. We will monitor her on a weekly basis. GRAIN SAMPLER will come to see of her on a weekly basis or p.r.n. as needed. 5. The staff at [facility] are aware of this patient and prepared for delivery in hospital here. WHITNEY
--- NOTE | 2016-09-07 00:59 | NUR ---
Observations 1900 to 0700 Pt was in her room when my shift started and remained there for the most night. Pt did come out briefly and seemed improved compared to other nights here.. Pt first appeared asleep at 21:30 and was observed every 15 minutes through the night as directed
--- NOTE | 2016-09-07 02:29 | NUR ---
Nursing Noc 7p-7a Pt continues to present as brighter and slightly more engaged on the unit. She had a slight smile and responsive to a question made by staff. She ate a snack and gave a gift of three lemon crystal light packets to a fellow nurse in a good will gesture. Took scheduled medication without difficulty. No physical complaints. She retired to bed @ 2130 and has had uninterrupted sleep through the night.
--- NOTE | 2016-09-07 05:14 | NUR ---
Nursing Note- Laboratory Equipment Installer 11pm to 7am Pt asleep at start of shift. Remained asleep with no interruptions. In no acute distress. No prns given Monitored pt. with q 15 minute face checks for safety location and accountability
[2016-09-07] MEDS: Sertraline 20 mg/mL Liq PO SCH (08:27)
[2016-09-07] MEDS: diphenhydrAMINE-Zinc 2%-0.1% 30 Gm Cream TOPICAL PRN (08:28)
--- NOTE | 2016-09-07 09:57 | PROG NOTE ---
[address] [address] PROGRESS NOTE PATIENT: TOMMY ADAMS : 1985 MR#: [id number] ADMIT: 07/13/2016 JOB ID: [id number] DATE: 09/06/2016 CHIEF COMPLAINT: "I think I'm doing better." HISTORY OF PRESENT ILLNESS: As stated above, the patient did agree to meet with myself, with prior meeting within the past month. The patient has strong considerable progress with orientation, discussion with staff, interaction with peers. She remains on medications including sertraline 100 mg daily, and Zyprexa 7.5 mg q.h.s. She has had no further significant elevation of agitation, aggression. She reportedly has been interacting appropriately with discussion, and prefers to utilize non- manufacturing cost estimator interaction. OBJECTIVE/MENTAL STATUS EXAM: She is calm, cooperative. She maintains good eye contact throughout. She discusses various pictures in a magazine. Her speech is of normal tone, frequency, and volume. Her mood is neutral. Affect was congruent. Her thought process showed no evidence of racing thoughts, loose or disconnected thinking. Thought content, she denied any evidence of current suicidal, homicidal ideation. There was no evidence of active hallucinations, delusions. She indicated that the voices are very low. She was alert, oriented to time and place. Her attention and concentration intact. Insight and judgment are fair. PHYSICAL EXAM: All vital signs are current. Temperature is 36.2, pulse 101, respirations 16, BP 109/63. MEDICATION REVIEW: Includes: 1. Zoloft 100 mg daily. 2. Zyprexa 7.5 mg q.h.s. ASSESSMENT: [place] I: 1. Major depressive disorder with psychotic features, resolving. 2. Probable posttraumatic stress disorder. AX[place] II: Deferred. AX[place] III: Current , with due date September 25. AXIS IV: Stressors are noted for chronic mental health issues secondary to history of trauma. AXIS V: Global Assessment of Functioning current 35. PLANS: 1. Continuation of all medications noted. 2. Continuation of interventions with MR90. 3. Continuation of consultation with BICYCLE RENTAL CLERK greatly appreciated.
--- NOTE | 2016-09-07 11:01 | PROG NOTE ---
[address] [address] PROGRESS NOTE PATIENT: TOMMY ADAMS : 1985 MR#: [id number] ADMIT: 07/13/2016 JOB ID: [id number] DATE: 09/07/2016 CHIEF COMPLAINT: "I am having a good morning." HISTORY OF THE PRESENT ILLNESS: As stated above, the patient met with myself briefly. She indicated that she feels that things are going well. She denied any evidence of acute distress. She was seen looking through magazines. She essentially has been cooperating with nurses' identification of need for medications. She denies any evidence of current distress. MENTAL STATUS EXAMINATION: She was bright, cooperative and interactive. She maintained good eye contact throughout. Her speech is of normal tone, frequency, and volume. Her mood was neutral. Affect congruent. Her thought process showed no evidence of racing thoughts, flight of ideas, loose or disconnected thinking thought content. She denied any evidence of suicidal or homicidal ideation. There is no evidence of acute hallucinations, delusions. There has been no reference of significant threats of harm per nursing staff report over the past 24 hours. She was alert, oriented to time and place. Attention and concentration intact. Insight and judgment are fair. PHYSICAL EXAMINATION: Vital signs current, temperature is 36.2, pulse 101, respirations 16, BP 109/63. MEDICATION REVIEW: Includes: 1. Zoloft liquid 100 mg daily. 2. Zyprexa 7.5 mg q.h.s. and 5 mg q.a.m. ASSESSMENT: AXIS I: 1. Major depressive disorder with psychotic features. 2. Post-traumatic stress disorder, chronic. AXIS II: Deferred, AXIS III: Current . Due date September 24. AXIS IV: Global Assessment of Functioning current, 40. PLANS/RECOMMENDATIONS: 1. Continuation of all medications noted. 2. Continuation of MR 90. 3. Continuation of CAVITY PUMP OPERATOR consultation greatly appreciated.
[2016-09-07 13:18] VITALS: BP 107/74; PULSE 102
--- NOTE | 2016-09-07 14:04 | NUR ---
Nursing Note [id number] Behavior S/O: Pt stay in room most of the day. Pt ate 100% of breakfast & 40% of lunch. No interactions seen with peers. Pt interacted appropriately with Family staff. Pt had little interactions with Mental Health staff. She refused to let [facility] do her vital signs, but allowed Family staff to do so. Pt reported to Family staff that the baby was trying to hurt itself. Vital signs stable except for pulse slightly high at 102. Pt took medications as ordered. A: Pt con't to be paranoid with unit staff. P: Provide supportive environment. Monitor medications & effects.
--- NOTE | 2016-09-07 16:02 | NUR ---
Observations [id number] Pt was asleep upon start of shift. She continues to isolate to room, occasionally coming out to watch TV or get a snack. Pt met with a family nurse, and appeared to enjoy their visit. She attended all meals, eating an average of 60%. Pt did not attend group, took a shower and did laundry in the evening. She was observed every 15 minutes of shift as directed.
--- NOTE | 2016-09-07 18:22 | NUR ---
Counseling/Wet Machine Cutter: S: "[place] santos." O: Patient slept 8 hours last night per staff. She denies S/I and H/I. She also denies auditory and visual hallucinations. Depression is 0/10 and anxiety is 0/10. A: Patient is guarded, cooperative, dysthymic, restricted affect, limited insight, limited judgment. P: Follow care plan, coordinate out-patient providers, monitor behavior.
--- NOTE | 2016-09-07 23:09 | NUR ---
NURSING NOTE [id number] Mood: "fine" *smiles* Affect: neutral, brightens upon approach Behavior: resting in bed w/eyes open for several hrs at start of shift. Comes out of room intermittently and sits in the DR. Interacts sparingly w/peers. Brightens in conversation w/this lyric writer. Tonight and over the last 3 evenings, the pt. has gifted this lyric writer w/items found around the unit, e.g.: lemonade packets, a banana, and shampoo bottles. Pt. insists that this lyric writer accept the items. Thought processes: did not answer this lyric writer re: SI/AH/VH but able to answer questions more appropriately and coherently.
--- NOTE | 2016-09-08 00:28 | NUR ---
Observations 1900 to 0700 Pt was in her room when my shift started and remained there for the most night. Pt did come out briefly and seemed improved compared to other nights here.. Pt first appeared asleep at 22:45 and was observed every 15 minutes through the night as directed
--- NOTE | 2016-09-08 06:03 | NUR ---
Sleep 11p-7a Pt slept from 0283-0925 for 2.75 hours. She was awoken when a confused peer entered her room. She did yell at that person. She fell back asleep at 0415 and has remained asleep since. Total sleep 4.5+ hours.
[2016-09-08] MEDS: Sertraline 20 mg/mL Liq PO SCH (10:08)
--- NOTE | 2016-09-08 10:45 | NUR ---
Nursing Day Shift- S- "6-7 today. Worried about baby. Picture of baby today." O- Pt. was awake for breakfast. She smiled at staff, then looked down. She rated depression as 6-7/10, and again expressed that she was worried about the baby. Pleasant with brief interactions with select peers. Eating well. A- Appears at ease on the unit. Denies any labor symptoms or concerns. P- Encourage fluids. Cont. bHTP.
--- NOTE | 2016-09-08 11:07 | PROG NOTE ---
[address] [address] PROGRESS NOTE PATIENT: TOMMY ADAMS : 1985 MR#: [id number] ADMIT: 07/13/2016 JOB ID: [id number] DATE: 09/08/2016 CHIEF COMPLAINT: "I think I am doing well." HISTORY OF PRESENT ILLNESS: As stated above, the patient identified that she does believe that things are going well. She denied any evidence of acute distress. She indicated that she slept well last evening and per nursing staff report continued to be quite communicative giving various gifts to nursing staff. She continues to isolate to her room but has been very pleasant with no evidence of agitation. OBJECTIVE: On mental status examination, she was bright, cooperative, interactive. She maintained good eye contact throughout. Her speech was limited. Her mood was neutral. Affect was congruent. Her thought process shows no evidence of racing thoughts, flight of ideas, loose or disconnected thinking. Her thought content, she denied any evidence of current suicidal, homicidal ideation. No evidence of active hallucinations, delusions. She was alert, oriented to time and place. Attention and concentration intact. Memory intact in the short term, ocean transportation intermediary and recent. Insight and judgment are fair. PHYSICAL EXAM: Vital signs are current. Temperature is 36.3, pulse 102, respirations 107/74. MEDICATION REVIEW: Includes: 1. Zoloft 100 mg daily. 2. Zyprexa 5 mg q. a.m. and 7.5 mg q.h.s. ASSESSMENT: AXIS I 1. Major depressive disorder, recurrent type, nonpsychotic. 2. Posttraumatic stress disorder, chronic. AXIS II Deferred. AXIS III Current . AXIS IV Stressors are noted for chronic mental health issues, current status. AXIS V Global assessment of functioning of current 35. PLANS: 1. Recommendations for continuation of all medications noted. 2. Recommendations for continuation of MR 90 as noted.
--- NOTE | 2016-09-08 13:15 | NUR ---
Obs Dayshift Pt spent a little more free times out in the milieu today, engages w/ some peers and appears scared by others and will take her book or newspaper back to her room. Pt has good eye contact, much better w/ communication toward staff and some peers. Pt is calm, polite, often seen giving "gifts" to staff or peers as a thank you gesture. Pt is making more calls to family or friends during the day. Good ADL's, Good meals
[2016-09-08 13:29] VITALS: BP 113/79; PULSE 119
--- NOTE | 2016-09-08 22:21 | NUR ---
NURS Evening S "I'm doing well" O Pt spent much of shift in room; out for dinner, observed drinking ensure and eating three slices of read with jam. Denies anxiety and depression. Denies pain, discomfort. RN from [facility] assessed pt, FHT 150s, denies contraction pain or leakage of fluid. [facility] RN reports that pt was talkative, but difficult to follow. [facility] RN stated, "She talked in circles and was difficult to follow." A Pt is much improved since admission. P Continue with medication and behavior plan.
--- NOTE | 2016-09-09 05:00 | NUR ---
Nursing Noc s/o- has appeared to sleep after 5 during q 15 minute assessments. a- no apparent distress. p- monitor behavior/emotional state, quality, times and amount of sleep, use and effect of medication. Addendum: 09/09/16 at 0503 by HEATHER BHATT RN sleep times first noted to be asleep at 2014 until 2129 then again for the rest of the shift at 2315.
[2016-09-09] MEDS: Sertraline 20 mg/mL Liq PO SCH (08:22)
--- NOTE | 2016-09-09 11:01 | PROG NOTE ---
[address] [address] PROGRESS NOTE PATIENT: TOMMY ADAMS : 1985 MR#: [id number] ADMIT: 07/13/2016 JOB ID: [id number] DATE: 09/09/2016 CHIEF COMPLAINT: "I think I am doing well." This is per patient report. HISTORY OF PRESENT ILLNESS: As stated above, the patient identified that she does believe that things are going well. She denied any evidence of acute distress. She reportedly has been isolating to her room, reading her books, etc. OBJECTIVE: On mental status exam, she was cooperative, polite. She maintained good eye contact throughout. She denied any evidence of current suicidal, homicidal ideation. No evidence of active hallucinations, delusions. She was alert, oriented to person, place, time, situation. Attention and concentration intact. Memory intact in the short term, extermination inspector, recent. Insight and judgment are fair. PHYSICAL EXAMINATION: Vital signs of current, temperature is 36.2, pulse 119, respirations unlisted, BP 113/79. MEDICATION REVIEW: Includes: 1. Zoloft 100 mg q.a.m. 2. Zyprexa 5 mg q.a.m. and 7.5 mg q.h.s. ASSESSMENT: AXIS I 1. Major depressive disorder with psychotic features. 2. Posttraumatic stress disorder, chronic. AXIS II Deferred. AXIS III Current . AXIS IV Stressors are noted for current status, significant altered mental state. AXIS V Global Assessment of Functioning current 35. PLAN: 1. Continuation of all medications noted. 2. Continuation of MR [address] Angel to assume care due departure.
--- NOTE | 2016-09-09 13:20 | NUR ---
Nursing Day Shift- S- "More pictures of the baby? What this? Elvira or Sita come talk to me?" (Pt. was requesting an ultrasound, then asking anatomical questions from the photos she rivas. She asked to speak with a nurse from [facility] by name.) O- Pt. had slept well per report. She eat well at meals. She asked appropriate questions regarding the baby. [facility] was contacted. They will send a nurse over later today. Pt. denied symptoms of labor, and rated depression as 6/10. A- Unchanged past 1-2 weeks. Difficult to asses due to language barrier. P- Cont. TP.
--- NOTE | 2016-09-09 17:29 | NUR ---
Counseling/Roll Contour Grinder: S/O: Patient slept 7+ hours last night per staff. She denies S/I and H/I. She also denies auditory and visual hallucinations. Depression is 0/10 and anxiety is 0/10. A: Patient is guarded, cooperative, dysthymic, restricted affect, limited insight, limited judgment. P: Follow care plan, coordinate out-patient providers.
--- NOTE | 2016-09-09 18:24 | NUR ---
Obs Dayshift Pt spent most of her day in her room. Pt did some exercising, yoga in her room. Pt is doing well with responding to staff questions, and engaging some w/ one or two peers. Pt is calm, polite, isolating. Pt appears more clear, better eye contact. Pt has good ADL's, and Good meals - 75-100%
--- NOTE | 2016-09-09 22:53 | NUR ---
NURSING NOTE [id number] Mood: "fine" Affect: guarded, short superficial responses but pleasant upon approach and smiling w/good eye contact Behavior: isolating to room for much of the shift, sitting on her yoga mat or lying in bed w/eyes open. Brightened considerably when [facility] staff visited her to assess the baby. She allowed [facility] RN to assess her FHT: (150-162) and denied feeling any contractions. The pt. continued to gift this remote mortgage underwriter items found on the unit, e.g. brown sugar packets, as she has been doing for the last several evenings. Thought processes: pt. denies depression and does appear less depressed. Said "I'm not sad" at one point in our assessment. Smiling more. Pt. denied AH/VH.
--- NOTE | 2016-09-10 05:30 | NUR ---
nursing, nights, 11-7 s/o- has appeared to sleep after 0100. assessed q 15 minutes. a- loud unit, no apparent distress. p- monitor behavior/emotional state, quality, times and amount of sleep, use and effect of medication. rosie
[2016-09-10] MEDS: Sertraline 20 mg/mL Liq PO SCH (08:30)
[2016-09-10 11:00] VITALS: BP 103/66; PULSE 96; RESP 19
--- NOTE | 2016-09-10 12:16 | NUR ---
Nursing Day Shift- S- "Oh..hurts. Baby." O- Pt. was at breakfast and eat 100%. She appeared relaxed, with a soft smile for staff and a gift of her granola bar. Pt. refused her liquid Zoloft stating: "To much. bad stomach. take pill." was notified and ordered the medication changed to PO. At 1030 she complained of pain and pointed to her stomach, while grimacing and lying in bed on her side. She initially said "Throw-up," but then said "baby." Pt. seemed to be in a steady, moderate level of pain, without periods of more intense pain. [facility] was called at 1030. Vianca CLAIRE arrived at 11, and was with the Pt. until 1245. Heart tone and contractions were monitored. Pt. appears to be having mild contractions. Staff to accompany Pt. to ultrasound. A- Pt. cooperative with care. Attempting to communicate. She refused to use the spanish medical interpreter. P- Cont. BHTP.
--- NOTE | 2016-09-10 13:43 | DRSVH ---
PROCEDURE: US OB BIOPHYSICAL PROFILE AND UMBILICAL DOPPLER INDICATIONS: at 37 weeks with psychosis OUTSIDE/PRIOR DATING DATA: First dating scan (date and location): 07/13/2016. Estimated date of delivery (SAMREEN) from first dating scan: 09/25/2016. TECHNIQUE: Real-time scanning was performed of the fetus for biophysical profile, with image documentation. Col or and pulse Doppler interrogation was also performed of the umbilical artery near its insertion into the placenta. COMPARISON: [facility], , US OB BIOPHYSICAL+UMB DOP, 08/11/2016, 9:31. FINDINGS: General: A single living intrauterine gestation is present. Presentation: Vertex. Placenta: Placental position is anterior, without previa. OB-GLASS RIBBON MACHINE OPERATOR ASSISTANT Ultrasound Procedure Report Summary Fetus Summary Heart Rate: 156 bpm Gestational Age from initial dating scan: 37 weeks, 6 days Findings(Amniotic Sac) Amniotic Fluid Index (LEENA): 13.30 cm Pelvis and Uterus Cervix Length (Mean): Not well seen. Biophysical Profile Amniotic Fluid Volume: 2 Breathin Gross Body Movement: 2 Tone: 2 Biophysical Profile Sum Score: 8 Findings(Pelvic Vascular Structure) Umbilical Artery S/D Ratio: 2.04, 1.70, 1.77 IMPRESSION: Normal biophysical profile and cord Doppler with preserved diastolic flow. Dictated by: Jovanny Figueroa RRA Interpreted: Anuradha Barrios MD on 09/10/2016 at 13:42 Transcribed by: PRACHI on 09/10/2016 at 13:43 Approved by: Anuradha Barrios MD, PhD on 09/10/2016 at 14:39
--- NOTE | 2016-09-10 14:43 | PCM.PNPSY ---
Subjective Date of Service Sep 10, 2016 Subjective I spent 30 minutes both reviewing treatment plan with clinical team, interviewing the patient and providing supportive/educational psychotherapy. I spent less than 50% of the time counseling the patient she could only tolerate a brief interaction before refusing to look or speak to me. I reviewed the treatment plan with the patient. You reports "I feel fine". Staff reports that she has been active with the family nurse is but is not participating well in one-to-one unit and group activities. She slept 6 hours and denies depression or psychotic symptoms review. She denies medication side effects. Do not appear to be responding to internal stimuli. Her lack of communication with me seemed to be more related to my being a white male then to a psychotic condition. Mental Status Exam Appearance: Neat/well groomed Attitude: Uncooperative Behavior: Other (no verbal communication except to report a headache, no eye contact.) Affect: Restricted Mood: Dysthymic Speech Production: Paucity Speech Rate: Other (unable to assess due to minimal response) Speech Articulation: Other (accented) Thought Content: Other (unable to assess) Danger to Self/Suicidal Ideati: None Danger to Others: None (unclear response, no affirmation) Consciousness: Alert Orientation: Person, Place, Situation Memory: Untestable Estimate Intellectual Function: Unable to assess Basis for IQ estimate: Educational history, Employment history Attention/Concentration & Cogn: Unable to assess Insight: Unable to assess Judgement: Unable to assess Mental Health Plan The patient is a 30-year-old, Mandarin speaking only female who presents with an odd story of being at 29 weeks and then having her "parents send her from [place] to [place]". She struggled to relate a coherent history initially other than she feels shamed by her family for her . She initially reported symptoms which qualified for a diagnosis of major depressive disorder, and now reports a marked decrease in both depression and anxiety symptom review. Initially she reported hearing ghosts talk to her and tell her things to do. Now she denies psychotic review of systems. At this time She appears to be tolerating olanzapine and sertraline and no longer appears to be suicidal nor to be responding to internal stimuli. Yulee Yulee I: 1. Major depressive disorder with psychotic features. 2. Rule out post-traumatic stress disorder Yulee II: Deferred. Yulee III: Intrauterine due date 09/25/16 Yulee IV: Severe. Yulee V: 35 Treatments Patient is being provided with a high degree of safety through the structure and active adult engagement. We will focus on developing improved coping skills and identifying stressors that may have led to current episode. We will attempt to: Integrate into therapeutic groups, milieu and individual therapy. Maintain in a closely monitored and structured unit Provide low-stimulation environment Obtain collateral data to assist in treatment planning Assess degree of lability of affect and impulse control Complete safety plan Decrease frequency of relapse and need for re-hospitalization Denies thoughts of harm to self and/or others Establish a consistent sleep pattern Medication effective in stabilization of mood and/or thought process Reduce the risk of imminent harm to self and/or others by providing a safe environment Tolerates medication without side effects Patient will be on the following psychiatric medications: 1. Zoloft 100 mg q.a.m. 2. Zyprexa 5 mg q.a.m. and 7.5 mg q.h.s. DREDGE CAPTAIN continuing to follow him a thank you. Address patient's legal status Patient is on a 14 day involuntary treatment hold. With the jury scheduled trial 10/05/2016 Patient will be given the opportunity to talk to her instrument shop supervisor and the music sound light technician Piero Angel MD Sep 10, 2016 14:43 her instrument shop supervisor and the music sound light technician Piero Angel MD Sep 10, 2016 14:43
--- NOTE | 2016-09-10 19:41 | NUR ---
Counseling/Head Of Stock: S/O: Patient only slept 4.25 hours last night per staff. She denies S/I and H/I. She also denies auditory and visual hallucinations. Depression is 0/10 and anxiety is 0/10. A: Patient is guarded, cooperative, dysthymic, restricted affect, limited insight, limited judgment. P: Follow care plan, coordinate out-patient providers.
--- NOTE | 2016-09-10 22:46 | NUR ---
Observations 0900 to 2130 Pt affect and mood continues to be the same as previous shifts. Pt was in her room and isolative most of the shift. Pt was minimally social when approached. Pt attended meals in D.R. and ate approximately 50% of her meals. Pt was offered snack but declined. Pt maintained behavior throughout the shift. Pt declined Pt was observed every 15 minutes throughout the shift as ordered.
--- NOTE | 2016-09-11 06:21 | NUR ---
nursing, nights, 11-7 s/o- has appeared to sleep after 2230 to midnight. sat quietly on her bed until appearing to sleep after 0330. assessed q 15 minutes. a- interrupted sleep, no apparent distress. p- monitor behavior/emotional state, quality, times and amount of sleep, use and effect of medication. rosie
--- NOTE | 2016-09-11 12:18 | PCM.PNPSY ---
Subjective Date of Service Sep 11, 2016 Subjective I spent 20 minutes both reviewing treatment plan with clinical team, interviewing the patient and providing supportive/educational psychotherapy. I spent less than 50% of the time counseling the patient she could only tolerate a brief interaction before refusing to look or speak to me. I reviewed the treatment plan with the patient. You repeats "I feel fine". Staff reports that she has been active with the family nurse is but is not participating well in one-to-one unit and group activities. She slept 4 hours and denies depression or psychotic symptoms review. She denies medication side effects. Do not appear to be responding to internal stimuli. Her lack of communication with me seemed to be more related to my being a white male then to a psychotic condition. Current Medications Current Medications Sertraline HCl 100 mg DAILY PO Last administered on 09/11/16t 10:00; Admin Dose 100 MG; Start 09/11/16 at 08:30 Mental Status Exam Appearance: Neat/well groomed Attitude: Uncooperative Behavior: Other (no verbal communication except to report a headache, no eye contact.) Affect: Restricted Mood: Dysthymic Speech Production: Paucity Speech Rate: Other (unable to assess due to minimal response) Speech Articulation: Other (accented) Thought Content: Other (unable to assess) Danger to Self/Suicidal Ideati: None Danger to Others: None (unclear response, no affirmation) Consciousness: Alert Orientation: Person, Place, Situation Memory: Untestable Estimate Intellectual Function: Unable to assess Basis for IQ estimate: Educational history, Employment history Attention/Concentration & Cogn: Unable to assess Insight: Unable to assess Judgement: Unable to assess Mental Health Plan The patient is a 30-year-old, Mandarin speaking only female who presents with an odd story of being at 29 weeks and then having her "parents send her from [place] to [place]". She struggled to relate a coherent history initially other than she feels shamed by her family for her . She initially reported symptoms which qualified for a diagnosis of major depressive disorder, and now reports a marked decrease in both depression and anxiety symptom review. Initially she reported hearing ghosts talk to her and tell her things to do. Now she denies psychotic review of systems. At this time She appears to be tolerating olanzapine and sertraline and no longer appears to be suicidal nor to be responding to internal stimuli. Issues are difficult of disposition and legal status are tied up in immigration and justice system. Pickerel Pickerel I: 1. Major depressive disorder with psychotic features. 2. Rule out post-traumatic stress disorder Pickerel II: Deferred. Pickerel III: Intrauterine due date 09/25/16 Pickerel IV: Severe. Pickerel V: 35 Treatments Patient is being provided with a high degree of safety through the structure and active adult engagement. We will focus on developing improved coping skills and identifying stressors that may have led to current episode. We will attempt to: Integrate into therapeutic groups, milieu and individual therapy. Maintain in a closely monitored and structured unit Provide low-stimulation environment Obtain collateral data to assist in treatment planning Assess degree of lability of affect and impulse control Complete safety plan Decrease frequency of relapse and need for re-hospitalization Denies thoughts of harm to self and/or others Establish a consistent sleep pattern Medication effective in stabilization of mood and/or thought process Reduce the risk of imminent harm to self and/or others by providing a safe environment Tolerates medication without side effects Patient will be on the following psychiatric medications: 1. Zoloft 100 mg q.a.m. 2. Zyprexa 5 mg q.a.m. and 7.5 mg q.h.s. JAIL GUARD continuing to follow him a thank you. Address patient's legal status Patient is on a 14 day involuntary treatment hold. With the jury scheduled trial 10/05/2016 Patient will be given the opportunity to talk to her rn surgical and the power plant engineer Piero Angel MD Sep 11, 2016 12:18
--- NOTE | 2016-09-11 13:38 | NUR ---
Day shift nursing S/O="There is a skinny man coming into my room... I do not want him to be going there." Pt. had all her bedsheets on the floor in a pile. The housekeeper/laundry assistant had come in to make her bed and tidy up. She was reassured and then returned to her room. She has been eating her meals and tends to isolate to her room. A-Psychosis. P-Monitor for safety per protocol. Assess efficacy of meds to manage target symptoms. Redirect as needed.
--- NOTE | 2016-09-11 15:37 | NUR ---
Pt. had heart tones taken by OB nurse. Fetus is normal size for weeks gestation and heart beat was in the 150's. Pt. was encouraged to drink more fluids and walk to decrease constipation.
--- NOTE | 2016-09-11 18:08 | NUR ---
Mental Hygiene Consultant./ c.m. S.:"I can't eat more. She is big, 7 pounds!" O.: met with pt. in her room. She was doing exercises on her yoga mat. She slept "ok but it was restless. I moved a lot. I needed clean sheets." Pt. denied SI/HI, denied AH/VH. She showed 2 photographs to the technical writer and editor and explained to the technical writer and editor what to look for on the photographs. She talked about nurses from the Center who come to check on her. She likes when Polly comes. "I like Polly she is very good. She visits me." She said that she didn't want to eat much because it was "too much" for her. She said that she liked apple juice and she would drink that for a snack. She spent all the time in her room except for meals. A.: pt. is cooperative, isolative, quiet, looks internally preoccupied. P.: monitor behavior, monitor for safety, follow care plan.
--- NOTE | 2016-09-11 23:47 | NUR ---
Nurses Note Evening Patient has been pleasant,polite with an improved mood and affect. Patients' hygiene,appetite and sleep patterns have been undisturbed. Patient was seen by Family RN for heart tones in the 150's. Patient denied cramping or pain. She remains medication compliant without adverse effects. Will continue to offer support,safety,assess comfort and maintain Q15min. checks. Addendum: 09/11/16 at 9211 by NANCY GEE RN Amended: Links added.
--- NOTE | 2016-09-12 05:47 | NUR ---
nursing, nights, 11-7 s/o- has appeared to sleep after 2144. up at 0400 and requested a snack. has remained awake in her room. assessed q 15 minutes. a- no apparent distress. p- monitor behavior/emotional state, quality, times and amount of sleep, use and effect of medication. rosie
--- NOTE | 2016-09-12 11:04 | NUR ---
Nursing Note [id number] Behavior S/O: Pt ate 75% of breakfast. Pt spit out 1 of her 50 mg tabs of Zoloft during breakfast. She refused speak to me, but after much urging to take her medication, walked over to the garbage can & threw the tablet in the garbage. Pt has refused to have vital signs taken. Pt has not spoken to staff of peers on unit. Pt isolating to room except for breakfast. A: Pt d/n have any insight into illness. P: Provide supportive environment. Monitor medications & effects. Use IM medications if pt refuses Zyprexa.
[2016-09-12 12:38] VITALS: BP 117/74; PULSE 116; RESP 17
--- NOTE | 2016-09-12 13:36 | PCM.PNPSY ---
Subjective Date of Service Sep 12, 2016 Subjective I spent 30 minutes both reviewing treatment plan with clinical team, interviewing the patient and providing supportive/educational psychotherapy. I spent more than 50% of the time counseling the patient she was able to tolerate our interaction. She smiled frequently during the session and showed me a picture of her ultrasound and the baby's head. This was more than she is talked to me since admission. I reviewed the treatment plan with the patient. You repeats "I feel fine". Staff reports that she has been active with the family nurse is but is not participating well in one-to-one unit and group activities. She slept 6 hours and denies depression or psychotic symptoms review. She denies medication side effects. You did not appear to be responding to internal stimuli. Current Medications Current Medications Sertraline HCl 100 mg DAILY PO Last administered on 09/11/16t 10:00; Admin Dose 100 MG; Start 09/11/16 at 08:30 Mental Status Exam Appearance: Neat/well groomed Attitude: Pleasant, Cooperative Affect: Restricted Mood: Euthymic Speech Production: Soft Speech Rate: Normal Speech Articulation: Other (accented) Thought Content: Other (unable to assess) Danger to Self/Suicidal Ideati: None Danger to Others: None Consciousness: Alert Orientation: Person, Place, Situation Memory: Untestable Estimate Intellectual Function: Unable to assess Basis for IQ estimate: Educational history, Employment history Attention/Concentration & Cogn: Unable to assess Insight: Limited Judgement: Limited Mental Health Plan The patient is a 30-year-old, Mandarin speaking only female who presents with an odd story of being at 29 weeks and then having her "parents send her from [place] to [place]". She struggled to relate a coherent history initially other than she feels shamed by her family for her . She initially reported symptoms which qualified for a diagnosis of major depressive disorder, and now reports a marked decrease in both depression and anxiety symptom review. Initially she reported hearing ghosts talk to her and tell her things to do. Now she denies psychotic review of systems. At this time She appears to be tolerating olanzapine and sertraline and no longer appears to be suicidal nor to be responding to internal stimuli. Issues are difficult of disposition and legal status are tied up in immigration and justice system. Talmoon Talmoon I: 1. Major depressive disorder with psychotic features. 2. Rule out post-traumatic stress disorder Talmoon II: Deferred. Talmoon III: Intrauterine due date 09/25/16 Talmoon IV: Severe. Talmoon V: 35 Treatments Patient is being provided with a high degree of safety through the structure and active adult engagement. We will focus on developing improved coping skills and identifying stressors that may have led to current episode. We will attempt to: Integrate into therapeutic groups, milieu and individual therapy. Maintain in a closely monitored and structured unit Provide low-stimulation environment Obtain collateral data to assist in treatment planning Assess degree of lability of affect and impulse control Complete safety plan Decrease frequency of relapse and need for re-hospitalization Denies thoughts of harm to self and/or others Establish a consistent sleep pattern Medication effective in stabilization of mood and/or thought process Reduce the risk of imminent harm to self and/or others by providing a safe environment Tolerates medication without side effects Patient will be on the following psychiatric medications: 1. Zoloft 100 mg q.a.m. 2. Zyprexa 5 mg q.a.m. and 7.5 mg q.h.s. TERRITORY MANAGER continuing to follow, thank you. Address patient's legal status Patient is on a 14 day involuntary treatment hold. With the jury scheduled trial 10/05/2016 Patient will be given the opportunity to talk to her foreign law consultant and the band reamer machine operator Piero Angel MD Sep 12, 2016 13:36
--- NOTE | 2016-09-12 18:33 | NUR ---
Observations [id number] Pt was asleep upon start of shift. Pt slept in, attended breakfast. She was observed attempted to not take morning meds by this account underwriter. Pt spent much of her day in her room, resting. Pt requested laundry to be done. She attended all meals, eating an average of 75%. Pt did not attend groups. She was observed every 15 minutes of shift as directed.
--- NOTE | 2016-09-12 22:07 | NUR ---
Nurses Note Evening Patient has been out on the unit at intervals and meals.She has had several interactions and conversations with peers. Her appetite and hygiene are undisturbed. Patient accepted her HS medications without difficulty. She was not seen today by family for heart tones but was monitored both Tuesday and Tuesday. Patient denied any discomfort,cramping or pain. Will continue nursing care plan,maintain q 15min. checks for safety and support.
--- NOTE | 2016-09-13 04:44 | NUR ---
Nursing Note 11pm to 7am Major General Pt asleep at start of shift and remained asleep throughout the night. Monitored with q 15 minute face check for safety, location and accountability
[2016-09-13] MEDS ORDERED: OLANZapine Zydis ODT 5 mg Tablet ONE (11:41)
--- NOTE | 2016-09-13 12:50 | NUR ---
Nursing Note [id number] Behavior, Medications S/O: Pt refused her medications this morning spitting it out twice. She was given Zyprexa 10 mg IM in left hip at 1217. Pt stated, "Are you trying to hurt my baby?...What is it?...What's it for?...My baby's doctor does not want me to take that." Pt ate 75% of breakfast & 10% of lunch. Pt out of her room only briefly for meals & for a short time after lunch. Pt able to talk with family nurse. Nurse reported that pt was calm & answered questions appropriately. A: Pt non-compliant with medications & d/n understand why she needs to take medications. Pt is selective in who she wants to communicate with. P: Provide supportive environment. Monitor medications & effects.
--- NOTE | 2016-09-13 16:50 | NUR ---
Observations [id number] Pt was asleep in room upon start of shift. Pt was more isolative today then in previous shifts. She refused her morning medication, in which she had to receive a shot. Pt appeared to be very concerned about the well being and safety of taking the medication with her baby and how it could affect her baby. Pt slept much of the afternoon. She attended all meals, eating less today then usual. Pt was observed every 15 minutes of shift as directed.
[2016-09-13 18:57] VITALS: BP 102/60; PULSE 96; RESP 16
[2016-09-13] MEDS: OLANZapine Zydis ODT 5 mg Tablet PO SCH (20:35)
--- NOTE | 2016-09-13 21:52 | NUR ---
nursing note 3-11pm O) pt small smile on approach, denies any pain or problems, took medication as ordered, showered and used own shampoo, dressed in own clothes, ate meals, out in dinning room for small periods of time A) took Hs medication with snack, cooperative, no c/o pain or problems P) monitor for signs of labor, encourage good self care and participation in treatment
--- NOTE | 2016-09-14 01:00 | PCM.PNPSY ---
Subjective Date of Service September 13, 2016 Subjective Patient refused oral medications today. Patient could not say why she refused medications. She reported that she had had suicidal thoughts several days previously. She was noted to have a phone but would not answer to whom she might be calling. She would not respond to questions about any health concerns or concerns about the baby. Sleep: 8 hours Appetite: eating Suicidal and homicidal ideation: denies today Auditory hallucinations/Visual hallucinations: no response Other Psychotic Symptoms: essentially mute, no eye contact. Anxiety/Depression: no response. Current Medications Current Medications Olanzapine 10 mg HS PO Last administered on 09/13/16t 20:35; Admin Dose 10 MG; Start 09/13/16 at 21:00 Mental Status Exam Vital Signs Vital Signs Date Time Temp Pulse Resp B/P Pulse Ox O2 Delivery O2 Flow Rate FiO2 09/13/16 18:57 36.4 96 16 102/60 Appearance: Neat/well groomed Attitude: Guarded, Uncooperative Behavior: Distractible Affect: Restricted Mood: Depressed Thought Process/Associations: Other (unable to assess) Speech Production: Muter Speech Articulation: Other (accented) Thought Content: Other (unable to assess) Danger to Self/Suicidal Ideati: None Danger to Others: None Consciousness: Alert Orientation: Person, Place, Situation Memory: Untestable Estimate Intellectual Function: Average Basis for IQ estimate: Educational history, Employment history Attention/Concentration & Cogn: Unable to assess Insight: Limited Judgement: Poor Mental Health Plan The patient is a 30-year-old, Mandarin speaking female with Danish as second language who reportedly tried to "cut the baby out" at times due to anger prior to admission. The patient appeared to meet criteria for major depression and so was started on fluoxetine and lorazepam for anxiety. The patient requested an increase in antianxiety medication, however lorazepam is generally avoided where possible in and so she was switched to diphenhydramine per consultation with HOTEL ATTENDANT regarding safest treatment. Olanzapine was added due to ongoing psychosis and the patient has had a slow improvement in symptoms. She continued to express depressed mood and so fluoxetine was switched to sertraline, but the patient had been refusing for unclear reasons. Once switched to liquid formulation, the patient had been medication adherent with sertraline. The patient has demonstrated improved interaction with some team members but is still only minimally verbal with this verse writer. She reports ongoing depression to nursing staff and reports recent suicidal thoughts in the last few days. She has begun refusing medications again since switched to pill , non-Zydis. Creighton Creighton I: 1. Major depressive disorder with psychotic features. 2. Rule out post-traumatic stress disorder Creighton II: Deferred. Creighton III: Intrauterine due date 09/25/16 Creighton IV: Severe. Creighton V: 35 Medications Sertraline 75mg daily, Olanzapine 5mg daily and 7.5 mg nightly, with IM override. Diphenhydramine 25 mg as needed. Treatments 1. The patient is admitted to the inpatient unit and will be provided a safe and secure environment. 2. The patient is reporting denying current active suicidality or homicidality or intent to precipitate an early or delivery and is not in need of a one- to-one at this time. 3. The patient is encouraged to participate with group and milieu activities. 4. The patient will be seen by the treatment team on a daily basis to assess symptoms, side effects and response to treatment. Patient declining use of aerial photograph interpreter. Speaking/reading Danish 5. Restart liquid sertraline 100mg daily. 6. Increase olanzapine Zydis to 5 mg daily and 10 mg nightly. 7. HOTEL ATTENDANT to continue to follow progress as needed. OB would like to know capacity to consent to suction, forceps, , epidural, general anesthesia closer to time of ; patient does not appear to meet capacity as of 08/08/16, 08/17/16, and 08/30/16, patient refused meds this am and was noted to be cheeking. 8. Diphenhydramine zinc ointment every 6 hours when necessary pruritus. 9. Continue PRN Benadryl. 10. 90 day more restrictive hearing pending. Patient has previously indicated she may agree to inpatient order. Rigoberto Egan MD September 13, 2016 22:30
--- NOTE | 2016-09-14 06:11 | NUR ---
Nursing Note 11pm to 7am Risk Investigator Pt asleep at start of shift and remained asleep without interruption. No prns given this shift. Monitored pt. with q15 minute face checks for safety location and accountability
[2016-09-14] MEDS: Sertraline 20 mg/mL Liq PO SCH (08:30)
[2016-09-14] MEDS: OLANZapine Zydis ODT 5 mg Tablet PO SCH ×2 (09:34→20:53)
--- NOTE | 2016-09-14 14:56 | NUR ---
Picking Supervisor./ c.m. S.:"I don't want these medicines. I don't have cough anymore so I don't need medicine. Because I have this medicine I can't eat food..." O.: met with pt. and MD together in pt.'s room. She was in bed resting. She said that she felt "well". She didn't want to take meds because she believed that they made her sick. She denied SI/HI, denied depression or anxiety. She denied AH/VH also. She said that she continued talking to her friends over the phone but sometimes she didn't need a phone for that. She spent most of the time in her room. A.: pt. is cooperative, isolative, quiet. She has a flat affect and poor eye contact. P.: monitor behavior, encourage pt. to take meds, follow care plan.
--- NOTE | 2016-09-14 17:55 | NUR ---
nursing note 11am-11pm S)"no...can't take...makes me sick" O) pt refused Zoloft liquid, states baby name is Argelia, denies any discomfort or pain, labor nurse here FHT 150's states pt asked lots of appropriate questions, off an on in milieu looking at magazines, ate meals A) no change, refusing antidepressant, taking interest in baby has name, no c/o pain P) monitor for signs of labor, encourage medication compliance and participation in treatment
--- NOTE | 2016-09-14 18:17 | NUR ---
Observations [id number] Pt was asleep upon start of shift. She continues to isolate to room, but is talking more to staff and other patients. Pt continues to not eat much, requesting alternative foods. Pt did not attend groups and spent less time on the unit sleeping more. Pt did attend all meals, eating an average of 60%. Pt did not want to eat dinner with other patients, eating later in the evening. She was observed every 15 minutes of shift as directed.
--- NOTE | 2016-09-14 22:41 | PCM.PNPSY ---
Subjective Date of Service September 14, 2016 Subjective The patient reports today, "I don't want this medicine, I don't need this medicine. I don't have the cough." "I just want to eat pieces of medicine [ homeopathy?]" Patient reports that she talks to her friends in [place] daily. She denies AH. No recollection of symptoms prior to admission and early part of stay. She would not respond to questions about any health concerns or concerns about the baby. Sleep: 8+ hours Appetite: "can't eat food" but is. Suicidal and homicidal ideation: denies today Auditory hallucinations/Visual hallucinations: denies Other Psychotic Symptoms: minimally responsive, minimal eye contact. Anxiety/Depression: denies. Current Medications Current Medications Olanzapine 5 mg DAILY PO Last administered on 09/14/16 09:34; Admin Dose 5 MG; Start 09/14/16 at 08:30 Olanzapine 10 mg HS PO Last administered on 09/14/16 20:53; Admin Dose 10 MG; Start 09/13/16 at 21:00 Mental Status Exam Appearance: Neat/well groomed Attitude: Guarded, Uncooperative Behavior: Distractible Affect: Restricted Mood: Depressed Thought Process/Associations: Other (unable to assess) Speech Production: Paucity Speech Rate: Lags/Latency Speech Articulation: Other (accented) Thought Content: Negativistic Danger to Self/Suicidal Ideati: None Danger to Others: None Hallucinations: Auditory (Denies), Visual (Denies) Consciousness: Alert Orientation: Person, Place, Situation Memory: Untestable Estimate Intellectual Function: Average Basis for IQ estimate: Educational history, Employment history Attention/Concentration & Cogn: Unable to assess Insight: Limited Judgement: Poor Mental Health Plan The patient is a 30-year-old, Mandarin speaking female with Mongolian as second language who reportedly tried to "cut the baby out" at times due to anger prior to admission. The patient appeared to meet criteria for major depression and so was started on fluoxetine and lorazepam for anxiety. The patient requested an increase in antianxiety medication, however lorazepam is generally avoided where possible in and so she was switched to diphenhydramine per consultation with WIRE BENDER HAND regarding safest treatment. Olanzapine was added due to ongoing psychosis and the patient has had a slow improvement in symptoms. She continued to express depressed mood and so fluoxetine was switched to sertraline, but the patient had been refusing for unclear reasons. Once switched to liquid formulation, the patient had been medication adherent with sertraline. The patient has demonstrated improved interaction with some team members but is still only minimally verbal with this chart writer. She denies symptoms, need for medication or recollection of original presentation. She has been refusing sertraline. Page Page I: 1. Major depressive disorder with psychotic features. 2. Rule out post-traumatic stress disorder Page II: Deferred. Page III: Intrauterine due date 09/25/16 Page IV: Severe. Page V: 35 Medications Sertraline 100mg daily, Olanzapine 5mg daily and 10mg nightly, with IM override. Diphenhydramine 25 mg as needed. Treatments 1. The patient is admitted to the inpatient unit and will be provided a safe and secure environment. 2. The patient is reporting denying current active suicidality or homicidality or intent to precipitate an early or delivery and is not in need of a one- to-one at this time. 3. The patient is encouraged to participate with group and milieu activities. 4. The patient will be seen by the treatment team on a daily basis to assess symptoms, side effects and response to treatment. Patient declining use of educational sign language interpreter. Speaking/reading Mongolian 5. Restart liquid sertraline 100mg daily. 6. Increase olanzapine Zydis to 5 mg daily and 10 mg nightly. 7. WIRE BENDER HAND to continue to follow progress as needed. OB would like to know capacity to consent to suction, forceps, , epidural, general anesthesia closer to time of ; patient does not appear to meet capacity as of 08/08/16, 08/17/16, and 08/30/16, patient refused meds again this am. 8. Diphenhydramine zinc ointment every 6 hours when necessary pruritus. 9. Continue PRN Benadryl. 10. 90 day more restrictive hearing pending. Patient has previously indicated she may agree to inpatient order. Rigoberto Egan MD September 14, 2016 22:41 Rigoberto Egan MD September 14, 2016 22:41
--- NOTE | 2016-09-15 05:57 | NUR ---
Nursing notes: full time staff interpreter/sleep Patient appears to be sleeping on safety checks during the night. No complaints voiced
[2016-09-15] MEDS: OLANZapine Zydis ODT 5 mg Tablet PO SCH ×2 (07:56→20:58)
[2016-09-15] MEDS: Sertraline 20 mg/mL Liq PO SCH ×3 (07:59→13:48)
--- NOTE | 2016-09-15 09:56 | NUR ---
Nursing Day Shift- S- "Why you not cut baby now? Go to [facility], then outside. [place]. No be with him. Go to [place]. Family give me money. No milk. Bottles. liquid medicine make me sick. Not good. throw up." O- Pt. had slept well per report. She eat in the DR for breakfast, and took her scheduled Zyprexa, but declined the liquid antidepressant, saying it gives her a stomach ache. Pt. Seemed to believe that after the baby is born, she will be allowed to leave the hospital. She reported having a in [place], but firmly stated she does not want to be with him. She denied suicidal thoughts, auditory or visual hallucinations. Pt. denied feeling sick to her stomach today, or feeling any contractions or pain. A- pleasant and increasingly trusting of female staff. Pt. responses are often contradictory of what it seems she had said before. She appears guarded and misleading with her history. No apparent distress. P- Cont. BHTP.
[2016-09-15 12:26] VITALS: BP 111/73; PULSE 129; RESP 16
--- NOTE | 2016-09-15 17:35 | NUR ---
Obs Dayshift Pt spent most fo the shift in her room, states that she is tired, the baby is moving a lot and that her tummy is a little itchy. Pt is smiling, polite w/ this investigative writer, slightly better eye contact. Pt is giving "gifts" as a thank you to staff, and asking reasonable questions about how/when/what to do when baby comes. Pt is calm, quiet, tired, little to no engaging w/ peers. Good ADL's, Good meals
--- NOTE | 2016-09-15 22:33 | NUR ---
Nurses Note Evening Patient has been pleasant,polite smiling at staff. Her appetite,hygiene and sleep patterns have been undisturbed. Patient was seen by Vianca from Family , heart tones in the 150's. Patient denied pain,discomfort,cramping. Will maintain q 15min. checks for safety and support. Addendum: 09/15/16 at 2242 by NANCY GEE RN Amended: Links added.
--- NOTE | 2016-09-15 22:40 | PCM.PNPSY ---
Subjective Date of Service September 15, 2016 Subjective The patient reports today, "I don't need this medicine." Patient requested splitting up sertraline to 50mg twice daily. The patient was not able to discuss whether she wanted or vaginal , but seemed to be indicating that she wanted "surgery." Although more talkative today, she quickly stopped and sat quietly on the bed. Had 1 hour meeting with senior attorney and expert regarding patient's unclear origins and her criminal case as well as her symptoms and recent medication non-adherence. Sleep: 8+ hours Appetite: shakes head "no' Suicidal and homicidal ideation: denies Auditory hallucinations/Visual hallucinations: denies Other Psychotic Symptoms: minimally responsive, minimal eye contact. Anxiety/Depression: denies. Current Medications Current Medications Olanzapine 5 mg DAILY PO Last administered on 09/15/16 07:56; Admin Dose 5 MG; Start 09/14/16 at 08:30 Sertraline HCl 50 mg 1430 PO Last administered on 09/15/16 13:48; Admin Dose 50 MG; Start 09/15/16 at 14:30 Mental Status Exam Appearance: Neat/well groomed Attitude: Guarded, Uncooperative Behavior: Overtly anxious Affect: Restricted Mood: Depressed Thought Process/Associations: Other (unable to assess) Speech Production: Paucity Speech Rate: Lags/Latency Speech Articulation: Other (accented) Thought Content: Negativistic Danger to Self/Suicidal Ideati: None Danger to Others: None Hallucinations: Auditory (Denies), Visual (Denies) Consciousness: Alert Orientation: Person, Place, Situation Memory: Untestable Estimate Intellectual Function: Average Basis for IQ estimate: Educational history, Employment history Attention/Concentration & Cogn: Unable to assess Insight: Limited Judgement: Poor Mental Health Plan The patient is a 30-year-old, Mandarin speaking female with Italian as second language who reportedly tried to "cut the baby out" at times due to anger prior to admission. The patient appeared to meet criteria for major depression and so was started on fluoxetine and lorazepam for anxiety. The patient requested an increase in antianxiety medication, however lorazepam is generally avoided where possible in and so she was switched to diphenhydramine per consultation with MACHINE SPREADER regarding safest treatment. Olanzapine was added due to ongoing psychosis and the patient has had a slow improvement in symptoms. She continued to express depressed mood and so fluoxetine was switched to sertraline, but the patient had been refusing for unclear reasons. Once switched to liquid formulation, the patient had been medication adherent with sertraline. The patient has demonstrated improved interaction with some team members but is still only minimally verbal with this documentation writer. She denies symptoms, need for medication or recollection of original presentation. She has been refusing sertraline. Patient spoke for a few minutes before no longer answering questions. [place] I: 1. Major depressive disorder with psychotic features. 2. Rule out post-traumatic stress disorder [place] II: Deferred. [place] III: Intrauterine due date 09/25/16 [place] IV: Severe. [place] V: 35 Medications Sertraline 100mg daily, Olanzapine 5mg daily and 10mg nightly, with IM override. Diphenhydramine 25 mg as needed. Treatments 1. The patient is admitted to the inpatient unit and will be provided a safe and secure environment. 2. The patient is reporting denying current active suicidality or homicidality or intent to precipitate an early or delivery and is not in need of a one- to-one at this time. 3. The patient is encouraged to participate with group and milieu activities. 4. The patient will be seen by the treatment team on a daily basis to assess symptoms, side effects and response to treatment. Patient declining use of lan analyst. Speaking/reading Italian 5. Change sertraline to 50 mg daily and 50mg at 1430. 6. Diphenhydramine zinc ointment every 6 hours when necessary pruritus. 7. Continue PRN Benadryl. 8. 90 day more restrictive hearing pending. Rigoberto Egan MD September 15, 2016 22:40 10. 90 day more restrictive hearing pending. Patient has previously indicated she may agree to inpatient order. Rigoberto Egan MD September 15, 2016 22:40
--- NOTE | 2016-09-16 05:14 | NUR ---
nursing, nights, 11-7 s/o- has appeared to sleep after 2330 during q 15 minute assessments. a- no apparent distress. p- monitor behavior/emotional state, quality, times and amount of sleep, use and effect of medication. rosie
[2016-09-16 08:34] VITALS: BP 110/69; PULSE 118; RESP 16
[2016-09-16] MEDS: Sertraline 20 mg/mL Liq PO SCH ×2 (08:45→15:04)
[2016-09-16] MEDS: OLANZapine Zydis ODT 5 mg Tablet PO SCH ×2 (08:46→20:58)
--- NOTE | 2016-09-16 12:51 | NUR ---
[id number]. nurs. S/O: Pt mostly in bedrm, took zyprexa but after small amount of liquid zoloft stated she did not like it that it upset her stomach. Pt did take rest of this meds Pt not interacting with peers. Pt out to get meals only. Pt appeared to be sleeping a lot in afternoon and unable to check with her further re s/es of zoloft lance staff will do so. Pt no c/o pain or contractions with flat affect today. P:CNCP
--- NOTE | 2016-09-16 19:09 | NUR ---
Licensed Sales Producer/Counselor: S/O: Patient slept 6 hours last night as per staff. She denies S/I and H/I. She denies auditory and visual hallucinations. Depression because she is sad about her and anxiety is 0/10. A: Patient is uncooperative, guarded, anxious, restricted affect, depressed, limited insight, limited judgment. P: Follow the care plan, coordinate with out-patient providers.
--- NOTE | 2016-09-16 20:50 | PCM.PNPSY ---
Subjective Date of Service September 16, 2016 Subjective The patient is much more talkative and engaged today. She states that she feels "good" and that she was enjoying reading the newspaper. She states that she would eventually like to live in [facility]. She reports that she would "like to be around young people, not old people like [two female peers]" She stated that "after I the baby, I good." She states that she believes the baby will go to [facility] after it is born and she then can go on with her life and possibly go to [place]. No side effects. Requests multivitamin. Patient [place] she [place] somewhere between August and October of 2015. Sleep: 6 hours, "good" Appetite: eating well. Suicidal and homicidal ideation: denies Auditory hallucinations: denies Visual hallucinations: denies Other Psychotic Symptoms: appears to have simplistic understanding of current situation still with some cognitive impairment Anxiety: "excited about room 227... bathroom, room 227" Depression: "I open my heart so much." Current Medications Current Medications Sertraline HCl 50 mg 1430 PO Last administered on 09/16/16 15:04; Admin Dose 50 MG; Start 09/15/16 at 14:30 Sertraline HCl 50 mg DAILY PO Last administered on 09/16/16 08:45; Admin Dose 50 MG; Start 09/15/16 at 12:40 Mental Status Exam Appearance: Neat/well groomed Attitude: Cooperative, Guarded Behavior: No unusual behavior Affect: Restricted Mood: Euthymic Thought Process/Associations: Goal Directed Speech Production: Normal Speech Rate: Normal Speech Articulation: Other (Heavily accented) Thought Content: Negativistic Danger to Self/Suicidal Ideati: None Danger to Others: None Hallucinations: Auditory (Denies), Visual (Denies) Consciousness: Alert Orientation: Person, Place, Situation Memory: Untestable Estimate Intellectual Function: Average Basis for IQ estimate: Educational history, Employment history Attention/Concentration & Cogn: Unable to assess Insight: Limited Judgement: Poor Mental Health Plan The patient is a 30-year-old, Mandarin speaking female with Setswana as second language who reportedly tried to "cut the baby out" at times due to anger prior to admission. The patient appeared to meet criteria for major depression and so was started on fluoxetine and lorazepam for anxiety. The patient requested an increase in antianxiety medication, however lorazepam is generally avoided where possible in and so she was switched to diphenhydramine per consultation with GEAR ROOM KEEPER regarding safest treatment. Olanzapine was added due to ongoing psychosis and the patient has had a slow improvement in symptoms. She continued to express depressed mood and so fluoxetine was switched to sertraline, but the patient had been refusing for unclear reasons. Once switched to liquid formulation, the patient had been medication adherent with sertraline. The patient has demonstrated improved interaction with some team members but is still only minimally verbal with this filing writer. She denies symptoms, need for medication or recollection of original presentation. She has been refusing sertraline. Patient spoke for a few minutes before no longer answering questions. [place] I: 1. Major depressive disorder with psychotic features. 2. Rule out post-traumatic stress disorder [place] II: Deferred. [place] III: Intrauterine due date 09/25/16 [place] IV: Severe. [place] V: 35 Medications Sertraline 50mg daily and 50mg at 1430 Olanzapine 5mg daily and 10mg nightly, with IM override. Diphenhydramine 25 mg as needed. Treatments 1. The patient is admitted to the inpatient unit and will be provided a safe and secure environment. 2. The patient is reporting denying current active suicidality or homicidality or intent to precipitate an early or delivery and is not in need of a one- to-one at this time. 3. The patient is encouraged to participate with group and milieu activities. 4. The patient will be seen by the treatment team on a daily basis to assess symptoms, side effects and response to treatment. Patient declining use of piece meat trimmer. Speaking/reading Setswana 5. Sertraline 50 mg daily and 50mg at 1430. 6. Diphenhydramine zinc ointment every 6 hours when necessary pruritus. 7. Liquid vitamin daily 8. 90 day more restrictive hearing pending. Rigoberto Egan MD September 16, 2016 20:50
[2016-09-16] MEDS: diphenhydrAMINE 25 mg Capsule PO PRN (20:59)
--- NOTE | 2016-09-16 21:15 | NUR ---
Observations 0900 to 2130 Pt affect and mood continues to be the same as previous shifts. Pt was in her room and isolative most of the shift. Pt was minimally social when approached by staff, responding with short answers. Pt attended meals in D.R. and ate approximately 60-70% of her meals. Pt was offered snack but declined. Pt took a shower and attended to ADL's. Pt declined to attend community meeting, groups and unit activities. Pt was minimally social with select peers. Pt was observed every 15 minutes throughout the shift as ordered.
--- NOTE | 2016-09-16 21:51 | NUR ---
NURS Note [id number] S/O: Pt in room much of shift. Affect restricted. Pt threw cup at fellow pt at med room window at 2100, then proceed to throw water at same pt and returned to her room. Pt stated "That man. I don't like that man. He is always around me." Discussed not throwing things at other patients ad encourage pt to seek out staff if she felt angry again. Pt listened without responding. Gave PRN diphenhydramine for agitation and scheduled olanzapine. A: Pt is more agitated than blog writer has seen her in several weeks. P: Continue with treatment plan. Monitor for aggressive behavior.
--- NOTE | 2016-09-17 05:54 | NUR ---
nursing, nights, 11-7 s/o- has appeared to sleep after 2315 during q 15 minute assessments. a- no apparent distress. p- monitor behavior/emotional state, quality, times and amount of sleep, use and effect of medication. rosie
[2016-09-17] MEDS: Sertraline 20 mg/mL Liq PO SCH ×2 (07:54→16:13)
[2016-09-17] MEDS: OLANZapine Zydis ODT 5 mg Tablet PO SCH ×2 (07:54→20:55)
[2016-09-17] MEDS: Multivitamins w/Minerals 5 mL Liquid Supplement PO SCH ×2 (07:54→07:57)
[2016-09-17 09:45] VITALS: BP 112/60; PULSE 96; RESP 16
--- NOTE | 2016-09-17 11:07 | NUR ---
Nursing: Day shift: O: You has been out in the dining room sitting with peers and walking in the ralph. She didn't attend community meeting earlier. Allowed curriculum writer to take BP using manual cuff. Nods or shakes head but had not spoken with curriculum writer since 0700. Call put in to [facility] for You to be seen by OB provider since last consult note by Dr. Lackey was 09/06. No complaints of pain or discomfort that might indicate labor commencing. P: Continue to assess for med effectiveness and for onset of labor.
--- NOTE | 2016-09-17 18:46 | NUR ---
[facility] Day Shift Pt maintained behavioral control throughout the shift. Pt affect appears mostly flat, somewhat brighter than noted on previous shifts. Pt spends most of the shift resting in her room and sitting quietly in the dining room. Pt is appropriate with staff and peers when active on the unit, but is not overly social. Pt remains selectively communicative with staff. Pt did not attend community meeting or group activities. Pt attended all meals and ate approx 90% of all meals.
--- NOTE | 2016-09-17 20:19 | DRSVH ---
PROCEDURE: US OB BIOPHYSICAL PROFILE AND UMBILICAL DOPPLER INDICATIONS: with psychosis OUTSIDE/PRIOR DATING DATA: First dating scan (date and location): 07/13/2016. Estimated date of delivery (SAMREEN) from first dating scan: 09/25/2016. TECHNIQUE: Real-time scanning was performed of the fetus for biophysical profile, with image documentation. Col or and pulse Doppler interrogation was also performed of the umbilical artery near its insertion into the placenta. Endovaginal scanning: No COMPARISON: [facility], , US OB BIOPHYSICAL+UMB DOP, 09/10/2016, 13:06. FINDINGS: General: A single living intrauterine gestation is present. Presentation: Cephalic. Placenta: Placental position is anterior, without previa. Amniotic fluid index: 6.9 cm, normal range is 5-24 cm. heart rate: 172 beats per minute. Maternal cervical canal: Not well-seen. Estimated gestational age from initial scan: 38 weeks 6 days. Biophysical profile: Tone: 2 points. Movement: 2 points. Respiration: 2 points. Largest pocket of fluid: 2 points. Umbilical artery Doppler: 1.2, 1.3, 1.9 IMPRESSION: 1. Single living intrauterine gestation. 2. Normal biophysical profile score and umbilical artery Doppler. Dictated by: Jessica Wise M.D. on 09/17/2016 at 20:16 Approved by: Jessica Wise M.D. on 09/17/2016 at 20:18
--- NOTE | 2016-09-17 21:57 | PROG NOTE ---
[address] [address] PROGRESS NOTE PATIENT: TOMMY ADAMS : 1985 MR#: [id number] ADMIT: 07/13/2016 JOB ID: [id number] DATE: 09/17/2016 This is a 31-year-old female, uncertain , parity, at 38 weeks . As previous history, she has been admitted to the psych unit because of depression and psychosis. Today she has no complaints. She has normal movement. No contractions. No abdominal pain. No headache, no blurry vision. No epigastric pain. No vaginal bleeding. PHYSICAL EXAMINATION: She is afebrile. Her vitals in normal range. Today, she allowed me to feel her abdomen. Her abdomen is soft, nontender uterus. She declined vaginal examination. She is okay to get examined if she is in labor or she needs induction but she does not want to be examined at this time. ASSESSMENT AND PLAN: This is a 31-year-old female, uncertain , parity, and 38 weeks . 1. We will continue with weekly BPP and weekly NST. 2. We will continue daily Doptone. 3. At this time, the plan is waiting for spontaneous onset of labor, but we will have a discussion within our group to make a decision whether we will do an induction of labor just to get labor process controlled. At this time, I talked with the patient of the plan of either waiting for spontaneous onset of labor or get induction of labor at control time. Patient, at this time, preferred to have an induction, but at same time, I discussed with patient no induction will be performed before 39 weeks if no medical indication.
--- NOTE | 2016-09-17 22:39 | PCM.PNPSY ---
Subjective Date of Service September 17, 2016 Subjective Patient indicates that she feels "fine" and is wondering when she can be discharged and "go home." She indicates that she plans to say with Nicole in [place] with another person.She denied pain or problems with the baby. She indicated that she would like to be called "Jenn." No side effect c/o. Sleep: 7 hours Appetite: good Suicidal and homicidal ideation: denies Auditory hallucinations/Visual hallucinations/Other Psychotic Symptoms: denies Anxiety: denies Depression: denies Mental Status Exam Appearance: Neat/well groomed Attitude: Pleasant, Cooperative (moderately), Guarded Behavior: No unusual behavior Affect: Restricted Mood: Euthymic Thought Process/Associations: Goal Directed Speech Production: Normal Speech Rate: Normal Speech Articulation: Other (Heavily accented) Thought Content: Appropriate Danger to Self/Suicidal Ideati: None Danger to Others: None Hallucinations: Auditory (Denies), Visual (Denies) Consciousness: Alert Orientation: Person, Place, Situation Memory: Untestable Estimate Intellectual Function: Average Basis for IQ estimate: Educational history, Employment history Attention/Concentration & Cogn: Impaired Insight: Limited Judgement: Poor Mental Health Plan The patient is a 30-year-old, Mandarin speaking female with Libyan as second language who reportedly tried to "cut the baby out" at times due to anger prior to admission. The patient appeared to meet criteria for major depression and so was started on fluoxetine and lorazepam for anxiety. The patient requested an increase in antianxiety medication, however lorazepam is generally avoided where possible in and so she was switched to diphenhydramine per consultation with METAL ROLLING MILL OPERATOR regarding safest treatment. Olanzapine was added due to ongoing psychosis and the patient has had a slow improvement in symptoms. She continued to express depressed mood and so fluoxetine was switched to sertraline, but the patient had been refusing for unclear reasons. Once switched to liquid formulation, the patient was again refusing but began to take it when the dose was split. The patient has been more interactive with the treatment team over the last few days. She still expresses that she plans to stay with her friend in [place]. [place] I: 1. Major depressive disorder with psychotic features. 2. Rule out post-traumatic stress disorder [place] II: Deferred. [place] III: Intrauterine due date 09/25/16 [place] IV: Severe. [place] V: 35 Medications Sertraline 50mg daily and 50mg at 1430 Olanzapine 5mg daily and 10mg nightly, with IM override. Diphenhydramine 25 mg as needed. Treatments 1. The patient is admitted to the inpatient unit and will be provided a safe and secure environment. 2. The patient is reporting denying current active suicidality or homicidality or intent to precipitate an early or delivery and is not in need of a one- to-one at this time. 3. The patient is encouraged to participate with group and milieu activities. 4. The patient will be seen by the treatment team on a daily basis to assess symptoms, side effects and response to treatment. Patient declining use of floor care technician. Speaking/reading Libyan 5. Sertraline 50 mg daily and 50mg at 1430. 6. Diphenhydramine zinc ointment every 6 hours when necessary pruritus. 7. Liquid vitamin daily 8. 90 day more restrictive hearing pending. Rigoberto Egan MD September 17, 2016 22:39
--- NOTE | 2016-09-17 22:59 | NUR ---
NURSING NOTE [id number] Mood: "Nervous... about baby" Affect: friendly, smiling, willing to engage when approached Behavior: resting in her room in bed at start of shift. Allowed OBGYN to assess her and was pleased with the visit. Took a shower. Went down to [facility] for an ultrasound, accompanied by staff. Med compliant. Thought processes: endorses some anxiety, denies depression. No overt delusions noted though it is difficult to assess the accuracy of her statements given language barrier. Pt. was very talkative w/this commercial underwriter this evening. She asked this commercial underwriter many questions about this commercial underwriter's and about caring for a baby. She shared that she is nervous about caring for her baby but her plan is for her 's family to "take care of baby after [facility]." She shared that her currently lives in [place], with his family but "he's always outside-- he doesn't come home -- does your come home?" She reports that she wants his family to care for the baby, that her 's grandmother will take care of it, and that they are aware that she is here and will come to get the baby when she gives . 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 She describes meeting him "while shopping" but became vague when asked about details. Reports that when they lived in [place] he was "always outside" and "never home" and "said I don't cook or clean enough... do you clean for ?"
--- NOTE | 2016-09-18 05:47 | NUR ---
Nursing note: shift production supervisor/sleep Patient appears to be sleeping on safety checks during the night. No complaints offered.
[2016-09-18] MEDS: Multivitamins w/Minerals 5 mL Liquid Supplement PO SCH (08:30)
[2016-09-18] MEDS: Sertraline 20 mg/mL Liq PO SCH ×2 (08:51→14:18)
[2016-09-18] MEDS: OLANZapine Zydis ODT 5 mg Tablet PO SCH ×2 (08:51→20:31)
--- NOTE | 2016-09-18 14:43 | NUR ---
Nursing Day Shift- S- "I go to [facility] next week. stay 3 days. Why not stay longer? One week?" O- Pt. was awake for breakfast. She took scheduled medications without resistance. She was polite and soft spoken. Pt. denied any depression or sadness. She denied contractions or pain. She answered questions, but did not initiate conversations. A- No apparent distress. No outward signs of psychosis. Eating well and sleeping well. Refused large vial liquid vitamins. P- Cont. TP
--- NOTE | 2016-09-18 17:00 | PCM.PNPSY ---
Subjective Date of Service September 18, 2016 Subjective Patient indicates that she feels "fine" and is looking forward to being discharged. She indicated that she had had another ultrasound and had seen the baby open and close its mouth. She denies any physical complaints or side effects. She stated that she showered yesterday and has been taking care of her hygiene although is missing having one of her hygiene products. No side effect c/o. Sleep: 7+ hours Appetite: "I eat more" Suicidal and homicidal ideation: denies Auditory hallucinations/Visual hallucinations/Other Psychotic Symptoms: denies Anxiety: "Not too nervous" Depression: "No sadness" Mental Status Exam Appearance: Neat/well groomed Attitude: Pleasant, Cooperative, Guarded (mildly) Behavior: No unusual behavior Affect: Restricted Mood: Euthymic Thought Process/Associations: Logical/Sequential, Goal Directed Speech Production: Normal Speech Rate: Normal Speech Articulation: Other (Heavily accented) Thought Content: Appropriate Danger to Self/Suicidal Ideati: None Danger to Others: None Hallucinations: Auditory (Denies), Visual (Denies) Consciousness: Alert Orientation: Person, Place, Situation Memory: Untestable Estimate Intellectual Function: Average Basis for IQ estimate: Educational history, Employment history Attention/Concentration & Cogn: Grossly Intact (though difficult to fully assess) Insight: Limited Judgement: Limited Mental Health Plan The patient is a 31-year-old, Mandarin speaking female with Beninese as second language who reportedly tried to "cut the baby out" at times due to anger prior to admission. The patient appeared to meet criteria for major depression and so was started on fluoxetine and lorazepam for anxiety. The patient requested an increase in antianxiety medication, however lorazepam is generally avoided where possible in and so she was switched to diphenhydramine per consultation with GAS METER CHECKER regarding safest treatment. Olanzapine was added due to ongoing psychosis and the patient has had a slow improvement in symptoms. She continued to express depressed mood and so fluoxetine was switched to sertraline, but the patient had been refusing for unclear reasons. Once switched to liquid formulation, the patient was again refusing but began to take it when the dose was split. The patient has been more interactive with the treatment team over the last few days following an increase in olanzapine. It is unclear whether her unrealistic expectations for discharge are a defense mechanism or are part of a delusion. [place] I: 1. Major depressive disorder with psychotic features. 2. Rule out post-traumatic stress disorder [place] II: Deferred. [place] III: Intrauterine due date 09/25/16 [place] IV: Severe. [place] V: 35 Medications Sertraline 50mg daily and 50mg at 1430 Olanzapine 5mg daily and 10mg nightly, with IM override. Diphenhydramine 25 mg as needed. Liquid vitamin daily Treatments 1. The patient is admitted to the inpatient unit and will be provided a safe and secure environment. 2. The patient is reporting denying current active suicidality or homicidality or intent to precipitate an early or delivery and is not in need of a one- to-one at this time. 3. The patient is encouraged to participate with group and milieu activities. 4. The patient will be seen by the treatment team on a daily basis to assess symptoms, side effects and response to treatment. Patient declining use of manager access. Speaking/reading Beninese 5. Continue current medications and follow-up with GAS METER CHECKER/ Center team. 6. 90 day more restrictive hearing pending. Rigoberto Egan MD September 18, 2016 17:00
--- NOTE | 2016-09-18 18:15 | NUR ---
Hat Copyist./ c.m. S.:"I'm fine. I eat more." O.: met with pt. and MD together in the Dining room. Pt. slept "ok" last night. She had a visit from the Center yesterday. "They came yesterday and took a picture again." She denied SI/HI, denied AH/VH, denied depression or anxiety. "I'm not too nervous." She spent a lot of time in the Dining room by herself. A.: pt. is cooperative, pleasant, has brighter affect and looks calm. She has better eye contact. P.: monitor behavior, follow care plan.
--- NOTE | 2016-09-18 22:15 | NUR ---
NURSING NOTE [id number] Mood: "good" Affect: quiet, brightens on approach Behavior: mostly isolating to her room this shift, came out and walked the halls for a bit, ate most of her dinner, med compliant Thought processes: denies depression or anxiety this shift. Shook head when asked if she has SI/HI.
--- NOTE | 2016-09-19 06:51 | NUR ---
Sleep Adequate sleep though the night with no noted distress or awakening per protocol checks. Total sleep 7.5+ hours.
[2016-09-19] MEDS: Sertraline 20 mg/mL Liq PO SCH ×2 (08:07→14:32)
[2016-09-19] MEDS: OLANZapine Zydis ODT 5 mg Tablet PO SCH ×3 (08:07→22:23)
[2016-09-19] MEDS: Multivitamins w/Minerals 5 mL Liquid Supplement PO SCH (08:08)
[2016-09-19 13:04] VITALS: BP 125/77; PULSE 111; RESP 16
--- NOTE | 2016-09-19 13:31 | NUR ---
Nursing Day Shift- S- "No family center yesterday. Why?" O- Pt. was awake for breakfast. She had slept well per report. She eat well and stated the above. FHT were monitored today at noon. [facility] nurse reported all seemed to be well. Pt. denied depression, anxiety, auditory or visual hallucinations. She commented on the baby being large and heavy with a smile. Pt. showered. A- Awaiting labor symptoms. No apparent distress, or noticeable psychotic behavior. Assessment remains difficult due to language and cultural barriers. Pt. remains guarded with history and feelings.
--- NOTE | 2016-09-19 14:41 | PCM.PNPSY ---
Subjective Date of Service September 19, 2016 Subjective I spent 30 minutes interviewing the patient and providing supportive/ educational psychotherapy. I spent less than 50% of the time counseling the patient as she was only able to tolerate a brief interaction. During this time I reviewed the treatment plan with the patient and discussed options available including the potential risks, benefits and side effects. Staff reports that she has been appropriate and is attempting to participate in one-to-one unit and group activities but struggles given language difficulties. Staff stated that she was increasingly outgoing talkative and smiling more. She spoke at length about the babies well-being and that she would likely be going to the birthing Center next week. She slept 7.5 hours and denies depression or psychotic symptoms review. She denies medication side effects. She does not appear to be responding to internal stimuli. Her social interactions are more appropriate. Patient was not able to identify her medications nor what they were used to treat Mental Status Exam Vital Signs Vital Signs Date Time Temp Pulse Resp B/P Pulse Ox O2 Delivery O2 Flow Rate FiO2 09/19/16 13:04 36.6 111 16 125/77 Appearance: Neat/well groomed Attitude: Pleasant, Cooperative, Guarded (mildly) Behavior: No unusual behavior Affect: Restricted Mood: Euthymic Thought Process/Associations: Goal Directed, Circumstantial Speech Production: Normal Speech Rate: Normal Speech Articulation: Other (Heavily accented) Thought Content: Appropriate Danger to Self/Suicidal Ideati: None Danger to Others: None Consciousness: Alert Orientation: Person, Place, Situation Memory: Untestable Estimate Intellectual Function: Average Basis for IQ estimate: Educational history, Employment history Attention/Concentration & Cogn: Grossly Intact (though difficult to fully assess) Insight: Limited Judgement: Limited Mental Health Plan The patient is a 30-year-old, Mandarin speaking only female who presents with an odd story of being at 29 weeks and then having her "parents send her from [place] to [place]". She struggled to relate a coherent history initially other than she feels shamed by her family for her . She initially reported symptoms which qualified for a diagnosis of major depressive disorder, but it was clear after the first several weeks that she is also having significant psychotic symptoms. Initially she reported hearing ghosts talk to her and tell her things to do. On her current medications she denies psychotic review of systems. At this time She appears to be tolerating olanzapine and sertraline and no longer appears to be suicidal nor to be responding to internal stimuli. Issues are difficult of disposition and legal status are tied up in immigration and justice system. She is due to give sometime soon (over the next several weeks). [place] I: 1. Major depressive disorder with psychotic features. 2. Rule out post-traumatic stress disorder [place] II: Deferred. [place] III: Intrauterine due date 09/25/16 [place] IV: Severe. [place] V: 35 Medications Sertraline 50mg daily and 50mg at 1430 Olanzapine 5mg daily and 10mg nightly, with IM override. Diphenhydramine 25 mg as needed. Liquid vitamin daily Treatments 1. The patient is admitted to the inpatient unit and will be provided a safe and secure environment. 2. The patient is reporting denying current active suicidality or homicidality or intent to precipitate an early or delivery and is not in need of a one- to-one at this time. 3. The patient is encouraged to participate with group and milieu activities. 4. The patient will be seen by the treatment team on a daily basis to assess symptoms, side effects and response to treatment. Patient declining use of hospital liaison. Speaking/reading Danish 5. Continue current medications and follow-up with TIME MOTION ANALYST/ Center team. 6. 90 day more restrictive hearing pending. Piero Angel MD September 19, 2016 14:41
--- NOTE | 2016-09-19 18:26 | NUR ---
[facility] Day Shift Pt maintained behavioral control throughout the shift. Pt affect appears mostly flat, somewhat brighter than noted on previous shifts. Pt spends most of the shift resting in her room and sitting quietly in the dining room. Pt is appropriate with staff and peers when active on the unit, but is not overly social. Pt remains selectively communicative with staff. Pt did not attend community meeting or group activities. Pt attended all meals and ate approx 90% of all meals.
--- NOTE | 2016-09-19 21:30 | NUR ---
NURSING NOTE [id number] At start of shift pt. was pacing the halls off and on and isolating to room, resting in bed. Did not endorse any labor pains during our 1:1 at start of shift. She came out and watched TV for a while then returned to her room. She did not eat dinner. At 20:15 this hand sign writer came upon her in her room where she was pacing and trying to kneel down on the floor at her bed, appearing to have contractions. Placed call to [facility] construction economist to come to unit for assessment. Pt's contractions at the time were 2 mins long, approx 90 seconds to 2 mins apart. When asked if her water had broken she was unsure but said "I pee, a lot come out". [facility] RN determined it was time to transport her to [facility] and pt. was escorted off the unit via wheelchair @ 20:45, accompanied by this RN, an MHA, 2 security staff, and [facility] RN. Remained w/pt at [facility] until exam was performed and it was determined she was 5 cm dilated and 90% effaced and in active labor. MHA remained w/pt 1:1 until ammunition assembly i laborer arrived to [facility] at 21:20 for 1:1. Placed call to Dr. Angel and received transport order to [facility] as well as a PRN order for Zyprexa 10 mg IM to have on hand should pt. become aggressive. Pt's chart w/new orders was hand delivered to [facility] at 21:45.
[2016-09-19] MEDS ORDERED: Lactated Ringer's 1,000 ML IV PRN (21:32)
[2016-09-19] MEDS ORDERED: fentaNYL-PF 50 mCg/mL 2 mL Inj IVPUSH PRN (21:35)
[2016-09-19] MEDS ORDERED: Oxytocin 30 Units/500 mL LR 30 UNITS in IV Premix 1 EACH IV PRN (21:35)
[2016-09-19] MEDS ORDERED: Hemorrhage Kit, Post Partum XX ONE (21:35)
--- NOTE | 2016-09-19 21:44 | PCM.HPOB ---
Subjective Referring Provider: Admitting Physician: Piero Angel MD Primary Care Physician: Nopyumiko Attending Physician: Marleny Graham MD Chief Complaint Called by RN at [facility]. Patient having contractions and some bloody show. History of Present History of Present Illness This is a 31-year-old female, uncertain , parity, at 39 weeks 1 day gestation. As previous history, she has been admitted to the psych unit because of depression and psychosis. She was noted by RN as having contractions and bloody show and was brought to [facility] for evaluation. She was found to be 5cm dilated and vertex. Membranes were intact. Last menstrual period (LMP): Not known. First dating scan (date and location): July 13, 2016 at [facility]. Estimated date of delivery (SMAREEN) from first dating scan: September 25, 2016. OB History: (unknown) Obstetrical Complications: Other (Depression, Acute Psycosis) Past Medical History Obstetrical History: unknown Gynecologic History: unknown Medical History: unknown Surgical History: unknown Hx Tobacco Use: No Past Family History Family History unknown Genetic Screening/Counseling Genetic Screening/Counseling unable to obtain due to patient acute psychosis Medications Home medications 1. Zoloft 100 mg q.a.m. 2. Zyprexa 5 mg q.a.m. and 7.5 mg q.h.s. Allergy Coded Allergies: No Known Allergies (Unverified , 07/13/16) Exam Constitutional: Well-developed Lungs: Clear to Auscultation Heart: Exam Unremarkable Abdomen: Gravid Neurological/Psychiatric: Alert, Cooperative, Mild Distress Neuro: Grossly Neurologically Intact Labs/Diagnostics Lab/Diagnostic Information CBC Test 07/13/16 15:27 08/23/16 08:58 Hold Purple Top Tube Received (Received) White Blood Count 7.5th/mm3 (3.8-10.1) Red Blood Count 3.51mil/mm3 (3.90-5.20) Hemoglobin 10.1g/dL (12.0-15.6) Hematocrit 31.3% (35.0-46.0) Mean Corpuscular Volume 89.2fL (81-100) Mean Corpuscular Hemoglobin 28.8pg (27.0-35.0) Mean Corpuscular Hemoglobin Concent 32.3% (32.0-37.0) Red Cell Distribution Width 12.8% (12.3-15.4) Platelet Count 306bil/L (150-400) Neutrophils (%) (Auto) 68.6% (40-74) Lymphocytes (%) (Auto) 21.8% (14-46) Monocytes (%) (Auto) 6.9% (4-12) Eosinophils (%) (Auto) 1.9% (0-5) Basophils (%) (Auto) 0.3% (0-3) CMP Test 07/13/16 15:27 Sodium Level 135mEq/L Potassium Level 3.8mEq/L Chloride Level 98mEq/L Carbon Dioxide Level 24mmol/L Blood Urea Nitrogen 6mg/dL Creatinine 0.32mg/dL Estimat Glomerular Filtration Rate 350mL/min Glucose Level 87mg/dL Calcium Level 9.1mg/dL Total Bilirubin 0.2mg/dL Aspartate Amino Transf (AST/SGOT) 15U/L Alanine Aminotransferase (ALT/SGPT) 8U/L Alkaline Phosphatase 584U/L Total Protein 6.9g/dL Albumin 3.5g/dL Thyroid Stimulating Hormone (TSH) 0.644uIU/mL Hold Red Top Tube Received Hold [place] Top Tube Received Hold [place] Top Tube Received Maternal Blood Type: B (Positive) Antibody Screen: negative Group B Strep Results: Negative Previous with GBS: Unknown Rubella: Immune Lab History: Positive for: Hx Chicken Pox Additional Information HIV negative, RPR nonreactive, hepatis B negative, hepatitis C negative OB Intrapartum Assessment/Plan Problems: (1) Active labor at term Plan: Will admit patient to the [facility] and initiated previously discussed plan for labor. She will have a sitter in the room as well as a nurse. Physical restraints are available if necessary. Will continue with expected management at this time. She may have epidural when desires Status: Acute (2) Acute psychosis Status: Acute ICD Code: F23 Pain Evaluation: Adequate Pain Control Marleny Graham MD September 19, 2016 21:44
[2016-09-19] MEDS ORDERED: fentaNYL 2 mCg/mL-Bupivicaine 0.125% 100 mL Premix EPIDURAL ONE (22:03)
[2016-09-19] MEDS ORDERED: OLAN10TA3 PO (22:19)
[2016-09-19] MEDS ORDERED: DIPH25CA6 PO (22:19)
[2016-09-19] MEDS ORDERED: CALC500T9 PO (22:19)
[2016-09-19] MEDS ORDERED: SERT20OR PO (22:19)
[2016-09-20] MEDS: Lactated Ringer's 1,000 ML IV SCH ×3 (00:10→17:38)
--- NOTE | 2016-09-20 01:37 | PCM.OBVAG ---
Vaginal Delivery Date of Service September 20, 2016 Pre Operative Diagnosis Pre Operative Diagnosis 39 weeks gestation Active Labor Acute Psychosis Depression Post Operative Diagnosis Post Operative Diagnosis 39 weeks gestation Active Labor Acute Psychosis Depression Procedure Obstetical Procedure: Normal Spontaneous Vaginal Delivery Assistant Director Of Security/Sweatband Decorating Machine Operator Provider and Sweatband Decorating Machine Operator: Marleny Graham MD Indication for Procedure Induction: Active labor Findings Obstetrical Findings: [place] (Female), Cord (3 Vessel), Presentation (Vertex) , 1 minute (7), 5 minutes (9), Placenta (Intact/Normal), Perineal Laceration (none) Analgesia/Medications Obstetrical Anesthesia: Epidural Procedure Details Procedure Details 31-year-old unknown and parity at 39 weeks gestation who is currently admitted to the outpatient psychiatric unit for acute psychosis and depression. She was transferred over from the psychiatric unit in labor. She progressed to complete dilation at 1209hrs. the patient was not very cooperative with pushing efforts. She was pushing ineffectively and moving around the bed. She delivered a female infant per spontaneous vaginal delivery at 01:17hrs. There was a single nuchal cord that was easily reduced. There was thin meconium- stained amniotic fluid. Cord was doubly clamped and ligated and infant handed off to waiting machine setter. On inspection of vagina, cervix and perineum there were no lacerations appreciated. Blood Loss & Administration Estimated Blood Loss: 200 Blood Admin during procedure: No Post Procedure Plan Post delivery Condition: Mom stable Marleny Graham MD September 20, 2016 01:37
[2016-09-20] MEDS ORDERED: Oxytocin 30 Units/500 mL LR 30 UNITS in IV Premix 1 EACH IV PRN (01:40)
[2016-09-20] MEDS ORDERED: Carboprost 250 mCg/mL Inj IM PRN (01:40)
[2016-09-20] MEDS ORDERED: Witch Hazel-Glycerin Pads TOPICAL PRN (01:40)
[2016-09-20] MEDS ORDERED: Benzocaine (Dermoplast) 20% 60 Gm Spray TOPICAL PRN (01:40)
[2016-09-20] MEDS ORDERED: Methylergonovine 0.2 mg/mL Inj IM PRN (01:40)
[2016-09-20] MEDS ORDERED: Hemorrhage Kit, Post Partum XX ONE (01:40)
[2016-09-20] MEDS ORDERED: LANOlin HPA 7 Gm Ointment TOPICAL PRN (01:40)
[2016-09-20] MEDS ORDERED: Oxytocin 10 Unit/mL Inj IM PRN (01:40)
[2016-09-20] MEDS: Sertraline 20 mg/mL Liq PO SCH ×4 (08:30→16:57)
[2016-09-20] MEDS: OLANZapine Zydis ODT 5 mg Tablet PO SCH ×2 (08:39→20:36)
--- NOTE | 2016-09-20 09:18 | NUR ---
Social Work Note-CPS Report D/A: CPS report made regarding patients current mental health status with her next MRO hearing 10/05. CPS screened in with an investigation to occur in the next 24 hour. Patient admitted to the [facility]HU 07/14. (See notes for more information) Pts apgars were 7/9 respectively. Per RN, pt is bonding with baby to include bottle feeding. Nursing has no concerns for MOB. There is a MH sitter at bedside, per Admin no need for security standby at this time. Notified medical imaging tech. Anticipate patient to return to the MHU 09/21 in morning. MHU to provide any further identification information or alias to CPS. PLAN: CPS to follow-up for an investigation. SPONGE PRESS OPERATOR has coordinated with Admin regarding plan. SONJA Sutton
[2016-09-20] MEDS: Multivitamins w/Minerals 5 mL Liquid Supplement PO SCH (12:01)
--- NOTE | 2016-09-20 15:54 | NUR ---
Social Work Note SAMPLE FINISHER met with CPS worker Shalonda Garcia [phone] who came to [facility] with washer blanket to begin investigation and to have Pt sign release of information. Per RN who will also be at bedside, Pt has been calm and appropriate today - certified master safe technician also at bedside for support. SAMPLE FINISHER explained that Tamika Long will call CPS tomorrow for update regarding plans for baby. CPS and Family RN deny any needs at this time. SAMPLE FINISHER will continue to follow. SONJA Barroso
--- NOTE | 2016-09-20 16:23 | PCM.PNPSY ---
Subjective Date of Service September 20, 2016 Subjective I spent 30 minutes interviewing the patient and providing supportive/ educational psychotherapy. I spent less than 50% of the time counseling the patient as she was only able to tolerate a brief interaction. You went into labor last night and delivered her baby daughter early this a.m. She had no complications and She has slept well. She reports being quite tired but otherwise denies depression or psychotic symptoms review. She denies medication side effects. She does not appear to be responding to internal stimuli. Her social interactions are appropriate. Patient was not able to identify her medications nor what they were used to treat Current Medications Current Medications Benzocaine 1 spray PRN PRN TOPICAL Last administered on 09/20/16 02:45; Admin Dose 60 SPRAY; Start 09/20/16 at 01:40 Ibuprofen 800 mg Q6H PRN PO Last administered on 09/20/16 07:33; Admin Dose 800 MG; Start 09/20/16 at 01:40 Lactated Ringer's 1,000 ml @ 0 mls/hr Q0M PRN IV Last administered on 09/19/16 23:41; Admin Dose 150 MLS/HR; Start 09/19/16 at 21:32; Stop 09/20/16 at 01:38; Status DC Lactated Ringer's 1,000 ml @ 125 mls/hr Q8H IV Last administered on 09/20/16 00 :10; Admin Dose 125 MLS/HR; Start 09/20/16 at 01:38 Oxytocin/Lactated Ringer's 30 units/ Premix 500 ml @ 350 mls/hr DIRECTED PRN IV Last administered on 09/20/16 01:30; Admin Dose 350 MLS/HR; Start at 01:40 Witch Matilde/ Glycerin 1 pad PRN PRN TOPICAL Last administered on 09/20/16 02:45 ; Admin Dose 40 PAD; Start 09/20/16 at 01:40 Mental Status Exam Appearance: Neat/well groomed Attitude: Pleasant, Cooperative, Guarded (mildly) Behavior: No unusual behavior Affect: Restricted Mood: Euphoric Thought Process/Associations: Goal Directed, Circumstantial Speech Production: Normal Speech Rate: Normal Speech Articulation: Other (Heavily accented) Thought Content: Appropriate Danger to Self/Suicidal Ideati: None Danger to Others: None Consciousness: Alert Orientation: Person, Place, Situation Memory: Untestable Estimate Intellectual Function: Average Basis for IQ estimate: Educational history, Employment history Attention/Concentration & Cogn: Grossly Intact (though difficult to fully assess) Insight: Limited Judgement: Limited Mental Health Plan Problems: (1) Active labor at term Plan: Will admit patient to the [facility] and initiated previously discussed plan for labor. She will have a sitter in the room as well as a nurse. Physical restraints are available if necessary. Will continue with expected management at this time. She may have epidural when desires Status: Acute (2) Acute psychosis Status: Acute ICD Code: F23 The patient is a 30-year-old, Mandarin speaking only female who presents with an odd story of being at 29 weeks and then having her "parents send her from [place] to [place]". She struggled to relate a coherent history initially other than she feels shamed by her family for her . She initially reported symptoms which qualified for a diagnosis of major depressive disorder, but it was clear after the first several weeks that she is also having significant psychotic symptoms. Initially she reported hearing ghosts talk to her and tell her things to do. On her current medications she denies psychotic review of systems. At this time She appears to be tolerating olanzapine and sertraline and no longer appears to be suicidal nor to be responding to internal stimuli. She delivered her baby early this morning. She has been appropriate with staff and we have a one-to-one from our unit that is with her around the clock. We will transfer her back to the unit as soon as she is cleared from ON SITE NURSE. Issues of disposition and legal status are tied up in immigration and justice system. [place] I: 1. Major depressive disorder with psychotic features. 2. Rule out post-traumatic stress disorder [place] II: Deferred. [place] III: Intrauterine due date 09/25/16 [place] IV: Severe. [place] V: 35 Medications Sertraline 50mg daily and 50mg at 1430 Olanzapine 5mg daily and 10mg nightly, with IM override. Diphenhydramine 25 mg as needed. Liquid vitamin daily Treatments 1. The patient is being monitored by a mental health tech and will be provided a safe and secure environment. 2. The patient is reporting denying current active suicidality or homicidality 3. The patient will be seen by the treatment team on a daily basis to assess symptoms, side effects and response to treatment. Patient declining use of patient care associate. Speaking/reading Samoan 5. Continue current medications and follow-up with ON SITE NURSE/ Center team. 6. Patient on a [address] with a 90 day more restrictive hearing pending. 7. Recommend continue current medications. 8. Recommend transfer back to the psychiatric unit when medically stable. Piero Angel MD September 20, 2016 16:23
[2016-09-20] MEDS ORDERED: LORazepam 2 mg Tablet PO PRN (22:45)
--- NOTE | 2016-09-21 01:16 | NUR ---
Transfer Pt arrived on [facility] @ 2230 accompanied by 2 family nurses, MHA, and security. Pt medically cleared by Family . She was tearful and stated "I want to be at [facility] [place]. I want three more days with my baby. I want to see my baby." Pt had apparently been in contact with family in [place] by telephone prior to arrival at the [facility]. Pt offered and accepted Ativan 2mg po one time order and is currently resting. She remains sad and continues to mention she wants to be with her baby.
[2016-09-21] MEDS: Lactated Ringer's 1,000 ML IV SCH (01:38)
[2016-09-21] MEDS: Sertraline 20 mg/mL Liq PO SCH ×2 (08:30→15:07)
[2016-09-21] MEDS: OLANZapine Zydis ODT 5 mg Tablet PO SCH ×2 (08:30→20:15)
[2016-09-21] MEDS: Multivitamins w/Minerals 5 mL Liquid Supplement PO SCH (08:30)
--- NOTE | 2016-09-21 12:15 | NUR ---
Nursing Note [id number] Behavior S/O: Pt ate 100% of breakfast. She reports she is using 1 pad every 2 hours this morning. Pt took all available medications this morning. She has requested to see her baby. Pt is pleasant & cooperative. She is able & willing to communicate with staff. She attended community meeting this morning & participated in group along with setting reasonable goals for the day. A: Pt has appropriate behavior & affect. P: Provide supportive environment. Monitor medications & effects.
--- NOTE | 2016-09-21 12:23 | PCM.PNPSY ---
Subjective Date of Service September 21, 2016 Subjective I spent 30 minutes interviewing the patient and providing supportive/ educational psychotherapy. I spent less than 50% of the time counseling the patient as she was only able to tolerate a brief interaction. You was in the birthing Center room last night when she became frustrated. She has been attempting to call relatives in [place] to come up and get her and the baby and take her out of the hospital. She will not relate the content of the phone call nor who she was talking too but the end result was that we transferred her back to our unit in order to maintain safety and structure. She was escalating to a point in the birthing Center where we were concerned about potential violence. CPS is doing an investigation into her baby daughter early this a.m.. She had no complications and She has slept well. She reports being quite tired but otherwise denies depression or psychotic symptoms review.The conversation was very minimal. She denies medication side effects. She does not appear to be responding to internal stimuli. Her social interactions are appropriate. DOMINIQUE Ann was not able to identify her medications nor what they were used to treat Current Medications Current Medications Benzocaine 1 spray PRN PRN TOPICAL Last administered on 09/20/16 02:45; Admin Dose 60 SPRAY; Start 09/20/16 at 01:40; Stop 09/21/16 at 02:53; Status DC Docusate Sodium 100 mg BID PO Last administered on 09/21/16 10:06; Admin Dose 100 MG; Start 09/20/16 at 08:30 Ibuprofen 800 mg Q6H PRN PO Last administered on 09/20/16 18:44; Admin Dose 800 MG; Start 09/20/16 at 01:40; Stop 09/20/16 at 23:09; Status DC Lactated Ringer's 1,000 ml @ 0 mls/hr Q0M PRN IV Last administered on 09/19/16 23:41; Admin Dose 150 MLS/HR; Start 09/19/16 at 21:32; Stop 09/20/16 at 01:38; Status DC Lactated Ringer's 1,000 ml @ 125 mls/hr Q8H IV Last administered on 09/20/16 00 :10; Admin Dose 125 MLS/HR; Start 09/20/16 at 01:38; Stop 09/21/16 at 02:53; Status DC Lorazepam 2 mg ONCE PRN PO Last administered on 09/20/16 23:34; Admin Dose 2 MG ; Start 09/20/16 at 22:45; Stop 09/20/16 at 23:55; Status DC Oxytocin/Lactated Ringer's 30 units/ Premix 500 ml @ 350 mls/hr DIRECTED PRN IV Last administered on 09/20/16 01:30; Admin Dose 350 MLS/HR; Start at 01:40; Stop 09/21/16 at 02:53; Status DC Witch Matilde/ Glycerin 1 pad PRN PRN TOPICAL Last administered on 09/20/16 02:45 ; Admin Dose 40 PAD; Start 09/20/16 at 01:40 Mental Status Exam Appearance: Neat/well groomed Attitude: Pleasant, Cooperative, Guarded (mildly) Behavior: No unusual behavior Affect: Restricted Mood: Euphoric Thought Process/Associations: Goal Directed, Circumstantial Speech Production: Normal Speech Rate: Normal Speech Articulation: Other (Heavily accented) Thought Content: Appropriate Danger to Self/Suicidal Ideati: None Danger to Others: None Consciousness: Alert Orientation: Person, Place, Situation Memory: Untestable Estimate Intellectual Function: Average Basis for IQ estimate: Educational history, Employment history Attention/Concentration & Cogn: Grossly Intact (though difficult to fully assess) Insight: Limited Judgement: Limited Mental Health Plan Problems: (1) Active labor at term Plan: Will admit patient to the [facility] and initiated previously discussed plan for labor. She will have a sitter in the room as well as a nurse. Physical restraints are available if necessary. Will continue with expected management at this time. She may have epidural when desires Status: Acute (2) Acute psychosis Status: Acute ICD Code: F23 The patient is a 30-year-old, Mandarin speaking only female who presents with an odd story of being at 29 weeks and then having her "parents send her from [place] to [place]". She struggled to relate a coherent history initially other than she feels shamed by her family for her . She initially reported symptoms which qualified for a diagnosis of major depressive disorder, but it was clear after the first several weeks that she is also having significant psychotic symptoms. Initially she reported hearing ghosts talk to her and tell her things to do. On her current medications she denies psychotic review of systems. At this time She is back on the unit and it Issues of child custody, disposition and legal status are tied up in immigration and justice system. [place] I: 1. Major depressive disorder with psychotic features. 2. Rule out post-traumatic stress disorder [place] II: Deferred. [place] III: Intrauterine due date 09/25/16 [place] IV: Severe. [place] V: 35 Medications Sertraline 50mg daily and 50mg at 1430 Olanzapine 5mg daily and 10mg nightly, with IM override. Diphenhydramine 25 mg as needed. Liquid vitamin daily Treatments 1. The patient is being monitored by a mental health tech and will be provided a safe and secure environment. 2. The patient is reporting denying current active suicidality or homicidality 3. The patient will be seen by the treatment team on a daily basis to assess symptoms, side effects and response to treatment. Patient declining use of taxicab dispatcher. Speaking/reading Portuguese 5. Continue current medications and follow-up with MULTI SPINDLE OPERATOR/ Center team. 6. Patient on a [address] hold with a 90 day more restrictive hearing pending. 7. Recommend continue current medications. 8. Disposition pending CPS evaluation and immigration status Piero Angel MD September 21, 2016 12:23
[2016-09-21 15:21] VITALS: BP 104/71; PULSE 98; RESP 16
--- NOTE | 2016-09-21 15:46 | PROG NOTE ---
[address] [address] PROGRESS NOTE PATIENT: TOMMY ADAMS : 1985 MR#: [id number] ADMIT: 07/13/2016 JOB ID: [id number] DATE: 09/21/2016 SUBJECTIVE: Patient is doing well this morning. She is back in the psych unit. Her pain is well controlled with pain medication. She is tolerating a regular diet. She is voiding and ambulating well on her own. Her baby, Argelia, is doing well in the nursery. She is formula feeding. Per the nurses in the room with her, her lochia has been minimal and scant. She has no other questions or concerns, currently. OBJECTIVE: She is afebrile. Vital signs are stable. In general, she is awake, alert, oriented. She is in no acute distress. She is sitting on her bed next to the nurse and is reading a book. She is awake, alert, oriented, and is able to answer questions at this time. ASSESSMENT: This is a 31-year-old, multiparous patient of unknown and parity who is now day number one following a spontaneous vaginal delivery that occurred on the piece maker hours of the . Additionally, the patient has been in the psych unit for what appears to be severe depression with psychosis. PLAN: The patient is doing well . She is stable in her room on the psych unit. Her baby girl is doing well in the nursery. She is B positive. She is rubella immune and Varicella immune and does not need any vaccinations. She is doing well . She will continue to receive care from the Psychiatric team. The OB team will sign off at this time. Please contact us with any further questions or concerns. She is stable from an obstetrical standpoint.
--- NOTE | 2016-09-21 20:45 | NUR ---
nursing note evening shift S)"baby girl" O) pt showed me pictures of her baby, calm and smiling, ate meals this shift and social with a few others, walked ralph for exercise, appears comfortable, denies any problems A) took medication, ate meals, no complaints P) monitor effectiveness of mediations and encourage participation on unit as able
--- NOTE | 2016-09-22 04:52 | NUR ---
Sleep 11p-7a Adequate sleep through the night with no noted distress or awakening per protocol checks. Pt has remained asleep since 2229 for over 6 hours of sleep.
--- NOTE | 2016-09-22 06:06 | NUR ---
Observations 1900 - 0700 Pt was in her room at the start of the shift. Pt was isolative, guarded and withdrawn tonight. Pt speech and eye contact was ok. Pt was pleasant upon approach. Pt was unsocial with peers and staff. Pt is polite and cooperative. Pt maintained behavior control throughout the shift. Pt was in her room most of the shift coming out briefly for snack, checking time and walk around before returning to her room. Pt first appeared sleep at 2230. Pt was observed every 15 minutes through the night as ordered. Pt is currently asleep with respirations apparent.
[2016-09-22] MEDS: Multivitamins w/Minerals 5 mL Liquid Supplement PO SCH (08:30)
[2016-09-22] MEDS: Sertraline 20 mg/mL Liq PO SCH ×2 (08:36→13:45)
[2016-09-22] MEDS: OLANZapine Zydis ODT 5 mg Tablet PO SCH ×2 (08:37→21:06)
--- NOTE | 2016-09-22 11:50 | NUR ---
Nursing Day Shift- S- "Baby go with white people. In 18 month I have job, and apt., I get baby back. Family want to see baby before she goes. Security tell me no because of court. My Uncle." O- Pt. had slept well per report. She was awake and dressed for breakfast. She appeared calm and smiled gently at staff. Pt. denied pain or discomfort. She stated the above and smiled while describing the baby. She appeared calm when explaining her understanding of the plan for the babies care. Her questions about visitation for her family either with the baby, or on our unit were passed on to the MD. Pt. has eaten well at meals and been compliant with medication, other then liquid vitamins. Pt. denies depression or anxiety. A- Pt. appears calm when discussing future plans for her daughter. No outward signs of observing, talking to, or listening to auditory or visual hallucinations. P- Cont. BHTP.
--- NOTE | 2016-09-22 14:01 | PCM.PNPSY ---
Subjective Date of Service September 22, 2016 Subjective I spent 30 minutes interviewing the patient and providing supportive/ educational psychotherapy. I spent more than 50% of the time counseling the patient as she was able to tolerate the entire session without becoming upset. She had no complications and She has slept well. She reports feeling improved energy and denies depression or psychotic symptoms review.she denied suicidal or homicidal ideation. She denies medication side effects. She does not appear to be responding to internal stimuli. Her social interactions are appropriate. She was able to identify her medications and what they were used to treat Current Medications Current Medications Lorazepam 2 mg ONCE PRN PO Last administered on 09/20/16t 23:34; Admin Dose 2 MG ; Start 09/20/16 at 22:45; Stop 09/20/16 at 23:55; Status DC Mental Status Exam Appearance: Neat/well groomed Attitude: Pleasant, Cooperative Behavior: No unusual behavior Affect: Well Modulated/Appropriate Mood: Euthymic Thought Process/Associations: Goal Directed Speech Production: Normal Speech Rate: Normal Speech Articulation: Other (Heavily accented) Thought Content: Appropriate Danger to Self/Suicidal Ideati: None Danger to Others: None Consciousness: Alert Orientation: Person, Place, Situation Memory: Untestable Estimate Intellectual Function: Average Basis for IQ estimate: Educational history, Employment history Attention/Concentration & Cogn: Grossly Intact (though difficult to fully assess) Insight: Limited Judgement: Good Mental Health Plan Problems: (1) Active labor at term Plan: Will admit patient to the [facility] and initiated previously discussed plan for labor. She will have a sitter in the room as well as a nurse. Physical restraints are available if necessary. Will continue with expected management at this time. She may have epidural when desires Status: Acute (2) Acute psychosis Status: Acute ICD Code: F23 The patient is a 30-year-old, Mandarin speaking only female who presents on admission with an odd story of being at 29 weeks and then having her "parents send her from [place] to [place]". She struggled to relate a coherent history initially other than she feels shamed by her family for her . She initially reported symptoms which qualified for a diagnosis of major depressive disorder, but it was clear after the first several weeks that she is also having significant psychotic symptoms. Initially she reported hearing ghosts talk to her and tell her things to do. On her current medications she denies psychotic review of systems. At this time She is back on the unit and denies depressive or psychotic symptoms review. She is requesting discharge to her family as soon as they are willing to take her. Issues of child custody, disposition and legal status are tied up in the immigration and justice system. [place] I: 1. Major depressive disorder with psychotic features. 2. Rule out post-traumatic stress disorder [place] II: Deferred. [place] III: Intrauterine due date 09/25/16 [place] IV: Severe. [place] V: 35 Medications Sertraline 50mg daily and 50mg at 1430 Olanzapine 5mg daily and 10mg nightly, with IM override. Diphenhydramine 25 mg as needed. Liquid vitamin daily Treatments 1. The patient is being monitored by a mental health tech and will be provided a safe and secure environment. 2. The patient is reporting denying current active suicidality or homicidality 3. The patient will be seen by the treatment team on a daily basis to assess symptoms, side effects and response to treatment. Patient declining use of truck mechanic. Speaking/reading Tongan 5. Continue current medications and follow-up with MEDICAL BILLING CODER/ Center team. 6. Patient on a [address] with a 90 day more restrictive hearing pending. 7. Recommend continue current medications. 8. Disposition pending CPS evaluation and immigration status Piero Angel MD September 22, 2016 14:01
--- NOTE | 2016-09-22 18:45 | NUR ---
Obs Dayshift Pt remained in bed for most of the day only getting up for meetings w/ CPS, Dr and meals. Pt has good eye contact, smiling, and polite toward staff when approached. Pt is calm and appropriate. Good ALD's, Good meals
--- NOTE | 2016-09-22 22:53 | NUR ---
NURS Notes [id number] S "I'm nervous about my baby." O Pt denies depression. Endorses "feeling nervous." Pt denies SI, HI. Pt denies VH. Pt reports hearing a song in Slovak. Pt visited baby on [facility] at 1930 accompanied by MHA. Pt continues to have moderate bright red lochia. A Pt is communicating clearly. Pleasant and appropriate. Pt concerned about situation with baby. P Continue with treatment plan. Monitor bleeding.
--- NOTE | 2016-09-23 05:32 | NUR ---
nursing, nights, 11-7 s/o- has appeared to sleep after 2215 to 0020. sat quietly in the dinning room till 0130 and returned to sleep. assessed q 15 minutes. a- interrupted sleep, no apparent distress. p- monitor behavior/emotional state, quality, times and amount of sleep, use and effect of medication. rosie
[2016-09-23] MEDS: Sertraline 20 mg/mL Liq PO SCH ×2 (08:21→14:45)
[2016-09-23] MEDS: OLANZapine Zydis ODT 5 mg Tablet PO SCH ×2 (08:21→21:08)
[2016-09-23] MEDS: Multivitamins w/Minerals 5 mL Liquid Supplement PO SCH (08:22)
--- NOTE | 2016-09-23 11:33 | PCM.PNPSY ---
Subjective Date of Service September 23, 2016 Subjective I spent 30 minutes interviewing the patient and providing supportive/ educational psychotherapy. I spent less than 50% of the time counseling the patient as she was only able to tolerate a brief session. She denies complaints and reports that She has slept well. She reports feeling more positive in his wanting to discharge soon. She denies medication side effects. She does not appear to be responding to internal stimuli. She was able to identify her medications and what they were used to treat Mental Status Exam Appearance: Neat/well groomed Attitude: Pleasant, Cooperative Behavior: No unusual behavior Affect: Well Modulated/Appropriate Mood: Euthymic Thought Process/Associations: Goal Directed Speech Production: Normal Speech Rate: Normal Speech Articulation: Other (Heavily accented) Thought Content: Appropriate Danger to Self/Suicidal Ideati: None Danger to Others: None Consciousness: Alert Orientation: Person, Place, Situation Memory: Untestable Estimate Intellectual Function: Average Basis for IQ estimate: Educational history, Employment history Attention/Concentration & Cogn: Grossly Intact (though difficult to fully assess) Insight: Limited Judgement: Good Mental Health Plan Problems: (1) Active labor at term Plan: Will admit patient to the [facility] and initiated previously discussed plan for labor. She will have a sitter in the room as well as a nurse. Physical restraints are available if necessary. Will continue with expected management at this time. She may have epidural when desires Status: Acute (2) Acute psychosis Status: Acute ICD Code: F23 The patient is a 30-year-old, Mandarin speaking only female who presents on admission with an odd story of being at 29 weeks and then having her "parents send her from [place] to [place]". She struggled to relate a coherent history initially other than she feels shamed by her family for her . She initially reported symptoms which qualified for a diagnosis of major depressive disorder, but it was clear after the first several weeks that she is also having significant psychotic symptoms. Initially she reported hearing ghosts talk to her and tell her things to do. On her current medications she denies psychotic review of systems. At this time She is back on the unit and denies depressive or psychotic symptoms review. She is requesting discharge to her family as soon as they are willing to take her. Her mood is markedly improved since the of her child in daily visits. CPS is involved and we are unclear about the direction they are taking with custody of the child and parental visitation. Issues of child custody, disposition and legal status are tied up in the CPS and justice system. [place] I: 1. Major depressive disorder with psychotic features. 2. Rule out post-traumatic stress disorder [place] II: Deferred. [place] III: none [place] IV: Severe. [place] V: 40 Medications Sertraline 50mg daily and 50mg at 1430 Olanzapine 5mg daily and 10mg nightly, with IM override. Diphenhydramine 25 mg as needed. Liquid vitamin daily Treatments Takes every now also if they were work versus not spectrum but again like his what is no structure 1. The patient is being monitored by a mental health tech and will be provided a safe and secure environment. 2. The patient is reporting denying current active suicidality or homicidality 3. The patient will be seen by the treatment team on a daily basis to assess symptoms, side effects and response to treatment. Patient declining use of insurance sales associate. Speaking/reading Citizen Of [place] 5. Continue current medications and follow-up with THERAPEUTIC SPECIALIST/ Center team. 6. Patient on a [address] hold with a 90 day more restrictive hearing pending. 7. Recommend continue current medications. 8. Disposition pending CPS evaluation and immigration status Piero Angel MD September 23, 2016 11:33
--- NOTE | 2016-09-23 11:56 | NUR ---
Nursing Day Shift- S- "Baby good. I see her again? CPS take? white people." O- Pt. was awake for breakfast. She had a soft smile for staff. Pt. was able to talk about her daughter and her separation from her with a calm expression. She denied depression or hallucinations. Pt. eat well. She showered after breakfast, and eat well at meals. Pt. denied pain or excess bleeding. A- No outward signs of psychosis or depression. Pt's questions passed on to Case Management. P- Cont. TP.
[2016-09-23 14:12] VITALS: BP 111/75; PULSE 128; RESP 16
--- NOTE | 2016-09-23 18:09 | NUR ---
Solar Installation Supervisor/Counselor: S/O: Patient slept 7 hours last night as per staff. She denies S/I and H/I. She denies auditory and visual hallucinations. She did not rate depression and anxiety. A: Patient is cooperative, euthymic, goal directed, limited insight, good judgment. P: Follow the care plan, coordinate with out-patient providers.
--- NOTE | 2016-09-23 20:58 | NUR ---
Observations 0900 to 2130 Pt affect and mood continues to be the same as previous shifts. Pt was in her room and isolative most of the shift. Pt was minimally social when approached by staff. Pt attended meals in D.R. and ate 60-70% of her meals. Pt was offered snack but declined. Pt attended wrap up group and unit activities. Pt was minimally social with select peers. Pt was observed every 15 minutes throughout the shift as ordered.
--- NOTE | 2016-09-23 23:24 | NUR ---
NURSING NOTE [id number] Mood: "okay" Affect: quiet, calm, cooperative Behavior: mostly isolating to room this shift, came out to ask if she could visit her baby in the nursery, pt. was unaware that her baby was discharging this evening w/foster parents. Pt. did get to visit the baby for 20 mins in the nursery under this handbook writer's supervision as well as security. Pt. was calm and cooperative and said goodbye to the baby. Pt. asked questions about baby's weight and asked how she would receive updates on baby's condition after discharge. Pt. was referred to the elementary school social worker handling her case. Pt. was content with this and brought pictures of the baby back to our unit. Med compliant @ . Thought processes: no delusions noted, denies SI/HI, no AH/VH. Nursing note: pt's breasts are very engorged this evening and leaking. Pt. given ice packs and pads.
--- NOTE | 2016-09-24 05:18 | NUR ---
nursing, nights, 11-7 s/o- has appeared to sleep after 2200 during q 15 minute assessments. a- no apparent distress. p- monitor behavior/emotional state, quality, times and amount of sleep, use and effect of medication. rosie
[2016-09-24] MEDS: Multivitamins w/Minerals 5 mL Liquid Supplement PO SCH (08:57)
[2016-09-24] MEDS: OLANZapine Zydis ODT 5 mg Tablet PO SCH ×2 (08:57→20:42)
[2016-09-24] MEDS: Sertraline 20 mg/mL Liq PO SCH ×2 (08:57→15:24)
[2016-09-24 10:12] VITALS: BP 112/74; PULSE 80; RESP 16
--- NOTE | 2016-09-24 14:03 | PCM.PNPSY ---
Subjective Date of Service September 24, 2016 Subjective I spent 30 minutes interviewing the patient and providing supportive/ educational psychotherapy. I spent less than 50% of the time counseling the patient as she was only able to tolerate a brief session. She denies complaints and reports that She has slept well. She reports feeling more positive and is wanting to discharge soon. She denies medication side effects. She does not appear to be responding to internal stimuli. She was able to identify her medications and what they were used to treat Mental Status Exam Vital Signs Vital Signs Date Time Temp Pulse Resp B/P Pulse Ox O2 Delivery O2 Flow Rate FiO2 09/24/16 10:12 36.1 80 16 112/74 Appearance: Neat/well groomed Attitude: Pleasant, Cooperative Behavior: No unusual behavior Affect: Well Modulated/Appropriate Mood: Euthymic Thought Process/Associations: Goal Directed Speech Production: Normal Speech Rate: Normal Speech Articulation: Other (Heavily accented) Thought Content: Appropriate Danger to Self/Suicidal Ideati: None Danger to Others: None Consciousness: Alert Orientation: Person, Place, Situation Memory: Grossly Intact Estimate Intellectual Function: Average Basis for IQ estimate: Educational history, Employment history Attention/Concentration & Cogn: Grossly Intact (though difficult to fully assess) Insight: Limited Judgement: Good Mental Health Plan Problems: (1) Active labor at term Plan: [facility] and initiated previously discussed plan for labor. She will have a sitter in the room as well as a nurse. Physical restraints are available if necessary. Will continue with expected management at this time. She may have epidural when desires Status: Acute (2) Acute psychosis Status: Acute ICD Code: F23 The patient is a 30-year-old, Mandarin speaking only female who presents on admission with an odd story of being at 29 weeks and then having her "parents send her from [place] to [place]". She struggled to relate a coherent history initially other than she feels shamed by her family for her . She initially reported symptoms which qualified for a diagnosis of major depressive disorder, but it was clear after the first several weeks that she is also having significant psychotic symptoms. Initially she reported hearing ghosts talk to her and tell her things to do. On her current medications she denies psychotic review of systems. At this time She is back on the unit and denies depressive or psychotic symptoms review. She is requesting discharge to her family as soon as they are willing to take her. Her mood is markedly improved since the of her child in daily visits. CPS is involved and we are unclear about the direction they are taking with custody of the child and parental visitation. Issues of child custody, disposition and legal status are tied up in the CPS and justice system. [place] I: 1. Major depressive disorder with psychotic features. 2. Rule out post-traumatic stress disorder [place] II: Deferred. [place] III: none [place] IV: Severe. [place] V: 40 Medications Sertraline 50mg daily and 50mg at 1430 Olanzapine 5mg daily and 10mg nightly, with IM override. Diphenhydramine 25 mg as needed. Liquid vitamin daily Treatments 1. The patient is being monitored by a mental health tech and will be provided a safe and secure environment. 2. The patient is reporting denying current active suicidality or homicidality 3. The patient will be seen by the treatment team on a daily basis to assess symptoms, side effects and response to treatment. Patient declining use of winch driver. Speaking/reading Liberian 5. Continue current medications and follow-up with EMBEDDED DEVELOPER/ Center team. 6. Patient on a [address] hold with a 90 day more restrictive hearing pending. 7. Recommend continue current medications. 8. Disposition pending CPS evaluation and immigration status Piero Angel MD September 24, 2016 14:03
--- NOTE | 2016-09-24 14:30 | NUR ---
Nursing Day Shift- S/O- Pt. had slept well per report. She was awake for breakfast, but wanted only juice. She kept to herself and eat well at lunch. She reported that the baby looked good last PM. She denied any pain and had brief responses. A- Unchanged presentation the past few days. P- Cont. TP.
--- NOTE | 2016-09-24 21:04 | NUR ---
Observations 0900 to 2130 Pt affect and mood continues to be the same as previous shifts. flat, guarded, withdrawn Pt was in her room and isolative most of the shift. Pt was minimally social when approached by staff and peers. Pt attended meals in D.R. and ate 60-70% of her meals. Pt was offered snack but declined. Pt was observed every 15 minutes throughout the shift as ordered.
[2016-09-25 08:00] VITALS: BP 99/62; PULSE 110; RESP 18
[2016-09-25] MEDS: OLANZapine Zydis ODT 5 mg Tablet PO SCH ×2 (08:37→21:09)
[2016-09-25] MEDS: Sertraline 20 mg/mL Liq PO SCH ×2 (08:37→14:30)
[2016-09-25] MEDS: Multivitamins w/Minerals 5 mL Liquid Supplement PO SCH (08:38)
--- NOTE | 2016-09-25 11:36 | NUR ---
Day shift S:"I need pads" O: quite, withdrawn. Able to communicate needs A: Cooperative with care. Took all morning medications. Encouraging fluid intake. p: Monitor vitals, and post care. Abdomen distended. No reports of discomfort.
--- NOTE | 2016-09-25 12:39 | PCM.PNPSY ---
Subjective Date of Service September 25, 2016 Subjective I spent 20 minutes interviewing the patient and providing supportive/ educational psychotherapy. I spent more than 50% of the time counseling the patient as she was able to tolerate the session. She denies complaints and reports that She has slept well. She reports feeling more positive and is wanting to discharge soon. She denies medication side effects. She does not appear to be responding to internal stimuli. She was able to identify her medications and what they were used to treat Mental Status Exam Vital Signs Vital Signs Date Time Temp Pulse Resp B/P Pulse Ox O2 Delivery O2 Flow Rate FiO2 09/25/16 08:00 36.3 110 18 99/62 Appearance: Neat/well groomed Attitude: Pleasant, Cooperative Behavior: No unusual behavior Affect: Well Modulated/Appropriate Mood: Euthymic Thought Process/Associations: Goal Directed Speech Production: Normal Speech Rate: Normal Speech Articulation: Other (Heavily accented) Thought Content: Appropriate Danger to Self/Suicidal Ideati: None Danger to Others: None Consciousness: Alert Orientation: Person, Place, Situation Memory: Grossly Intact Estimate Intellectual Function: Average Basis for IQ estimate: Educational history, Employment history Attention/Concentration & Cogn: Grossly Intact (though difficult to fully assess) Insight: Limited Judgement: Good Mental Health Plan Problems: (1) Active labor at term Plan: [facility] and initiated previously discussed plan for labor. She will have a sitter in the room as well as a nurse. Physical restraints are available if necessary. Will continue with expected management at this time. She may have epidural when desires Status: Acute (2) Acute psychosis Status: Acute ICD Code: F23 The patient is a 30-year-old, Mandarin speaking only female who presents on admission with an odd story of being at 29 weeks and then having her "parents send her from [place] to [place]". She struggled to relate a coherent history initially other than she feels shamed by her family for her . She initially reported symptoms which qualified for a diagnosis of major depressive disorder, but it was clear after the first several weeks that she is also having significant psychotic symptoms. Initially she reported hearing ghosts talk to her and tell her things to do. On her current medications she denies psychotic review of systems. At this time She is back on the unit and denies depressive or psychotic symptoms review. She is requesting discharge to her family as soon as they are willing to take her. Her mood is markedly improved since the of her child in daily visits. CPS is involved and we are unclear about the direction they are taking with custody of the child and parental visitation. Issues of child custody, disposition and legal status are tied up in the CPS and justice system. [place] I: 1. Major depressive disorder with psychotic features. 2. Rule out post-traumatic stress disorder [place] II: Deferred. [place] III: none [place] IV: Severe. [place] V: 45 Medications Sertraline 50mg daily and 50mg at 1430 Olanzapine 5mg daily and 5 mg nightly Diphenhydramine 25 mg as needed. Liquid vitamin daily Treatments 1. The patient is being monitored by a mental health tech and will be provided a safe and secure environment. 2. The patient is denying current active suicidality or homicidality 3. The patient will be seen by the treatment team on a daily basis to assess symptoms, side effects and response to treatment. Patient declining use of registered pharmacy technician. Speaking/reading Belarusian 5. Continue current medications 6. Patient on a [address] hold with a 90 day more restrictive hearing pending. 7. Recommend continue current medications. 8. Disposition pending CPS evaluation and immigration status Piero Angel MD September 25, 2016 12:39
--- NOTE | 2016-09-25 17:47 | NUR ---
Observations 0900 to 2130 Pt maintained behavioral control throughout the shift. Pt continues to be flat, quiet, withdrawn. Pt briefly went out onto patio with peers in afternoon. Pt attended community meeting and responded to daily goal query with talking about 'family.' Self rated daily mood at 8/10. Otherwise pt isolated in bed most of day. Pt ate 75-100% of meals and was observed every 15 minutes as ordered.
--- NOTE | 2016-09-26 05:17 | NUR ---
Nursing Note 7pm to 11pm Rail Grinder Pt awake in her room at start of shift. Pleasant, calm and cooperative. Pt was nonverbal except to say thank you after taking her medications. Pt went to bed at approx. 2130 and slept soundly through the night. Monitored pt. with q15 min face checks for safety location and accountability
[2016-09-26 08:53] VITALS: BP 113/74; PULSE 109; RESP 17
[2016-09-26] MEDS: OLANZapine Zydis ODT 5 mg Tablet PO SCH ×2 (09:18→20:57)
--- NOTE | 2016-09-26 13:17 | NUR ---
Nursing Note [id number] Behavior S/O: Pt ate 85% of breakfast & 100% of lunch. Pt had a high pulse rate of 131 this am. Pulse was 109 when taken manually. Other vital signs stable. Encouraged pt to drink more fluids. Pt smiles easily. She responds willingly with staff when addressed. She asked about her baby & asked, "How my baby doing?" Then said, "I want good home for my baby." Pt has asked to be called by her "[place] name...Fatmata." Pt reports changing pad for vaginal bleeding every "4 hours." Pt is pleasant & cooperative with medications. A: Pt improving. P: Provide supportive environment. Monitor medications & effects.
--- NOTE | 2016-09-26 18:05 | NUR ---
Observations [id number] Pt was asleep upon start of shift. Pt was much more active on the unit today. She attended Community Meeting, stating that she is excited about her baby. Pt attended all meals, eating 100%. Pt also attended group, working on a [employer]. She approached this headline writer stating that she would now like to be called by her georgian name, "yumi." Pt also spent time in the common areas. Pt was observed every 15 minutes of shift as directed.
--- NOTE | 2016-09-26 18:15 | PCM.PNPSY ---
Subjective Date of Service September 26, 2016 Subjective The patient reports that she is doing "good." She stated that she was somewhat concerned about the size of her abdomen after but was reassured when we discussed that it will gradually resolve. She states that she spoke to her parents in [place] and they indicated that she should stay in the hospital. She states that she would like to live with Nicole on discharge. She denied side effects to medications. She denied any new medical issues. The patient indicated that she would like to keep her baby rather than give it up to adoption. Sleep: 8 hours Appetite:"good" Suicidal and homicidal ideation: Denies Auditory hallucinations: "Just a little" Visual hallucinations: Denies Other Psychotic Symptoms: N/A Anxiety: "Not nervous" Depression: "Not really sad" Current Medications Current Medications Multivitamins/ Minerals Therapeutic 1 tablet DAILY PO Last administered on 09:18; Admin Dose 1 TABLET; Start 09/26/16 at 08:30 Olanzapine 5 mg HS PO Last administered on 09/25/16 21:09; Admin Dose 5 MG; Start 09/25/16 at 21:00 Sertraline HCl 50 mg 1430 PO Last administered on 09/26/16 14:17; Admin Dose 50 MG; Start 09/25/16 at 15:49 Sertraline HCl 50 mg DAILY PO Last administered on 09/26/16 09:18; Admin Dose 50 MG; Start 09/26/16 at 08:30 Mental Status Exam Appearance: Neat/well groomed Attitude: Pleasant, Cooperative Behavior: No unusual behavior Affect: Well Modulated/Appropriate Mood: Euthymic Thought Process/Associations: Goal Directed Speech Production: Normal Speech Rate: Normal Speech Articulation: Other (Heavily accented) Thought Content: Appropriate Danger to Self/Suicidal Ideati: None Danger to Others: None Hallucinations: Auditory (Endorses), Visual (Denies) Consciousness: Alert Orientation: Person, Place, Situation Memory: Grossly Intact Estimate Intellectual Function: Average Basis for IQ estimate: Educational history, Employment history Attention/Concentration & Cogn: Grossly Intact (though difficult to fully assess) Insight: Limited Judgement: Good Mental Health Plan The patient is a 31-year-old, Mandarin speaking female with Citizen Of [place] as second language who reportedly tried to "cut the baby out" at times due to anger prior to admission. The patient appeared to meet criteria for major depression and so was started on fluoxetine and lorazepam for anxiety. The patient requested an increase in antianxiety medication, however lorazepam is generally avoided where possible in and so she was switched to diphenhydramine per consultation with PHYSICIAN IN [facility]IVATE PRACT[facility] regarding safest treatment. Olanzapine was added due to ongoing psychosis and the patient has had a slow improvement in symptoms. She continued to express depressed mood and so fluoxetine was switched to sertraline, but the patient had been refusing for unclear reasons. Once switched to liquid formulation, the patient was again refusing but began to take it when the dose was split. The patient gave to her daughter and has demonstrated an improvement in her interaction with others and her willingness to talk to staff. She is endorsing mild auditory hallucinations but otherwise is asymptomatic. It is unclear whether she is actually been speaking to her parents in [place]. [place] I: 1. Major depressive disorder with psychotic features. 2. Rule out post-traumatic stress disorder [place] II: Deferred. [place] III: none [place] IV: Severe. [place] V: 35 Medications Sertraline 50mg daily and 50mg at 1430 Olanzapine 5mg daily and 5 mg nightly Diphenhydramine 25 mg as needed. Liquid vitamin daily Docusate 100 mg twice daily Treatments 1. The patient is admitted to the inpatient unit and will be provided a safe and secure environment. 2. The patient is denying current active suicidality or homicidality and is not in the need of a one-to-one at this time. 3. The patient is encouraged to participate with group and milieu activities. 4. The patient will be seen by the treatment team on a daily basis to assess symptoms, side effects and response to treatment. Patient declining use of configuration manager. Speaking/reading Citizen Of [place] 5. Consider increasing olanzapine due to auditory hallucinations. 6. Patient on a [address] hold with a 90 day more restrictive hearing pending. 7. Recommend continue current medications. 8. Disposition pending CPS evaluation and immigration status Rigoberto Egan MD September 26, 2016 18:15
--- NOTE | 2016-09-26 19:08 | NUR ---
Nurses Note evening Patient has been spontaneous,cheerful with a bright affect. She has been out of her room at intervals,eats well at dinner. Her thoughts have been reality based concerning her hospital stay and the delivery of her baby this past week. Patient stated "Argelia went to a white home,I can not care for her now." Patient spoke about getting a job and an apartment upon discharge. Maintain q 15min checks for safety and support. Addendum: 09/26/16 at 7 by NANCY GEE RN Amended: Links added.
--- NOTE | 2016-09-27 05:40 | NUR ---
Nursing note: manufacturing shift supervisor/sleep Patient appears to be sleeping on safety checks during the night. No complaints voiced
[2016-09-27 08:45] VITALS: BP 106/75; PULSE 97; RESP 12
[2016-09-27] MEDS: OLANZapine Zydis ODT 5 mg Tablet PO SCH ×2 (10:35→20:05)
--- NOTE | 2016-09-27 14:29 | NUR ---
Nursing Note [id number] Behavior S/O: Pt ate 100% of breakfast & lunch. Vital signs stable. Pt took medications willingly. Pleasant & cooperative with peers & staff. Converses with staff willingly. Conversation tracking good with slow rate & rhythm d/t Jamaican is a second language. Occasional spontaneous smiles. Pt attended groups. A: Pt slowly improving. P: Provide supportive environment. Monitor medications & effects.
--- NOTE | 2016-09-27 16:41 | NUR ---
Observations 0900 to 2130 Pt affect and mood was friendly, isolative at times, content and brighter than previous days. Pt was minimally social when approached by staff and peers. Pt attended meals in D.R. and ate 90-100% of breakfast and lunch. Pt was offered snack but declined. Pt took a shower. Pt maintained behavior throughout the shift. Pt attended community meeting and set a daily goal. Pt attended and participated in arts and crafts group. Pt was observed every 15 minutes throughout the shift as ordered.
--- NOTE | 2016-09-27 22:16 | PCM.PNPSY ---
Subjective Date of Service September 27, 2016 Subjective The patient reports that she is doing "good." The patient reported that she was concerned about her umbilical hernia that occurred following childbirth. Today, she was unsure where she might want to live on discharge. She denied side effects to medications. She denied any new medical issues. Sleep: 9 hours, "not better" Appetite:"good" Suicidal and homicidal ideation: Denies Auditory hallucinations: "Just a little" Visual hallucinations: Denies Other Psychotic Symptoms: N/A Anxiety: denies Depression: denies Current Medications Current Medications Multivitamins/ Minerals Therapeutic 1 tablet DAILY PO Last administered on 08:30; Admin Dose 1 TABLET; Start 09/26/16 at 08:30 Sertraline HCl 50 mg DAILY PO Last administered on 09/27/16 10:34; Admin Dose 50 MG; Start 09/26/16 at 08:30 Mental Status Exam Appearance: Neat/well groomed Attitude: Pleasant, Cooperative Behavior: No unusual behavior Affect: Well Modulated/Appropriate Mood: Euthymic Thought Process/Associations: Goal Directed Speech Production: Normal Speech Rate: Normal Speech Articulation: Other (Heavily accented) Thought Content: Appropriate Danger to Self/Suicidal Ideati: None Danger to Others: None Hallucinations: Auditory (Endorses), Visual (Denies) Consciousness: Alert Orientation: Person, Place, Situation Memory: Grossly Intact Estimate Intellectual Function: Average Basis for IQ estimate: Educational history, Employment history Attention/Concentration & Cogn: Grossly Intact (though difficult to fully assess) Insight: Limited Judgement: Limited Mental Health Plan The patient is a 31-year-old, Mandarin speaking female with Kiswahili as second language who reportedly tried to "cut the baby out" at times due to anger prior to admission. The patient appeared to meet criteria for major depression and so was started on fluoxetine and lorazepam for anxiety. The patient requested an increase in antianxiety medication, however lorazepam is generally avoided where possible in and so she was switched to diphenhydramine per consultation with BIG DATA ANALYTICS LEAD regarding safest treatment. Olanzapine was added due to ongoing psychosis and the patient has had a slow improvement in symptoms. She continued to express depressed mood and so fluoxetine was switched to sertraline, but the patient had been refusing for unclear reasons. Once switched to liquid formulation, the patient was again refusing but began to take it when the dose was split. The patient gave to her daughter and has demonstrated an improvement in her interaction with others and her willingness to talk to staff. She is endorsing mild auditory hallucinations but otherwise is asymptomatic. She reports that these have improved since the of her daughter and are quieter than last week when she was on a slightly higher dose of olanzapine. It is unclear whether she has actually been speaking to her parents in [place]. [place] I: 1. Major depressive disorder with psychotic features. 2. Rule out post-traumatic stress disorder [place] II: Deferred. [place] III: none [place] IV: Severe. [place] V: 35 Medications Sertraline 50mg daily and 50mg at 1430 Olanzapine 5mg daily and 5 mg nightly Diphenhydramine 25 mg as needed. Liquid vitamin daily Docusate 100 mg twice daily Treatments 1. The patient is admitted to the inpatient unit and will be provided a safe and secure environment. 2. The patient is denying current active suicidality or homicidality and is not in the need of a one-to-one at this time. 3. The patient is encouraged to participate with group and milieu activities. 4. The patient will be seen by the treatment team on a daily basis to assess symptoms, side effects and response to treatment. Patient declining use of sludge control attendant. Speaking/reading Kiswahili 5. Continue current dose of olanzapine but may consider increasing dose if auditory hallucinations worsen. 6. Patient on a [address] hold with a 90 day more restrictive hearing pending. 7. Recommend continue current medications. 8. Disposition pending CPS evaluation and immigration status Rigoberto Egan MD September 27, 2016 22:16
--- NOTE | 2016-09-27 22:55 | NUR ---
NURSING NOTE [id number] Mood: "good" Affect: pleasant, bright, polite Behavior: visible off and on in milieu this shift; sitting and coloring and at times chatting w/peers when they engage w/her. She took a shower, ate most of her dinner, walked the halls briefly. Med compliant. Thought processes: more logical and linear, smiling appropriately in conversation, denies depression but did say she was "sad" because she misses her baby. Pt. denied SI/HI/AH/VH. Nursing note: pt reported her navel was bleeding and painful. Upon inspection, no blood noted and navel no longer protruding. Bacitracin and band-aid applied. Pt reports no issues w/bleeding and still saturating a pad q4-q6h per her report. Pt. denied pain in her breasts and reported they feel hard. Declined ice packs.
--- NOTE | 2016-09-28 06:13 | NUR ---
Nursing Note 11pm to 7am Sterile Preparation Technician Pt asleep at start of shift and remained asleep for the duration No issues observed or reported. Monitored pt with q 15 minute face checks for safety, location and accountability
[2016-09-28] MEDS: OLANZapine Zydis ODT 5 mg Tablet PO SCH ×2 (09:48→21:21)
--- NOTE | 2016-09-28 14:00 | NUR ---
Nursing Note [id number] Behavior S/O: Pt ate 100% of breakfast & lunch. Pt has stayed in her room most of the day except for meals. Pt either appears to be sleeping in her room or looking at baby pictures. Pt has decreased interactions & willingness to talk with staff. Pleasant & cooperative. A: Pt more withdrawn, isolative with increased sadness today. P: Provide supportive environment. Monitor medications & effects.
[2016-09-28 14:15] VITALS: BP 108/73; PULSE 117; RESP 16
--- NOTE | 2016-09-28 18:44 | NUR ---
Observations [id number] Pt was asleep upon start of shift. She spent the majority of the day in her room, much less social then yesterday. Pt received mail regarding custody of her daughter. She became very isolative and upset regarding this. Pt did attend all meals, eating 100%. She did not attend group in the afternoon or the morning, nor shower. Pt was observed tearing up a picture of herself with her daughter when the request was made that the hospital needed one for her file. Pt was observed every 15 minutes of the shift, as directed.
--- NOTE | 2016-09-28 19:38 | NUR ---
Nurses Note Evening "I miss Argelia". Patient has been isolative to her room except for dinner. She has been tearful at times while looking at pictures of her baby. She received a letter today regarding foster care and parental rights which has had a negative effect on her mood. Patient ate 50% of her dinner,has not showered or changed her clothing. Her mood is sad and guarded now with staff. Will continue q 15min. checks for safety and support. Addendum: 09/28/16 at 8 by NANCY GEE RN Amended: Links added.
--- NOTE | 2016-09-28 21:50 | PCM.PNPSY ---
Subjective Date of Service September 28, 2016 Subjective Patient asked the treatment team to come back, when we did, she declined to go to the interview room and instead sat on her bed. She did not use any verbal communication, but shook her head "no" to all questions except when asked whether she wanted to have nighttime olanzapine. Denied medical problems or side effects. Sleep: shook head "no" Appetite:shook head "no" Suicidal and homicidal ideation: shook head "no" Auditory hallucinations: shook head "no" Visual hallucinations: shook head "no" Other Psychotic Symptoms: mute Anxiety:shook head "no" Depression:shook head "no" Current Medications Current Medications Olanzapine 7.5 mg HS PO Last administered on 09/28/16t 21:21; Admin Dose 7.5 MG ; Start 09/28/16 at 21:00 Mental Status Exam Vital Signs Vital Signs Date Time Temp Pulse Resp B/P Pulse Ox O2 Delivery O2 Flow Rate FiO2 09/28/16 14:15 36.5 117 16 108/73 Appearance: Neat/well groomed Attitude: Cooperative (marginally) Behavior: No unusual behavior Affect: Well Modulated/Appropriate Mood: Dysthymic Thought Process/Associations: Blocking Speech Production: Muter Speech Articulation: Other (Heavily accented) Thought Content: Appropriate Danger to Self/Suicidal Ideati: None Danger to Others: None Hallucinations: Auditory (Denies), Visual (Denies) Consciousness: Alert Orientation: Person, Place, Situation Memory: Grossly Intact Estimate Intellectual Function: Average Basis for IQ estimate: Educational history, Employment history Attention/Concentration & Cogn: Grossly Intact (though difficult to fully assess) Insight: Limited Judgement: Limited Mental Health Plan The patient is a 31-year-old, Mandarin speaking female with Bermudian as second language who reportedly tried to "cut the baby out" at times due to anger prior to admission. The patient appeared to meet criteria for major depression and so was started on fluoxetine and lorazepam for anxiety. The patient requested an increase in antianxiety medication, however lorazepam is generally avoided where possible in and so she was switched to diphenhydramine per consultation with TAILINGS MAN regarding safest treatment. Olanzapine was added due to ongoing psychosis and the patient has had a slow improvement in symptoms. She continued to express depressed mood and so fluoxetine was switched to sertraline, but the patient had been refusing for unclear reasons. Once switched to liquid formulation, the patient was again refusing but began to take it when the dose was split. The patient gave to her daughter and has demonstrated an improvement in her interaction with others and her willingness to talk to staff. She is endorsing mild auditory hallucinations but otherwise is asymptomatic. The patient is essentially mute but did appear to be endorsing the need for increase of her olanzapine. [place] I: 1. Major depressive disorder with psychotic features. 2. Rule out post-traumatic stress disorder [place] II: Deferred. [place] III: none [place] IV: Severe. [place] V: 35 Medications Sertraline 50mg daily and 50mg at 1430 Olanzapine 5mg daily and 5 mg nightly Diphenhydramine 25 mg as needed. Liquid vitamin daily Docusate 100 mg twice daily Treatments 1. The patient is admitted to the inpatient unit and will be provided a safe and secure environment. 2. The patient is denying current active suicidality or homicidality and is not in the need of a one-to-one at this time. 3. The patient is encouraged to participate with group and milieu activities. 4. The patient will be seen by the treatment team on a daily basis to assess symptoms, side effects and response to treatment. Patient declining use of facilities operator. Speaking/reading Bermudian 5. Increase olanzapine to 5mg daily and 7.5mg nightly 6. Patient on a [address] hold with a 90 day more restrictive hearing pending. 7. Recommend continue current other medications. 8. Disposition pending CPS evaluation and immigration status Rigoberto Egan MD September 28, 2016 21:50
--- NOTE | 2016-09-29 05:53 | NUR ---
Sleep 11p-7a Adequate sleep through the night with no noted distress or awakening per protocol checks. Total sleep over 7.5 hours.
[2016-09-29] MEDS: OLANZapine Zydis ODT 5 mg Tablet PO SCH ×2 (09:11→20:45)
--- NOTE | 2016-09-29 16:46 | NUR ---
Nursing Notes [id number] S: " I have a headache " O:. Pt is polite and calm. Pt had c/o some dizziness and a headache. Encouraged patient to drink more fluids as it sounds she may be a little bit dehydrated. Gave pt Tylenol with good results. A: Pt has flat effect. Pt appears guarded and isolates herself to her room. Minimal interaction with staff and other patients. Pt looks to the ground, does not easily or readily make eye contact with staff. Her affect is withdrawn. She has not been agreeable today to talk with staff. P: Monitor for safety and response to treatment. Follow plan of care for safety/response to treatment.
--- NOTE | 2016-09-29 18:18 | NUR ---
[facility] Day Shift Pt maintained behavioral control throughout the shift. Pt affect appears mostly flat. Pt spends most of the shift resting in her room and sitting quietly in the dining room. Pt is appropriate with staff and peers when active on the unit, but is not overly social. Pt remains selectively communicative with staff. Pt did not attend community meeting or group activities. Pt attended all meals and ate approx 90% of all meals.
--- NOTE | 2016-09-29 20:23 | NUR ---
Technical Sales Representative/Counselor: S/O: Patient slept 8+ hours last night as per staff. She denies S/I and H/I. She denies auditory and visual hallucinations. Depression is 0/10 and anxiety is 0/10. Very minimal conversation. A: Patient is cooperative, dysthymic, limited insight, limited judgment. P: Follow the care plan, coordinate with out-patient providers.
--- NOTE | 2016-09-29 23:20 | PCM.PNPSY ---
Subjective Date of Service September 29, 2016 Subjective The patient is seen with Mandarin well point pumping supervisor. The patient reports that she is doing "good." The patient denied any acute concerns. She denied side effects to medications. She denied any new medical issues. Sleep: 8+ hours, "okay" Appetite:"good" Suicidal and homicidal ideation: Denies Auditory hallucinations: Denies Visual hallucinations: Denies Other Psychotic Symptoms: N/A Anxiety: denies Depression: denies Current Medications Current Medications Olanzapine 7.5 mg HS PO Last administered on 09/29/16t 20:45; Admin Dose 7.5 MG ; Start 09/28/16 at 21:00 Mental Status Exam Appearance: Neat/well groomed Attitude: Cooperative (marginally) Behavior: No unusual behavior Affect: Well Modulated/Appropriate Mood: Dysthymic Thought Process/Associations: Blocking Speech Production: Paucity Speech Rate: Lags/Latency Speech Articulation: Other (Heavily accented) Thought Content: Appropriate Danger to Self/Suicidal Ideati: None Danger to Others: None Hallucinations: Auditory (Denies), Visual (Denies) Consciousness: Alert Orientation: Person, Place, Situation Memory: Grossly Intact Estimate Intellectual Function: Average Basis for IQ estimate: Educational history, Employment history Attention/Concentration & Cogn: Grossly Intact (though difficult to fully assess) Insight: Limited Judgement: Limited Mental Health Plan The patient is a 31-year-old, Mandarin speaking female with Congolese as second language who reportedly tried to "cut the baby out" at times due to anger prior to admission. The patient appeared to meet criteria for major depression and so was started on fluoxetine and lorazepam for anxiety. The patient requested an increase in antianxiety medication, however lorazepam is generally avoided where possible in and so she was switched to diphenhydramine per consultation with STOCK RAISER regarding safest treatment. Olanzapine was added due to ongoing psychosis and the patient has had a slow improvement in symptoms. She continued to express depressed mood and so fluoxetine was switched to sertraline, but the patient had been refusing for unclear reasons. Once switched to liquid formulation, the patient was again refusing but began to take it when the dose was split. The patient gave to her daughter and has demonstrated an improvement in her interaction with others and her willingness to talk to staff. She had been endorsing mild auditory hallucinations, olanzapine was increased to 7.5mg and she is now minimally verbal, but reporting that she is asymptomatic. [place] I: 1. Major depressive disorder with psychotic features. 2. Rule out post-traumatic stress disorder [place] II: Deferred. [place] III: none [place] IV: Severe. [place] V: 35 Medications Sertraline 50mg daily and 50mg at 1430 Olanzapine 5mg daily and 7.5 mg nightly Diphenhydramine 25 mg as needed. Liquid vitamin daily Docusate 100 mg twice daily Treatments 1. The patient is admitted to the inpatient unit and will be provided a safe and secure environment. 2. The patient is denying current active suicidality or homicidality and is not in the need of a one-to-one at this time. 3. The patient is encouraged to participate with group and milieu activities. 4. The patient will be seen by the treatment team on a daily basis to assess symptoms, side effects and response to treatment. Patient declining use of pool coordinator. Speaking/reading Congolese 5. Olanzapine 5mg daily and 7.5mg nightly 6. Patient on a [address] hold with a 90 day more restrictive hearing pending. 7. Recommend continue current medications. 8. Disposition pending CPS evaluation and immigration status Rigoberto Egan MD September 29, 2016 23:20
[2016-09-30] MEDS: OLANZapine Zydis ODT 5 mg Tablet PO SCH ×2 (08:57→21:16)
[2016-09-30 09:15] VITALS: BP 108/76; PULSE 117; RESP 17
--- NOTE | 2016-09-30 14:12 | PCM.PNPSY ---
Subjective Date of Service September 30, 2016 Subjective "Fatmata" is pleasant and answering questions appropriately today. She says that she is feeling sick with a non productive cough, she has been feeling hot for 2 days without fever. She elaborated slightly more on her history of hearing voices which started at the age of 20 after which time she became depressed. She hears the voices in Maori, not Mandarin. She speaks of family in [place] that she would like to go live with but also states that she would like to work towards being able to raise her daughter. She feels like medications are helping and agrees that an increase in her antidepressant may be helpful. Sleep: 7+ hours Appetite: okay Suicidal and homicidal ideation: denies Auditory hallucinations: decreased Visual hallucinations: does not endorse Other Psychotic Symptoms: none Anxiety: 0/10 Depression: 1010 Current Medications Current Medications Olanzapine 7.5 mg HS PO Last administered on 09/29/16t 20:45; Admin Dose 7.5 MG ; Start 09/28/16 at 21:00 Mental Status Exam Vital Signs Vital Signs Date Time Temp Pulse Resp B/P Pulse Ox O2 Delivery O2 Flow Rate FiO2 09/30/16 09:15 36.3 117 17 108/76 Appearance: Neat/well groomed Attitude: Cooperative (marginally) Behavior: No unusual behavior Affect: Restricted Mood: Dysthymic Thought Process/Associations: Blocking Speech Production: Paucity Speech Rate: Lags/Latency Speech Articulation: Other (Heavily accented) Thought Content: Appropriate Danger to Self/Suicidal Ideati: None Danger to Others: None Hallucinations: Auditory (Denies), Visual (Denies) Consciousness: Alert Orientation: Person, Place, Situation Memory: Grossly Intact Estimate Intellectual Function: Average Basis for IQ estimate: Educational history, Employment history Attention/Concentration & Cogn: Grossly Intact (though difficult to fully assess) Insight: Limited Judgement: Limited Mental Health Plan The patient is a 31-year-old, Mandarin speaking female with Maori as second language who reportedly tried to "cut the baby out" at times due to anger prior to admission. The patient appeared to meet criteria for major depression and so was started on fluoxetine and lorazepam for anxiety. The patient requested an increase in antianxiety medication, however lorazepam is generally avoided where possible in and so she was switched to diphenhydramine per consultation with NETWORK DESIGN ARCHITECT regarding safest treatment. Olanzapine was added due to ongoing psychosis and the patient has had a slow improvement in symptoms. She continued to express depressed mood and so fluoxetine was switched to sertraline, but the patient had been refusing for unclear reasons. Once switched to liquid formulation, the patient was again refusing but began to take it when the dose was split. The patient gave to her daughter and has demonstrated an improvement in her interaction with others and her willingness to talk to staff. She had been endorsing mild auditory hallucinations, olanzapine was increased to 7.5mg HS (with stable AM dose of 5 mg) she is more interactive and has improved greatly. When Olanzapine was decreased she had a decompensation within a few days. Her current dose seems to be helpful for her. She is still having 10/10 depression therefore we will increase her morning dose of Zoloft. [place] I: 1. Schizoaffective disorder, depressive type [place] II: Deferred. [place] III: 1 week post- [place] IV: Severe. [place] V: 35 Medications Sertraline 100mg daily and 50mg at 1430 Olanzapine 5mg daily and 7.5 mg nightly Diphenhydramine 25 mg as needed. Liquid vitamin daily Docusate 100 mg twice daily Treatments 1. The patient is admitted to the inpatient unit and will be provided a safe and secure environment. 2. The patient is denying current active suicidality or homicidality and is not in the need of a one-to-one at this time. 3. The patient is encouraged to participate with group and milieu activities. 4. The patient will be seen by the treatment team on a daily basis to assess symptoms, side effects and response to treatment. Patient declining use of bulk receiver. Speaking/reading Maori 5. Olanzapine 5mg daily and 7.5mg nightly 6. Increase Sertraline to 100mg daily, 50 mg at 14:30 7. Patient on a [address] hold with a 90 day more restrictive hearing pending. 8. Recommend continue current medications. 9. Disposition pending CPS evaluation and immigration status Maribel Aj DO September 30, 2016 14:12 Rigoberto Egan MD September 30, 2016 21:19 4. The patient will be seen by the treatment team on a daily basis to assess symptoms, side effects and response to treatment. Patient declining use of bulk receiver. Speaking/reading Maori 5. Olanzapine 5mg daily and 7.5mg nightly 6. Increase Sertraline to 100mg daily, 50 mg at 14:30 7. Patient on a [address] hold with a 90 day more restrictive hearing pending. 8. Recommend continue current medications. 9. Disposition pending CPS evaluation and immigration status Maribel Aj DO September 30, 2016 14:12
--- NOTE | 2016-09-30 14:29 | NUR ---
Nursing: Day shift: S: I like (to be called) Fatmata. O: You has been in her room most of the shift. At 0900, she complained of a headache and requested Tylenol. Administered 650 mg. At 1000, You still had a headache. Also complained of feeling hot. Temperature is not elevated. At 1300, You told automobile service writer that she felt better without being hot or having head hurt. Sleeping presently. Depression, Anxiety or self-harm not assessed today by automobile service writer. p: Continue assessment and support in planning. Addendum: 09/30/16 at 1438 by THAO FRENCH RN Amended: Links added.
--- NOTE | 2016-09-30 18:35 | NUR ---
Observations [id number] Pt stated she didn't feel well today. She spent much of the day in her room, sleeping. Pt did not attend group. She was friendly when approached by staff and peers. She attended all meals, eating an average of 75%. She was observed every 15 minutes of shift as directed.
--- NOTE | 2016-09-30 18:55 | NUR ---
Occupational Therapy Assist/Counselor: S: "I want my baby to grow up like a flower, like a tulip." O: Patient slept 7+ hours last night as per staff. She denies S/I and H/I. She denies auditory and visual hallucinations. Depression is 10/10, "I'm always sad about my baby." Anxiety is 0/10. Patient expressed her sadness about not having her baby with her. A: Patient is cooperative, dysthymic, limited insight, limited judgment. P: Follow the care plan, coordinate with out-patient providers.
[2016-10-01] MEDS: OLANZapine Zydis ODT 5 mg Tablet PO SCH ×2 (08:56→20:02)
--- NOTE | 2016-10-01 13:13 | NUR ---
NURS Note Day Orientation: x3 Pt seems more aware of circumstances leading to hospitalization. Mood: Endorses feeling sad. Denies anxiety. Affect: Smiling and pleasant in AM. Thought Process/Content: "I rented an apartment and put holes in the wall with a knife. I am sad because the baby is with a bad family." Linear, logical. Denies SI, HI. Denies AH, VH. Behavior: Pleasant, appropriate with staff and peers. PRNs/NURS: Assessed pt via candle molder hand at 1030. Pt met with lawyer Sagar Manzano.
--- NOTE | 2016-10-01 14:54 | PCM.PNPSY ---
Subjective Date of Service October 01, 2016 Subjective Patient is seen with an laser set up operator today. She is able to relate that the voices she hears are worse at night before bed but she can hear them at other times of the day as well but she is able to go to sleep. She hears the voices yelling and wanting to hurt her, they say bad things about her. She does say that she feels safe here. She is still feeling hot for about 5 days now but is afebrile. She also has a headache and some nausea. She does feel like her mood goes up and down and also feels like she worries a lot and would like it if the medications could help her worry less. No side effect complaints. Sleep: okay Appetite: decreased some, eating small meals Suicidal and homicidal ideation: denies Auditory hallucinations: Voice yelling that want to hurt her. Visual hallucinations: Shadows Other Psychotic Symptoms: none Anxiety: none Depression: 8/10 Current Medications Current Medications Sertraline HCl 100 mg DAILY PO Last administered on 10/01/16t 08:56; Admin Dose 100 MG; Start 10/01/16 at 08:30 Mental Status Exam Appearance: Neat/well groomed Attitude: Cooperative Behavior: No unusual behavior Affect: Restricted Mood: Dysthymic Thought Process/Associations: Blocking Speech Production: Paucity Speech Rate: Lags/Latency Speech Articulation: Other (Speaking in Mandarin) Thought Content: Appropriate Danger to Self/Suicidal Ideati: None Danger to Others: None Delusions: Paranoid (Endorses) Hallucinations: Auditory (Endorses), Visual (Endorses) Consciousness: Alert Orientation: Person, Place, Situation Memory: Grossly Intact Estimate Intellectual Function: Average Basis for IQ estimate: Educational history, Employment history Attention/Concentration & Cogn: Grossly Intact (though difficult to fully assess) Insight: Limited Judgement: Limited Mental Health Plan The patient is a 31-year-old, Mandarin speaking female with Hungarian as second language who reportedly tried to "cut the baby out" at times due to anger prior to admission. The patient appeared to meet criteria for major depression and so was started on fluoxetine and lorazepam for anxiety. The patient requested an increase in antianxiety medication, however lorazepam is generally avoided where possible in and so she was switched to diphenhydramine per consultation with PERMASTONE APPLICATOR regarding safest treatment. Olanzapine was added due to ongoing psychosis and the patient has had a slow improvement in symptoms. She continued to express depressed mood and so fluoxetine was switched to sertraline, but the patient had been refusing for unclear reasons. Once switched to liquid formulation, the patient was again refusing but began to take it when the dose was split. The patient gave to her daughter and has demonstrated an improvement in her interaction with others and her willingness to talk to staff. She had been endorsing mild auditory hallucinations, olanzapine was increased to 7.5mg HS (with stable AM dose of 5 mg) she is more interactive and has improved greatly. When Olanzapine was decreased she had a decompensation within a few days. Her current dose seems to be helpful for her. She was still having 10/10 depression so her morning dose of Zoloft was increased. Today she is having 8/10 depression and wishing for herself to be able to worry less. She continues to experience voices and mild visual hallucinations that are disturbing to her. We will increase her evening dose of zyprexa from 7.5 mg to 10 mg in an attempt to help with her hallucinations. Patient continues to be tachycardic, this is likely secondary to her since symptoms started while she was and she is less than 2 weeks post . Tachycardia could also be attributed to Zyprexa as it was found to be a side affect in up to 3% of users although she reported tachycardia prior to though could not recall which doctor she saw. We will recheck TSH and CBC for anemia as this could be contributing to her symptoms. If she is still anemic she should have iron supplementation. She has been primarily taking her medications in liquid form. She continues to be afebrile, her hot feeling can be attributed to the changing weather and hormones however we will continue to monitor. Case was discussed with Dr. Taylor, Chief hospitalist who also recommends repeat EKG and based on these studies considering iron panel or further infection work up including urinalysis. [place] I: 1. Schizoaffective disorder, depressive type [place] II: Deferred. [place] III: 1 week post- [place] IV: Severe. [place] V: 35 Medications Sertraline 100mg daily and 50mg at 1430 Olanzapine 5mg daily and 7.5 mg nightly Diphenhydramine 25 mg as needed. Liquid vitamin daily Docusate 100 mg twice daily Treatments 1. The patient is admitted to the inpatient unit and will be provided a safe and secure environment. 2. The patient is denying current active suicidality or homicidality and is not in the need of a one-to-one at this time. 3. The patient is encouraged to participate with group and milieu activities. 4. The patient will be seen by the treatment team on a daily basis to assess symptoms, side effects and response to treatment. Patient declining use of laser set up operator. Speaking/reading Hungarian 5. Olanzapine 5mg daily and increase to 10 mg nightly 6. Increase Sertraline to 100mg daily, 50 mg at 14:30 7. Patient on a [address] with a 90 day more restrictive hearing pending. 8. Recommend continue current medications. 9. CBC, TSH, EKG for tachycardia follow-up 10. Disposition pending CPS evaluation and immigration status Maribel Aj DO October 01, 2016 14:54 Rigoberto Egan MD October 01, 2016 22:34 5. Olanzapine 5mg daily and increase to 10 mg nightly 6. Increase Sertraline to 100mg daily, 50 mg at 14:30 7. Patient on a [address] hold with a 90 day more restrictive hearing pending. 8. Recommend continue current medications. 9. CBC, TSH for tachycardia follow-up 10. Disposition pending CPS evaluation and immigration status Maribel Aj DO October 01, 2016 14:54
--- NOTE | 2016-10-01 15:14 | NUR ---
[employer] I Assembler/Counselor: S/O: Patient slept 6.75+ hours last night as per staff. She denies S/I and H/I. She reports hearing voices yelling at her and wanting to hurt her. She reports that the voices are louder at night. Patient stated that she knows that she is safe here in the hospital. Patient complains of seeing "scary shadows" mainly at night. Depression is 8/10 and anxiety is 0/10. A: Patient is cooperative, dysthymic, restricted affect, limited insight, limited judgment. P: Follow the care plan, coordinate with out-patient providers.
[2016-10-01 17:35] VITALS: BP 121/75; PULSE 120; RESP 16
[2016-10-01 18:50] LABS: BASOPHILS % (AUTO) 1.1 % (0-3); MONOCYTES % (AUTO) 7.2 % (4-12); Mean Corpuscular Hemoglobin 27.6 pg (27.0-35.0); NEUTROPHILS % (AUTO) 60.3 % (40-74); Platelet Count 503 bil/L (150-400)
--- NOTE | 2016-10-01 18:51 | NUR ---
[facility] Day Shift Pt affect and behavior unchanged from previous shifts. Pt maintained behavioral control throughout the shift. Pt affect appears mostly flat. Pt spends most of the shift resting in her room and sitting quietly in the dining room. Pt is appropriate with staff and peers when active on the unit, but is not overly social. Pt remains selectively communicative with staff. Pt attended all meals and ate approx 90% of all meals.
--- NOTE | 2016-10-01 22:17 | NUR ---
NURSING NOTE [id number] Mood: "good" Affect: flat, brightens more in conversation Behavior: visible off and on in milieu, colored in the DR, came independently to med station to ask for HS meds, complimented this signwriter off and on throughout the shift, allowed lab to draw bloodwork. Thought processes: no AH/VH, denies SI, despite reporting "I'm good" she did say she was sad and expressed that she misses her baby and that baby is with mean. Upon clarification she said baby with mean family. Patient given reassurance. She reported her meeting w/her health unit clerk regarding custody went well today.
--- NOTE | 2016-10-02 04:57 | NUR ---
Nursing notes: material handler 1st shift/sleep Patient appears to be sleeping on safety checks during the night.
[2016-10-02] MEDS: OLANZapine Zydis ODT 5 mg Tablet PO SCH ×2 (08:10→20:31)
--- NOTE | 2016-10-02 12:25 | NUR ---
Nursing Day Shift- S- "Baby with good family. I talk to my family. they tell me to take medicine. They help me with apartment." O- Pt. had slept well per report. She attended breakfast and lunch and eat well. Pt. was approachable and conversant. She reported that thew voices were decreased. Pt's pulse was 80 at 1045. A- Improved affect and increased spontaneous conversation with improved eye contact. Pt. expressed understanding that medications have been helpful. P- Cont. TP.
--- NOTE | 2016-10-02 13:24 | PCM.PNPSY ---
Subjective Date of Service October 02, 2016 Subjective I spent 30 minutes both reviewing treatment plan with clinical team, interviewing the patient and providing supportive/educational psychotherapy. I spent more than 50% of the time counseling the patient. I reviewed the treatment plan with the patient and discussed options available including the potential risks, benefits and side effects. You reports a marked improvement in thought organization and mood stability. Staff reports that she has been attempting to participate in one-to-one talks but has been isolative otherwise. She is now talking about her baby going to a good family. She slept 8 hours and denies depression manic or psychotic symptoms review. She denies medication side effects. Patient was able to identify her medications and what they were used to treat. Current Medications Current Medications Olanzapine 10 mg HS PO Last administered on 10/01/16 20:02; Admin Dose 10 MG; Start 10/01/16 at 21:00 Sertraline HCl 100 mg DAILY PO Last administered on 10/02/16 08:11; Admin Dose 100 MG; Start 10/01/16 at 08:30 Mental Status Exam Appearance: Neat/well groomed Attitude: Cooperative Behavior: No unusual behavior Affect: Restricted Mood: Dysthymic Thought Process/Associations: Blocking Speech Production: Paucity Speech Rate: Lags/Latency Speech Articulation: Other (Speaking in Mandarin) Thought Content: Appropriate Danger to Self/Suicidal Ideati: None Danger to Others: None Delusions: Paranoid (Endorses) Hallucinations: Auditory (Endorses), Visual (Endorses) Consciousness: Alert Orientation: Person, Place, Situation Memory: Grossly Intact Estimate Intellectual Function: Average Basis for IQ estimate: Educational history, Employment history Attention/Concentration & Cogn: Grossly Intact (though difficult to fully assess) Insight: Limited Judgement: Limited Result Diagram: 10/01/16 1800 10/01/16 1800 Mental Health Plan Problems: (1) Active labor at term Plan: Will admit patient to the [facility] and initiated previously discussed plan for labor. She will have a sitter in the room as well as a nurse. Physical restraints are available if necessary. Will continue with expected management at this time. She may have epidural when desires Status: Acute (2) Acute psychosis Status: Acute ICD Code: F23 The patient is a 31-year-old, Mandarin speaking female with Ethiopian as second language who reportedly tried to "cut the baby out" at times due to anger prior to admission. The patient appeared to meet criteria for major depression and so was started on fluoxetine and lorazepam for anxiety. The patient requested an increase in antianxiety medication, however lorazepam is generally avoided where possible in and so she was switched to diphenhydramine per consultation with COMMUNICABLE DISEASE SPECIALIST regarding safest treatment. Olanzapine was added due to ongoing psychosis and the patient has had a slow improvement in symptoms. She continued to express depressed mood and so fluoxetine was switched to sertraline, but the patient had been refusing for unclear reasons. Once switched to liquid formulation, the patient was again refusing but began to take it when the dose was split. The patient gave to her daughter and has demonstrated an improvement in her interaction with others and her willingness to talk to staff. She had been endorsing mild auditory hallucinations, olanzapine was increased to 7.5mg HS (with stable AM dose of 5 mg) she is more interactive and has improved greatly. When Olanzapine was decreased she had a decompensation within a few days. Her current dose seems to be helpful for her. She was still having 10/10 depression so her morning dose of Zoloft was increased. Today she denies all symptoms to me. Over the past week she reported to Dr. Aj and Dr. Egan that she was having 8/10 depression and continuing to experience voices and mild visual hallucinations that are disturbing to her. Her evening dose of zyprexa was increased from 7.5 mg to 10 mg in an attempt to help with her hallucinations. I believe she is ready for discharge if an appropriate family or institutional environment could be found. [place] I: 1. Schizoaffective disorder, depressive type [place] II: Deferred. [place] III: 1 week post- [place] IV: Severe. [place] V: 40 Medications Sertraline 100mg daily and 50mg at 1430 Olanzapine 5mg daily and 7.5 mg nightly Diphenhydramine 25 mg as needed. Liquid vitamin daily Docusate 100 mg twice daily Treatments 1. The patient is admitted to the inpatient unit and will be provided a safe and secure environment. 2. The patient is denying current active suicidality or homicidality and is not in the need of a one-to-one at this time. 3. The patient is encouraged to participate with group and milieu activities. 4. The patient will be seen by the treatment team on a daily basis to assess symptoms, side effects and response to treatment. Patient declining use of conference interpreter. Speaking/reading Ethiopian 5. Olanzapine 5mg daily and increase to 10 mg nightly 6. Sertraline to 100mg daily, 50 mg at 14:30 7. Patient on a [address] hold with a 90 day more restrictive hearing pending. 8. Recommend continue current medications. 9. CBC, TSH, EKG for tachycardia follow-up 10. Disposition pending CPS evaluation and immigration status Piero Angel MD October 02, 2016 13:24
[2016-10-02 15:33] VITALS: BP 115/79; PULSE 89; RESP 16
--- NOTE | 2016-10-02 21:08 | NUR ---
OBSERVATIONS Pt was pleasant and cooperative with staff. Pt was somewhat social with peers today, spending some time watching television, walking out on the patio. Pt was more vocal and engaging than on previous shifts. Pt showered and did some laundry. Maintained Q15 safety checks as directed.
--- NOTE | 2016-10-02 22:52 | NUR ---
NURSING NOTE [id number] Mood: "mood is good" Affect: quiet, flat Behavior: more isolative this shift than evening prior, came out for her meal and again this evening came to the NS independently and requested HS medications. Thought processes: denies AH/VH this shift, denies depression/anxiety. No SI/HI.
--- NOTE | 2016-10-03 06:30 | NUR ---
Nursing Noc Pt remains isolative out to arranging magazines and wondering around. Out for medications. Noted to be asleep first at 2114, by Q15 minute safety checks and remained asleep the rest of this shift. Continuing to monitor mood behavior emotional state. CP
[2016-10-03] MEDS: OLANZapine Zydis ODT 5 mg Tablet PO SCH ×2 (08:08→20:27)
--- NOTE | 2016-10-03 10:17 | NUR ---
Nursing Day Shift S/O- Pt. had slept well per report. She was awake and dressed for breakfast, and eat well. Pt. denied depression or hallucinations. She was compliant with medications. She spent time in the DR watching TV. Pt. denied any pain or distress. A- Increased verbalizations and brighter affect since admission. P- Cont. BHTP.
--- NOTE | 2016-10-03 15:22 | PCM.PNPSY ---
Subjective Date of Service October 03, 2016 Subjective I spent 20 minutes both reviewing treatment plan with clinical team, interviewing the patient and providing supportive/educational psychotherapy. I spent less than 50% of the time counseling the patient. I reviewed the treatment plan with the patient and discussed options available including the potential risks, benefits and side effects. You reports normal thought organization and mood stability. Staff reports that she has been attempting to participate in one-to-one talks but has been isolative otherwise. She is now talking about her baby going to a good family. She slept 9 hours and denies depression manic or psychotic symptoms review. She denies medication side effects. Patient was able to identify her medications and what they were used to treat. Current Medications Current Medications Olanzapine 10 mg HS PO Last administered on 10/02/16t 20:31; Admin Dose 10 MG; Start 10/01/16 at 21:00 Mental Status Exam Appearance: Neat/well groomed Attitude: Cooperative Behavior: No unusual behavior Affect: Restricted Mood: Dysthymic Thought Process/Associations: Blocking Speech Production: Paucity Speech Rate: Lags/Latency Speech Articulation: Other (Speaking in Mandarin) Thought Content: Appropriate Danger to Self/Suicidal Ideati: None Danger to Others: None Delusions: Paranoid (Endorses) Hallucinations: Auditory (Endorses), Visual (Endorses) Consciousness: Alert Orientation: Person, Place, Situation Memory: Grossly Intact Estimate Intellectual Function: Average Basis for IQ estimate: Educational history, Employment history Attention/Concentration & Cogn: Grossly Intact (though difficult to fully assess) Insight: Limited Judgement: Limited Result Diagram: 10/01/16 1800 10/01/16 1800 Mental Health Plan Problems: (1) Active labor at term Plan: Will admit patient to the [facility] and initiated previously discussed plan for labor. She will have a sitter in the room as well as a nurse. Physical restraints are available if necessary. Will continue with expected management at this time. She may have epidural when desires Status: Acute (2) Acute psychosis Status: Acute ICD Code: F23 The patient is a 31-year-old, Mandarin speaking female with Faroese as second language who reportedly tried to "cut the baby out" at times due to anger prior to admission. The patient appeared to meet criteria for major depression and so was started on fluoxetine and lorazepam for anxiety. The patient requested an increase in antianxiety medication, however lorazepam is generally avoided where possible in and so she was switched to diphenhydramine per consultation with WORKER'S COMPENSATION CLAIMS EXAMINER regarding safest treatment. Olanzapine was added due to ongoing psychosis and the patient has had a slow improvement in symptoms. She continued to express depressed mood and so fluoxetine was switched to sertraline, but the patient had been refusing for unclear reasons. Once switched to liquid formulation, the patient was again refusing but began to take it when the dose was split. The patient gave to her daughter and has demonstrated an improvement in her interaction with others and her willingness to talk to staff. She had been endorsing mild auditory hallucinations, olanzapine was increased to 7.5mg HS (with stable AM dose of 5 mg) she is more interactive and has improved greatly. When Olanzapine was decreased she had a decompensation within a few days. Her current dose seems to be helpful for her. She was still having 10/10 depression so her morning dose of Zoloft was increased. Today she denies all symptoms to me. Over the past week she reported to Dr. Aj and Dr. Egan that she was having 8/10 depression and continuing to experience voices and mild visual hallucinations that are disturbing to her. Her evening dose of zyprexa was increased from 7.5 mg to 10 mg in an attempt to help with her hallucinations. I believe she is ready for discharge if an appropriate family or institutional environment could be found. [place] I: 1. Schizoaffective disorder, depressive type [place] II: Deferred. [place] III: 1 week post- [place] IV: Severe. [place] V: 40 Medications Sertraline 100mg daily and 50mg at 1430 Olanzapine 5mg daily and 10 mg nightly Diphenhydramine 25 mg as needed. Treatments 1. The patient is admitted to the inpatient unit and will be provided a safe and secure environment. 2. The patient is denying current active suicidality or homicidality and is not in the need of a one-to-one at this time. 3. The patient is encouraged to participate with group and milieu activities. 4. The patient will be seen by the treatment team on a daily basis to assess symptoms, side effects and response to treatment. Patient declining use of naval inspector. Speaking/reading Faroese 5. Olanzapine 5mg daily and increase to 10 mg nightly 6. Sertraline to 100mg daily, 50 mg at 14:30 7. Patient on a [address] with a 90 day more restrictive hearing pending. 8. Recommend continue current medications. 9. CBC, TSH, EKG for tachycardia follow-up 10. Disposition pending CPS evaluation and immigration status Piero Angel MD October 03, 2016 15:22
--- NOTE | 2016-10-03 17:09 | NUR ---
[facility] Note D- Patient attended basic ADLs this shift. She attended all structured groups and activities (3). Patient ate all of her meals. A- Patient appears euthymic but there is still a language barrier. Patient has been attempting to be social with peers and appears successful despite the language gap. She denies any suicidal or homicidal ideation and has not articulated any type of thought disturbance. P- Continue current treatment plan.
[2016-10-03 18:14] VITALS: BP 108/63; PULSE 95; RESP 16
--- NOTE | 2016-10-03 21:39 | NUR ---
NURSING NOTE [id number] Mood: "fine" Affect: neutral Behavior: visible at start of shift watching TV in dining room w/peers. She showered. Later isolated to her room. Approached med station independently to ask for HS meds. Med compliant. C/o sore throat and received Tylenol 650 mg PRN. Thought processes: when asked if she was depressed she said "yes, depressed"-- however, when asked why she pointed to her throat and indicated it was sore and again said "Depressed. Depressed". Explained to pt. that "depressed" means "sad" and pt. said "yes, sad, I miss my baby". Reassurance provided. Denies hearing voices this shift.
--- NOTE | 2016-10-04 05:41 | NUR ---
Nursing notes: link wire fabric machine tender/ sleep Patient appears to be sleeping on safety checks during the night. Offers no complaints.
[2016-10-04 08:35] VITALS: BP 115/66; PULSE 106; RESP 17
[2016-10-04] MEDS: OLANZapine Zydis ODT 5 mg Tablet PO SCH ×2 (09:25→20:49)
--- NOTE | 2016-10-04 13:13 | NUR ---
Nursing: Day shift: S/O: You has been out on the unit jeff. She rated her mood at 5/10. "Sad about my baby" SEt a goal of wanting to ge some baby clothes to her baby. Responds readily on approach. Smiling and verbal. When advertising copy writer gave her a written phone message, she read it aloud in Sudanese with minimal prompting. Takes scheduled meds as offered. A: Oriented. Engaged in treatment. P: Support You in her goal for the day. Addendum: 10/04/16 at 1324 by THAO FRENCH RN Amended: Links added.
--- NOTE | 2016-10-04 14:31 | PCM.PNPSY ---
Subjective Date of Service October 04, 2016 Subjective I spent 20 minutes both reviewing treatment plan with clinical team, interviewing the patient and providing supportive/educational psychotherapy. I spent less than 50% of the time counseling the patient. I reviewed the treatment plan with the patient and discussed options available including the potential risks, benefits and side effects. You reports normal thought organization and mood stability. Staff reports that she has been attempting to participate in one-to-one talks but has been isolative otherwise. She is now talking about her baby going to a good family. She slept 8 hours and denies depression manic or psychotic symptoms review. She denies medication side effects. Patient was able to identify her medications and what they were used to treat. Mental Status Exam Vital Signs Vital Signs Date Time Temp Pulse Resp B/P Pulse Ox O2 Delivery O2 Flow Rate FiO2 10/04/16 08:35 36.5 106 17 115/66 Appearance: Neat/well groomed Attitude: Cooperative Behavior: No unusual behavior Affect: Restricted Mood: Dysthymic Thought Process/Associations: Blocking Speech Production: Paucity Speech Rate: Lags/Latency Speech Articulation: Other (Speaking in Mandarin) Thought Content: Appropriate Danger to Self/Suicidal Ideati: None Danger to Others: None Delusions: Paranoid (Endorses) Hallucinations: Auditory (Endorses), Visual (Endorses) Consciousness: Alert Orientation: Person, Place, Situation Memory: Grossly Intact Estimate Intellectual Function: Average Basis for IQ estimate: Educational history, Employment history Attention/Concentration & Cogn: Grossly Intact (though difficult to fully assess) Insight: Limited Judgement: Limited Result Diagram: 10/01/16 1800 10/01/16 1800 Mental Health Plan Problems: (1) Active labor at term Plan: Will admit patient to the [facility] and initiated previously discussed plan for labor. She will have a sitter in the room as well as a nurse. Physical restraints are available if necessary. Will continue with expected management at this time. She may have epidural when desires Status: Acute (2) Acute psychosis Status: Acute ICD Code: F23 The patient is a 31-year-old, Mandarin speaking female with Niuean as second language who reportedly tried to "cut the baby out" at times due to anger prior to admission. The patient appeared to meet criteria for major depression and so was started on fluoxetine and lorazepam for anxiety. The patient requested an increase in antianxiety medication, however lorazepam is generally avoided where possible in and so she was switched to diphenhydramine per consultation with MANAGEMENT EXPERT regarding safest treatment. Olanzapine was added due to ongoing psychosis and the patient has had a slow improvement in symptoms. She continued to express depressed mood and so fluoxetine was switched to sertraline, but the patient had been refusing for unclear reasons. Once switched to liquid formulation, the patient was again refusing but began to take it when the dose was split. The patient gave to her daughter and has demonstrated an improvement in her interaction with others and her willingness to talk to staff. She had been endorsing mild auditory hallucinations, olanzapine was increased to 7.5mg HS (with stable AM dose of 5 mg) she is more interactive and has improved greatly. When Olanzapine was decreased she had a decompensation within a few days. Her current dose seems to be helpful for her. She was still having 10/10 depression so her morning dose of Zoloft was increased. Today she again denies all symptoms to me. I believe she is ready for discharge if an appropriate family or institutional environment could be found. She continues to make gradual but steady improvement in social skills. [place] I: 1. Schizoaffective disorder, depressive type [place] II: Deferred. [place] III: 1 week post- [place] IV: Severe. [place] V: 40 Medications Sertraline 100mg daily and 50mg at 1430 Olanzapine 5mg daily and 10 mg nightly Diphenhydramine 25 mg as needed. Treatments 1. The patient is admitted to the inpatient unit and will be provided a safe and secure environment. 2. The patient is denying current active suicidality or homicidality and is not in the need of a one-to-one at this time. 3. The patient is encouraged to participate with group and milieu activities. 4. The patient will be seen by the treatment team on a daily basis to assess symptoms, side effects and response to treatment. Patient declining use of gummed tape press operator. Speaking/reading Niuean 5. Olanzapine 5mg daily and increase to 10 mg nightly 6. Sertraline to 100mg daily, 50 mg at 14:30 7. Patient on a [address] with a 90 day more restrictive hearing pending. 8. Recommend continue current medications. 9. CBC, TSH, EKG for tachycardia follow-up 10. Disposition pending CPS evaluation and immigration status Piero Angel MD October 04, 2016 14:31
--- NOTE | 2016-10-04 20:25 | NUR ---
[facility] Note D- Patient attended all structured groups and activities this shift and was peyton but engaged. Patient attended all ADLs including showering. She ate all of lunch and dinner but did not eat any breakfast. A- Patient continues to engage with peers very quietly but is more logical and linear when engaged on a 1:1 level than previously. Patient did not say anything regarding her tripplets she previously stated being with but has been seen holding her stomach as though she were . She shook her head when asked if she was suicidal. P- Continue current treatment plan.
--- NOTE | 2016-10-05 02:02 | NUR ---
Nursing Shravan Pt presents with soft quiet demeanor, slight shy smile. She spent time out in the milieu and participated in evening group. Took scheduled medication without difficulty. She retired to her room and appeared asleep by 2214. No noted distress or awakening per protocol checks. Addendum: 10/05/16 at 7570 by ANANT CLARKE RN Adequate sleep through the night with no noted distress or awakening per protocol checks. Total sleep over 7.5 hours.
--- NOTE | 2016-10-05 04:38 | NUR ---
Observations 1900 - 0700 Pt was in bed resting at the start of the shift. Pt was observed to be flat, minimally social, bright when engaged and out on the unit most of the evening. Pt was pleasant, polite and cooperative when approached. Pt maintained behavior throughout the shift. Pt speech and eye contact was ok. Pt attended wrap up group. Pt stated her posotive for the day was "having a good day, going to group" Pt rated her mood for the day 8/, with 10 being the best. Pt first appeared asleep at 2215 and has slept well through the night. Pt was observed every 15 minutes through the night as ordered. Pt is currently asleep with respirations apparent.
[2016-10-05] MEDS: OLANZapine Zydis ODT 5 mg Tablet PO SCH ×2 (08:03→21:16)
--- NOTE | 2016-10-05 12:45 | PCM.PNPSY ---
Subjective Date of Service October 05, 2016 Subjective I spent 30 minutes both reviewing treatment plan with clinical team, interviewing the patient and providing supportive/educational psychotherapy. I spent more than 50% of the time counseling the patient as today she was bright easily engaged and talkative. I reviewed the treatment plan with the patient and discussed options available including the potential risks, benefits and side effects. You reports normal thought organization and mood stability. Staff reports that she has been attempting to participate in one-to-one talks but has been isolative otherwise. She is now talking about her baby going to a good family. She slept 8 hours and denies depression manic or psychotic symptoms review. She denies medication side effects. Patient was able to identify her medications and what they were used to treat. Mental Status Exam Appearance: Neat/well groomed Attitude: Cooperative Behavior: No unusual behavior Affect: Restricted Mood: Euthymic Thought Process/Associations: Goal Directed Speech Production: Paucity Speech Rate: Normal Speech Articulation: Other (Speaking in Mandarin) Thought Content: Appropriate Danger to Self/Suicidal Ideati: None Danger to Others: None Delusions: Paranoid (Endorses) Consciousness: Alert Orientation: Person, Place, Situation Memory: Grossly Intact Estimate Intellectual Function: Average Basis for IQ estimate: Educational history, Employment history Attention/Concentration & Cogn: Grossly Intact (though difficult to fully assess) Insight: Limited Judgement: Limited Result Diagram: 10/01/16 1800 10/01/16 1800 Mental Health Plan Problems: (1) Active labor at term Plan: Will admit patient to the [facility] and initiated previously discussed plan for labor. She will have a sitter in the room as well as a nurse. Physical restraints are available if necessary. Will continue with expected management at this time. She may have epidural when desires Status: Acute (2) Acute psychosis Status: Acute ICD Code: F23 The patient is a 31-year-old, Mandarin speaking female with Tunisian as second language who reportedly tried to "cut the baby out" at times due to anger prior to admission. The patient appeared to meet criteria for major depression and so was started on fluoxetine and lorazepam for anxiety. The patient requested an increase in antianxiety medication, however lorazepam is generally avoided where possible in and so she was switched to diphenhydramine per consultation with RECRUITMENT DIRECTOR regarding safest treatment. Olanzapine was added due to ongoing psychosis and the patient has had a slow improvement in symptoms. She continued to express depressed mood and so fluoxetine was switched to sertraline, but the patient had been refusing for unclear reasons. Once switched to liquid formulation, the patient was again refusing but began to take it when the dose was split. The patient gave to her daughter and has demonstrated an improvement in her interaction with others and her willingness to talk to staff. She had been endorsing mild auditory hallucinations, olanzapine was increased to 7.5mg HS (with stable AM dose of 5 mg) she is more interactive and has improved greatly. When Olanzapine was decreased she had a decompensation within a few days. Her current dose seems to be helpful for her. She was still having 10/10 depression so her morning dose of Zoloft was increased. Today she again denies all symptoms to me. I believe she is ready for discharge if an appropriate family or institutional environment could be found. She continues to make gradual but steady improvement in social skills. [place] I: 1. Schizoaffective disorder, depressive type [place] II: Deferred. [place] III: 1 week post- [place] IV: Severe. [place] V: 40 Medications Sertraline 100mg daily and 50mg at 1430 Olanzapine 5mg daily and 10 mg nightly Diphenhydramine 25 mg as needed. Treatments 1. The patient is admitted to the inpatient unit and will be provided a safe and secure environment. 2. The patient is denying current active suicidality or homicidality and is not in the need of a one-to-one at this time. 3. The patient is encouraged to participate with group and milieu activities. 4. The patient will be seen by the treatment team on a daily basis to assess symptoms, side effects and response to treatment. Patient declining use of pit shoveler. Speaking/reading Tunisian 5. Olanzapine 5mg daily and 10 mg nightly 6. Sertraline to 100mg daily, 50 mg at 14:30 7. Patient on a [address] with a 90 day more restrictive hearing pending. 8. Recommend continue current medications. 9. Disposition pending CPS evaluation and immigration status Piero Angel MD October 05, 2016 12:45
[2016-10-05 12:52] VITALS: BP 103/67; PULSE 102; RESP 16
--- NOTE | 2016-10-05 15:21 | NUR ---
[facility] Pt. showed marked improvement of her social skills. She initiated and maintained conversation, and made effort to interact with others. She was cheerful when sharing info and pictures of her baby daughter. Pt. said she would enjoy having visitors. Visiting hours explained and pt. verbalized understanding. Rep. from [employer] came by. She delivered new pictures of pt's baby. She also delivered Information Release Authorization form. Charge nurse aware of this. Plan to refer to SURG TECH for further action/instruction.
--- NOTE | 2016-10-05 21:10 | NUR ---
Obs Dayshift Pt is more clear, conversational, engages well w/ staff and slightly w/ peers. Pt is polite, smiling, more hopeful for the future, calm, keeps to herself in her room most of the free times. Joins in groups and meals. Participates and is appropriate. Good ADL's, Good meals
--- NOTE | 2016-10-06 06:14 | NUR ---
Sleep 11p-7a Adequate sleep through the night with no noted distress or awakening per protocol checks. Total sleep over 10 hours.
[2016-10-06] MEDS: OLANZapine Zydis ODT 5 mg Tablet PO SCH ×2 (08:51→20:47)
[2016-10-06 13:44] VITALS: BP 117/65; PULSE 106; RESP 16
--- NOTE | 2016-10-06 14:44 | NUR ---
Obs Dayshift Pt is attending more groups today, participating and appropriate. Pt is calm, polite, smiling. Pt received a baby book from an RN on the CBC unit, she was stating that she was very happy and went to her room to read it and write a note in the front cover for her baby. Pt was working on some art in the group room, eating meals in the dining room. Polite and engages w/ peers superficially. Good ADL's, Good meals
--- NOTE | 2016-10-06 16:38 | PCM.PNPSY ---
Subjective Date of Service October 06, 2016 Subjective I spent 30 minutes both reviewing treatment plan with clinical team, interviewing the patient and providing supportive/educational psychotherapy. I spent more than 50% of the time counseling the patient as today she was bright easily engaged and talkative. I reviewed the treatment plan with the patient and discussed options available including the potential risks, benefits and side effects. "Fatmata" reports normal thought organization and mood stability. Staff reports that she has been polite, smiling, more hopeful for the future, and calm ; attempting to participate in one-to-one talks but has been isolative otherwise. She slept 10 hours and denies depression manic or psychotic symptoms review. She states that she is no longer hearing the voice of the man saying mean things that started when she was 20. Today she is not having anxiety or depression. She denies medication side effects. Patient was able to identify her medications and what they were used to treat, she denies side affects. Mental Status Exam Appearance: Neat/well groomed Attitude: Cooperative Behavior: No unusual behavior Affect: Restricted Mood: Euthymic Thought Process/Associations: Goal Directed Speech Production: Paucity Speech Rate: Normal Speech Articulation: Other (Speaking in Mandarin) Thought Content: Appropriate Danger to Self/Suicidal Ideati: None Danger to Others: None Delusions: Paranoid (Endorses) Consciousness: Alert Orientation: Person, Place, Situation Memory: Grossly Intact Estimate Intellectual Function: Average Basis for IQ estimate: Educational history, Employment history Attention/Concentration & Cogn: Grossly Intact (though difficult to fully assess) Insight: Limited Judgement: Limited Result Diagram: 10/01/16 1800 10/01/16 1800 Mental Health Plan Problems: (1) Active labor at term Plan: Will admit patient to the [facility] and initiated previously discussed plan for labor. She will have a sitter in the room as well as a nurse. Physical restraints are available if necessary. Will continue with expected management at this time. She may have epidural when desires Status: Acute (2) Acute psychosis Status: Acute ICD Code: F23 The patient is a 31-year-old, Mandarin speaking female with Samoan as second language who reportedly tried to "cut the baby out" at times due to anger prior to admission. The patient appeared to meet criteria for major depression and so was started on fluoxetine and lorazepam for anxiety. The patient requested an increase in antianxiety medication, however lorazepam is generally avoided where possible in and so she was switched to diphenhydramine per consultation with CHANNEL DEVELOPMENT MANAGER regarding safest treatment. Olanzapine was added due to ongoing psychosis and the patient has had a slow improvement in symptoms. She continued to express depressed mood and so fluoxetine was switched to sertraline, but the patient had been refusing for unclear reasons. Once switched to liquid formulation, the patient was again refusing but began to take it when the dose was split. The patient gave to her daughter and has demonstrated an improvement in her interaction with others and her willingness to talk to staff. She had been endorsing mild auditory hallucinations, olanzapine was increased to 7.5mg HS (with stable AM dose of 5 mg) she is more interactive and has improved greatly. When Olanzapine was decreased she had a decompensation within a few days. Her current dose seems to be helpful for her. She was still having 10/10 depression so her morning dose of Zoloft was increased. [place] I: 1. Schizoaffective disorder, depressive type [place] II: Deferred. [place] III: 1 week post- [place] IV: Severe. [place] V: 40 Medications Sertraline 100mg daily and 50mg at 1430 Olanzapine 5mg daily and 10 mg nightly Diphenhydramine 25 mg as needed. Treatments 1. The patient is admitted to the inpatient unit and will be provided a safe and secure environment. 2. The patient is denying current active suicidality or homicidality and is not in the need of a one-to-one at this time. 3. The patient is encouraged to participate with group and milieu activities. 4. The patient will be seen by the treatment team on a daily basis to assess symptoms, side effects and response to treatment. Patient declining use of software program manager. Speaking/reading Samoan 5. Olanzapine 5mg daily and 10 mg nightly 6. Sertraline to 100mg daily, 50 mg at 14:30 7. Patient awaiting jury trial that was extended to November 09, 2016 8. Recommend continue current medications. 9. Disposition pending available services, CPS evaluation, and immigration status Maribel Aj DO October 06, 2016 13:38
--- NOTE | 2016-10-06 18:12 | NUR ---
Nursing Notes [id number] S. I am still working on book for daughter. O. Patient writing diligently in a book (Johnathon rangel story books) for daughter. Family nurse brought book at patient request. A. Patient spending most of her time in her room today, appears depressed/melancholy nost of this shift, but did not want to discuss it. P. Continue to monitor for response to treatment. Q 15 min checks for safety. Follow plan of care.
--- NOTE | 2016-10-06 21:49 | NUR ---
Behavior Pt out in the group areas x 1 hour. Interactive with other patients. Appropriate. Smiling at times. Requested tylenol for a HUGHES> Given. No other needs at this time.
[2016-10-07 07:42] VITALS: BP 96/62; PULSE 97; RESP 16
[2016-10-07] MEDS: OLANZapine Zydis ODT 5 mg Tablet PO SCH ×2 (08:26→20:54)
--- NOTE | 2016-10-07 14:35 | PCM.PNPSY ---
Subjective Date of Service October 07, 2016 Subjective I spent 30 minutes both reviewing treatment plan with clinical team, interviewing the patient and providing supportive/educational psychotherapy. I spent more than 50% of the time counseling the patient as today she was bright easily engaged and talkative. I reviewed the treatment plan with the patient and discussed options available including the potential risks, benefits and side effects. "Fatmata" reports normal thought organization and mood stability. She states that she is in a good mood and happy. Staff reports that she has been polite, smiling, more hopeful for the future, and calm; attempting to participate in one -to-one talks but has been isolative otherwise. She slept 6.75 hours and denies manic or psychotic symptoms review. Her appetite has been good and she is happy to have meat and milk to eat. She states that she is no longer hearing the voice of the man saying mean things that started when she was 20. Today she is not having anxiety but does feel angry about people saying mean things. She does feel sad when people are not nice but does not endorse depression. She denies medication side effects. Patient was able to identify her medications and what they were used to treat, she denies side affects. Mental Status Exam Vital Signs Vital Signs Date Time Temp Pulse Resp B/P Pulse Ox O2 Delivery O2 Flow Rate FiO2 10/07/16 07:42 36.5 97 16 96/62 Appearance: Neat/well groomed Attitude: Cooperative Behavior: No unusual behavior Affect: Restricted Mood: Euthymic Thought Process/Associations: Goal Directed Speech Production: Paucity Speech Rate: Normal Speech Articulation: Other (cambodian is secondary language, Speaking in Mandarin ) Thought Content: Appropriate Danger to Self/Suicidal Ideati: None Danger to Others: None Delusions: Paranoid (Endorses) Consciousness: Alert Orientation: Person, Place, Situation Memory: Grossly Intact Estimate Intellectual Function: Average Basis for IQ estimate: Educational history, Employment history Attention/Concentration & Cogn: Grossly Intact (though difficult to fully assess) Insight: Limited Judgement: Limited Result Diagram: 10/01/16 1800 10/01/16 1800 Mental Health Plan Problems: (1) Active labor at term Plan: Will admit patient to the [facility] and initiated previously discussed plan for labor. She will have a sitter in the room as well as a nurse. Physical restraints are available if necessary. Will continue with expected management at this time. She may have epidural when desires Status: Acute (2) Acute psychosis Status: Acute ICD Code: F23 The patient is a 31-year-old, Mandarin speaking female with Kiswahili as second language who reportedly tried to "cut the baby out" at times due to anger prior to admission. The patient appeared to meet criteria for major depression and so was started on fluoxetine and lorazepam for anxiety. The patient requested an increase in antianxiety medication, however lorazepam is generally avoided where possible in and so she was switched to diphenhydramine per consultation with DIRECTOR TRAFFIC AND PLANNING regarding safest treatment. Olanzapine was added due to ongoing psychosis and the patient has had a slow improvement in symptoms. She continued to express depressed mood and so fluoxetine was switched to sertraline, but the patient had been refusing for unclear reasons. Once switched to liquid formulation, the patient was again refusing but began to take it when the dose was split. The patient gave to her daughter and has demonstrated an improvement in her interaction with others and her willingness to talk to staff. She had been endorsing mild auditory hallucinations, olanzapine was increased to 10 mg HS (with stable AM dose of 5 mg) she is more interactive and has improved greatly. When Olanzapine was decreased she had a decompensation within a few days. Her current dose seems to be helpful for her. She was still having 10/10 depression so her morning dose of Zoloft was increased. She has improved since that time and has been relatively talkative and pleasant since her increase in medications. [place] I: 1. Schizoaffective disorder, depressive type [place] II: Deferred. [place] III: 1 week post- [place] IV: Severe. [place] V: 40 Medications Sertraline 100mg daily and 50mg at 1430 Olanzapine 5mg daily and 10 mg nightly Diphenhydramine 25 mg as needed. Treatments 1. The patient is admitted to the inpatient unit and will be provided a safe and secure environment. 2. The patient is denying current active suicidality or homicidality and is not in the need of a one-to-one at this time. 3. The patient is encouraged to participate with group and milieu activities. 4. The patient will be seen by the treatment team on a daily basis to assess symptoms, side effects and response to treatment. Patient declining use of bioinformatics associate. Speaking/reading Kiswahili 5. Olanzapine 5mg daily and 10 mg nightly 6. Sertraline to 100mg daily, 50 mg at 14:30 7. Patient awaiting jury trial that was extended to November 09, 2016 8. Recommend continue current medications. 9. Disposition pending available services, CPS evaluation, and immigration status Maribel Aj DO October 07, 2016 14:35
--- NOTE | 2016-10-07 16:30 | NUR ---
Nursing Note [id number] S. "I want to go back to school and learn more [place]". "I want to live in my apartment". O. Patient attending groups, denies current depression, SI/HI, reports anxiety sometimes, not now. Limited interaction with peers-not seen to initiate interactions. A. Disheveled, cooperative, calm, appropriate. P. Monitor for response to treatment. Q 15 min checks for safety. Follow plan of care.
--- NOTE | 2016-10-07 18:43 | NUR ---
marketing segment manager/Counselor: S/O: Patient slept 6.75 hours last night per staff. Patient denies S/I and H/I. She also denies auditory and visual hallucinations. She did not rate depression or anxiety. This scientific writer spoke with Chika of [facility], and Chika stated that their office would like to do supervised visits with patient and her recently little girl. Chika stated that their office will contact the [facility] [place] [place] upon beginning the supervised visits. This scientific writer relayed this information to [facility] [place] Assistant Chief Of Police, Dr. Hagen. A: Patient is cooperative, restricted affect, euthymic, paranoid, limited insight, limited judgment. P: Follow care plan, coordinate with out-patient providers.
--- NOTE | 2016-10-08 04:21 | NUR ---
nursing, nights, 11-7 s/o- has appeared to sleep after 2214 during q 15 minute assessments. a- no apparent distress. p- monitor behavior/emotional state, quality, times and amount of sleep, use and effect of medication. rosie
[2016-10-08] MEDS: OLANZapine Zydis ODT 5 mg Tablet PO SCH ×2 (08:10→21:05)
[2016-10-08 10:23] VITALS: BP 106/60; PULSE 97; RESP 16
--- NOTE | 2016-10-08 14:37 | NUR ---
Nursing Notes [id number] S. This is a book for daughter Grace. O. Patient likes to talk about her Johnathon book for daughter. Denies SI/HI, hallucinations, depression and anxiety. A. Limited insight, continues to spend much of time in room. P. Monitor for response to treatment. Follow plan of care.
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
--- NOTE | 2016-10-08 17:05 | NUR ---
Observations 0700 to 1900 Pt affect and mood was friendly, isolative at times, content and brighter than previous days. Pt was minimally social when approached by staff and peers. Pt attended meals in [employer] and ate 100% of breakfast and lunch. Pt was offered snack but declined. Pt maintained behavior throughout the shift. Pt attended community meeting and set a daily goal. Pt rated her mood 10/10 with 10 being the best. Pt watched some TV. Pt was observed every 15 minutes throughout the shift as ordered.
--- NOTE | 2016-10-08 18:53 | NUR ---
bus transportation manager/Counselor: S/O: Patient slept 7 hours last night per staff. Patient denies S/I and H/I. She also denies auditory and visual hallucinations. She did not rate depression or anxiety. This conventional mortgage underwriter told patient that a [facility] traffic representative called this conventional mortgage underwriter yesterday to organize visitation with patient's daughter. Patient was very happy about the news. This conventional mortgage underwriter asked patient if she had a place to live/stay upon discharge, whenever that may be. Patient stated that she has a few friends in this area where she can stay when she discharges. This conventional mortgage underwriter will relay information to the psychiatrist next week. A: Patient is cooperative, blunted affect, euthymic, paranoid, improving, limited insight, limited judgment. P: Follow care plan, coordinate with out-patient providers.
--- NOTE | 2016-10-09 06:05 | NUR ---
Nursing Note - 7pm to 7am teacher asst Pt spent time in the milieu this evening sitting among peers making small talk. Mood neutral, affect flat. No evidence of psychotic symptoms observed. Pt took HS meds and went to sleep at approx. 2230 and slept through the night for a total of 8.o hours. Monitored pt. with q15 min face checks for safety location and accountability
[2016-10-09] MEDS: OLANZapine Zydis ODT 5 mg Tablet PO SCH ×2 (08:38→21:00)
[2016-10-09 08:47] VITALS: BP 110/72; PULSE 95; RESP 17
--- NOTE | 2016-10-09 12:10 | NUR ---
Day shift nursing note S/O-"I am fine." Pt. denies audio/visual hallucinations, SI, depression or anxiety. She has a flat affect. She stated she slept well late night. She has a good appetite and smiled when com writer talked about her daughter. She prefers to keep to herself. She denies that she has had any strange people come into her room. She is responsive to staff but stays on the periphery of groups and does not engage with peers. A-Paranoid. Limited insight. Getting to baseline functioning. P-Monitor for safety per protocol. Assess efficacy of meds to decrease psychosis. Keep to regular routine on unit.
--- NOTE | 2016-10-09 18:26 | NUR ---
Observations [id number] Pt asleep in room upon start of shift. She attended meals, eating 100%. Pt did not participate in art group, but did attend community meeting along with going outside on the patio. Pt continues to get along with other patients and staff. She spent lots of time in her room, reading. She was observed every 15 minutes of shift as directed.
[2016-10-09] MEDS: diphenhydrAMINE 25 mg Capsule PO PRN (21:08)
--- NOTE | 2016-10-09 22:30 | NUR ---
NURSING NOTE [id number] Mood: good *smiles* Affect: polite, cooperative, smiling in conversation Behavior: visible off and on in DR, when engaged by a peer she chatted w/her for a while, otherwise isolated to room. Asked this automatic typewriter inspector when she would be able to see her baby and was understanding and asked appropriate questions. She showered. Med compliant. Thought processes: denies depression and anxiety, denies SI/HI, denies AH/VH. She is logical and linear in conversation.
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
--- NOTE | 2016-10-10 07:13 | DRSVH ---
PROCEDURE: CT BRAIN WITHOUT CONTRAST ([id number]) INDICATIONS: head trauma TECHNIQUE: Noncontrast 4.5 mm thick angled axial sections acquired from the foramen magnum to the vertex, with c oronal reformats. COMPARISON: None. FINDINGS: Image quality: Excellent. CSF spaces: Basal cisterns are patent. No extra-axial fluid collections. Ventricles are normal in size and shape. Brain: No midline shift. No intracranial masses or hemorrhage. Mcneal-white matter interface is norm al. Skull and face: Calvarium and visualized facial bones are intact, without suspicious lesions. Sinuses: Visualized sinuses and mastoids are clear. IMPRESSION: 1. No CT evidence of acute intracranial pathology. 2. There are no discrepancy with the pulmonary report. Dictated by: Donnie Kaiser M.D. on 10/10/2016 at 7:09 Approved by: Donnie Kaiser M.D. on 10/10/2016 at 7:12
[2016-10-10] MEDS: OLANZapine Zydis ODT 5 mg Tablet PO SCH ×2 (08:30→20:36)
--- NOTE | 2016-10-10 10:58 | NUR ---
Nursing Note [id number] Medications, Behavior S/O: Pt has stayed in room today. Pt refuses to talk with most staff. Pt standing at window this morning looking at her baby's picture. She is shaking & looks angry. Breakfast brought into pt's room. Pt refused to eat any. Pt refused to take medications. Ibuprofen offered for headache. Zyprexa 10 mg IM given at 0905 in left hip after staff guided her to her bed. Pt tearful after shot. She hasn't yet come out of room. A: Pt uncooperative with cares & medications. P: Provide supportive environment. Monitor medications & effects.
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
[2016-10-10] MEDS: Sertraline 20 mg/mL Liq PO SCH (15:22)
[2016-10-10 18:40] VITALS: BP 117/55; PULSE 104; RESP 16
--- NOTE | 2016-10-10 21:05 | NUR ---
Observations 0900 to 2130 Pt affect and mood was flat, guarded, isolative first half of the shift but friendlier and brighter in the afternoon/evening. Pt was minimally social when approached by staff and peers. Pt attended meals in D.R. and ate 100% of breakfast and declined eating lunch. Pt ate 75% of dinner. Pt was offered snack but declined. Pt maintained behavior throughout the shift. Pt did not attend community meeting and did not set a daily goal. Pt declined going to groups. Pt declined going outside on patio. Pt watched some TV with peers. Pt was observed every 15 minutes throughout the shift as ordered.
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
--- NOTE | 2016-10-10 22:57 | NUR ---
NURSING NOTE [id number] Mood: "headache" *clutches head* Affect: pleasant w/peers, somewhat guarded w/staff but allowed this physician underwriter to assess her and maintained behavioral control throughout shift Behavior: visible off and on in the milieu, chatted w/peers, took a shower, ate dinner in the DR, med compliant and did not voice any protest to taking her meds (and was assessed for cheeking). Pt. requested ice to apply to her head but declined any pain PRNs. She displayed an appreciation for select staff; at one point she approached an RN and handed him a cup of sweetened tea that she had prepared for him, unsolicited. Thought processes: difficult to assess as pt. has been very guarded this shift and shook her head to every question asked re: SI/HI/AH/VH and said "no" when asked about depression or anxiety.
[2016-10-10] MEDS ORDERED: LORazepam 1 mg Tablet PO PRN (23:30)
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
[2016-10-11 09:16] LABS: Mean Corpuscular Hemoglobin 26.2 pg (27.0-35.0); Mean Corpuscular Volume 85.1 fL (81-100)
[2016-10-11] MEDS: Sertraline 20 mg/mL Liq PO SCH ×2 (09:18→15:11)
[2016-10-11] MEDS: OLANZapine Zydis ODT 5 mg Tablet PO SCH ×2 (09:19→19:56)
--- NOTE | 2016-10-11 12:47 | NUR ---
Nursing Note [id number] Behavior, Medication S/O: Pt has refused breakfast & lunch. Pt attended community meeting. Her goal was to drink more water. Pt requested "water" be given in her "arm." Pt reported a headache this morning at a "8" on a scale of 1-10/10 the worst. Oxycodone 5 mg given at 0925. Pt rated pain at a "8" at 1035. Motrin 600 mg given. Pt able to sleep after Motrin given. Pt sad when talking about her baby, but stated, "I want my baby to be happy." A: Pt not attending to ADL's. P: Provide supportive environment. Monitor medications & effects.
[2016-10-11 17:18] VITALS: BP 125/87; PULSE 106; RESP 18
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
[2016-10-11] MEDS ORDERED: Polyethylene Glycol (PEG) 17 Gm Powder PO PRN (19:05)
--- NOTE | 2016-10-11 19:36 | NUR ---
NURSING NOTE [id number] Mood: "sad" Affect: flat, guarded Behavior: resting in bed w/eyes open at start of shift. Med compliant. Visible off and on in milieu. Declined offer of PRN pain medication but accepted offer of ice pack. She ate a late lunch of a sandwich after having refused breakfast. Came out for dinner and ate most of it. She showered. Has complied with her behavioral contract as of time of writing. Thought processes: pt. states she is sad because "I bumped my head." Reports she is depressed because "I miss Argelia" (her baby). Her eye contact has improved from yesterday evening and she is seen smiling off and on when w/her peers. Speaks in soft voice. Shook her head when asked if she has AH/VH.
--- NOTE | 2016-10-11 21:13 | NUR ---
Observations 0900 to 2130 Pt affect and mood was flat, guarded, bright when approached by peers. Pt was isolative and in her room most of the day. Pt was minimally social when approached by staff and peers. Pt attended meals in D.R. but declined breakfast, ate 75% of lunch and dinner. Pt was offered snack but declined. Pt maintained behavior throughout the shift. Pt attended community meeting and set a daily goal. Pt declined going to group. Pt declined going outside on patio. Pt briefly watched some TV with peers. Pt was observed every 15 minutes throughout the shift as ordered.
--- NOTE | 2016-10-12 06:39 | NUR ---
OBSERVATIONS Pt was isolative, remaining in room for almost entire shift, coming out only for drinks of water and a snack. Pt slept well. Maintained Q15 checks for safety as directed.
[2016-10-12 08:43] VITALS: BP 112/70; PULSE 113; RESP 16
[2016-10-12] MEDS: OLANZapine Zydis ODT 5 mg Tablet PO SCH ×2 (09:51→20:55)
[2016-10-12] MEDS: Sertraline 20 mg/mL Liq PO SCH ×2 (09:54→14:53)
--- NOTE | 2016-10-12 14:38 | NUR ---
Nursing Note [id number] Behavior S/O: Pt ate 75% of breakfast & lunch. Vital signs stable. Pt out of room for breakfast & lunch. Pt out this afternoon to watch TV. Pt pleasant & cooperative, but d/n interact with peers & only minimally with staff. Poor eye contact. Conversation tracking clear with slow responses to questions. A: Pt has little insight into illness. P: Provide supportive environment. Monitor medications & effects.
--- NOTE | 2016-10-12 15:29 | NUR ---
Obs Dayshift Pt is out in the milieu more today, little engaging w/ peers but is responding politely and smiling. Pt is watching TV, little or no participating in groups. Pt is polite and engages little w/ some staff, cleaning her room and doing laundry. Polite and appropriate today, mostly keeps to herself, quiet, reserved, little engaging. Pt is eating well and has good ADL's
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
[2016-10-12 19:27] VITALS: PULSE 76
--- NOTE | 2016-10-12 22:13 | NUR ---
NURS Note [id number] Mood: Endorses anxiety 6/10; endorses some depression. Pt declined medication for anxiety. Affect: Well-modulated, appropriate. Behavior: Pt isolated in rm much of shift. Pleasant and cooperative. Thought Content/Process: Endorses AH, voices telling her she is bad because she is crying. Pt speech is linear and logical. PRN/NURS Notes: Pt reported headache before dinner, declined pain medications, pain resolved after dinner. Pt had elevated HR during day shift, reassessed this PM and HR was 76. Ate 100% of dinner.
[2016-10-13 02:11] LABS: Gamma Glutamyl Transpeptidase 10 IU/L (0-60)
--- NOTE | 2016-10-13 05:01 | NUR ---
nursing, nights, 11-7 s/o- has appeared to sleep after 2144 during q 15 minute assessments. a- no apparent distress. p- monitor behavior/emotional state, quality, times and amount of sleep, use and effect of medication.
[2016-10-13] MEDS: Sertraline 20 mg/mL Liq PO SCH ×2 (09:35→14:20)
--- NOTE | 2016-10-13 12:17 | NUR ---
Caving Guide/Counselor S:"I miss my baby and my family." O: Patient Had no SI or HI, and had some auditory hallucinations. Patient stated that she heard a man talking in Korean, and he told her to hurt herself, as well as saying bad words. She did not report any visual hallucinations. Patient stated that her depression rated at an 8, due to missing her family and her baby, and that her anxiety was at a 6. A: Patient was overall cooperative and answered all questions. Eye contact was good. The dr. checked her heart rate, which was elevated last night. Heart rate was down, and patient seemed excited at the prospect of seeing her daughter next week. The dr suggested contacting the PACT team for med compliance once discharged. Patient slept for 8 hours last night. P: Follow care plan and coordinate with outpatient providers and continue to monitor behavior. Coordinate with director social to arrange visitation with baby. Addendum: 10/13/16 at 1419 by SAAD ESTEVES [facility] Patient did not participate in groups.
--- NOTE | 2016-10-13 15:04 | NUR ---
nursing note: "Very nervous...My heart is fast" is how she describes how she feels Her HR at that time was 104 and she was willing to take Ativan and this was given @ 0945. She was out in the milieu @ 1030 and then said she felt, "relaxed" an her HR at that time was 88. She has been out a little more than yesterday in the day room and rec room, but still isolating alot in her room. We have encouraged increased fluid intake;she did not drink the ensure on her tray. She is compliant with meds, interacts minimally, shyly.
[2016-10-13 16:02] VITALS: BP 107/66; PULSE 92
--- NOTE | 2016-10-13 17:09 | PCM.PNPSY ---
Subjective Date of Service October 13, 2016 Subjective The patient reports that she is feeling "fine" and that today is a "better" today. The patient reports that her heartbeat is down as she had had tachycardia earlier and she is bringing drinking more water. Her pulse at the time of interview was 80. She reports having some auditory hallucinations of the male telling her to hurt herself but the present time she is able to ignore it but would come to staff if she felt she were in danger. The patient inquired as to what is going on with her apartment. She was referred to her admitted attorneys. She would like to see her baby soon. She reports that it is easier for her to take the liquid medication and her mood is improving. She denied side effects. Sleep: 8 hours Appetite: "Okay" Suicidal and homicidal ideation: denies Auditory hallucinations: Reports that the male voice was present on little bit today Visual hallucinations: Reports last night Other Psychotic Symptoms: Poverty of speech social isolation Anxiety: 10/23 Depression: 12/23 Current Medications Current Medications Cyclobenzaprine HCl 5 mg BID PRN PO Last administered on 10/11/16 19:58; Admin Dose 5 MG; Start 10/11/16 at 17:50 Ferrous Sulfate 325 mg BIDWM PO Last administered on 10/13/16 09:34; Admin Dose 325 MG; Start 10/12/16 at 08:00 Mental Status Exam Vital Signs Vital Signs Date Time Temp Pulse Resp B/P Pulse Ox O2 Delivery O2 Flow Rate FiO2 10/13/16 16:02 36.6 92 107/66 Appearance: Neat/well groomed Attitude: Pleasant, Cooperative, Guarded Behavior: No unusual behavior Affect: Blunted Mood: Anxious Thought Process/Associations: Other (Minimally verbal) Speech Production: Paucity Speech Rate: Lags/Latency Speech Articulation: Other (ESL, Mandarin primary, heavily accented) Thought Content: Suspicious Danger to Self/Suicidal Ideati: None Danger to Others: None Hallucinations: Auditory (Endorses), Visual (Denies) Consciousness: Alert Orientation: Person, Place, Date, Situation Memory: Grossly Intact (difficult to assess due to language) Estimate Intellectual Function: Average Attention/Concentration & Cogn: Unable to assess Insight: Limited Judgement: Poor Result Diagram: 10/11/16 0905 Mental Health Plan The patient is a 31-year-old, Mandarin speaking female with Amharic as second language who reportedly tried to "cut the baby out" at times due to anger prior to admission. The patient appeared to meet criteria for major depression and so was started on fluoxetine and lorazepam for anxiety. The patient requested an increase in antianxiety medication, however lorazepam is generally avoided where possible in and so she was switched to diphenhydramine per consultation with MANAGER MEDICAL regarding safest treatment. Olanzapine was added due to ongoing psychosis and the patient has had a slow improvement in symptoms. She continued to express depressed mood and so fluoxetine was switched to sertraline, but the patient had been refusing for unclear reasons. Once switched to liquid formulation, the patient was again refusing but began to take it when the dose was split. The patient gave to her daughter and had demonstrated an improvement in her interaction with others and her willingness to talk to staff. Olanzapine was reduced, resulting in worsening interactions. Both olanzapine and sertraline were titrated with significantly improved symptoms. The patient appears calmer today and has indicated her symptoms appear to be improving since she was returned to liquid sertraline. This would suggest medication nonadherence. Given the patient's recent physical outbursts and attacks, and medication nonadherence, she is not appropriate for a less restrictive order unless she could have daily liquid medications and Zydis. [place] Centralia I: 1. Schizoaffective disorder, depressive type [place] II: Deferred. [place] III: 2 week post- [place] IV: Severe. [place] V: 30 Medications Sertraline liquid 100mg daily and 50mg at 1430 Olanzapine 5mg daily and 10 mg nightly Multivitamin po daily Docusate sodium 100mg bid Diphenhydramine 25 mg as needed. Treatments 1. The patient is admitted to the inpatient unit and will be provided a safe and secure environment. 2. The patient is denying current active suicidality or homicidality and is not in the need of a one-to-one at this time. 3. The patient is encouraged to participate with group and milieu activities. 4. The patient will be seen by the treatment team on a daily basis to assess symptoms, side effects and response to treatment. Patient declining use of information technology account manager. Speaking/reading Amharic 5. Patient awaiting 90 day hearing. 6. Disposition pending available services, CPS evaluation, and immigration status. [facility], public affairs specialist is currently working to find a safe discharge plan for patient. Given suspected non-adherence, patient does not appear appropriate for LRO at this time. Rigoberto Egan MD October 13, 2016 17:09
[2016-10-13] MEDS: OLANZapine Zydis ODT 5 mg Tablet PO SCH (20:53)
--- NOTE | 2016-10-13 22:26 | NUR ---
Nurses Note Evening Patient has been cheerful smiling talking easily to staff and peers. She was visited by a family RN and smiled during that time appearing relaxed and happy. Her appetite,hygiene and sleep patterns are within normal range. She has remained medication compliant. Will maintain q 15min. checks for safety and support. Addendum: 10/13/16 at 2228 by NANCY GEE RN Amended: Links added.
--- NOTE | 2016-10-14 04:02 | NUR ---
Nursing NOC 7p-7a PT's mood appears a little more bright than a few days ago. Pt able to make some eye contact, smiled and said "thank you." PT has been appropriate with behavior. She was out in the dining area for short time. PT still c/o a little pain to her head where she fell. NO lump palpable at this time. PT has slept well through the night. No outbursts or aggression. WIll CTM for medication effects or any A/R.
[2016-10-14] MEDS: Sertraline 20 mg/mL Liq PO SCH ×2 (08:43→15:13)
[2016-10-14] MEDS: OLANZapine Zydis ODT 5 mg Tablet PO SCH ×2 (08:43→21:25)
--- NOTE | 2016-10-14 13:07 | NUR ---
Nursing Note [id number] CPS Visit, Behavior S/O: Pt ate 75% of breakfast & lunch. CPS washer machine & pipeline operator here this morning to talk with pt. Pt will have court via a phone call at approximately 1000 tomorrow for a "residential care hearing." Pt has been out of room briefly for meals. Pt is smiling once in a while. Poor eye contact. Pt d/n interact very much with peers or staff. When pt interacts, conversation tracking is clear & organized with slowed ability to answer questions. A: Pt improving slowly. P: Provide supportive environment. Monitor medications & effects.
--- NOTE | 2016-10-14 18:04 | NUR ---
Nurses Note Evening Patient has been bright,cheerful with clear thoughts and goal directed behaviors. Patient had called a male "uncle" who dropped off personal belongings as well as 7 baby outfits which are secured in the patients' belongings. Patient has pictures of her baby which she has shared with staff and peers.Her appetite,hygiene and sleep patterns are undisturbed. Patient has been medication compliant without adverse effects. Will maintain q 15min. checks for safety and support. Addendum: 10/14/16 at 1816 by NANCY GEE RN Amended: Links added.
--- NOTE | 2016-10-14 18:13 | NUR ---
Observations 0900 to 2130 Pt affect and mood was flat, guarded, and withdrawn. Pt was isolative and in her room most of the day. Pt was minimally social when approached by staff and peers. Pt attended meals in D.R. and ate 75% of meals. Pt was offered snack but declined. Pt maintained behavior throughout the shift. Pt attended community meeting and set a daily goal. Pt declined going to group. Pt went outside on patio with staff and peers to get some fresh air. Pt briefly watched some TV with peers. Pt was observed every 15 minutes throughout the shift as ordered.
--- NOTE | 2016-10-14 20:08 | NUR ---
integrity manager/Counselor: S:"Can I have the phone number for my case management rn at [facility]?" O: Patient slept 6.25 hours last night per staff. Patient denies S/I and H/I. She also denies auditory and visual hallucinations. She did not rate depression or anxiety. A: Patient is cooperative, restricted affect, euthymic, paranoid, limited insight, limited judgment. P: Follow care plan, coordinate with out-patient providers. Addendum: 10/14/16 at 2010 by JUAN CAO [facility] Patient attended and participated in the afternoon group session.
--- NOTE | 2016-10-14 22:48 | PCM.PNPSY ---
Subjective Date of Service Oct 14, 2016 Subjective The patient reports that she is feeling "not bad, not good" and that she is a little down since she met with the custody assistant city attorney. She was also wondering about what would be happening with an apartment. Discussed need to be stable prior to going into an apartment and need for community supervision and she agreed. She denied side effects. Sleep: 6.25 hours Appetite: "eating" Suicidal and homicidal ideation: denies Auditory hallucinations: denies Visual hallucinations: denies Other Psychotic Symptoms: Poverty of speech social isolation Anxiety: 0/10 Depression: "little bit sad" Current Medications Current Medications Olanzapine 5 mg DAILY PO Last administered on 10/14/16t 08:43; Admin Dose 5 MG; Start 10/14/16 at 08:30 Mental Status Exam Appearance: Neat/well groomed Attitude: Pleasant, Cooperative, Guarded Behavior: No unusual behavior Affect: Blunted Mood: Anxious Thought Process/Associations: Other (Minimally verbal) Speech Production: Paucity Speech Rate: Lags/Latency Speech Articulation: Other (ESL, Mandarin primary, heavily accented) Thought Content: Suspicious Danger to Self/Suicidal Ideati: None Danger to Others: None Hallucinations: Auditory (Denies), Visual (Denies) Consciousness: Alert Orientation: Person, Place, Date, Situation Memory: Grossly Intact (difficult to assess due to language) Estimate Intellectual Function: Average Attention/Concentration & Cogn: Unable to assess Insight: Limited Judgement: Poor Result Diagram: 10/11/16 0905 Mental Health Plan The patient is a 31-year-old, Mandarin speaking female with [place]ib[place]ian as second language who reportedly tried to "cut the baby out" at times due to anger prior to admission. The patient appeared to meet criteria for major depression and so was started on fluoxetine and lorazepam for anxiety. The patient requested an increase in antianxiety medication, however lorazepam is generally avoided where possible in and so she was switched to diphenhydramine per consultation with WO[employer] PRODUCTS MANUFACTURER regarding safest treatment. Olanzapine was added due to ongoing psychosis and the patient has had a slow improvement in symptoms. She continued to express depressed mood and so fluoxetine was switched to sertraline, but the patient had been refusing for unclear reasons. Once switched to liquid formulation, the patient was again refusing but began to take it when the dose was split. The patient gave to her daughter and had demonstrated an improvement in her interaction with others and her willingness to talk to staff. Olanzapine was reduced, resulting in worsening interactions. Both olanzapine and sertraline were titrated with significantly improved symptoms. The patient appears calmer today and has indicated her symptoms appear to be improving since she was returned to liquid sertraline. This would suggest medication nonadherence. Given the patient's recent physical outbursts and attacks, and medication nonadherence, she is not appropriate for a less restrictive order unless she could have daily liquid medications and Zydis. Patient appears to be nearing baseline again. [place] Sun[place] I: 1. Schizoaffective disorder, depressive type [place] II: Deferred. [place] III: Post- [place] IV: Severe. [place] V: 35 Medications Sertraline liquid 100mg daily and 50mg at 1430 Olanzapine 5mg daily and 10 mg nightly Multivitamin po daily Docusate sodium 100mg bid Diphenhydramine 25 mg as needed. Treatments 1. The patient is admitted to the inpatient unit and will be provided a safe and secure environment. 2. The patient is denying current active suicidality or homicidality and is not in the need of a one-to-one at this time. 3. The patient is encouraged to participate with group and milieu activities. 4. The patient will be seen by the treatment team on a daily basis to assess symptoms, side effects and response to treatment. Patient declining use of per diem interpreter. Speaking/reading [place]ian 5. Patient awaiting 90 day hearing. 6. Disposition pending available services, CPS evaluation, and immigration status. [facility] is currently working to find a safe discharge plan for patient. Given suspected non-adherence, patient does not appear appropriate for LRO at this time. Rigoberto Egan MD Oct 14, 2016 22:48 4. The patient will be seen by the treatment team on a daily basis to assess symptoms, side effects and response to treatment. Patient declining use of per diem interpreter. Speaking/reading [place]ian 5. Patient awaiting 90 day hearing. 6. Disposition pending available services, CPS evaluation, and immigration status. [facility] is currently working to find a safe discharge plan for patient. Given suspected non-adherence, patient does not appear appropriate for LRO at this time. Rigoberto Egan MD Oct 14, 2016 22:48
--- NOTE | 2016-10-15 05:18 | NUR ---
nursing, nights, 11-7 s/o- has appeared to sleep after 0 during q 15 minute assessments. a- no apparent distress. p- monitor behavior/emotional state, quality, times and amount of sleep, use and effect of medication. rosie
[2016-10-15] MEDS: Sertraline 20 mg/mL Liq PO SCH ×2 (08:13→14:14)
[2016-10-15] MEDS: OLANZapine Zydis ODT 5 mg Tablet PO SCH ×2 (08:13→20:39)
[2016-10-15 13:30] VITALS: BP 118/72; PULSE 102; RESP 16
--- NOTE | 2016-10-15 14:29 | NUR ---
Nursing note Dayshift S/O Pt had court by phone today. Pt has been out of room for meals. Pt not very interactive with staff or other patients. She tends to keep to herself. A. Pt has poor eye contact, pt has minimal interaction with others. Pt appears cheerful even giving brief smiles today. Pt denies S/I or H/I. P Follow plan of care, monitor behaviors. Monitor for side effects.
--- NOTE | 2016-10-15 17:02 | PCM.PNPSY ---
Subjective Date of Service Oct 15, 2016 Subjective The patient reports that she is feeling "good" and that her mood is 6/10. She reported eating half of her breakfast and half of her dinner. She stated that she was hearing some voices particularly the bad male voice and later called it "just a dream male." The patient was under the impression that her lodging facilities attendant had already found her apartment and she was advised to discuss that with them as we are unaware. The patient also reportedly had superior court case but it is unclear if the nature of the hearing. She denied side effects. Sleep: 7 hours, "fine" Appetite: "Not hungry" Suicidal and homicidal ideation: denies Auditory hallucinations: Reports having a "little" of the "bad voices" Visual hallucinations: denies Other Psychotic Symptoms: Poverty of speech social isolation Anxiety: 10/23 Depression: 10/23 Current Medications Current Medications Olanzapine 5 mg DAILY PO Last administered on 10/15/16t 08:13; Admin Dose 5 MG; Start 10/14/16 at 08:30 Mental Status Exam Vital Signs Vital Signs Date Time Temp Pulse Resp B/P Pulse Ox O2 Delivery O2 Flow Rate FiO2 10/15/16 13:30 36.2 102 16 118/72 Appearance: Neat/well groomed Attitude: Pleasant, Cooperative, Guarded Behavior: No unusual behavior Affect: Blunted Mood: Dysthymic Thought Process/Associations: Other (Minimally verbal) Speech Production: Paucity Speech Rate: Lags/Latency Speech Articulation: Other (ESL, Mandarin primary, heavily accented) Thought Content: Suspicious Danger to Self/Suicidal Ideati: None Danger to Others: None Hallucinations: Auditory (Endorses), Visual (Denies) Consciousness: Alert Orientation: Person, Place, Date, Situation Memory: Grossly Intact (difficult to assess due to language) Estimate Intellectual Function: Average Attention/Concentration & Cogn: Unable to assess Insight: Limited Judgement: Poor Result Diagram: 10/11/16 0905 Mental Health Plan The patient is a 31-year-old, Mandarin speaking female with Brazilian as second language who reportedly tried to "cut the baby out" at times due to anger prior to admission. The patient appeared to meet criteria for major depression and so was started on fluoxetine and lorazepam for anxiety. The patient requested an increase in antianxiety medication, however lorazepam is generally avoided where possible in and so she was switched to diphenhydramine per consultation with ADVERTISING ACCOUNT EXECUTIVE regarding safest treatment. Olanzapine was added due to ongoing psychosis and the patient has had a slow improvement in symptoms. She continued to express depressed mood and so fluoxetine was switched to sertraline, but the patient had been refusing for unclear reasons. Once switched to liquid formulation, the patient was again refusing but began to take it when the dose was split. The patient gave to her daughter and had demonstrated an improvement in her interaction with others and her willingness to talk to staff. Olanzapine was reduced, resulting in worsening interactions. Both olanzapine and sertraline were titrated with significantly improved symptoms. The patient appears calmer today and has indicated her symptoms appear to be improving since she was returned to liquid sertraline. This would suggest medication nonadherence. Given the patient's recent physical outbursts and attacks, and medication nonadherence, she is not appropriate for a less restrictive order unless she could have daily liquid medications and Zydis. Patient appears to be nearing baseline again. [place] I: 1. Schizoaffective disorder, depressive type [place] II: Deferred. [place] III: Post- [place] IV: Severe. [place] V: 35 Medications Sertraline liquid 100mg daily and 50mg at 1430 Olanzapine 5mg daily and 10 mg nightly Multivitamin po daily Docusate sodium 100mg bid Diphenhydramine 25 mg as needed. Treatments 1. The patient is admitted to the inpatient unit and will be provided a safe and secure environment. 2. The patient is denying current active suicidality or homicidality and is not in the need of a one-to-one at this time. 3. The patient is encouraged to participate with group and milieu activities. 4. The patient will be seen by the treatment team on a daily basis to assess symptoms, side effects and response to treatment. Patient declining use of medical office clerk. Speaking/reading Brazilian 5. Patient awaiting 90 day hearing. 6. Disposition pending available services, CPS evaluation, and immigration status. [facility] public safety teacher is currently working to find a safe discharge plan for patient. 7. Given suspected non-adherence, patient does not appear appropriate for LRO at this time unless with significant supervision. Rigoberto Egan MD Oct 15, 2016 17:02 4. The patient will be seen by the treatment team on a daily basis to assess symptoms, side effects and response to treatment. Patient declining use of medical office clerk. Speaking/reading Brazilian 5. Patient awaiting 90 day hearing. 6. Disposition pending available services, CPS evaluation, and immigration status. [facility], public safety teacher is currently working to find a safe discharge plan for patient. Given suspected non-adherence, patient does not appear appropriate for LRO at this time. Rigoberto Egan MD Oct 15, 2016 17:02
--- NOTE | 2016-10-15 18:13 | NUR ---
NURSING NOTE [id number] Mood: "fine" Affect: quiet, pleasant in conversation Behavior: resting in bed at start of shift, later came out on the patio and sat by herself, visible on fringes of milieu, med compliant Thought processes: pt. denies SI/HI, denies depression or feeling sad today. Denies AH this shift.
--- NOTE | 2016-10-15 18:47 | NUR ---
[facility] Day Shift Pt maintained behavioral control throughout the shift. Pt affect appears mostly flat. Pt spends most of the shift resting in her room and sitting quietly in the dining room. Pt is appropriate with staff and peers when active on the unit, and is slightly more social/communicative with staff and peers. Pt is appropriate with staff and peers when active on the unit. Pt attended all meals and ate approx 90% of all meals.
--- NOTE | 2016-10-16 01:40 | NUR ---
activity patient in and out of common area at the beginning fo my shift. interacting with fellow patients compliant with medications. now resting quietly on her left side.
[2016-10-16] MEDS: OLANZapine Zydis ODT 5 mg Tablet PO SCH ×2 (08:29→21:16)
[2016-10-16] MEDS: Sertraline 20 mg/mL Liq PO SCH ×2 (08:30→14:29)
--- NOTE | 2016-10-16 13:06 | PROG NOTE ---
[address] [address] PROGRESS NOTE PATIENT: TOMMY ADAMS : 1985 MR#: [id number] ADMIT: 07/13/2016 JOB ID: [id number] DATE: 10/16/2016 CHIEF COMPLAINT: "I am doing good." HISTORY OF PRESENT ILLNESS: As stated above, the patient indicated that she does feel that things are going well. She denied any evidence of current difficulties and stated that she has been reading her book some. Since my last visit, the patient has had a completion of her delivery and in review of documents from care providers including Dr. Egan's note from October 15 the patient remains on doses of Zoloft at 100 mg q.a.m. and 50 mg at 2:30, Zyprexa 5 mg q.a.m. and 10 mg at bedtime. My understanding is that she is continuing to wait a 90-day hearing with immigration status. OBJECTIVE: On mental status exam, she was bright, cooperative, interactive. She made good eye contact throughout. She denied any evidence of current suicidal, homicidal ideation. No evidence of active hallucinations, delusions. She was alert, oriented to time and place. Her attention and concentration are notably fair. Insight and judgment are fair. PHYSICAL EXAMINATION: Vital signs are current. Temperature is 36.2, pulse 102, respirations 16, BP 118/72. MEDICATION REVIEW: Includes 1. Zyprexa Zydis 5 mg q.a.m., 10 mg at h.s. 2. Zoloft liquid 100 mg q.a.m., 50 mg at 2:30. ASSESSMENT: AXIS I: Schizoaffective disorder, depressive type. AXIS II: Deferred. AXIS III: . AXIS IV: Severe. AXIS V: Global Assessment of Functioning current 35. PLAN: 1. Continuation of all medications as noted. 2. Continuation of waiting for 90-day hearing. 3. Disposition pending with CPS evaluation immigration status. 4. Recommendations for 90 is pending at this time due to limited support and supervision.
--- NOTE | 2016-10-16 13:36 | NUR ---
NURSING DAYS 7-7 S/O- Patient denies self harm intentions and intent to harm others. Denies pain and nausea. Patient up to eat at meals, compliant with medications. A- Patient appears calm and interacting with others on the peripheral of group. Spending most of time in room. P- Continue with plan of care. Superior court hearing in future?
--- NOTE | 2016-10-16 19:49 | NUR ---
OBSERVATIONS Pt was pleasant and cooperative with staff. Pt was isolative spending much of the morning through the afternoon in her room but became more social in the evening, sitting in common areas, chatting with peers. Pt went out on patio momentarily but went back inside when another pt raised their voice. Pt participated in a group activity, showered, and did a load of laundry. Pt ate all meals and snacks. Maintained Q15 checks for safety.
[2016-10-16 19:50] VITALS: BP 104/68; PULSE 89; RESP 16
--- NOTE | 2016-10-17 05:47 | NUR ---
Nursing Noc Pt isolative and quiet this shift. Taking medications as prescribed. Noted to be asleep at 2200 and remained asleep throughout the night. Continuing to monitor mood behavior and emotional state. Q15 minute safety checks performed throughout the shift as ordered. CP
--- NOTE | 2016-10-17 05:50 | NUR ---
Observations 1900 - 0700 Pt was observed to be friendly, social, bright when engaged and was out on the unit most of the evening. Pt was pleasant, polite and cooperative when approached. Pt maintained behavior throughout the shift. Pt speech was ok and eye contact was good. Pt watched some TV with peers and socialized before bed. Pt ate snack. Pt first appeared asleep at 2200 and has slept through the night. Pt was observed every 15 minutes through the night as ordered.
[2016-10-17] MEDS: Sertraline 20 mg/mL Liq PO SCH (07:15)
[2016-10-17] MEDS: OLANZapine Zydis ODT 5 mg Tablet PO SCH ×2 (07:15→20:29)
--- NOTE | 2016-10-17 11:12 | NUR ---
NURSING DAYS 7-3 S/O- Patient keeping to herself most of shift so far, was out in dinning room before breakfast and visiting with other patients. Patient denies any needs, compliant with medications, and resting in room. A-Patient told to make needs known, encouraged to speak with MD about same. P-Potential d/c to half-way next week, SW, and compass to be evolved. Immigration and court issues?
[2016-10-17 13:06] VITALS: BP 101/63; PULSE 94; RESP 16
--- NOTE | 2016-10-17 13:30 | PROG NOTE ---
[address] [address] PROGRESS NOTE PATIENT: TOMMY ADAMS : 1985 MR#: [id number] ADMIT: 07/13/2016 JOB ID: [id number] DATE: 10/17/2016 CHIEF COMPLAINT: "When can I see my baby?" HISTORY OF PRESENT ILLNESS: As stated above, the patient did identify that she would like to have contact with her baby, stating that she thought that they were scheduling a time. She reportedly has received sign-out from the OB team as stated on September 21 and continues on her current admission with disposition planning. I have discussed with the treatment team this morning possibility of discharge on Tuesday based on the patient's current baseline status of presentation. I do not feel that she requires continuation of locked hospitalization and feel that the patient has maximized her treatment at this time. Per documentation, she has agreed to continue with her current medication interventions and stated that she would also follow up with doctors in the outpatient sector. Discussion was held with the patient and treatment team of a plan to discharge on Tuesday with outpatient care followup. OBJECTIVE: On mental status exam, the patient was cooperative, polite. She maintained good eye contact throughout. Her speech is of normal tone, frequency, and volume. Her mood is neutral. Affect was congruent. Her thought process showed no evidence of racing thoughts, flight of ideas, loose or disconnected thinking. Thought content: She denied any evidence of current suicidal, homicidal ideation. No evidence of active hallucinations, delusions. She was alert, oriented to time and place. Her attention and concentration intact. Memory intact in the short term, laborer marine terminal, recent. Insight and judgment are fair. PHYSICAL EXAM: All vital signs are current. Temperature is 36.2, pulse 89, respirations 16, BP 104/68. MEDICATION REVIEW: Includes: 1. Zyprexa 5 mg q.a.m., 10 mg q.h.s. 2. Zoloft 100 mg q.a.m., 50 mg q.h.s. ASSESSMENT: AXIS I: Schizoaffective disorder, depressed type. AXIS II: Deferred. AXIS III: Status . AXIS IV: Stressors are noted for transitions of life, disposition planning. AXIS V: Global Assessment of Functioning of current 45. PLAN: 1. Recommendations for discharge on Tuesday with aftercare followup appointments through [facility], [facility], [facility] and [facility]. 2. Recommendations for continuation of all medications, including Zoloft 100 mg q.a.m., 50 mg q.h.s.; Zyprexa 5 mg q.a.m., 10 mg q.h.s. 3. Discontinuation of all other medications for simplicity of care and discharge planning. MIREYAD
[2016-10-17] MEDS ORDERED: Sertraline 20 mg/mL Liq PO SCH (21:00)
--- NOTE | 2016-10-17 23:07 | NUR ---
NURSING NOTE [id number] Mood: "fine" Affect: pleasant and cooperative, a bit guarded w/staff but quite friendly w/peers Behavior: very visible on unit this evening; social w/certain peers, watched a movie w/peers, presented independently for HS meds Thought processes: pt. denies depression or SI. Denies AH/VH. No disturbed thought processes noted.
--- NOTE | 2016-10-18 06:05 | NUR ---
Nursing note: manager social work/ sleep Patient appears to be sleeping on safety checks during the night. Offers no complaints.
[2016-10-18] MEDS: OLANZapine Zydis ODT 5 mg Tablet PO SCH (08:13)
[2016-10-18 08:25] VITALS: BP 106/72; PULSE 76; RESP 17
[2016-10-18] MEDS ORDERED: Sertraline 20 mg/mL Liq PO SCH ×2 (10:15→21:00)
--- NOTE | 2016-10-18 12:33 | NUR ---
Good mood Pt. was noted with a smile on her face. She denied depression and anxiety. She stated, "I'm going out tomorrow." She said she had been here since [place] New Year, for 3 to 4 months now. She denied any discharge concerns, questions, and needs. She made 2 isabella bracelets for her daughter "Tyler". She is excited about her pending discharge.
--- NOTE | 2016-10-18 15:24 | NUR ---
Residency Program Coordinator/Counselor S:"I'm in a bad mood. My apartment is rented out." O: Patient did not express any suicidal or homicidal ideation. She did not report any auditory or visual hallucinations. She was in a bad mood because she did not get the apartment she applied for. She rated her level of depression at a 6, and her anxiety at a 7. A: Patient did not engage in conversation and was upset about losing her apartment. She stated she was in touch with a geriatric social worker but did not know his number or name. Patient did not make much eye contact. P:P: Follow care plan and coordinate with outpatient providers. Monitor behaviors, and continue to work on discharge plans.
--- NOTE | 2016-10-18 16:54 | PROG NOTE ---
[address] [address] PROGRESS NOTE PATIENT: TOMMY ADAMS : 1985 MR#: [id number] ADMIT: 07/13/2016 JOB ID: [id number] CORRECTED REPORT: DATE: 10/18/2016 CHIEF COMPLAINT: "I am really excited." this is per patient report in reference to her plan of discharge tomorrow. HISTORY OF PRESENT ILLNESS: As stated above, the patient did identify that she is aware that she will be discharged tomorrow. I did clarify with her the plan and intent to [facility] [place] with outpatient followup through [facility] for both medication management and individual therapy. She indicates that she does have a friend, Uvaldo, whom she plans on checking in with. She denied any evidence of acute distress. She reports that she will take her medicines and follow up with her outpatient providers. MENTAL STATUS EXAM: She was cooperative, polite. She maintained good eye contact. She denied any evidence of acute distress. Her speech is of normal tone, frequency, and volume. Her mood was neutral. Affect was congruent. Her thought process showed no evidence of racing thoughts, flight of ideas, loose or disconnected thinking. Her thought content: She denied any evidence of current suicidal, homicidal ideation. No evidence of active hallucinations, delusions. She was alert, oriented to person, place, time, situation. Attention and concentration intact. Insight and judgment are fair. PHYSICAL EXAM: Vital signs of current temperature is 36.8, pulse 76, respirations 17, BP 106/70. MEDICATION REVIEW: Includes: 1. Zoloft 100 mg q.a.m., 50 mg q.h.s. 2. Zyprexa 5 mg q.a.m., 10 mg q.h.s. 3. Iron 325 mg b.i.d. ASSESSMENT: [place] ISchizoaffective disorder, depressed type. [place] IIDeferred. [place] IIIPostpartum. [place] IVStressors are noted for transition of life, previous mental health interventions, recent . [place] VGlobal assessment of functioning: Current 40. PLANS: 1. Recommendation is to discharge tomorrow. 2. Simplification of meds to be Zoloft 150mg q am 3. Continue Zyprexa 5 mg q am and 10 mg qhs Corrected by GS 10/25/16 at 8:11am Account number.
--- NOTE | 2016-10-19 06:34 | NUR ---
Nursing note: assembler 1st shift/ sleep Patient appears to be sleeping on safety checks during the night. Offers no complaints.
--- NOTE | 2016-10-19 09:52 | PCM.DIMED ---
Discharge Instructions Date of Service Oct 19, 2016 Dates of Hospitalization Jul 13, 2016 at 23:56 Discharge Diagnosis Discharge Diagnosis Schizoaffective DO Depressed Type Diet Discharge Diet: No restrictions Franck Borden DO Oct 19, 2016 09:52
[2016-10-19] MEDS ORDERED: FERR-74 PO (09:53)
[2016-10-19] MEDS ORDERED: SERT50TA9 PO (09:53)
[2016-10-19] MEDS ORDERED: OLAN5TAB PO ×2 (09:53)
--- NOTE | 2016-10-19 11:40 | NUR ---
Nursing note: "awesome and excited!" is how pt described her mood after leaving the courtroom, knowing her case was dismissed and she was leaving today. She has been out in the milieu, interacting with others quietly. She is well groomed nad her appetite is good. She denies any questions about her impending discharge. She is logical and linear in our interaction and she denies any SI/HI or thought disturbance. Addendum: 10/19/16 at 1328 by KARTHIKEYAN BLANCA RN Discharge: Reviewed all discharge paperwork with pt, including maps to the mission from the bus station and from the bus station to the her appt at [facility] and the [facility] near the bus station; she verbalizes understanding. All belongings and valuables were reviewed with pt.
--- NOTE | 2016-10-19 13:53 | NUR ---
Early Childhood Lead Teacher/Counselor S:"I'm happy today." O: Patient did not have any SI or HI, nor any auditory or visual hallucinations. She did not express any anxiety or depression, and was in a happy mood due to being discharged today. A:Patient was very cooperative when asked for information. P:Patient was discharged today, and has a follow up appointment scheduled with [facility] in [place]. The patient was provided with information on where to picking machine operator her prescriptions, as well as discharge instructions on how to utilize her safety plan and the crisis line number if the need arises. She was provided with the address to her follow up appointment, and was picked up by a friend. The patient was excited to leave and was very interactive all morning long following court.
--- NOTE | 2016-10-19 14:51 | NUR ---
Asbestos Siding Installer/Counselor Patient was picked up by her mother, Jer Green, at 1451.
--- NOTE | 2016-10-19 21:53 | DIS ---
[address] [address] DISCHARGE SUMMARY PATIENT: TOMMY ADAMS : 1985 MR#: [id number] ADMIT: 07/13/2016 JOB ID: [id number] DIS: 10/19/2016 ADMITTING DIAGNOSES: Include: [place] I. 1. Major depressive disorder. 2. Rule out posttraumatic stress disorder. [place] II. Deferred. [place] III. at 29 weeks. [place] IV. Severe. [place] V. 30 DISCHARGE DIAGNOSES: Include: [place] I. Schizoaffective disorder, depressed variant. [place] II. Deferred. [place] III. . [place] IV. Stressors are noted for transition of life, chronic mental health issues. [place] V. Global Assessment of Functioning current 40. REASON FOR ADMISSION: Patient was a 31-year-old female who reportedly was admitted under LINDA status with significant acute psychoses, delusions, and attempts of removal of her unborn baby with a raftsman knife. During the course of hospitalization. The patient was placed on a 14-day order and the patient was initially started on doses of Prozac 20 mg daily, Ativan 0.25 mg t.i.d. Throughout the hospital course, patient had eventual transition to doses of Zoloft 150 mg daily, Zyprexa 5 mg q.a.m. and 10 mg q.h.s. with noted significant improvement with stabilization. She eventually did deliver the child on CAB SUPERVISOR and OCS was notified for removal. Throughout hospital course, patient did require at times p.r.n. medication with forced interventions, but this was rare. Initial presentation of need for an dramatic arts historian was essentially extinguished at patient request, stating that she felt comfortable conversing with myself and many of the other care providers. I review the reader to further documentation in reference to eventual return of her alleged mother to [place]. Throughout hospital course, OCS was notified and eventual removal of the child followed. The patient did show significant benefit of treatment with both SSRI and atypical antipsychotic regimens and was agreeable to continue with medication administration in the outpatient sector. At the point of discharge, discussion was held of possible temporary housing or snf care in [place] and also a continuation of medical services through [facility]. She denied any evidence of expressed imminent danger and was excited about the life of transition. She indicated that she had several friends in the [facility] as well. OBJECTIVE: On mental status exam, the patient was cooperative, polite. She maintained good eye contact throughout. Her speech was of normal tone, frequency, and volume. Her mood was neutral. Affect was congruent. Her thought process showed no evidence of racing thoughts, flight of ideas, loose or disconnected thinking. She denied any evidence of suicidal ideation, homicidal ideation. No evidence of active hallucinations, delusions. She was alert, oriented to time and place. Her attention and concentration intact. Memory intact in the short term, extermination inspector, recent. Insight and judgment were fair. DISCHARGE PLANS: Include: 1. Patient will be bussed accordingly to [place] with instructions to check in at the [facility]. 2. Followup appointments with [facility] providers per complex case manager beginning tomorrow for continuation of medication management and case management services. 3. Continuation of medications including Zoloft 150 mg q.a.m., one-month supply, no refills. Reason for usage: Antidepressant. 4. Continuation of Zyprexa 5 mg q.a.m., 10 mg q.h.s. Reason for usage: Antipsychotic, one month supply, no refills. 5. Continuation of iron tablets 325 mg b.i.d., one month supply, no refills. Reason for usage: History of iron deficiency anemia.
== END 2016-10-19 14:40 | disposition other institution (70) | DRG 560 ==
LOC: SED 14:02 → MHC 23:56 → FBC 09-19 21:26 → MHC 09-20 22:43
PROVIDERS: ADMIT Psychiatry & Neurology Psychiatry; ATTEND Psychiatry & Neurology Psychiatry
PROC: 10E0XZZ Delivery of Products of Conception, External Approach (ICD-10-PCS; principal; 2016-09-20)
DX: O99.344 Other mental disorders complicating childbirth (principal); R45.851 Suicidal ideations; Z3A.39 39 weeks gestation of pregnancy; F25.1 Schizoaffective disorder, depressive type; O69.81X0 Labor and delivery complicated by cord around neck, without compression, not applicable or unspecified; O77.0 Labor and delivery complicated by meconium in amniotic fluid; Z37.0 Single live birth; W01.0XXA Fall on same level from slipping, tripping and stumbling without subsequent striking against object, initial encounter; Y93.9 Activity, unspecified; Y92.230 Patient room in hospital as the place of occurrence of the external cause

== ENCOUNTER 2016-10-21 19:30 | Emergency (ER) | payer SELFPAY ==
[~2016-10-21] VITALS: Ht 162.6 cm; Wt 46.4 kg
[~2016-10-21 19:30] MED LIST: FERR-74 PO; OLAN5TAB PO; SERT50TA9 PO
[2016-10-21 19:36] VITALS: BP 120/83; PULSE 81; RESP 16; O2SAT 99
[2016-10-21] MEDS ORDERED: 0.9% Sodium Chloride 1,000 ML IV ONE ×2 (20:03→21:05)
[2016-10-21 20:22] LABS: BASOPHILS % (AUTO) 0.2 % (0-3); EOSINOPHILS % (AUTO) 1.7 % (0-5); MONOCYTES % (AUTO) 5.6 % (4-12); Mean Corpuscular Hemoglobin 26.5 pg (27.0-35.0); Mean Corpuscular Volume 87.8 fL (81-100); NEUTROPHILS % (AUTO) 74.8 % (40-74); Platelet Count 332 bil/L (150-400)
[2016-10-21] MEDS ORDERED: Promethazine Inj 25 MG in 0.9% Sodium Chloride-Pha MIX 100 ML IV ONE (20:45)
--- NOTE | 2016-10-21 20:58 | ED.REPORT ---
HPI-Abd Pain F Under 40 Date of Service Oct 21, 2016 ED Provider: Issa Castañeda PA-C Femi is a 31-year-old female presenting with a chief complaint of vomiting. Patient complains of nausea, vomiting 2 (without blood), diarrhea (see without blood), fatigue, headache, tremor, right lower quadrant pain and chills for the last 2 days. Patient is discharged from [facility] 2 days ago after an extended admission for psychosis. Additionally she is one month , having had her child during that admission. The child is not her care at this time. Patient states that she is living at the [facility] but plans to move to [place] to live with a friend. Patient reports she has not been taking her prescribed medications of olanzapine, sertraline, because she was unable to get to a pharmacy to fill them. Denies suicidal ideation, homicidal ideation but admits to auditory hallucinations which she does not find particularly bothersome. Patient states she is currently experiencing her menstrual period. Denies vaginal discharge, urinary symptoms. Denies history of abdominal surgeries. Nursing Notes Stated Complaint: VOMITING, HEADACHE Chief Complaint: Female Abdominal Pain Nursing Notes Reviewed: Yes Allergies: Coded Allergies: No Known Allergies (Unverified , 07/13/16) Scheduled Ferrous Sulfate (Feosol) 325 Mg Tablet 325 MG PO BIDWM Olanzapine (Olanzapine) 5 Mg Tablet 5 MG PO DAILY Olanzapine (Olanzapine) 5 Mg Tablet 10 MG PO HS Sertraline HCl (Sertraline) 50 Mg Tablet 150 MG PO DAILY General Time Seen by MD: 19:59 Chief Complaint Vomiting mild Past Medical History Past Medical History Psychosis Smoking History Unknown if Ever Smoker Ambulatory Status Independent Review of Systems General: Admits fever, chills, malaise. HEENT: Denies congestion, headache, sore throat. Respiratory: Denies dyspnea, cough, shortness of breath, wheezing. Cardiovascular: Denies chest pain, palpitations. Gastrointestinal: Admits vomiting, diarrhea, abdominal pain. Genitourinary: Denies frequency, urgency, dysuria, hematuria. Otherwise as noted in HPI. Physical Exam General: Well appearing, well developed, well nourished, no acute distress. Head: Atraumatic, normocephalic. Eyes: No scleral icterus or injection. No discharge. Vision grossly intact. ENT: Voice clear, hearing grossly intact. Respiratory: Regular rate and rhythm. Breath sounds present, clear to auscultation and equal bilaterally. No respiratory distress. No increased work of breathing, speaks in complete sentences. Cardiovascular: Regular rate and rhythm, without murmur, gallop or rub. No pedal edema. Gastrointestinal: Abdomen flat with mild right lower quadrant tenderness. Bowel sounds normoactive. Back: Normal to inspection, negative CVA tenderness Skin: Warm and dry. Neurological: Grossly nonfocal. Psychological: Alert and oriented. Speech appropriate, linear and logical. Behavior appropriate. Patient appears to have limited insight into her previous hospitalization. When asked, she initially reports that she was hospitalized to have her baby, rather than for psychosis. Initial Vital Signs Vital Signs (First) Date Time Temp Pulse Resp B/P Pulse Ox O2 Delivery O2 Flow Rate FiO2 10/21/16 19:36 36.7 81 16 120/83 99 Room Air Initial VS: Vital signs normal Interpretation & Diagnostics Lab Results Interpretation Result Diagram: 10/21/16200710/21/16 2008 Test 10/21/16 20:08 10/21/16 21:31 White Blood Count 9.2th/mm3 (3.8-10.1) Red Blood Count 4.34mil/mm3 (3.90-5.20) Hemoglobin 11.5g/dL (12.0-15.6) Hematocrit 38.1% (35.0-46.0) Mean Corpuscular Volume 87.8fL (81-100) Mean Corpuscular Hemoglobin 26.5pg (27.0-35.0) Mean Corpuscular Hemoglobin Concent 30.2% (32.0-37.0) Red Cell Distribution Width 15.5% (12.3-15.4) Platelet Count 332bil/L (150-400) Neutrophils (%) (Auto) 74.8% (40-74) Lymphocytes (%) (Auto) 17.6% (14-46) Monocytes (%) (Auto) 5.6% (4-12) Eosinophils (%) (Auto) 1.7% (0-5) Basophils (%) (Auto) 0.2% (0-3) Sodium Level 136mEq/L (134-144) Potassium Level 3.8mEq/L (3.5-5.2) Chloride Level 98mEq/L (97-108) Carbon Dioxide Level 24mmol/L (18-29) Blood Urea Nitrogen 13mg/dL (6-20) Creatinine 0.52mg/dL (0.57-1.00) Estimat Glomerular Filtration Rate 198mL/min (>59) Glucose Level 105mg/dL (60-99) Calcium Level 9.1mg/dL (8.5-10.1) Total Bilirubin 0.2mg/dL (0.0-1.2) Aspartate Amino Transf (AST/SGOT) 16U/L (0-50) Alanine Aminotransferase (ALT/SGPT) 17U/L (0-32) Alkaline Phosphatase 119U/L (25-150) Total Protein 7.9g/dL (6.4-8.4) Albumin 4.5g/dL (3.4-5.0) Lipase 29U/L (13-60) Hold [facility] Top Tube Received (Received) Urine Color Yellow (YELLOW) Urine Appearance Clear (CLEAR,HAZY) Urine pH 6.5 (5.0-8.0) Urine Specific [place] 1.005 (1.003-1.035) Urine Protein Negativemg/dL (NEG,TRACE) Urine Glucose (UA) Negativemg/dL (NEGATIVE) Urine Ketones Negativemg/dL (NEGATIVE) Urine Occult Blood Negative (NEGATIVE) Urine Nitrite Negative (NEGATIVE) Urine Bilirubin Negative (NEGATIVE) Urine Urobilinogen Normalmg/dL (NORMAL) Urine Leukocyte Esterase Negative (NEGATIVE) Urine RBC 0-2/hpf (0-2) Urine WBC 0-5/hpf (0-5) Urine Epithelial Cells Few/hpf (NONE-MOD) Urine Crystals None seen (NONE SEEN) Urine Bacteria None/hpf (NONE-FEW) Urine Hyaline Casts None/lpf (NONE) Urine Granular Casts None seen (NONE SEEN) Urine Waxy Casts None seen (NONE SEEN) Urine Red Blood Cell Casts None seen (NONE SEEN) Urine White Blood Cell Casts None seen (NONE SEEN) Urine Mucus None seen (None Seen) Urine Trichomonas None seen (NONE SEEN) Urine Yeast None (NONE SEEN) Urinalysis Comment None Urine Culture Reflexed Not indicated CT Abd / Pelvis Interpretation no acute disease Study type: Abdominal CT IV contrast Interpretation / Wet Read by: Interpret - Radiologist Re-Eval/Medical Decision Med Decision/Clinical Course 31-year-old male presents to emergency department complaining of nausea, vomiting, diarrhea for the last 2 days. Patient was recently discharged from [facility] after a long admission for psychosis during which she gave to her child. She is no longer in custody of child. Discharge 2 days ago to [facility], to be engaged by access nurse at [facility]. Reports she has not been taking medications, has not filled them because of transportation issues. My suicidal ideation, homicidal ideation. Admits to auditory hallucinations which she does not find bothersome. Complains of right lower quadrant abdominal pain, nausea and vomitingx2 aggravated a eating or drinking. History and physical examination are conducted using remote certified court interpreter. Physical examination reveals mild right lower quadrant tenderness, otherwise benign. Patient has a flat affect. CBC reveals mild microcytic anemia, CMP is unremarkable, urinalysis is normal. U tox negative, negative. I discussed the case with Dr. James, who evaluated and examined the patient. He feels a CT is justified. CT returns normal.. At this point we are reassured regarding appendicitis, diverticulitis, cholecystitis, pancreatitis, ovarian cyst or torsion, . I believe she is stable and safe to be discharged home. Advised regarding primary care follow-up, provided emergency return precautions. Patient verbalized understanding of, and consent to, the plan. Re-Evaluation/Progress : Time of Eval: 21:13 Re-Evaluation/Progress Note: I discussed case with Dr. James, who met with and examined the patient. He confirms right lower quadrant tenderness, feels CT is justified. Discharge & Departure Primary Impression: Abdominal pain Abdominal location: right lower quadrant Qualified Code: R10.31 - Right lower quadrant pain Disposition: Home Discharge Condition All VS Reviewed: Yes Condition: Stable Patient Instructions: Acute Abdominal Pain (ED) Additional Instructions: Evaluation in the emergency department for nausea and vomiting includes history , physical examination, blood work, urinalysis as well as a CT scan all of which are reassuring that this is unlikely to be caused by an immediately dangerous condition. We believe you are stable and safe to be discharged. Is very important that you fill the prescriptions that you were discharged from the hospital with, and take them as instructed. This will help prevent a future admission. It is extremely important that you get established with a primary care provider in [place] to manage your medications for you. Return to the emergency department for any new or worsening symptoms including increasing pain, vomiting that does not respond to medication, fever. Referrals: NOPCP (PCP) [facility]. [address] [place] [address] EDSupervising Provider for APC: Demond James MD Attending Statment I personally examined this patient and guided medical decision making. Issa Castañeda PA-C Oct 21, 2016 20:58 Demond James MD Oct 21, 2016 23:27
[2016-10-21] MEDS ORDERED: Iohexol 300 mg/mL 30 mL Inj PO ONE (21:20)
[2016-10-21 21:39] LABS: APPEARANCE,URINE CLEAR (CLEAR,HAZY); COLOR,URINE YELLOW (YELLOW); OCCULT BLOOD,URINE NEGATIVE (NEGATIVE); PH,URINE 6.5 (5.0-8.0); UROBILINOGEN,URINE NORMAL (NORMAL)
--- NOTE | 2016-10-22 07:07 | DRSVH ---
PROCEDURE: CT ABDOMEN AND PELVIS WITH CONTRAST ([id number]) INDICATIONS: right lower quadrant tenderness TECHNIQUE: After the administration of oral and intravenous contrast, 5 mm thick sections acquired from the diap hragms to the symphysis. 5 mm thick coronal and sagittal reformats were performed. For radiation do se reduction, the following was used: automated exposure control, adjustment of mA and/or kV accordi ng to patient size. COMPARISON: None. FINDINGS: Image quality: Excellent. ABDOMEN: Lung bases: Lung bases are clear. Heart size is normal. Solid organs: Mild fatty infiltration of the liver with possible mild mildly nodular confirmation to the liver. No hepatic masses. The pancreas, spleen, adrenal glands, kidneys are normal. The gallbladd er is decompressed otherwise normal. Peritoneum and bowel: Stomach, small bowel, and colon loops are normal in caliber and wall thickness . No free fluid or air. Mild wall thickening at the GE junction with a small amount oral contrast r efluxed into the distal esophagus. Normal appendix. Nodes and vessels: No retroperitoneal or mesenteric adenopathy. Aorta and inferior vena cava are no rmal in caliber. Miscellaneous: No ventral hernias. PELVIS: Genitourinary: Bladder wall thickness is normal. Miscellaneous: No inguinal hernias or adenopathy. Bones: No suspicious bony lesions. No vertebral body compression fractures. IMPRESSION: 1. No CT evidence of acute abdominal or pelvic pathology. 2. Mild fatty infiltration of the liver with possible minimal nodular confirmation the liver. Please correlate for any clinical evidence of hepatic dysfunction or early cirrhosis. 3. Minimal wall thickening at the GE junction. 4. There are no discrepancies with the preliminary report. Dictated by: Donnie Kaiser M.D. on 10/22/2016 at 7:00 Approved by: Donnie Kaiser M.D. on 10/22/2016 at 7:06
== END 2016-10-22 01:01 | disposition home or self-care (01) ==
LOC: SED 19:30
DX: R10.31 Right lower quadrant pain (principal); R19.7 Diarrhea, unspecified; R53.83 Other fatigue; R51 Headache; R25.1 Tremor, unspecified
CPT/HCPCS: 36415; 74177; 80053; 81000; 81025; 83690; 85025; 96361; 96374; 99285; J2550; J7030; Q9967